=== PATIENT | female | born 1970 | race Caucasian/White ===

== ENCOUNTER 2023-02-25 08:05 | Outpatient (REF) | payer MEDICAID, SELFPAY ==
[2023-02-25 10:52] LABS: Basophils Percent Auto 0.5 % (0-2); Eosinophils Absolute Auto 0.1 X10*3/uL (0.0-0.4); Eosinophils Percent Auto 1.1 % (0-4); Hematocrit 39.8 % (37.0-47.0); Hemoglobin 12.8 g/dl (12.0-16.0); Imm Gran Abs Auto 0.01 X10*3/uL (0.00-0.03); Imm Gran Pct Auto 0.2 % (0.0-0.4); Lymphocytes Absolute Auto 3.4 X10*3/uL (1.2-4.9); Lymphocytes Percent Auto 61.1 % (20-40); MANUAL DIFF FLAG SCAN; Mean Corpuscular HGB Conc 32.2 g/dl (31.0-35.0); Mean Corpuscular Hemoglobin 27.6 pg (27.0-33.0); Mean Platelet Volume 10.5 fL (9.4-12.3); Monocytes Absolute Auto 0.4 X10*3/uL (0.1-1.2); Monocytes Percent Auto 7.3 % (2-11); Neutrophils Absolute Auto 1.7 x10*3/uL (2.0-8.3); Neutrophils Percent Auto 29.8 % (45-73); Platelet Count 390 X10*3/uL (160-400); Red Blood Count 4.63 X10*6/uL (4.20-5.50); Red Cell Distribution Width 13.1 % (11.0-16.0); SCAN SMEAR FLAG 1; White Blood Count 5.6 X10*3/uL (4.8-10.8)
[2023-02-25 11:13] LABS: SLIDE REVIEW VERIFIED
[2023-02-25 11:26] LABS: Alanine Aminotransferase 23 U/L (0-31); Albumin Level 4.5 g/dL (3.5-5.0); Alkaline Phosphatase 88 U/L (39-117); Anion Gap 12 (12-20); Bilirubin Total 0.4 mg/dL (0.0-1.0); Blood Urea Nitrogen 13 mg/dL (9-16); C Reactive Protein 0.32 mg/dL (< or = 0.50); Calcium 10.2 mg/dL (8.4-10.2); Carbon Dioxide 26 mmol/L (22-29); Chloride 107 mmol/L (96-108); Estimated Glomerular Filt Rate > 60; Glucose Random 98 mg/dL (60-115); Potassium 4.2 mmol/L (3.3-5.1); Sodium 141 mmol/L (135-145); Total Protein 8.7 g/dL (6.5-8.0)
[2023-02-25 11:33] LABS: Erythrocyte Sedimentation Rate 22 MM/HR (0-20)
[2023-02-25 11:36] LABS: HBsAGNum1 0.25 S/CO (0.00-0.99); Hepatitis A Antibody IgM 0.11 Index (0-0.79); Hepatitis B Core Antibody Nonreactive (Nonreactive); Hepatitis B Surface Antigen Negative (Negative); ~HepC Num1 0.17 S/CO (0.00-0.79); ~Hepatitis A Antibody IgM Nonreactive (Nonreactive); ~Hepatitis B Surface Antibody NONREACTIVE (Nonreactive); ~Hepatitis C Antibody Nonreactive (Nonreactive)
[2023-02-25 11:43] LABS: Aspartate Amino Transferase 31 U/L (5-31)
[2023-02-27 19:09] LABS: TS Negative Control Passed; TS Panel A 0; TS Panel B 0; TS Positive Control Passed; TSpotTB Negative (Negative)
== END 2023-02-25 08:06 | disposition home or self-care (01) ==
LOC: HO.XRAY 08:05
PROVIDERS: PCP Physician Assistant; Visit Provider Student in an Organized Health Care Education/Training Program
DX: Z11.7 Encounter for testing for latent tuberculosis infection (principal); Z11.59 Encounter for screening for other viral diseases; M45.8 Ankylosing spondylitis sacral and sacrococcygeal region; D72.820 Lymphocytosis (symptomatic); M45.9 Ankylosing spondylitis of unspecified sites in spine
CPT/HCPCS: 36415; 73110; 73130; 73610; 73630; 80053; 85025; 85652; 86140; 86481; 86704; 86706; 86709; 86803; 87340; 99202

== ENCOUNTER 2023-02-25 08:05 | Outpatient (AMB) | payer MEDICAID, SELFPAY ==
--- NOTE | 2023-02-25 08:46 | A.OFFVIS_ITS ---
Intake Vital Signs 02/25/23 08:50 Height 5 ft 8 in Weight 203 lb 14.841 oz BMI 31.0 BP 110/80 Blood Pressure Location Rt brachial Position Sitting Pulse 85 Pulse Source Pulse Oximeter Temp 97.9 F Temp Source Skin Pulse Oximetry (%) 98 Oxygen Delivery Method Room Air Intake Visit Reasons: Intake Note: New pt presents today for consult. Reports pain in multiple joints and back. Former patient of Dr. Munoz and Dr. Pardo. Currently on Humira. PCP has been filling script. 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 Per patient she was started on Humira back in 2017 and it was a miracle drug for her. Over the years its efficacy waned. Towards the end of 2021. Dr. Pardo ask patient to hold the Humira due to persistent neutropenia and lymphocytosis. She was evaluated by cloud consultant Dr. Rehman early in 2022 according to patient she had extensive evaluation and was told that can continue with biologic treatment. She states that when Humira was restarted this time it is as if she is not taking anything. She has persistent mid to low back pain. She has morning stiffness of her back lasting at least 30 minutes. Over the years she was taking Celebrex but it did cause plenty of GI problems. An EGD showed hiatal hernia and esophagitis with ulcers. Patient also has known history of scoliosis and degenerative disc disease of her L-spine. She had L- spine surgery in 2000. Has been following up regularly with Dr. Jj for years and received numerous steroid injections in her back including epidurals and SI joint injections. She states that she gets intermittent peripheral joint pains. She has been having left ankle pain recently. She denies any history suggestive of psoriasis. No history suggestive of uveitis. No history suggestive of inflammatory bowel disease. She mentions that her sister might have Crohn's or ulcerative colitis but she is not sure. She has not been in contact with her sister for more than 12 years. Previous history by Dr. Munoz? Follow-up HLA B27 positive ankylosing spondylitis, sacroiliitis on x-ray, inflammatory symptoms, response to NSAIDs Initially started Humira 08/2018.? Sobeida noticed marked improvements in her back symptoms at a.m. stiffness.?? She was able to walk up and down stairs.? Perform daily household duties, all without significant pain.? However Humira effectiveness weight somewhat.? Still vastly improved, but with some discomfort.? Has found Celebrex useful, but takes it sparingly due to significant reflux symptoms? She is taking narcotics for mechanical back symptoms sees Dr. Jj History of mild Raynaud's.? She has Alesia's thyroiditis. [facility] Medical History (Updated 02/25/23 @ 09:46 by Sara Lanza MD) Morphea Scoliosis deformity of spine Hypothyroidism Chronic low back pain Ankylosing spondylitis Raynaud's disease Surgical History (Updated 02/25/23 @ 09:41 by Sara Lanza MD) S/P ACL repair H/O basal cell carcinoma excision Family History Mother Mental disorder Father Parkinson disease Sister Thyroid malignant neoplasm Maternal Grandfather Myocardial infarction Maternal Grandmother Pancreatic tumor Diabetes Daughter Hypermobile joints Social History Household Members: Spouse Alcohol intake: current Alcohol intake frequency: holidays/special occasions only Patient Tobacco Use Status: Former Tobacco user Current occupational status: unemployed Female Reproductive History Menstrual Total pregnancies: 2 Ab induced: 1 Ab spontaneous: 1 Review of Systems Const Reports fatigue and Reports weakness Eyes Reports blurry vision ENT Reports dizziness and Reports dry mouth GI Reports heartburn and Reports vomiting Reports vaginal dryness Musc Reports back pain, Reports arthralgias and Reports stiffness Neuro Reports dizziness and Reports weakness Endo Reports fatigue Physical Exam Vital Signs: Last Vital Signs Temp 97.9 F 02/25/23 08:50 Pulse 85 02/25/23 08:50 BP 110/80 02/25/23 08:50 Pulse Ox 98 02/25/23 08:50 Oxygen Delivery Method Room Air 02/25/23 08:50 BMI result Body Mass Index 31.0 Const General: cooperative, healthy appearing and comfortable Nutritional Appearance: obese Orientation/consciousness: patient oriented x3 Limitations: no limitations HEENT Head: Yes normocephalic and Yes atraumatic Mouth: moist mucous membranes Resp Effort & Inspection: normal respiratory effort and able to speak in complete sentences Auscultation: clear to auscultation bilaterally Cardio Rate: regular rate Rhythm: regular rhythm GI Inspection: No distended Palpation (GI): Soft to palpation and nontender Skin General skin exam: no rashes or lesions noted Neuro General: patient oriented x3 Extrem Other: Limited neck rotation to the left Yecenia test 10-11 cm Significant scoliosis Hypermobile joints Bony prominence of left index DIP without tenderness No swollen joints on exam Negative straight leg raise test bilaterally Equivocal MATY test bilaterally Left ankle tenderness without swelling No nail pits Normal nailfold capillaroscopy Results Reviewed Results Reviewed: L-spine x-ray (not sure of the date) 1. Left convex spinal curvature with disc space narrowing from L3-4 through L5- S1 and osteophytic spurring most pronounced on the left at L4-5.? No definite change from 2017? 2. No acute bony abnormality 3. Sacroiliac joint space narrowing bilaterally with sclerotic change suggesting sacroiliitis L-spine MRI 2016 Impression: Bone and disc degenerative change but without prominent progression since prior examination of December 2014. There is some slightly progressive degenerative change across L4-5 on the left with equivocally slightly increased mass effect in the left L4 nerve root as it but no new focal disc abnormality or progressive central canal stenosis is appreciated. Acute and chronic degenerative changes present across the L4-5 and L5-S1 endplates X-ray pelvis 06/2022 Comparison 06/2018 Impression: Prominent but stable sclerosis along the SI joint its margins consistent with sacroiliitis. No gross erosions or ankylosis apparent on AP imaging Spine x-ray 06/2022 Comparison 04/2013 Impression: Progression of scoliotic curvatures. Particularly at the T11-L4 level since 2013 Assessment & Plan Assessment & Plan (1) Ankylosing spondylitis: Comment: HLA b27 + onset around 2016 sacroiliitis on X-ray Celebrex helpful but causes GI upset, esophagitis Humira 2018 initially helpful then has secondary non response Code(s): M45.9 - Ankylosing spondylitis of unspecified sites in spine Qualifiers: Ankylosing spondylitis location: sacrococcygeal region Qualified Code(s): M45.8 - Ankylosing spondylitis sacral and sacrococcygeal region Plan: This is a 52-year-old female with HLA B27 positive with sacroiliitis who presents as a new patient. 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 Upon evaluation patient is having secondary nonresponse to Humira. It is no longer helping her symptoms. Check labs today. Check x-rays of hands, feet, ankles. Will need to switch DMARDs. Discussed risks and benefits of Enbrel. Patient agreed to proceed. Will start prior authorization for Enbrel. Follow-up in 3 months (2) Lymphocytosis: Code(s): D72.820 - Lymphocytosis (symptomatic) Plan: Patient was found to have lymphocytosis and mild neutropenia on previous labs. Per patient she was evaluated by a cloud consultant Dr. Rehman and testing was done and was told that she can continue with biologics. Will request records from Dr. Rehman Plan I spent 65 minutes reviewing patient's chart, evaluating patient, ordering diagnostic workup, counseling patient and documenting in the chart Orders: Orders Complete Blood Count Auto Diff Today M45.9 - Ankylosing spondylitis of unspecified sites in spine Comprehensive Met. Panel Today M45.9 - Ankylosing spondylitis of unspecified sites in spine Erythrocyte Sedimentation Rate Today M45.9 - Ankylosing spondylitis of unspecified sites in spine T Spot TB Today Z11.7 - Encounter for testing for latent tuberculosis infection XR ankle LT min 3V Today M45.9 - Ankylosing spondylitis of unspecified sites in spine C Reactive Protein Today M45.9 - Ankylosing spondylitis of unspecified sites in spine Hepatitis A,B,C Profile Today Z11.59 - Encounter for screening for other viral diseases XR hand wrist LT Today M45.9 - Ankylosing spondylitis of unspecified sites in spine XR hand wrist RT Today M45.9 - Ankylosing spondylitis of unspecified sites in spine XR ankle RT min 3V Today M45.9 - Ankylosing spondylitis of unspecified sites in spine XR foot LT min 3V Today M45.9 - Ankylosing spondylitis of unspecified sites in spine XR foot RT min 3V Today M45.9 - Ankylosing spondylitis of unspecified sites in spine Coding Level of Care Code New Pt Level 5 (34157) Diagnoses Ankylosing spondylitis of sacrococcygeal region M45.8 Ankylosing spondylitis location: sacrococcygeal region Lymphocytosis D72.820
[2023-02-25 08:50] VITALS: BP 110/80; PULSE 85; TEMP 36.6; O2SAT 98; BMI 31.0
== END 2023-02-25 09:32 | disposition home or self-care (01) ==
PROVIDERS: PCP Physician Assistant; Visit Provider Student in an Organized Health Care Education/Training Program
DX: M45.8 Ankylosing spondylitis sacral and sacrococcygeal region (principal); D72.820 Lymphocytosis (symptomatic)
CPT/HCPCS: 99205

== ENCOUNTER 2023-05-28 08:07 | Outpatient (AMB) | payer OTHER, SELFPAY ==
--- NOTE | 2023-05-28 08:16 | MHC.OFFVIS ---
Intake Vital Signs 05/28/23 08:17 Height 5 ft 8 in Weight 203 lb 4.259 oz BMI 30.9 BP 106/60 Blood Pressure Location Rt brachial Position Sitting Pulse 75 Pulse Source Pulse Oximeter Temp 97.0 F Temp Source Skin Pulse Oximetry (%) 97 Oxygen Delivery Method Room Air Intake Visit Reasons: Intake Note: Patient last seen 02/15/23 presents today for follow up and test results. 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 She has been on Enbrel for approximately 3 months now, she states that she is about 50% improved improved back stiffness, bilateral hand pain and stiffness in the morning. She continues however to have pain in her lower back. She has been having lower back pain as well as tailbone pain. She was recently evaluated by her pain medicine physician and tailbone injection was suggested she states that she gets intermittent pain at the base of her thumbs. They do not hurt today Initial history: This is a 52-year-old female with HLA B27 positive ankylosing spondylitis who presents as a new patient. 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 Per patient she was started on Humira back in 2017 and it was a miracle drug for her. Over the years its efficacy waned. Towards the end of 2021. Dr. Pardo ask patient to hold the Humira due to persistent neutropenia and lymphocytosis. She was evaluated by lithographic plate maker apprentice Dr. Rehman early in 2022 according to patient she had extensive evaluation and was told that can continue with biologic treatment. She states that when Humira was restarted this time it is as if she is not taking anything. She has persistent mid to low back pain. She has morning stiffness of her back lasting at least 30 minutes. Over the years she was taking Celebrex but it did cause plenty of GI problems. An EGD showed hiatal hernia and esophagitis with ulcers. Patient also has known history of scoliosis and degenerative disc disease of her L-spine. She had L-spine surgery in 2000. Has been following up regularly with Dr. Jj for years and received numerous steroid injections in her back including epidurals and SI joint injections. She states that she gets intermittent peripheral joint pains. She has been having left ankle pain recently. She denies any history suggestive of psoriasis. No history suggestive of uveitis. No history suggestive of inflammatory bowel disease. She mentions that her sister might have Crohn's or ulcerative colitis but she is not sure. She has not been in contact with her sister for more than 12 years. Previous history by Dr. Munoz? Follow-up HLA B27 positive ankylosing spondylitis, sacroiliitis on x-ray, inflammatory symptoms, response to NSAIDs Initially started Humira 08/2018.? Sobeida noticed marked improvements in her back symptoms at a.m. stiffness.?? She was able to walk up and down stairs.? Perform daily household duties, all without significant pain.? However Humira effectiveness weight somewhat.? Still vastly improved, but with some discomfort.? Has found Celebrex useful, but takes it sparingly due to significant reflux symptoms? She is taking narcotics for mechanical back symptoms sees Dr. Jj History of mild Raynaud's.? She has Alesia's thyroiditis. [facility] Medical History Morphea Scoliosis deformity of spine Hypothyroidism Chronic low back pain Ankylosing spondylitis Raynaud's disease Surgical History S/P ACL repair H/O basal cell carcinoma excision Family History Mother Mental disorder Father Parkinson disease Sister Thyroid malignant neoplasm Maternal Grandfather Myocardial infarction Maternal Grandmother Pancreatic tumor Diabetes Daughter Hypermobile joints Social History Household Members: Spouse Alcohol intake: current Alcohol intake frequency: holidays/special occasions only Patient Tobacco Use Status: Former Tobacco user Current occupational status: unemployed [place] [facility] [place] pain, Reports arthralgias and Reports stiffness Physical Exam Vital Signs: Last Vital Signs Temp 97.0 F 05/28/23 08:17 Pulse 75 05/28/23 08:17 BP 106/60 05/28/23 08:17 Pulse Ox 97 05/28/23 08:17 Oxygen Delivery Method Room Air 05/28/23 08:17 BMI result Body Mass Index 30.9 Const General: cooperative, healthy appearing and comfortable Nutritional Appearance: obese Orientation/consciousness: patient oriented x3 Limitations: no limitations HEENT Head: Yes normocephalic and Yes atraumatic Mouth: moist mucous membranes Resp Effort & Inspection: normal respiratory effort and able to speak in complete sentences Auscultation: clear to auscultation bilaterally Cardio Rate: regular rate Rhythm: regular rhythm GI Inspection: No distended Palpation (GI): Soft to palpation and nontender Skin General skin exam: no rashes or lesions noted Neuro General: patient oriented x3 Extrem Other: Yecenia test 10-12 cm Significant scoliosis Hypermobile joints Bony prominence of left index DIP without tenderness No swollen joints on exam Negative straight leg raise test bilaterally Equivocal MATY test bilaterally Left ankle tenderness without swelling No nail pits Normal nailfold capillaroscopy Results Reviewed Results Reviewed: L-spine x-ray (not sure of the date) 1. Left convex spinal curvature with disc space narrowing from L3-4 through L5-S1 and osteophytic spurring most pronounced on the left at L4-5.? No definite change from 2017? 2. No acute bony abnormality 3. Sacroiliac joint space narrowing bilaterally with sclerotic change suggesting sacroiliitis L-spine MRI 2016 Impression: Bone and disc degenerative change but without prominent progression since prior examination of December 2014. There is some slightly progressive degenerative change across L4-5 on the left with equivocally slightly increased mass effect in the left L4 nerve root as it but no new focal disc abnormality or progressive central canal stenosis is appreciated. Acute and chronic degenerative changes present across the L4-5 and L5-S1 endplates X-ray pelvis 06/2022 Comparison 06/2018 Impression: Prominent but stable sclerosis along the SI joint its margins consistent with sacroiliitis. No gross erosions or ankylosis apparent on AP imaging Spine x-ray 06/2022 Comparison 04/2013 Impression: Progression of scoliotic curvatures. Particularly at the T11-L4 level since 2014 Assessment & Plan Assessment & Plan (1) Ankylosing spondylitis: Comment: HLA b27 + onset around 2016 sacroiliitis on X-ray Celebrex helpful but causes GI upset, esophagitis Humira 2018 initially helpful then has secondary non response Enbrel 03/2023 effective Code(s): M45.9 - Ankylosing spondylitis of unspecified sites in spine Qualifiers: Ankylosing spondylitis location: sacrococcygeal region Qualified Code(s): M45.8 - Ankylosing spondylitis sacral and sacrococcygeal region Plan: This is a 52-year-old female with HLA B27 positive with sacroiliitis who presents for follow-up. She has been on Enbrel consistently for approximately 3 months now with about 50% improvement in her overall pain. Of note patient has significant degenerative arthritis, as well as scoliosis, multiple pain generators. No objection to further intra-articular injections from Rheumatology standpoint Continue with Enbrel 50 mg weekly. 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 Patient fully aware. Advised patient to seek medical care [facility] if patient has an infection and advised patient to stop the medication until the infection is resolved. Plan I spent 25 minutes reviewing patient's chart, evaluating patient, ordering diagnostic workup, counseling patient and documenting in the chart Orders: Orders Comprehensive Met. Panel Today M45.9 - Ankylosing spondylitis of unspecified sites in spine C Reactive Protein Today M45.9 - Ankylosing spondylitis of unspecified sites in spine Complete Blood Count Auto Diff 3 Months M45.9 - Ankylosing spondylitis of unspecified sites in spine Comprehensive Met. Panel 3 Months M45.9 - Ankylosing spondylitis of unspecified sites in spine C Reactive Protein 3 Months M45.9 - Ankylosing spondylitis of unspecified sites in spine Complete Blood Count Auto Diff Today M45.9 - Ankylosing spondylitis of unspecified sites in spine Erythrocyte Sedimentation Rate Today M45.9 - Ankylosing spondylitis of unspecified sites in spine Erythrocyte Sedimentation Rate 3 Months M45.9 - Ankylosing spondylitis of unspecified sites in spine Medications: Refilled Enbrel SureClick (etanercept) 50 mg subcut QWEEK 4 mL 2RF NS Coding Level of Care Code Est Pt Level 4 (48688) Diagnoses Ankylosing spondylitis of sacrococcygeal region M45.8 Ankylosing spondylitis location: sacrococcygeal region High risk medication use Z79.899
[2023-05-28 08:17] VITALS: BP 106/60; PULSE 75; TEMP 36.1; O2SAT 97; BMI 30.9
== END 2023-05-28 08:58 | disposition home or self-care (01) ==
PROVIDERS: PCP Physician Assistant; Visit Provider Student in an Organized Health Care Education/Training Program
DX: M45.8 Ankylosing spondylitis sacral and sacrococcygeal region (principal); Z79.899 Other long term (current) drug therapy
CPT/HCPCS: 99214

== ENCOUNTER → 2023-05-28 08:07 | Outpatient (BNVA) | payer OTHER, SELFPAY | PROVIDERS: PCP Physician Assistant; Visit Provider Student in an Organized Health Care Education/Training Program | DX: M45.8 Ankylosing spondylitis sacral and sacrococcygeal region (principal); Z79.899 Other long term (current) drug therapy | CPT/HCPCS: 99212 ==

== ENCOUNTER 2023-09-02 08:01 | Outpatient (AMB) | payer OTHER, SELFPAY ==
[2023-09-02 08:11] VITALS: BP 118/62; PULSE 81; O2SAT 99; BMI 30.8
--- NOTE | 2023-09-02 08:11 | MHC.OFFVIS ---
Vital Signs 09/02/23 08:11 Height 5 ft 8 in Weight 202 lb 13.204 oz BMI 30.8 BP 118/62 Blood Pressure Location Rt brachial Position Sitting Pulse 81 Pulse Source Pulse Oximeter Pulse Oximetry (%) 99 Oxygen Delivery Method Room Air Intake Visit Reasons: /LM Intake Note: Pt seen today for follow up. Reports flare up- increased in pain, fatigue. [place] [facility] [place] Spinner Frame Required: No Accompanied by: Spouse Allergies erythromycin base Adverse Reaction (Unknown, Unverified 09/02/23 08:19) Unknown Gtjylbi-AXT-HjP Reductase Inhibitor Adverse Reaction (Unknown, Verified 09/02/23 08:19) Muscle Pain Medication List - Last Reconciled 09/02/23 by Sara Lanza MD Enbrel SureClick (etanercept) 50 mg subcut QWEEK NS levothyroxine 100 mcg PO DAILY metoprolol succinate ER 25 mg PO DAILY oxycodone 10 mg PO QID rosuvastatin mg PO DAILY HPI Comments Details: 52-year-old female with HLA B27 positive ankylosing spondylitis returns for follow-up. She remains on Enbrel 50 mg weekly. She feels that Enbrel is not working anymore. Not as effective. She has been having worsening joint pains in her hands, ankles, toes, fingers, back. She denies any recent illness. Initial history: This is a 52-year-old female with HLA B27 positive ankylosing spondylitis who presents as a new patient. 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 Per patient she was started on Humira back in 2017 and it was a miracle drug for her. Over the years its efficacy waned. Towards the end of 2021. Dr. Pardo ask patient to hold the Humira due to persistent neutropenia and lymphocytosis. She was evaluated by paper twister tender Dr. Rehman early in 2022 according to patient she had extensive evaluation and was told that can continue with biologic treatment. She states that when Humira was restarted this time it is as if she is not taking anything. She has persistent mid to low back pain. She has morning stiffness of her back lasting at least 30 minutes. Over the years she was taking Celebrex but it did cause plenty of GI problems. An EGD showed hiatal hernia and esophagitis with ulcers. Patient also has known history of scoliosis and degenerative disc disease of her L-spine. She had L-spine surgery in 2000. Has been following up regularly with Dr. Jj for years and received numerous steroid injections in her back including epidurals and SI joint injections. She states that she gets intermittent peripheral joint pains. She has been having left ankle pain recently. She denies any history suggestive of psoriasis. No history suggestive of uveitis. No history suggestive of inflammatory bowel disease. She mentions that her sister might have Crohn's or ulcerative colitis but she is not sure. She has not been in contact with her sister for more than 12 years. Previous history by Dr. Munoz? Follow-up HLA B27 positive ankylosing spondylitis, sacroiliitis on x-ray, inflammatory symptoms, response to NSAIDs Initially started Humira 08/2018.? Sobeida noticed marked improvements in her back symptoms at a.m. stiffness.?? She was able to walk up and down stairs.? Perform daily household duties, all without significant pain.? However Humira effectiveness weight somewhat.? Still vastly improved, but with some discomfort.? Has found Celebrex useful, but takes it sparingly due to significant reflux symptoms? She is taking narcotics for mechanical back symptoms sees Dr. Jj History of mild Raynaud's.? She has Alesia's thyroiditis. [facility] Medical History Morphea Scoliosis deformity of spine Hypothyroidism Chronic low back pain Ankylosing spondylitis Raynaud's disease Surgical History S/P ACL repair H/O basal cell carcinoma excision Family History Mother Mental disorder Father Parkinson disease Sister Thyroid malignant neoplasm Maternal Grandfather Myocardial infarction Maternal Grandmother Pancreatic tumor Diabetes Daughter Hypermobile joints Social History Household Members: Spouse Alcohol intake: current Alcohol intake frequency: holidays/special occasions only Patient Tobacco Use Status: Former Tobacco user Current occupational status: unemployed Female Reproductive History Menstrual Total pregnancies: 2 Ab induced: 1 Ab spontaneous: 1 Review of Systems Musc Reports back pain, Reports arthralgias, Reports joint swelling and Reports stiffness Physical Exam Vital Signs: Last Vital Signs Pulse 81 06/25/24 08:11 BP 118/62 09/02/23 08:11 Pulse Ox 99 09/02/23 08:11 Oxygen Delivery Method Room Air 09/02/23 08:11 BMI result Body Mass Index 30.8 Const General: cooperative, healthy appearing and comfortable Nutritional Appearance: obese Orientation/consciousness: patient oriented x3 Limitations: no limitations HEENT Head: Yes normocephalic and Yes atraumatic Mouth: moist mucous membranes Resp Effort & Inspection: normal respiratory effort and able to speak in complete sentences Auscultation: clear to auscultation bilaterally Cardio Rate: regular rate Rhythm: regular rhythm GI Inspection: No distended Palpation (GI): Soft to palpation and nontender Skin General skin exam: no rashes or lesions noted Neuro General: patient oriented x3 Extrem Other: Yecenia test 10-12 cm Significant scoliosis Hypermobile joints Bony prominence of left index DIP + tenderness Right 1st CMC joint tenderness Negative straight leg raise test bilaterally No nail pits Normal nailfold capillaroscopy Results Reviewed Results Reviewed: L-spine x-ray (not sure of the date) 1. Left convex spinal curvature with disc space narrowing from L3-4 through L5-S1 and osteophytic spurring most pronounced on the left at L4-5.? No definite change from 2017? 2. No acute bony abnormality 3. Sacroiliac joint space narrowing bilaterally with sclerotic change suggesting sacroiliitis L-spine MRI 2016 Impression: Bone and disc degenerative change but without prominent progression since prior examination of December 2014. There is some slightly progressive degenerative change across L4-5 on the left with equivocally slightly increased mass effect in the left L4 nerve root as it but no new focal disc abnormality or progressive central canal stenosis is appreciated. Acute and chronic degenerative changes present across the L4-5 and L5-S1 endplates X-ray pelvis 06/2022 Comparison 06/2018 Impression: Prominent but stable sclerosis along the SI joint its margins consistent with sacroiliitis. No gross erosions or ankylosis apparent on AP imaging Spine x-ray 06/2022 Comparison 04/2013 Impression: Progression of scoliotic curvatures. Particularly at the T11-L4 level since 2013 Assessment & Plan Assessment & Plan (1) Ankylosing spondylitis: Comment: HLA b27 + onset around 2016 sacroiliitis on X-ray Celebrex helpful but causes GI upset, esophagitis Humira 2018 initially helpful then has secondary non response Enbrel 03/2023 effective Code(s): M45.9 - Ankylosing spondylitis of unspecified sites in spine Category: Medical Qualifiers: Ankylosing spondylitis location: sacrococcygeal region Qualified Code(s): M45.8 - Ankylosing spondylitis sacral and sacrococcygeal region Plan: This is a 52-year-old female with HLA B27 positive with sacroiliitis who presents for follow-up. On Enbrel 50 mg weekly. Doing much worse overall. Multiple tender joints. Inflammatory markers elevated. Patient likely developed secondary nonresponse to Enbrel. Will need to change mechanism of action. Discussed risks and benefits of Rinvoq. Discussed black box warning with potential increased risk of malignancy, cardiovascular events, thromboembolic phenomenon, patient agreed to proceed. I provided patient with Rinvoq sample for 4 weeks. Advised patient to get the Shingrix vaccine 1st dose as soon as she can, then start Rinvoq, get the 2nd Shingrix vaccine dose afterwards. Advised patient to call the clinic in 3-4 weeks if she feels improvement and we will work on prior authorization for Rinvoq Labs before next visit in 2 months (2) High risk medication use: Code(s): Z79.899 - Other fci (current) drug therapy Category: Medical Plan: Side effects of Rinvoq discussed with patient including black box warning as mentioned above as well as increased risk of infections Plan I spent 25 minutes reviewing patient's chart, evaluating patient, ordering diagnostic workup, counseling patient and documenting in the chart Orders: Orders Complete Blood Count Auto Diff 2 Months M45.8 - Ankylosing spondylitis sacral and sacrococcygeal region, Z79.899 - Other termite renewal inspector (current) drug therapy C Reactive Protein 2 Months M45.8 - Ankylosing spondylitis sacral and sacrococcygeal region, Z79.899 - Other termite renewal inspector (current) drug therapy Erythrocyte Sedimentation Rate 2 Months M45.8 - Ankylosing spondylitis sacral and sacrococcygeal region, Z79.899 - Other termite renewal inspector (current) drug therapy Comprehensive Met. Panel 2 Months M45.8 - Ankylosing spondylitis sacral and sacrococcygeal region, Z79.899 - Other termite renewal inspector (current) drug therapy Medications: New upadacitinib ER (Rinvoq) lot # [id number] Exp date: 11/29/24 2 sample boxes 15 mg PO DAILY 28 tabs 0RF Discontinued Enbrel SureClick (etanercept) Discontinued Reason: Doctor's Order 50 mg subcut QWEEK 4 mL 2RF NS Coding Level of Care Code Est Pt Level 4 (90194) Diagnoses Ankylosing spondylitis of sacrococcygeal region M45.8 Ankylosing spondylitis location: sacrococcygeal region High risk medication use Z79.899
== END 2023-09-02 08:47 | disposition home or self-care (01) ==
PROVIDERS: PCP Physician Assistant; Visit Provider Student in an Organized Health Care Education/Training Program
DX: M45.8 Ankylosing spondylitis sacral and sacrococcygeal region (principal); Z79.899 Other long term (current) drug therapy
CPT/HCPCS: 99214

== ENCOUNTER → 2023-09-02 08:01 | Outpatient (BNVA) | payer OTHER, SELFPAY | PROVIDERS: PCP Physician Assistant; Visit Provider Student in an Organized Health Care Education/Training Program | DX: M45.8 Ankylosing spondylitis sacral and sacrococcygeal region (principal); Z79.899 Other long term (current) drug therapy | CPT/HCPCS: 99212 ==

== ENCOUNTER 2023-11-05 10:58 | Outpatient (AMB) | payer OTHER, SELFPAY ==
[2023-11-05 11:07] VITALS: BP 122/72; PULSE 71; O2SAT 99; BMI 30.8
--- NOTE | 2023-11-05 11:07 | A.OFFVIS_ITS ---
Vital Signs 11/05/23 11:07 Height 5 ft 8 in Weight 202 lb 6.15 oz BMI 30.8 BP 122/72 Blood Pressure Location Lt brachial Position Sitting Pulse 71 Pulse Source Pulse Oximeter Pulse Oximetry (%) 99 Oxygen Delivery Method Room Air Intake Visit Reasons: Intake Note: Patient presents today for follow up on and lab review. She was last seen on 09/02/2023. Accompanied by: Spouse Allergies erythromycin base Adverse Reaction (Unknown, Unverified 11/05/23 11:19) Unknown Jntkurx-MZA-EgH Reductase Inhibitor Adverse Reaction (Unknown, Verified 11/05/23 11:19) Muscle Pain Medication List - Last Reconciled 11/05/23 by Sara Lanza MD coenzyme Q10 60 mg PO DAILY [gREENS CAPULE PO] levothyroxine 100 mcg PO DAILY magnesium citrate 400 mg PO BID metoprolol succinate ER 25 mg PO DAILY multivitamin 1 tab PO DAILY oxycodone 10 mg PO QID potassium gluconate 600 mg PO DAILY rosuvastatin mg PO DAILY Taltz Syringe (ixekizumab) 80 mg subcut Q4W NS [tulsiholybasil PO] HPI Comments Details: 52-year-old female with HLA B27 positive ankylosing spondylitis returns for follow-up. She started Taltz 2 months ago. She states that she feels about the same. It did not help much. She continues to have significant pain and stiffness in her lower and mid back. Morning stiffness of her back lasts at least 1 hour, she also has pain at the base of her right thumb as well as pain in her left 2nd and 3rd DIPs. The pain in the hands is more functional, it comes on with activity. She stated that she has been more active at home as people moved in. She has been having significant fatigue. Denies any recent illnesses Initial history: This is a 52-year-old female with HLA B27 positive ankylosing spondylitis who presents as a new patient. 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 Per patient she was started on Humira back in 2017 and it was a miracle drug for her. Over the years its efficacy waned. Towards the end of 2021. Dr. Pardo ask patient to hold the Humira due to persistent neutropenia and lymphocytosis. She was evaluated by forest and conservation worker Dr. Rehman early in 2022 according to patient she had extensive evaluation and was told that can continue with biologic treatment. She states that when Humira was restarted this time it is as if she is not taking anything. She has persistent mid to low back pain. She has morning stiffness of her back lasting at least 30 minutes. Over the years she was taking Celebrex but it did cause plenty of GI problems. An EGD showed hiatal hernia and esophagitis with ulcers. Patient also has known history of scoliosis and degenerative disc disease of her L-spine. She had L- spine surgery in 2000. Has been following up regularly with Dr. Jj for years and received numerous steroid injections in her back including epidurals and SI joint injections. She states that she gets intermittent peripheral joint pains. She has been having left ankle pain recently. She denies any history suggestive of psoriasis. No history suggestive of uveitis. No history suggestive of inflammatory bowel disease. She mentions that her sister might have Crohn's or ulcerative colitis but she is not sure. She has not been in c ontact with her sister for more than 12 years. Previous history by Dr. Munoz? Follow-up HLA B27 positive ankylosing spondylitis, sacroiliitis on x-ray, inflammatory symptoms, response to NSAIDs Initially started Humira 08/2018.? Sobeida noticed marked improvements in her back symptoms at a.m. stiffness.?? She was able to walk up and down stairs.? Perform daily household duties, all without significant pain.? However Humira effectiveness weight somewhat.? Still vastly improved, but with some discomfort.? Has found Celebrex useful, but takes it sparingly due to significant reflux symptoms? She is taking narcotics for mechanical back symptoms sees Dr. Jj History of mild Raynaud's.? She has Alesia's thyroiditis. [facility] Medical History Morphea Scoliosis deformity of spine Hypothyroidism Chronic low back pain Ankylosing spondylitis Raynaud's disease Surgical History S/P ACL repair H/O basal cell carcinoma excision Family History Mother Mental disorder Father Parkinson disease Sister Thyroid malignant neoplasm Maternal Grandfather Myocardial infarction Maternal Grandmother Pancreatic tumor Diabetes Daughter Hypermobile joints Social History Household Members: Spouse Alcohol intake: current Alcohol intake frequency: holidays/special occasions only Patient Tobacco Use Status: Former Tobacco user Current occupational status: unemployed Female Reproductive History Menstrual Total pregnancies: 2 Ab induced: 1 Ab spontaneous: 1 Review of Systems Musc Reports back pain, Reports arthralgias, Reports joint swelling and Reports stiffness Physical Exam Vital Signs: Last Vital Signs Pulse 71 11/05/23 11:07 BP 122/72 11/05/23 11:07 Pulse Ox 99 11/05/23 11:07 Oxygen Delivery Method Room Air 11/05/23 11:07 BMI result Body Mass Index 30.8 Const General: cooperative, healthy appearing and comfortable Nutritional Appearance: obese Orientation/consciousness: patient oriented x3 Limitations: no limitations HEENT Head: Yes normocephalic and Yes atraumatic Mouth: moist mucous membranes Resp Effort & Inspection: normal respiratory effort and able to speak in complete sentences Auscultation: clear to auscultation bilaterally Cardio Rate: regular rate Rhythm: regular rhythm GI Inspection: No distended Palpation (GI): Soft to palpation and nontender Skin General skin exam: no rashes or lesions noted Neuro General: patient oriented x3 Extrem Other: Yecenia test 10-12 cm Significant scoliosis Hypermobile joints Bony prominence of left 2nd and 3rd DIP + tenderness Right 1st CMC joint tenderness Negative straight leg raise test bilaterally No nail pits Normal nailfold capillaroscopy Results Reviewed Results Reviewed: L-spine x-ray (not sure of the date) 1. Left convex spinal curvature with disc space narrowing from L3-4 through L5- S1 and osteophytic spurring most pronounced on the left at L4-5.? No definite change from 2017? 2. No acute bony abnormality 3. Sacroiliac joint space narrowing bilaterally with sclerotic change suggesting sacroiliitis L-spine MRI 2017 Impression: Bone and disc degenerative change but without prominent progression since prior examination of December 2014. There is some slightly progressive degenerative change across L4-5 on the left with equivocally slightly increased mass effect in the left L4 nerve root as it but no new focal disc abnormality or progressive central canal stenosis is appreciated. Acute and chronic degenerative changes present across the L4-5 and L5-S1 endplates X-ray pelvis 06/2022 Comparison 06/2018 Impression: Prominent but stable sclerosis along the SI joint its margins consistent with sacroiliitis. No gross erosions or ankylosis apparent on AP imaging Spine x-ray 06/2022 Comparison 04/2013 Impression: Progression of scoliotic curvatures. Particularly at the T11-L4 level since 2013 Assessment & Plan Assessment & Plan (1) Ankylosing spondylitis: Comment: HLA b27 + onset around 2016 sacroiliitis on X-ray Celebrex helpful but causes GI upset, esophagitis Humira 2017 initially helpful then has secondary non response Enbrel 03/2023 DC 08/2023 due to secondary nonresponse Taltz 08/2023 Code(s): M45.9 - Ankylosing spondylitis of unspecified sites in spine Category: Medical Qualifiers: Ankylosing spondylitis location: sacrococcygeal region Qualified Code(s): M45.8 - Ankylosing spondylitis sacral and sacrococcygeal region Plan: This is a 52-year-old female with HLA B27 positive ankylosing spondylitis with sacroiliitis who presents for follow-up. She started Taltz about 2 months ago. Has not felt any significant improvement. Might be a little too early to assess response to Taltz Start prednisone taper for relief Labs before next visit in 2 months (2) High risk medication use: Code(s): Z79.899 - Other snf (current) drug therapy Category: Medical (3) Osteoarthritis of hands, bilateral: Code(s): M19.041 - Primary osteoarthritis, right hand; M19.042 - Primary osteoarthritis, left hand Category: Medical Plan: The right 1st CMC joint can be injected in the future (4) Lumbar degenerative disc disease: Code(s): M51.36 - Other intervertebral disc degeneration, lumbar region Category: Medical Plan: Follow-up with customer resource specialist Plan I spent 25 minutes reviewing patient's chart, evaluating patient, ordering diagnostic workup, counseling patient and documenting in the chart Orders: Orders Complete Blood Count Auto Diff 2 Months M45.8 - Ankylosing spondylitis sacral and sacrococcygeal region Comprehensive Met. Panel 2 Months M45.8 - Ankylosing spondylitis sacral and sacrococcygeal region C Reactive Protein 2 Months M45.8 - Ankylosing spondylitis sacral and sacrococcygeal region Erythrocyte Sedimentation Rate 2 Months M45.8 - Ankylosing spondylitis sacral and sacrococcygeal region Medications: New prednisone Take 3 tabs daily for 5 days, 2 tabs daily for 5 days, 1 tab daily for 5 days then stop 30 tabs 0RF Coding Level of Care Code Est Pt Level 4 (30499) Diagnoses Ankylosing spondylitis of sacrococcygeal region M45.8 Ankylosing spondylitis location: sacrococcygeal region High risk medication use Z79.899 Osteoarthritis of hands, bilateral M19.041; M19.042 Lumbar degenerative disc disease M51.36
== END 2023-11-05 11:40 | disposition home or self-care (01) ==
PROVIDERS: PCP Physician Assistant; Visit Provider Student in an Organized Health Care Education/Training Program
DX: M45.8 Ankylosing spondylitis sacral and sacrococcygeal region (principal); Z79.899 Other long term (current) drug therapy; M19.041 Primary osteoarthritis, right hand; M19.042 Primary osteoarthritis, left hand; M51.36 Other intervertebral disc degeneration, lumbar region
CPT/HCPCS: 99214

== ENCOUNTER → 2023-11-05 10:58 | Outpatient (BNVA) | payer OTHER, SELFPAY | PROVIDERS: PCP Physician Assistant; Visit Provider Student in an Organized Health Care Education/Training Program | DX: M45.8 Ankylosing spondylitis sacral and sacrococcygeal region (principal); M19.041 Primary osteoarthritis, right hand; M19.042 Primary osteoarthritis, left hand; M51.36 Other intervertebral disc degeneration, lumbar region; Z79.899 Other long term (current) drug therapy | CPT/HCPCS: 99212 ==

== ENCOUNTER 2024-02-26 09:46 | Outpatient (AMB) | payer OTHER, SELFPAY ==
--- NOTE | 2024-02-26 09:57 | MHC.OFFVIS ---
Vital Signs 02/26/24 10:00 Height 5 ft 8 in Weight 211 lb 3.245 oz BMI 32.1 BP 120/80 Blood Pressure Location Rt brachial Position Sitting Pulse 78 Pulse Source Pulse Oximeter Pulse Oximetry (%) 98 Oxygen Delivery Method Room Air Intake Visit Reasons: Intake Note: Patient presents for . Allergies erythromycin base Adverse Reaction (Unknown, Verified 02/26/24 10:00) Unknown Tpmyadj-NEC-JvW Reductase Inhibitor Adverse Reaction (Unknown, Verified 02/26/24 10:00) Muscle Pain Medication List - Last Reconciled 02/26/24 by Sara Lanza MD coenzyme Q10 60 mg PO DAILY [gREENS CAPULE PO] levothyroxine 100 mcg PO DAILY magnesium citrate 400 mg PO BID metoprolol succinate ER 25 mg PO DAILY multivitamin 1 tab PO DAILY oxycodone 10 mg PO QID potassium gluconate 600 mg PO DAILY prednisone Take 1 tab daily for 2 weeks then 1/2 tablet daily for 2 weeks then stop rosuvastatin mg PO DAILY [tulsiholybasil PO] HPI Comments Details: 53-year-old female with HLA B27 positive ankylosing spondylitis returns for follow-up. Taltz was discontinued about 2 months ago. Was not effective. She has remained on prednisone 5 mg daily. She states that prednisone has been very beneficial for her. She has been less achy and stiff overall. No significant joint swelling. She was able to pick and shovel worker her daughter. Has had more energy. She has gained 9 lb since she started it. Initial history: This is a 52-year-old female with HLA B27 positive ankylosing spondylitis who presents as a new patient. 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 Per patient she was started on Humira back in 2017 and it was a miracle drug for her. Over the years its efficacy waned. Towards the end of 2021. Dr. Pardo ask patient to hold the Humira due to persistent neutropenia and lymphocytosis. She was evaluated by whitewater rafting guide Dr. Rehman early in 2022 according to patient she had extensive evaluation and was told that can continue with biologic treatment. She states that when Humira was restarted this time it is as if she is not taking anything. She has persistent mid to low back pain. She has morning stiffness of her back lasting at least 30 minutes. Over the years she was taking Celebrex but it did cause plenty of GI problems. An EGD showed hiatal hernia and esophagitis with ulcers. Patient also has known history of scoliosis and degenerative disc disease of her L-spine. She had L-spine surgery in 2000. Has been following up regularly with Dr. Jj for years and received numerous steroid injections in her back including epidurals and SI joint injections. She states that she gets intermittent peripheral joint pains. She has been having left ankle pain recently. She denies any history suggestive of psoriasis. No history suggestive of uveitis. No history suggestive of inflammatory bowel disease. She mentions that her sister might have Crohn's or ulcerative colitis but she is not sure. She has not been in contact with her sister for more than 12 years. Previous history by Dr. Munoz? Follow-up HLA B27 positive ankylosing spondylitis, sacroiliitis on x-ray, inflammatory symptoms, response to NSAIDs Initially started Humira 08/2018.? Sobeida noticed marked improvements in her back symptoms at a.m. stiffness.?? She was able to walk up and down stairs.? Perform daily household duties, all without significant pain.? However Humira effectiveness weight somewhat.? Still vastly improved, but with some discomfort.? Has found Celebrex useful, but takes it sparingly due to significant reflux symptoms? She is taking narcotics for mechanical back symptoms sees Dr. Jj History of mild Raynaud's.? She has Alesia's thyroiditis. [facility] Medical History Morphea Scoliosis deformity of spine Hypothyroidism Chronic low back pain Ankylosing spondylitis Raynaud's disease Surgical History S/P ACL repair H/O basal cell carcinoma excision Family History Mother Mental disorder Father Parkinson disease Sister Thyroid malignant neoplasm Maternal Grandfather Myocardial infarction Maternal Grandmother Pancreatic tumor Diabetes Daughter Hypermobile joints Social History Household Members: Spouse Alcohol intake: current Alcohol intake frequency: holidays/special occasions only Patient Tobacco Use Status: Former Tobacco user Current occupational status: unemployed Female Reproductive History Menstrual Total pregnancies: 2 Ab induced: 1 Ab spontaneous: 1 Review of Systems Musc Reports back pain, Reports arthralgias, Denies joint swelling and Reports stiffness Physical Exam Vital Signs: Last Vital Signs Pulse 78 02/26/24 10:00 BP 120/80 02/26/24 10:00 Pulse Ox 98 02/26/24 10:00 Oxygen Delivery Method Room Air 02/26/24 10:00 BMI result Body Mass Index 32.1 Const General: cooperative, healthy appearing and comfortable Nutritional Appearance: obese Orientation/consciousness: patient oriented x3 Limitations: no limitations HEENT Head: Yes normocephalic and Yes atraumatic Resp Effort & Inspection: normal respiratory effort and able to speak in complete sentences Auscultation: clear to auscultation bilaterally Cardio Rate: regular rate Rhythm: regular rhythm GI Inspection: No distended Palpation (GI): Soft to palpation and nontender Skin General skin exam: no rashes or lesions noted Neuro General: patient oriented x3 Extrem Other: Significant scoliosis Hypermobile joints Bony prominence of left 2nd and 3rd DIP , no tenderness today Right 1st CMC joint tenderness Negative straight leg raise test bilaterally Negative Fabere test bilaterally No nail pits Normal nailfold capillaroscopy Assessment & Plan Assessment & Plan (1) Ankylosing spondylitis: Comment: HLA b27 + onset around 2016 sacroiliitis on X-ray Celebrex helpful but causes GI upset, esophagitis Humira 2017 initially helpful then has secondary non response Enbrel 03/2023 DC 08/2023 due to secondary nonresponse Taltz 08/2023 DC 12/2023 ineffective Code(s): M45.9 - Ankylosing spondylitis of unspecified sites in spine Category: Medical Qualifiers: Ankylosing spondylitis location: sacrococcygeal region Qualified Code(s): M45.8 - Ankylosing spondylitis sacral and sacrococcygeal region Plan: This is a 53-year-old female with HLA B27 positive ankylosing spondylitis with sacroiliitis who presents for follow-up. Taltz was discontinued about 2 months ago. Was not effective. She remains on prednisone 10 mg a day. It has helped her overall arthritic pains but she has gained significant weight and gets stomach upset with higher doses. Discussed our options, FATUMA inhibitors may be relatively contraindicated due to her current thrombocytosis. We discussed TNF inhibitors. Humira were ? for a few years then she had secondary nonresponse, Enbrel work for a few months and patient had secondary nonresponse. Discussed risks and benefits of Simponi . Patient agreed to proceed. We discussed injection versus infusion. Patient does not have transportation available at all times. She would prefer the injection. 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 Patient fully aware. Advised patient to seek medical care DARREN if patient has an infection and advised patient to stop the medication until the infection is resolved. (3) Osteoarthritis of hands, bilateral: Code(s): M19.041 - Primary osteoarthritis, right hand; M19.042 - Primary osteoarthritis, left hand Category: Medical Qualifiers: Osteoarthritis type: primary Qualified Code(s): M19.041 - Primary osteoarthritis, right hand; M19.042 - Primary osteoarthritis, left hand Plan: The right 1st CMC joint can be injected in the future, not particularly symptomatic today (4) Lumbar degenerative disc disease: Code(s): M51.36 - Other intervertebral disc degeneration, lumbar region Category: Medical Qualifiers: Disc-related pain type: unspecified whether pain present Qualified Code(s): M51.369 - Other intervertebral disc degeneration, lumbar region without mention of lumbar back pain or lower extremity pain Plan: Follow-up with activities specialist (5) Thrombocytosis: Code(s): D75.839 - Thrombocytosis, unspecified Category: Medical Plan: Mild anemia with thrombocytosis that is climbing, with normal inflammatory markers for her age. Advised patient to discuss with her PCP, she likely needs some workup and/or hematology evaluation Plan I spent 25 minutes reviewing patient's chart, evaluating patient, ordering diagnostic workup, counseling patient and documenting in the chart Orders: Orders Ferritin 3 Months D50.9 - Iron deficiency anemia, unspecified IRON PROFILE 3 Months D50.9 - Iron deficiency anemia, unspecified Transferrin 3 Months D50.9 - Iron deficiency anemia, unspecified Medications: New prednisone Take 1 tab daily for 2 weeks then 1/2 tablet daily for 2 weeks then stop 23 tabs 0RF Discontinued Taltz Syringe (ixekizumab) Discontinued Reason: Doctor's Order 80 mg subcut Q4W 1 mL 3RF NS prednisone Discontinued Reason: Doctor's Order 5 mg PO DAILY 30 tabs 1RF Coding Level of Care Code Est Pt Level 4 (75075) Complex EM visit Add On G2211 Diagnoses Ankylosing spondylitis of sacrococcygeal region M45.8 Ankylosing spondylitis location: sacrococcygeal region High risk medication use Z79.899 Primary osteoarthritis of both hands M19.041; M19.042 Osteoarthritis type: primary Degeneration of intervertebral disc of lumbar region, unspecified whether pain present M51.369 Disc-related pain type: unspecified whether pain present Thrombocytosis D75.839
[2024-02-26 10:00] VITALS: BP 120/80; PULSE 78; O2SAT 98; BMI 32.1
== END 2024-02-26 10:34 | disposition home or self-care (01) ==
PROVIDERS: PCP Physician Assistant; Visit Provider Student in an Organized Health Care Education/Training Program
DX: M45.8 Ankylosing spondylitis sacral and sacrococcygeal region (principal); Z79.899 Other long term (current) drug therapy; M19.041 Primary osteoarthritis, right hand; M19.042 Primary osteoarthritis, left hand; M51.369 Other intervertebral disc degeneration, lumbar region without mention of lumbar back pain or lower extremity pain; D75.839 Thrombocytosis, unspecified
CPT/HCPCS: 99214; G2211

== ENCOUNTER → 2024-02-26 09:46 | Outpatient (BNVA) | payer OTHER, SELFPAY | PROVIDERS: PCP Physician Assistant; Visit Provider Student in an Organized Health Care Education/Training Program | DX: M45.8 Ankylosing spondylitis sacral and sacrococcygeal region (principal); M46.1 Sacroiliitis, not elsewhere classified; M19.041 Primary osteoarthritis, right hand; M19.042 Primary osteoarthritis, left hand; M51.369 Other intervertebral disc degeneration, lumbar region without mention of lumbar back pain or lower extremity pain; D75.839 Thrombocytosis, unspecified; Z79.52 Long term (current) use of systemic steroids | CPT/HCPCS: 99212 ==

== ENCOUNTER 2024-06-04 12:18 | Outpatient (AMB) | payer OTHER, SELFPAY ==
[2024-06-04 12:34] VITALS: BP 120/68; PULSE 82; O2SAT 97; BMI 31.7
--- NOTE | 2024-06-04 12:34 | A.OFFVIS_ITS ---
Vital Signs 06/04/24 12:34 Height 5 ft 8 in Weight 208 lb 5.389 oz BMI 31.7 BP 120/68 Blood Pressure Location Lt brachial Position Sitting Pulse 82 Pulse Source Pulse Oximeter Pulse Oximetry (%) 97 Oxygen Delivery Method Room Air Intake Visit Reasons: Intake Note: Patient presents today for follow up on and lab review. She was last seen in the office by Dr. Lnaza on 02/26/24. Allergies erythromycin base Adverse Reaction (Unknown, Verified 06/04/24 12:39) Unknown Medication List - Last Reconciled 06/04/24 by Kelsy Martínez MD coenzyme Q10 60 mg PO DAILY ferrous sulfate (Phuong-Time) 325 mg PO DAILY golimumab (Simponi) 50 mg (0.5 mL) subcut Q4W [gREENS CAPULE PO] hydrocodone-acetaminophen 5-325 mg tabs PO levothyroxine 100 mcg PO DAILY magnesium citrate 400 mg PO BID metoprolol succinate ER 25 mg PO DAILY multivitamin 1 tab PO DAILY potassium gluconate 600 mg PO DAILY rosuvastatin mg PO DAILY [tulsiholybasil PO] HPI Comments Details: Patient is a 53-year-old female with hypothyroidism, hyperlipidemia, hypertension, polyarticular osteoarthritis, scoliosis and ankylosing spondylitis here today for follow up Interval History: Patient last seen 02/26/[address] Lanza. At that time she was following up for her ankylosing spondylitis. She had self-discontinued her Taltz which was not effective and was only on prednisolone 5 mg at that visit. She still had activity and so Simponi was started Patient doing well on Simponi. But she still has a stiffness in her left hand (primary left-handed) and pain in her knees which she attributes to her osteoarthritis Rheumatologic History: HLA b27 + onset around 2016 sacroiliitis on X-ray Celebrex helpful but causes GI upset, esophagitis Humira 2017 initially helpful then has secondary non response Enbrel 03/2023 DC 08/2023 due to secondary nonresponse Taltz 08/2023 DC 12/2023 ineffective Current Rheumatology Medication(s): Simponi 50mg every 4 weeks PFSH Medical History Morphea Scoliosis deformity of spine Hypothyroidism Chronic low back pain Ankylosing spondylitis Raynaud's disease Surgical History S/P ACL repair H/O basal cell carcinoma excision Family History Mother Mental disorder Father Parkinson disease Sister Thyroid malignant neoplasm Maternal Grandfather Myocardial infarction Maternal Grandmother Pancreatic tumor Diabetes Daughter Hypermobile joints Social History Household Members: Spouse Alcohol intake: current Alcohol intake frequency: holidays/special occasions on ly Patient Tobacco Use Status: Former Tobacco user Current occupational status: unemployed Review of Systems Const Details: Review of Systems Constitutional: Denies fever, chills, weight loss ENT: Denies vision changes, eye pain or eye redness, dental caries, dry mouth GI: Denies nausea, vomiting, diarrhea, abdominal pain, change in BM Pulm: Denies SOB, JUNG, hemoptysis, wheezing Cards: Denies chest pain, palpitations Skin: Denies Raynaud's, rash, nail changes, photosensitivity, ROLL PICKER: Denies headaches, weakness, paresthesias, recurrent falls MSK: as per HPI All other systems reviewed and are unremarkable except noted above Physical Exam Vital Signs: Last Vital Signs Pulse 82 06/04/24 12:34 BP 120/68 06/04/24 12:34 Pulse Ox 97 06/04/24 12:34 Oxygen Delivery Method Room Air 06/04/24 12:34 BMI result Body Mass Index 31.7 Vital signs reviewed Physical Examination CONSTITUITIONAL Patient alert and cooperative. Well appearing and in no apparent painful distress HEENT Conjunctiva and sclera clear. ?Pupils equal round and reactive to light. ?No lymphadenopathy. ? CHEST/RESPIRATORY SYSTEM Normal respiratory effort and able to speak in complete sentences. ?Clear to auscultation bilaterally. ?No crackles, rales, rhonchi, wheezes heard. CARDIAC SYSTEM Regular rate and rhythm. ?S1 and S2 heard no murmurs. 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 No deformities noted. ?No synovitis noted to the MCPs, PIPs or DIPs. ?Prominent Heberden and Santosh's nodes bilaterally more so on the left than the right. Some mild tenderness to palpation of the nodes. Wrists: ?Full range of motion at the wrists without pain. ?No tenderness to palpation or synovitis noted to the wrists. Elbows: Full range of motion without pain. No tenderness, weakness, swelling, in creased warmth or erythema. Shoulders: Full range of motion without pain. No tenderness, weakness, swelling, increased warmth or erythema. Knees: ?Full range of motion. ?No tenderness, swelling, increased warmth or erythema.? Crepitations felt Ankles: Full range of motion. ?No tenderness, swelling, increased warmth or erythema.? Feet: ?Negative squeeze test. ?No tenderness to palpation or swelling of the MTPs. Tender points:?No tenderness to palpation of the bilateral trapezius, supraspinatus, greater trochanters, anterior costochondral junctions, bilateral gluteal areas, bilateral suboccipital muscle insertions SKIN Skin intact without rashes. Results Reviewed Results Reviewed: [facility] labs reviewed 05/17/2024 CRP 3.3 Creatinine 0.9 GFR >60 AST/ALT 34/38 ESR 9 HB 12.3 WBC 4.96 Platelets 447 Assessment & Plan Assessment & Plan (1) Ankylosing spondylitis: Comment: HLA b27 + onset around 2016 sacroiliitis on X-ray Celebrex helpful but causes GI upset, esophagitis Humira 2018 initially helpful then has secondary non response Enbrel 03/2023 DC 08/2023 due to secondary nonresponse Taltz 08/2023 DC 12/2023 ineffective Code(s): M45.9 - Ankylosing spondylitis of unspecified sites in spine Category: Medical Qualifiers: Ankylosing spondylitis location: sacrococcygeal region Qualified Code(s): M45.8 - Ankylosing spondylitis sacral and sacrococcygeal region Plan: #Ankylosing spondylitis Patient is a 53-year-old female with HLA B27 positive ankylosing spondylitis here today for follow up. Patient currently in remission on Simponi subcutaneous injections. She still has some prolonged morning stiffness in her peripheral joints which is difficult to differentiate between osteo versus her underlying inflammatory arthritis. We will continue the Simponi injections and can consider adding methotrexate at the next visit. Plan - Simponi 50mg every 4 weeks - RTC 3 months - Labs before visit: CBC, CMP, ESR, CRP, hepatitis panel, T spot (2) Osteoarthritis of hands, bilateral: Code(s): M19.041 - Primary osteoarthritis, right hand; M19.042 - Primary osteoarthritis, left hand Category: Medical Qualifiers: Osteoarthritis type: primary Qualified Code(s): M19.041 - Primary osteoarthritis, right hand; M19.042 - Primary osteoarthritis, left hand Plan: #Bilateral hand OA Patient with polyarticular osteoarthritis but in particular she has bilateral hand osteoarthritis with left hand worse than right hand because she has left handed. Status post injection to the left 3rd PIP and left 2nd DIP. Plan - s/p injection to left 3rd PIP and 2nd DIP - Consider recommending parrafin ax baths at next visit (3) High risk medication use: Code(s): Z79.899 - Other manager intermediate (current) drug therapy Category: Medical Plan: #Long-term Use of TNF Inhibitors: Hay Discussed with the patient the benefits and risks of TNF inhibitors for the management of the rheumatic condition Benefits include reduce pain, maintenance of remission and reduction of flares as well as ?progression of the disease Risks include injection sites/infusion reactions, serious infections (such as bacterial infections, opportunistic infections), malignancy, delaminating syndromes, autoimmune phenomena, CHF exacerbations, palmar plantar psoriasis and cytopenias Recommended rotating injection sites, and holding medication during and for up to 1 week after resolution of a febrile illness or open skin wound Plan I spent 32 minutes reviewing the record and labs, taking a history, examining the patient, discussing the treatment plan, ordering diagnostic work up and documenting in the medical record Orders: Orders Complete Blood Count Auto Diff 3 Months M45.8 - Ankylosing spondylitis sacral and sacrococcygeal region Comprehensive Met. Panel 3 Months M45.8 - Ankylosing spondylitis sacral and sacrococcygeal region C Reactive Protein 3 Months M45.8 - Ankylosing spondylitis sacral and sacrococcygeal region Erythrocyte Sedimentation Rate 3 Months M45.8 - Ankylosing spondylitis sacral and sacrococcygeal region Hepatitis A,B,C Profile 3 Months M45.8 - Ankylosing spondylitis sacral and sacrococcygeal region T Spot TB 3 Months M45.8 - Ankylosing spondylitis sacral and sacrococcygeal region Coding Level of Care Code Est Pt Level 4 (59131) Complex EM visit Add On G2211 Diagnoses Ankylosing spondylitis of sacrococcygeal region M45.8 Ankylosing spondylitis location: sacrococcygeal region Primary osteoarthritis of both hands M19.041; M19.042 Osteoarthritis type: primary High risk medication use Z79.899
== END 2024-06-04 13:28 | disposition home or self-care (01) ==
LOC: HO.RHE 12:19
PROVIDERS: PCP Physician Assistant; Visit Provider Student in an Organized Health Care Education/Training Program
DX: M45.8 Ankylosing spondylitis sacral and sacrococcygeal region (principal); M19.041 Primary osteoarthritis, right hand; M19.042 Primary osteoarthritis, left hand; Z79.899 Other long term (current) drug therapy
CPT/HCPCS: 20600; 99214

== ENCOUNTER → 2024-06-04 12:18 | Outpatient (BNVA) | payer OTHER, SELFPAY | PROVIDERS: PCP Physician Assistant; Visit Provider Student in an Organized Health Care Education/Training Program | DX: M45.8 Ankylosing spondylitis sacral and sacrococcygeal region (principal); M19.041 Primary osteoarthritis, right hand; M19.042 Primary osteoarthritis, left hand; Z79.899 Other long term (current) drug therapy | CPT/HCPCS: 20600; 99212; J3300 ==

== ENCOUNTER 2024-09-16 11:06 | Outpatient (AMB) | payer OTHER, SELFPAY ==
--- NOTE | 2024-09-16 11:31 | MHC.OFFVIS ---
Vital Signs 09/16/24 11:36 Height 5 ft 8 in Weight 206 lb 5.643 oz BMI 31.4 BP 112/80 Blood Pressure Location Lt brachial Position Sitting Pulse 88 Pulse Source Pulse Oximeter Pulse Oximetry (%) 98 Oxygen Delivery Method Room Air Intake Visit Reasons: Intake Note: Patient presents for follow up. Patient c/o of bone pain, LT shoulder and back pain. Allergies erythromycin base Adverse Reaction (Unknown, Verified 09/16/24 11:34) Unknown Medication List - Last Reconciled 09/16/24 by Kelsy Martínez MD coenzyme Q10 60 mg PO DAILY ferrous sulfate (Phuong-Time) 325 mg PO DAILY golimumab (Simponi) 50 mg (0.5 mL) subcut Q4W [gREENS CAPULE PO] hydrocodone-acetaminophen 5-325 mg tabs PO levothyroxine 100 mcg PO DAILY magnesium citrate 400 mg PO BID metoprolol succinate ER 25 mg PO DAILY multivitamin 1 tab PO DAILY potassium gluconate 600 mg PO DAILY rosuvastatin mg PO DAILY [tulsiholybasil PO] HPI Comments Details: Patient is a 53-year-old female with hypothyroidism, hyperlipidemia, hypertension, GERD with hiatal hernia, polyarticular osteoarthritis, scoliosis and ankylosing spondylitis here today for follow up Interval History: Patient last seen 06/04/24 - in remission on simponi - Received PIP injections x 2 Today - injections helped - experiencing more back pain - unable to take NSAIDs due hiatal hernia Rheumatologic History: HLA b27 + onset around 2016 sacroiliitis on X-ray Celebrex helpful but causes GI upset, esophagitis Humira 2017 initially helpful then has secondary non response Siomara 03/2023 DC 08/2023 due to secondary nonresponse Karthikeyan 08/2023 DC 12/2023 ineffective Current Rheumatology Medication(s): Simponi 50mg every 4 weeks [facility] Medical History Morphea Scoliosis deformity of spine Hypothyroidism Chronic low back pain Ankylosing spondylitis Raynaud's disease Surgical History S/P ACL repair H/O basal cell carcinoma excision Family History Mother Mental disorder Father Parkinson disease Sister Thyroid malignant neoplasm Maternal Grandfather Myocardial infarction Maternal Grandmother Pancreatic tumor Diabetes Daughter Hypermobile joints Social History Household Members: Spouse Alcohol intake: current Alcohol intake frequency: holidays/special occasions only Patient Tobacco Use Status: Former Tobacco user Current occupational status: unemployed Review of Systems Const Details: Review of Systems Constitutional: Denies fever, chills, weight loss ENT: Denies vision changes, eye pain or eye redness, dental caries, dry mouth GI: Denies nausea, vomiting, diarrhea, abdominal pain, change in BM Pulm: Denies SOB, JUNG, hemoptysis, wheezing Cards: Denies chest pain, palpitations Skin: Denies Raynaud's, rash, nail changes, photosensitivity, 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 Well appearing and in no apparent painful distress HEENT Conjunctiva and sclera clear. ?Pupils equal round and reactive to light. ?No lymphadenopathy. ? CHEST/RESPIRATORY SYSTEM Normal respiratory effort and able to speak in complete sentences. ?Clear to auscultation bilaterally. ?No crackles, rales, rhonchi, wheezes heard. CARDIAC SYSTEM Regular rate and rhythm. ?S1 and S2 heard no murmurs. 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 No deformities noted. ?No synovitis noted to the MCPs, PIPs or DIPs. ?Prominent Heberden and Santosh's nodes bilaterally more so on the left than the right. Wrists: ?Full range of motion at the wrists without pain. ?No tenderness to palpation or synovitis noted to the wrists. Elbows: Full range of motion without pain. No tenderness, weakness, swelling, increased warmth or erythema. Shoulders: Full range of motion without pain. No tenderness, weakness, swelling, increased warmth or erythema. Knees: ?Full range of motion. ?No tenderness, swelling, increased warmth or erythema.? Crepitations felt Ankles: Full range of motion. ?No tenderness, swelling, increased warmth or erythema.? Feet: ?Negative squeeze test. ?No tenderness to palpation or swelling of the MTPs. Tender points:?No tenderness to palpation of the bilateral trapezius, supraspinatus, greater trochanters, anterior costochondral junctions, bilateral gluteal areas, bilateral suboccipital muscle insertions Spine: Scoliosis SKIN Skin intact without rashes. Office Meds ketorolac 30 mg/mL (1 mL) injection solution Performing Provider: Kelsy Martínez MD Performing Location: [facility] [place] Rheumatology Administered by: Kelsy Martínez MD on 09/16/24 18:09 Dose Route Admin Location Dispensed Lot Number Expiration Date [facility] Pinking Machine [employer] 30 mg IM 1 mL [id number] 05/08/25 96452-032-54 [employer] Total Dispensed Waste 1 mL 0 % Results Reviewed Results Reviewed: [facility] [place] 05/2024 [facility] [place] 09/2024 WBC 4.96 5.77 Hb 12.3 10.7 Plt 447 484 BUN Cr 0.9 eGFR >60 ESR 9 25 H CRP 3.3 2.0 [facility] labs reviewed 05/17/2024 CRP 3.3 Creatinine 0.9 GFR >60 AST/ALT 34/38 ESR 9 HB 12.3 WBC 4.96 Platelets 447 Assessment & Plan Assessment & Plan (1) Ankylosing spondylitis: Comment: HLA b27 + onset around 2016 sacroiliitis on X-ray Celebrex helpful but causes GI upset, esophagitis Humira 2017 initially helpful then has secondary non response Enbrel 03/2023 DC 08/2023 due to secondary nonresponse Taltz 08/2023 DC 12/2023 ineffective Simponi Code(s): M45.9 - Ankylosing spondylitis of unspecified sites in spine Category: Medical Qualifiers: Ankylosing spondylitis location: sacrococcygeal region Qualified Code(s): M45.8 - Ankylosing spondylitis sacral and sacrococcygeal region Plan: #Ankylosing spondylitis Patient is a 53-year-old female with HLA B27 positive ankylosing spondylitis here today for follow up. Patient looked visibly uncomfortable and in pain. This with the elevated inflammatory markers lets me believe that the Simponi is no longer effective. Discussed switching to Remicade and patient is amenable. She wants to get the infusion close to her home. She will look into infusion at a center close to her house Plan - Stop simponi - Start Remicade - IM ketorolac 30mg today - RTC 4 months - Labs before visit: CBC, CMP, ESR, CRP, Hepatitis panel and T spot (2) Osteoarthritis of hands, bilateral: Code(s): M19.041 - Primary osteoarthritis, right hand; M19.042 - Primary osteoarthritis, left hand Category: Medical Qualifiers: Osteoarthritis type: primary Qualified Code(s): M19.041 - Primary osteoarthritis, right hand; M19.042 - Primary osteoarthritis, left hand Plan: #Bilateral hand OA Patient with polyarticular osteoarthritis but in particular she has bilateral hand osteoarthritis with left hand worse than right hand because she has left handed. Status post injection to the left 3rd PIP and left 2nd DIP. 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 Category: Medical Plan: #Long-term Use of TNF Inhibitors: Remicade Discussed with the patient the benefits and risks of TNF inhibitors for the management of the rheumatic condition Benefits include reduce pain, maintenance of remission and reduction of flares as well as ?progression of the disease Risks include injection sites/infusion reactions, serious infections (such as bacterial infections, opportunistic infections), malignancy, delaminating syndromes, autoimmune phenomena, CHF exacerbations, palmar plantar psoriasis and cytopenias Recommended rotating injection sites, and holding medication during and for up to 1 week after resolution of a febrile illness or open skin wound Plan I spent 32 minutes reviewing the record and labs, taking a history, examining the patient, discussing the treatment plan, ordering diagnostic work up and documenting in the medical record Orders: Orders AMB Ketorolac Injection Today M45.8 - Ankylosing spondylitis sacral and sacrococcygeal region Coding Level of Care Code Est Pt Level 4 (00865) Complex EM visit Add On G2211 Diagnoses Ankylosing spondylitis of sacrococcygeal region M45.8 Ankylosing spondylitis location: sacrococcygeal region Primary osteoarthritis of both hands M19.041; M19.042 Osteoarthritis type: primary High risk medication use Z79.899
[2024-09-16 11:36] VITALS: BP 112/80; PULSE 88; O2SAT 98; BMI 31.4
--- OUTSIDE RECORDS SUMMARY | 2024-09-16 11:51 | XMS_ITS | Data Portability ---
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 An independent historian was used to obtain history N. My care of this patient involved: Moderate assessment of problems. Moderate review of data. Low complexity of risk from disease or treatments. Below is my assessment and plan for this patient s care today. Not available 09/19/2023 06:11:09 04/06/2024 04/06/2024 The care for this patient today involved the following: I have reviewed, collected, and updated relevant history and performed a physical exam. An independent historian was used to obtain history N. My assessment of Social Determinants of health: not at risk. At risk due to: food, health insurance, housing, transportation, safety, health literacy. My care of this patient involved: Moderate assessment of problems. Low review of data. Moderate complexity of risk from disease or treatments. Below is my assessment and plan for this patient s care today. [email or web address] Not available 04/06/2024 09:45:17 Plan of Treatment Reminders Order Date Submit Date Provider Last Modified By Organization Details Last Modified Time Details Appointments Follo w , 2024 10:00A M Aaron Lancaster PA-C Not available Not available Not available Mammo gram, Deanna mcdonnell 2024 09:00A M [facility] Mammography Not available Not available Not available LAB Follo w-Up 2025 07:45A M [facility] Lab Not available Not available Not available James ess Visit 30 2025 08:30A M Chrissie Veras, RPA-C Not available Not available Not available Lab lipid panel , serum 2024 025 [facility], [address] [place] [address], [id number], 05/28/2024 14:14:08 TSH, serum or plasm a 2024 025 [facility], [address] [place] [address], [id number], 05/26/2024 16:25:43 fecal occul t blood , immun oassa y, stool 2023 024 [facility], [address] [place] [address], [id number], 03/17/2024 14:41:40 drug scree n, urine - Date and Time of Last Dose: hydro codon e 03/01 9am 2023 024 [facility], [address] [place] [address], [id number], 03/02/2024 10:20:12 TSH, serum or plasm a 2023 024 [facility], [address] [place] [address], [id number], 06/02/2023 12:21:45 Referral physi lani winslow refer ral - Bilat eral knee pain for many years , getti ng worse S/p ACL recon struc tion of right knee in 1992. 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 Was told by past ortho pedis t that her arthr itis was signi fican t Cant take NSAID S due to esoph agiti s and gastr itis Predn isone for helpe d her knee pain 2024 025 fernando Milton MD, [address] [facility], [place], [address], 05/26/2024 15:16:[address] refer ral - throm bocyt osis and micro cytic anemi a in the setti ng of treat ment for ankyl osing spond yliti s; neutr openi a has resol nazanin but lymph ocyto sis is persi sting and PLT trend ing up 2023 024 nschlosser Rafael Rehman MD, [address] [facility], [place], [address], 04/27/2024 15:55:[address] refer ral - grade III pelvi c organ prola pse - cervi x at intro itus, +cyst ocele and + recto mohini [address], [address], [place], [address], 06/10/2023 11:24:57 Procedures None recor ded. Surgeries None recor ded. Imaging MAMMO , scree kecia, tomos ynthe sis, bilat eral - 2nd Look Consu lt/Di ag Mammo /US Breas t/Suleiman ded Asp/B reast Bx/Cl ip Place ment, as clini mary ellen indic ated. 2024 025 [facility] (Imaging), [address], [place], [address], 08/30/2024 14:03:30 XR, knee, weigh tbear ing 2024 025 [facility] (Imaging), [address] [place], [address], 05/26/2024 11:06:12 MAMMO , scree kecia, tomos ynthe sis, bilat eral - 2nd Look Consu lt/Di ag Mammo /US Breas t/Suleiman ded Asp/B reast Bx/Cl ip Place ment, as clini mary ellen indic ated. 2023 024 [facility] (Imaging), [address], [place], [address], 09/19/2023 10:27:15 US, head + neck, soft tissu e - left subma ndibu lar swell ing x years ; fluct uates in size; check for saliv gerhard gland stone vs lymph node 2023 024 [facility] (Imaging), [address] [place], [address], 11/11/2023 13:25:48 MAMMO , scree kecia, tomos ynthe sis, bilat eral - 2nd Look Consu lt/Di ag Mammo /US Breas t/Suleiman ded Asp/B reast Bx/Cl ip Place ment, as clini mary ellen indic ated. 2023 024 [facility] (Imaging), [address], [place], [address], 11/15/2023 10:21:16 Medication Orders hydro codon e 5 mg-ac etami nophe n 325 mg table t 2023 024 [id number], [address], [place], [address], 03/01/2024 11:11:20 Patient TargetsNo targets recorded. Patient Instructions Encounter Date Encounter Id Patient Instructions Last Modified By Organization Details Last Modified Time 03/26/2023 [id number] well visit, wome n 50 to 65: care instructions Not available 03/26/2023 13:56:31 09/19/2023 [id number] salivary gland stone: care instructions Not available 09/19/2023 09:57:23 Reason for Referral Ceo And Founder Referral for Pr olapse of female genital organs grade III pelvic organ prolapse - cervix at introitus, +cystocele and + rectocele grade III pelvic organ prolapse - cervix at introitus, +cystocele and + rectocele Referring Physician: Chrissie Veras [facility], Encounter Date: 03/26/2023 thrombocytosis and microcyti c anemia in the setting of treatment for ankylosing spondylitis; neutropenia has resolved but lymphocytosis is persisting and PLT trending up Referring Physician: Chrissie Veras [facility], Encounter Date: 03/01/2024 Physical Therapist Referral for Pain of bilateral knee joints Bilateral knee pain for many years, getting worseS/p ACL reconstruction of right knee in 1992.Was told by past orthopedist that her arthritis was significantCant take NSAIDS due to esophagitis and gastritisPrednisone for helped her knee pain Referring Physician: Chrissie Veras [facility], Encounter Date: 05/26/2024 Bilateral knee pain for many years, getting worseS/p ACL reconstruction of right knee in 1992.Was told by past orthopedist that her arthritis was significantCant take NSAIDS due to esophagitis and gastritisPrednisone for helped her knee pain Referring Physician: Chrissie Veras [facility], Encounter Date: 05/26/2024 Results Created Date Observation Date Name Description Value Unit Range Abnormal Flag Note LastModifiedBy Organization Detail LastModifiedTime 05/28/19 24 05/28/2023 CBC WBC 7.00 K/ L 3.98-1 0.04 Not Available [address], [address], 05/28/2023 15:21:40 05/28/19 24 05/28/2023 CBC RBC 4.53 M/ L 3.93-5 .22 Not Available [address], [address], 05/28/2023 15:21:40 05/28/19 24 05/28/2023 CBC HGB 12.1 g/dL 11.2-1 5.7 Not Available [address], [address], 05/28/2023 15:21:40 05/28/19 24 05/28/2023 CBC HCT 38.9 % 34.1-4 4.9 Not Available [address], [address], 05/28/2023 15:21:40 05/28/19 24 05/28/2023 CBC MCV 85.9 fL 79.4-9 4.8 Not Available [address], [address], 05/28/2023 15:21:40 05/28/19 24 05/28/2023 CBC MCH 26.7 pg 25.6-3 2.2 Not Available [address], [address], 05/28/2023 15:21:40 05/28/19 24 05/28/2023 CBC MCHC 31.1 g/dL 32.2-3 5.5 low Not Available [address], [address], 05/28/2023 15:21:40 05/28/19 24 05/28/2023 CBC plt 398 K/ L 182-36 9 high Not Available [address], [address], 05/28/2023 15:21:40 05/28/19 24 05/28/2023 CBC MPV 11.2 fL 9.4-12 .3 Not Available [address], [address], 05/28/2023 15:21:40 05/28/19 24 05/28/2023 CBC neut% 29.1 % 34.0-7 1.1 low Not Available [address], [address], 05/28/2023 15:21:40 05/28/19 24 05/28/2023 CBC neut# 2.03 1.56-6 .13 Not Available [address], [address], 05/28/2023 15:21:40 05/28/19 24 05/28/2023 CBC lymph % 63.4 % 19.3-5 1.7 high Not Available [address], [address], 05/28/2023 15:21:40 05/28/19 24 05/28/2023 CBC lymph # 4.44 K/ L 1.18-3 .74 high Not Available [address], [address], 05/28/2023 15:21:40 05/28/19 24 05/28/2023 CBC mono% 6.1 % 4.7-12 .5 Not Available [address], [address], 05/28/2023 15:21:40 05/28/19 24 05/28/2023 CBC mono# 0.43 0.24-0 .56 Not Available [address], [address], 05/28/2023 15:21:40 05/28/19 24 05/28/2023 CBC eo% 0.7 % 0.7-5. 8 Not Available [address], [address], 05/28/2023 15:21:40 05/28/19 24 05/28/2023 CBC eo# 0.05 0.04-0 .36 Not Available [address], [address], 05/28/2023 15:21:40 05/28/19 24 05/28/2023 CBC baso% 0.6 % 0.1-1. 2 Not Available [address], [address], 05/28/2023 15:21:40 05/28/19 24 05/28/2023 CBC baso# 0.04 0.00-0 .08 Not Available [address], [address], 05/28/2023 15:21:40 05/28/19 24 05/28/2023 CBC RDW-CV 13.9 % 11.7-1 4.4 Not Available [address], [address], 05/28/2023 15:21:40 05/28/19 24 05/28/2023 CBC Ig% 0.100 % 0.000- 1.500 Ig % >0.5 Indic ates possi ble Left Shift Not Available [address], [address], 05/28/2023 15:21:40 05/28/19 24 05/28/2023 CBC Ig# 0.010 0.000- 0.093 Not Available [address], [address], 05/28/2023 15:21:40 05/28/19 24 05/28/2023 CBC NRBC% 0.0 % 0.0-0. 2 Not Available [address], [address], 05/28/2023 15:21:40 05/28/19 24 05/28/2023 CBC NRBC# 0.000 0.000- 0.012 Not Available [address], [address], 05/28/2023 15:21:40 05/28/19 24 05/28/2023 ESR sed rate 16.0 0.0-15 .0 high Not Available [address], [address], 05/28/2023 16:51:17 05/28/19 24 05/29/2023 COMP. METAB OLIC PANEL glucose 86 mg/dL 70-100 Not Available [address], [address], 05/29/2023 15:18:25 05/28/19 24 05/29/2023 COMP. METAB OLIC PANEL BUN 14 mg/dL 7-18 Not Available [address], [address], 05/29/2023 15:18:25 05/28/19 24 05/29/2023 COMP. METAB OLIC PANEL creatinine 0.8 mg/dL 0.8-1. 3 Not Available [address], [address], 05/29/2023 15:18:25 05/28/19 24 05/29/2023 COMP. METAB OLIC PANEL B/C 17.5 ratio Not Available [address], [address], 05/29/2023 15:18:25 05/28/19 24 05/29/2023 COMP. METAB OLIC PANEL GFR >=60ML /MIN mL/mi n normal >=60m L/min - Michelle l or midly reduc ed <60mL /min- Decre ased kidne y funct ion <15mL /min - Kidne y failu re [facility] calcu lates estim ated Glome rular Filtr ation Rate (eGFR ) using the Chron ic Kidne y Disea se Epide miolo gy Colla borat ion (CKD- EPI) Equat ion (Chaparrita r et. al 2020) as recom shawna d by the Natio nal Kidne y Found ation . eGFR is based on age, serum creat inine , and sex. CKD-E PI does not calcu late eGFR by race, does not apply to child ying (age <18 years ), and shoul d not be used in pregn wilian. Not Available [address], [address], 05/29/2023 15:18:25 05/28/19 24 05/29/2023 COMP. METAB OLIC PANEL sodium 141 mmol/ L 136-14 5 Not Available [address], [address], 05/29/2023 15:18:25 05/28/19 24 05/29/2023 COMP. METAB OLIC PANEL potassium 4.4 mmol/ L 3.5-5. 1 Not Available [address], [address], 05/29/2023 15:18:25 05/28/19 24 05/29/2023 COMP. METAB OLIC PANEL chloride 102 mmol/ L 96-107 Not Available [address], [address], 05/29/2023 15:18:25 05/28/19 24 05/29/2023 COMP. METAB OLIC PANEL anion gap 13.5 5.0-15 .0 Not Available [address], [address], 05/29/2023 15:18:25 05/28/19 24 05/29/2023 COMP. METAB OLIC PANEL CO2 26 mmol/ L 21-32 Not Available [address], [address], 05/29/2023 15:18:25 05/28/19 24 05/29/2023 COMP. METAB OLIC PANEL calcium 10.0 mg/dL 8.5-10 .3 Not Available [address], [address], 05/29/2023 15:18:25 05/28/19 24 05/29/2023 COMP. METAB OLIC PANEL total protein 8.6 g/dL 6.4-8. 2 high Not Available [address], [address], 05/29/2023 15:18:25 05/28/19 24 05/29/2023 COMP. METAB OLIC PANEL albumin 4.4 g/dL 3.4-5. 0 Not Available [address], [address], 05/29/2023 15:18:25 05/28/19 24 05/29/2023 COMP. METAB OLIC PANEL globulin 4.2 g/dL Not Available [address], [address], 05/29/2023 15:18:25 05/28/19 24 05/29/2023 COMP. METAB OLIC PANEL A/G 1.0 ratio 0.8-2. 0 Not Available [address], [address], 05/29/2023 15:18:25 05/28/19 24 05/29/2023 COMP. METAB OLIC PANEL total bilirubin 0.30 mg/dL 0.00-1 .00 Not Available [address], [address], 05/29/2023 15:18:25 05/28/19 24 05/29/2023 COMP. METAB OLIC PANEL AST 28 U/L 0-37 Not Available [address], [address], 05/29/2023 15:18:25 05/28/19 24 05/29/2023 COMP. METAB OLIC PANEL ALT 34 U/L 6-63 Not Available [address], [address], 05/29/2023 15:18:25 05/28/19 24 05/29/2023 COMP. METAB OLIC PANEL alk. phos. 101 U/L 50-136 Not Available [address], [address], 05/29/2023 15:18:25 05/28/19 24 05/29/2023 C-CLOTILDE CTIVE PROTE IN (RCRP ) C-reactive protein (rcrp) 3.1 mg/dL 0.5-9. 0 Not Available [address], [address], 05/29/2023 15:18:26 05/28/19 24 06/02/2023 TSH TSH 1.64 uIU/m L 0.50-6 .00 The Ameri can Col[employer] ge of Endoc rinol ogy and Ameri can Thyro id Assoc iatio n recom mend goal TSH value s betwe en 0.4-4 .0 mIU/m L. Not Available [address], [address], 06/02/2023 12:21:45 08/26/19 24 08/26/2023 CBC WBC 6.46 K/ L 3.98-1 0.04 Not Available [address], [address], 08/26/2023 10:28:43 08/26/19 24 08/26/2023 CBC RBC 4.39 M/ L 3.93-5 .22 Not Available [address], [address], 08/26/2023 10:28:43 08/26/19 24 08/26/2023 CBC HGB 11.1 g/dL 11.2-1 5.7 low Not Available [address], [address], 08/26/2023 10:28:43 08/26/19 24 08/26/2023 CBC HCT 35.7 % 34.1-4 4.9 Not Available [address], [address], 08/26/2023 10:28:43 08/26/19 24 08/26/2023 CBC MCV 81.3 fL 79.4-9 4.8 Not Available [address], [address], 08/26/2023 10:28:43 08/26/19 24 08/26/2023 CBC MCH 25.3 pg 25.6-3 2.2 low Not Available [address], [address], 08/26/2023 10:28:43 08/26/19 24 08/26/2023 CBC MCHC 31.1 g/dL 32.2-3 5.5 low Not Available [address], [address], 08/26/2023 10:28:43 08/26/19 24 08/26/2023 CBC plt 464 K/ L 182-36 9 high Not Available [address], [address], 08/26/2023 10:28:43 08/26/19 24 08/26/2023 CBC MPV 10.0 fL 9.4-12 .3 Not Available [address], [address], 08/26/2023 10:28:43 08/26/19 24 08/26/2023 CBC neut% 32.0 % 34.0-7 1.1 low Not Available [address], [address], 08/26/2023 10:28:43 08/26/19 24 08/26/2023 CBC neut# 2.07 1.56-6 .13 Not Available [address], [address], 08/26/2023 10:28:43 08/26/19 24 08/26/2023 CBC lymph % 58.4 % 19.3-5 1.7 high Not Available [address], [address], 08/26/2023 10:28:43 08/26/19 24 08/26/2023 CBC lymph # 3.77 K/ L 1.18-3 .74 high Not Available [address], [address], 08/26/2023 10:28:43 08/26/19 24 08/26/2023 CBC mono% 6.5 % 4.7-12 .5 Not Available [address], [address], 08/26/2023 10:28:43 08/26/19 24 08/26/2023 CBC mono# 0.42 0.24-0 .56 Not Available [address], [address], 08/26/2023 10:28:43 08/26/19 24 08/26/2023 CBC eo% 2.0 % 0.7-5. 8 Not Available [address], [address], 08/26/2023 10:28:43 08/26/19 24 08/26/2023 CBC eo# 0.13 0.04-0 .36 Not Available [address], [address], 08/26/2023 10:28:43 08/26/19 24 08/26/2023 CBC baso% 0.9 % 0.1-1. 2 Not Available [address], [address], 08/26/2023 10:28:43 08/26/19 24 08/26/2023 CBC baso# 0.06 0.00-0 .08 Not Available [address], [address], 08/26/2023 10:28:43 08/26/19 24 08/26/2023 CBC RDW-CV 14.6 % 11.7-1 4.4 high Not Available [address], [address], 08/26/2023 10:28:43 08/26/19 24 08/26/2023 CBC Ig% 0.200 % 0.000- 1.500 Ig % >0.5 Indic ates possi ble Left Shift Not Available [address], [address], 08/26/2023 10:28:43 08/26/19 24 08/26/2023 CBC Ig# 0.010 0.000- 0.093 Not Available [address], [address], 08/26/2023 10:28:43 08/26/19 24 08/26/2023 CBC NRBC% 0.0 % 0.0-0. 2 Not Available [address], [address], 08/26/2023 10:28:43 08/26/19 24 08/26/2023 CBC NRBC# 0.000 0.000- 0.012 Not Available [address], [address], 08/26/2023 10:28:43 08/26/19 24 08/26/2023 COMP. METAB OLIC PANEL glucose 104 mg/dL 70-100 high Not Available [address], [address], 08/26/2023 13:57:27 08/26/19 24 08/26/2023 COMP. METAB OLIC PANEL BUN 12 mg/dL 7-18 Not Available [address], [address], 08/26/2023 13:57:27 08/26/19 24 08/26/2023 COMP. METAB OLIC PANEL creatinine 0.9 mg/dL 0.8-1. 3 Not Available [address], [address], 08/26/2023 13:57:27 08/26/19 24 08/26/2023 COMP. METAB OLIC PANEL B/C 13.3 ratio Not Available [address], [address], 08/26/2023 13:57:27 08/26/19 24 08/26/2023 COMP. METAB OLIC PANEL GFR >=60ML /MIN mL/mi n normal >=60m L/min - Michelle l or midly reduc ed <60mL /min- Decre ased kidne y funct ion <15mL /min - Kidne y failu re [facility] calcu lates estim ated Glome rular Filtr ation Rate (eGFR ) using the Chron ic Kidne y Disea se Epide miolo gy Colla borat ion (CKD- EPI) Equat ion (Nadjae r et. al 2020) as recom shawna d by the Natio nal Kidne y Found ation . eGFR is based on age, serum creat inine , and sex. CKD-E PI does not calcu late eGFR by race, does not apply to child ying (age <18 years ), and shoul d not be used in pregn wilian. Not Available [address], [address], 08/26/2023 13:57:27 08/26/19 24 08/26/2023 COMP. METAB OLIC PANEL sodium 141 mmol/ L 136-14 5 Not Available [address], [address], 08/26/2023 13:57:27 08/26/19 24 08/26/2023 COMP. METAB OLIC PANEL potassium 4.3 mmol/ L 3.5-5. 1 Not Available [address], [address], 08/26/2023 13:57:27 08/26/19 24 08/26/2023 COMP. METAB OLIC PANEL chloride 104 mmol/ L 96-107 Not Available [address], [address], 08/26/2023 13:57:27 08/26/19 24 08/26/2023 COMP. METAB OLIC PANEL anion gap 10.8 5.0-15 .0 Not Available [address], [address], 08/26/2023 13:57:27 08/26/19 24 08/26/2023 COMP. METAB OLIC PANEL CO2 26 mmol/ L 21-32 Not Available [address], [address], 08/26/2023 13:57:27 08/26/19 24 08/26/2023 COMP. METAB OLIC PANEL calcium 9.3 mg/dL 8.5-10 .3 Not Available [address], [address], 08/26/2023 13:57:27 08/26/19 24 08/26/2023 COMP. METAB OLIC PANEL total protein 7.9 g/dL 6.4-8. 2 Not Available [address], [address], 08/26/2023 13:57:27 08/26/19 24 08/26/2023 COMP. METAB OLIC PANEL albumin 3.7 g/dL 3.4-5. 0 Not Available [address], [address], 08/26/2023 13:57:27 08/26/19 24 08/26/2023 COMP. METAB OLIC PANEL globulin 4.2 g/dL Not Available [address], [address], 08/26/2023 13:57:27 08/26/19 24 08/26/2023 COMP. METAB OLIC PANEL A/G 0.9 ratio 0.8-2. 0 Not Available [address], [address], 08/26/2023 13:57:27 08/26/19 24 08/26/2023 COMP. METAB OLIC PANEL total bilirubin 0.30 mg/dL 0.00-1 .00 Not Available [address], [address], 08/26/2023 13:57:27 08/26/19 24 08/26/2023 COMP. METAB OLIC PANEL AST 23 U/L 0-37 Not Available [address], [address], 08/26/2023 13:57:27 08/26/19 24 08/26/2023 COMP. METAB OLIC PANEL ALT 31 U/L 6-63 Not Available [address], [address], 08/26/2023 13:57:27 08/26/19 24 08/26/2023 COMP. METAB OLIC PANEL alk. phos. 108 U/L 50-136 Not Available [address], [address], 08/26/2023 13:57:27 08/26/19 24 08/26/2023 C-CLOTILDE CTIVE PROTE IN (RCRP ) C-reactive protein (rcrp) 5.8 mg/dL 0.5-9. 0 Not Available [address], [address], 08/26/2023 13:57:28 08/26/19 24 08/26/2023 ESR sed rate 31.0 0.0-15 .0 high Not Available [address], [address], 08/26/2023 14:59:17 10/27/19 24 10/27/2023 CBC WBC 5.91 K/ L 3.98-1 0.04 Not Available [address], [address], 10/27/2023 12:12:00 10/27/19 24 10/27/2023 CBC RBC 4.67 M/ L 3.93-5 .22 Not Available [address], [address], 10/27/2023 12:12:00 10/27/19 24 10/27/2023 CBC HGB 11.2 g/dL 11.2-1 5.7 Not Available [address], [address], 10/27/2023 12:12:00 10/27/19 24 10/27/2023 CBC HCT 37.9 % 34.1-4 4.9 Not Available [address], [address], 10/27/2023 12:12:00 10/27/19 24 10/27/2023 CBC MCV 81.2 fL 79.4-9 4.8 Not Available [address], [address], 10/27/2023 12:12:00 10/27/19 24 10/27/2023 CBC MCH 24.0 pg 25.6-3 2.2 low Not Available [address], [address], 10/27/2023 12:12:00 10/27/19 24 10/27/2023 CBC MCHC 29.6 g/dL 32.2-3 5.5 low Not Available [address], [address], 10/27/2023 12:12:00 10/27/19 24 10/27/2023 CBC plt 371 K/ L 182-36 9 high Not Available [address], [address], 10/27/2023 12:12:00 10/27/19 24 10/27/2023 CBC MPV 11.4 fL 9.4-12 .3 Not Available [address], [address], 10/27/2023 12:12:00 10/27/19 24 10/27/2023 CBC neut% 36.4 % 34.0-7 1.1 Not Available [address], [address], 10/27/2023 12:12:00 10/27/19 24 10/27/2023 CBC neut# 2.15 1.56-6 .13 Not Available [address], [address], 10/27/2023 12:12:00 10/27/19 24 10/27/2023 CBC lymph % 55.0 % 19.3-5 1.7 high Not Available [address], [address], 10/27/2023 12:12:00 10/27/19 24 10/27/2023 CBC lymph # 3.25 K/ L 1.18-3 .74 Not Available [address], [address], 10/27/2023 12:12:00 10/27/19 24 10/27/2023 CBC mono% 6.6 % 4.7-12 .5 Not Available [address], [address], 10/27/2023 12:12:00 10/27/19 24 10/27/2023 CBC mono# 0.39 0.24-0 .56 Not Available [address], [address], 10/27/2023 12:12:00 10/27/19 24 10/27/2023 CBC eo% 1.0 % 0.7-5. 8 Not Available [address], [address], 10/27/2023 12:12:00 10/27/19 24 10/27/2023 CBC eo# 0.06 0.04-0 .36 Not Available [address], [address], 10/27/2023 12:12:00 10/27/19 24 10/27/2023 CBC baso% 0.8 % 0.1-1. 2 Not Available [address], [address], 10/27/2023 12:12:00 10/27/19 24 10/27/2023 CBC baso# 0.05 0.00-0 .08 Not Available [address], [address], 10/27/2023 12:12:00 10/27/19 24 10/27/2023 CBC RDW-CV 14.8 % 11.7-1 4.4 high Not Available [address], [address], 10/27/2023 12:12:00 10/27/19 24 10/27/2023 CBC Ig% 0.200 % 0.000- 1.500 Ig % >0.5 Indic ates possi ble Left Shift Not Available [address], [address], 10/27/2023 12:12:00 10/27/19 24 10/27/2023 CBC Ig# 0.010 0.000- 0.093 Not Available [address], [address], 10/27/2023 12:12:00 10/27/19 24 10/27/2023 CBC NRBC% 0.0 % 0.0-0. 2 Not Available [address], [address], 10/27/2023 12:12:00 10/27/19 24 10/27/2023 CBC NRBC# 0.000 0.000- 0.012 Not Available [address], [address], 10/27/2023 12:12:00 10/27/19 24 10/27/2023 COMP. METAB OLIC PANEL glucose 85 mg/dL 70-100 Not Available [address], [address], 10/27/2023 13:56:50 10/27/19 24 10/27/2023 COMP. METAB OLIC PANEL BUN 12 mg/dL 7-18 Not Available [address], [address], 10/27/2023 13:56:50 10/27/19 24 10/27/2023 COMP. METAB OLIC PANEL creatinine 0.8 mg/dL 0.8-1. 3 Not Available [address], [address], 10/27/2023 13:56:50 10/27/19 24 10/27/2023 COMP. METAB OLIC PANEL B/C 15.0 ratio Not Available [address], [address], 10/27/2023 13:56:50 10/27/19 24 10/27/2023 COMP. METAB OLIC PANEL GFR >=60ML /MIN mL/mi n normal >=60m L/min - Michelle l or midly reduc ed <60mL /min- Decre ased kidne y funct ion <15mL /min - Kidne y failu re [facility] calcu lates estim ated Glome rular Filtr ation Rate (eGFR ) using the Chron ic Kidne y Disea se Epide miolo gy Colla borat ion (CKD- EPI) Equat ion (Chaparrita fu et. al 2020) as recom shawna d by the Natio nal Kidne y Found ation . eGFR is based on age, serum creat inine , and sex. CKD-E PI does not calcu late eGFR by race, does not apply to child ying (age <18 years ), and shoul d not be used in pregn wilian. Not Available [address], [address], 10/27/2023 13:56:50 10/27/19 24 10/27/2023 COMP. METAB OLIC PANEL sodium 139 mmol/ L 136-14 5 Not Available [address], [address], 10/27/2023 13:56:50 10/27/19 24 10/27/2023 COMP. METAB OLIC PANEL potassium 5.0 mmol/ L 3.5-5. 1 Not Available [address], [address], 10/27/2023 13:56:50 10/27/19 24 10/27/2023 COMP. METAB OLIC PANEL chloride 103 mmol/ L 96-107 Not Available [address], [address], 10/27/2023 13:56:50 10/27/19 24 10/27/2023 COMP. METAB OLIC PANEL anion gap 11.8 5.0-15 .0 Not Available [address], [address], 10/27/2023 13:56:50 10/27/19 24 10/27/2023 COMP. METAB OLIC PANEL CO2 24 mmol/ L 21-32 Not Available [address], [address], 10/27/2023 13:56:50 10/27/19 24 10/27/2023 COMP. METAB OLIC PANEL calcium 9.4 mg/dL 8.5-10 .3 Not Available [address], [address], 10/27/2023 13:56:50 10/27/19 24 10/27/2023 COMP. METAB OLIC PANEL total protein 8.6 g/dL 6.4-8. 2 high Not Available [address], [address], 10/27/2023 13:56:50 10/27/19 24 10/27/2023 COMP. METAB OLIC PANEL albumin 3.9 g/dL 3.4-5. 0 Not Available [address], [address], 10/27/2023 13:56:50 10/27/19 24 10/27/2023 COMP. METAB OLIC PANEL globulin 4.7 g/dL Not Available [address], [address], 10/27/2023 13:56:50 10/27/19 24 10/27/2023 COMP. METAB OLIC PANEL A/G 0.8 ratio 0.8-2. 0 Not Available [address], [address], 10/27/2023 13:56:50 10/27/19 24 10/27/2023 COMP. METAB OLIC PANEL total bilirubin 0.30 mg/dL 0.00-1 .00 Not Available [address], [address], 10/27/2023 13:56:50 10/27/19 24 10/27/2023 COMP. METAB OLIC PANEL AST 30 U/L 0-37 Not Available [address], [address], 10/27/2023 13:56:50 10/27/19 24 10/27/2023 COMP. METAB OLIC PANEL ALT 27 U/L 6-63 Not Available [address], [address], 10/27/2023 13:56:50 10/27/19 24 10/27/2023 COMP. METAB OLIC PANEL alk. phos. 119 U/L 50-136 Not Available [address], [address], 10/27/2023 13:56:50 10/27/19 24 10/27/2023 C-CLOTILDE CTIVE PROTE IN (RCRP ) C-reactive protein (rcrp) 5.0 mg/dL 0.5-9. 0 Not Available [address], [address], 10/27/2023 13:56:51 10/27/19 24 10/27/2023 LIPID PANEL cholesterol 257 mg/dL <200 mg/dl Marie able 200-2 39 mg/dl Borde rline High >240 mg/dl High Not Available [address], [address], 10/27/2023 13:56:53 10/27/19 24 10/27/2023 LIPID PANEL triglyceride s 198 mg/dL <150 mg/dL Michelle l 150-1 99 mg/dL Borde rline High 200-4 99 mg/dL High >500 mg/dL Very High Not Available [address], [address], 10/27/2023 13:56:53 10/27/19 24 10/27/2023 LIPID PANEL direct HDL 57 mg/dL <40 mg/dl - Major Risk for CHD >60 mg/dl - Negat james Risk for CHD Not Available [address], [address], 10/27/2023 13:56:53 10/27/19 24 10/27/2023 DIREC T LDL direct LDL 144 mg/dL RISK CATEG ORY LDL GOAL _ CHD or CHD Risk Equiv alent s <100 mg/dl (10-y ear risk >20%) 2+ Risk Facto rs <130 mg/dl (10-y ear risk <= 20%) 0-1 Risk Facto r <160 mg/dl [facility] all peopl e with 0-1 risk facto r have a 10 year risk <10%, thus 10 year risk asses ment in peopl e with 0-1 risk facto r is not devendra cano. Not Available [address], [address], 10/27/2023 13:56:54 10/27/19 24 10/27/2023 ESR sed rate 27.0 0.0-15 .0 high Not Available [address], [address], 10/27/2023 15:00:12 02/20/20 24 02/20/2024 CBC WBC 9.83 K/ L 3.98-1 0.04 Not Available [address], [address], 02/20/2024 18:04:30 02/20/20 24 02/20/2024 CBC RBC 4.35 M/ L 3.93-5 .22 Not Available [address], [address], 02/20/2024 18:04:30 02/20/20 24 02/20/2024 CBC HGB 10.3 g/dL 11.2-1 5.7 low Not Available [address], [address], 02/20/2024 18:04:30 02/20/20 24 02/20/2024 CBC HCT 35.0 % 34.1-4 4.9 Not Available [address], [address], 02/20/2024 18:04:30 02/20/20 24 02/20/2024 CBC MCV 80.5 fL 79.4-9 4.8 Not Available [address], [address], 02/20/2024 18:04:30 02/20/20 24 02/20/2024 CBC MCH 23.7 pg 25.6-3 2.2 low Not Available [address], [address], 02/20/2024 18:04:30 02/20/20 24 02/20/2024 CBC MCHC 29.4 g/dL 32.2-3 5.5 low Not Available [address], [address], 02/20/2024 18:04:30 02/20/20 24 02/20/2024 CBC plt 534 K/ L 182-36 9 high Not Available [address], [address], 02/20/2024 18:04:30 02/20/20 24 02/20/2024 CBC MPV 9.9 fL 9.4-12 .3 Not Available [address], [address], 02/20/2024 18:04:30 02/20/20 24 02/20/2024 CBC neut% 50.0 % 34.0-7 1.1 Not Available [address], [address], 02/20/2024 18:04:30 02/20/20 24 02/20/2024 CBC neut# 4.91 1.56-6 .13 Not Available [address], [address], 02/20/2024 18:04:30 02/20/20 24 02/20/2024 CBC lymph % 42.4 % 19.3-5 1.7 Not Available [address], [address], 02/20/2024 18:04:30 02/20/20 24 02/20/2024 CBC lymph # 4.17 K/ L 1.18-3 .74 high Not Available [address], [address], 02/20/2024 18:04:30 02/20/20 24 02/20/2024 CBC mono% 6.0 % 4.7-12 .5 Not Available [address], [address], 02/20/2024 18:04:30 02/20/20 24 02/20/2024 CBC mono# 0.59 0.24-0 .56 high Not Available [address], [address], 02/20/2024 18:04:30 02/20/20 24 02/20/2024 CBC eo% 0.8 % 0.7-5. 8 Not Available [address], [address], 02/20/2024 18:04:30 02/20/20 24 02/20/2024 CBC eo# 0.08 0.04-0 .36 Not Available [address], [address], 02/20/2024 18:04:30 02/20/20 24 02/20/2024 CBC baso% 0.5 % 0.1-1. 2 Not Available [address], [address], 02/20/2024 18:04:30 02/20/20 24 02/20/2024 CBC baso# 0.05 0.00-0 .08 Not Available [address], [address], 02/20/2024 18:04:30 02/20/20 24 02/20/2024 CBC RDW-CV 16.2 % 11.7-1 4.4 high Not Available [address], [address], 02/20/2024 18:04:30 02/20/20 24 02/20/2024 CBC Ig% 0.300 % 0.000- 1.500 Ig % >0.5 Indic ates possi ble Left Shift Not Available [address], [address], 02/20/2024 18:04:30 02/20/20 24 02/20/2024 CBC Ig# 0.030 0.000- 0.093 Not Available [address], [address], 02/20/2024 18:04:30 02/20/20 24 02/20/2024 CBC NRBC% 0.0 % 0.0-0. 2 Not Available [address], [address], 02/20/2024 18:04:30 02/20/20 24 02/20/2024 CBC NRBC# 0.000 0.000- 0.012 Not Available [address] [place], [address], 02/20/2024 18:04:30 02/20/20 24 02/23/2024 COMP. METAB OLIC PANEL glucose 74 mg/dL 70-100 Not Available [address], [address], 02/23/2024 15:53:05 02/20/20 24 02/23/2024 COMP. METAB OLIC PANEL BUN 14 mg/dL 7-18 Not Available [address], [address], 02/23/2024 15:53:05 02/20/20 24 02/23/2024 COMP. METAB OLIC PANEL creatinine 0.8 mg/dL 0.8-1. 3 Not Available [address], [address], 02/23/2024 15:53:05 02/20/20 24 02/23/2024 COMP. METAB OLIC PANEL B/C 17.5 ratio Not Available [address], [address], 02/23/2024 15:53:05 02/20/20 24 02/23/2024 COMP. METAB OLIC PANEL GFR >=60ML /MIN mL/mi n normal >=60m L/min - Michelle l or midly reduc ed <60mL /min- Decre ased kidne y funct ion <15mL /min - Kidne y failu re [facility] calcu lates estim ated Glome rular Filtr ation Rate (eGFR ) using the Chron ic Kidne y Disea se Epide miolo gy Colla borat ion (CKD- EPI) Equat ion (Chaparrita r et. al 2020) as recom shanwa d by the Natio nal Kidne y Found ation . eGFR is based on age, serum creat inine , and sex. CKD-E PI does not calcu late eGFR by race, does not apply to child ying (age <18 years ), and shoul d not be used in pregn wilian. Not Available [address], [address], 02/23/2024 15:53:05 02/20/20 24 02/23/2024 COMP. METAB OLIC PANEL sodium 139 mmol/ L 136-14 5 Not Available [address], [address], 02/23/2024 15:53:05 02/20/20 24 02/23/2024 COMP. METAB OLIC PANEL potassium 4.1 mmol/ L 3.5-5. 1 Not Available [address], [address], 02/23/2024 15:53:05 02/20/20 24 02/23/2024 COMP. METAB OLIC PANEL chloride 102 mmol/ L 96-107 Not Available [address], [address], 02/23/2024 15:53:05 02/20/20 24 02/23/2024 COMP. METAB OLIC PANEL anion gap 8.6 5.0-15 .0 Not Available [address], [address], 02/23/2024 15:53:05 02/20/20 24 02/23/2024 COMP. METAB OLIC PANEL CO2 28 mmol/ L 21-32 Not Available [address], [address], 02/23/2024 15:53:05 02/20/20 24 02/23/2024 COMP. METAB OLIC PANEL calcium 9.2 mg/dL 8.5-10 .3 Not Available [address], [address], 02/23/2024 15:53:05 02/20/20 24 02/23/2024 COMP. METAB OLIC PANEL total protein 7.8 g/dL 6.4-8. 2 Not Available [address], [address], 02/23/2024 15:53:05 02/20/20 24 02/23/2024 COMP. METAB OLIC PANEL albumin 3.9 g/dL 3.4-5. 0 Not Available [address], [address], 02/23/2024 15:53:05 02/20/20 24 02/23/2024 COMP. METAB OLIC PANEL globulin 3.9 g/dL Not Available [address], [address], 02/23/2024 15:53:05 02/20/20 24 02/23/2024 COMP. METAB OLIC PANEL A/G 1.0 ratio 0.8-2. 0 Not Available [address], [address], 02/23/2024 15:53:05 02/20/20 24 02/23/2024 COMP. METAB OLIC PANEL total bilirubin 0.20 mg/dL 0.00-1 .00 Not Available [address], [address], 02/23/2024 15:53:05 02/20/20 24 02/23/2024 COMP. METAB OLIC PANEL AST 20 U/L 0-37 Not Available [address], [address], 02/23/2024 15:53:05 02/20/20 24 02/23/2024 COMP. METAB OLIC PANEL ALT 29 U/L 6-63 Not Available [address], [address], 02/23/2024 15:53:05 02/20/20 24 02/23/2024 COMP. METAB OLIC PANEL alk. phos. 92 U/L 50-136 Not Available [address], [address], 02/23/2024 15:53:05 02/25/20 24 02/25/2024 CBC WBC 10.81 K/ L 3.98-1 0.04 high Not Available [address], [address], 02/25/2024 11:01:20 02/25/20 24 02/25/2024 CBC RBC 4.34 M/ L 3.93-5 .22 Not Available [address], [address], 02/25/2024 11:01:20 02/25/20 24 02/25/2024 CBC HGB 10.2 g/dL 11.2-1 5.7 low Not Available [address], [address], 02/25/2024 11:01:20 02/25/20 24 02/25/2024 CBC HCT 34.2 % 34.1-4 4.9 Not Available [address], [address], 02/25/2024 11:01:20 02/25/20 24 02/25/2024 CBC MCV 78.8 fL 79.4-9 4.8 low Not Available [address], [address], 02/25/2024 11:01:20 02/25/20 24 02/25/2024 CBC MCH 23.5 pg 25.6-3 2.2 low Not Available [address], [address], 02/25/2024 11:01:20 02/25/20 24 02/25/2024 CBC MCHC 29.8 g/dL 32.2-3 5.5 low Not Available [address], [address], 02/25/2024 11:01:20 02/25/20 24 02/25/2024 CBC plt 592 K/ L 182-36 9 high Not Available [address], [address], 02/25/2024 11:01:20 02/25/20 24 02/25/2024 CBC MPV 10.0 fL 9.4-12 .3 Not Available [address], [address], 02/25/2024 11:01:20 02/25/20 24 02/25/2024 CBC neut% 42.5 % 34.0-7 1.1 Not Available [address], [address], 02/25/2024 11:01:20 02/25/20 24 02/25/2024 CBC neut# 4.60 1.56-6 .13 Not Available [address], [address], 02/25/2024 11:01:20 02/25/20 24 02/25/2024 CBC lymph % 49.2 % 19.3-5 1.7 Not Available [address], [address], 02/25/2024 11:01:20 02/25/20 24 02/25/2024 CBC lymph # 5.32 K/ L 1.18-3 .74 high SREV= Slide revie wed by bk garner. Not Available [address], [address], 02/25/2024 11:01:20 02/25/20 24 02/25/2024 CBC mono% 6.6 % 4.7-12 .5 Not Available [address], [address], 02/25/2024 11:01:20 02/25/20 24 02/25/2024 CBC mono# 0.71 0.24-0 .56 high Not Available [address], [address], 02/25/2024 11:01:20 02/25/20 24 02/25/2024 CBC eo% 0.8 % 0.7-5. 8 Not Available [address], [address], 02/25/2024 11:01:20 02/25/20 24 02/25/2024 CBC eo# 0.09 0.04-0 .36 Not Available [address], [address], 02/25/2024 11:01:20 02/25/20 24 02/25/2024 CBC baso% 0.6 % 0.1-1. 2 Not Available [address], [address], 02/25/2024 11:01:20 02/25/20 24 02/25/2024 CBC baso# 0.06 0.00-0 .08 Not Available [address], [address], 02/25/2024 11:01:20 02/25/20 24 02/25/2024 CBC RDW-CV 16.2 % 11.7-1 4.4 high Not Available [address], [address], 02/25/2024 11:01:20 02/25/20 24 02/25/2024 CBC Ig% 0.300 % 0.000- 1.500 Ig % >0.5 Indic ates possi ble Left Shift Not Available [address], [address], 02/25/2024 11:01:20 02/25/20 24 02/25/2024 CBC Ig# 0.030 0.000- 0.093 Not Available [address], [address], 02/25/2024 11:01:20 02/25/20 24 02/25/2024 CBC NRBC% 0.0 % 0.0-0. 2 Not Available [address], [address], 02/25/2024 11:01:20 02/25/20 24 02/25/2024 CBC NRBC# 0.000 0.000- 0.012 Not Available [address], [address], 02/25/2024 11:01:20 02/25/20 24 02/25/2024 ESR sed rate 24.0 0.0-15 .0 high Not Available [address], [address], 02/25/2024 11:29:36 02/25/20 24 02/25/2024 COMP. METAB OLIC PANEL glucose 90 mg/dL 70-100 Not Available [address], [address], 02/25/2024 14:11:36 02/25/20 24 02/25/2024 COMP. METAB OLIC PANEL BUN 13 mg/dL 7-18 Not Available [address], [address], 02/25/2024 14:11:36 02/25/20 24 02/25/2024 COMP. METAB OLIC PANEL creatinine 0.9 mg/dL 0.8-1. 3 Not Available [address], [address], 02/25/2024 14:11:36 02/25/20 24 02/25/2024 COMP. METAB OLIC PANEL B/C 14.4 ratio Not Available [address], [address], 02/25/2024 14:11:36 02/25/20 24 02/25/2024 COMP. METAB OLIC PANEL GFR >=60ML /MIN mL/mi n normal >=60m L/min - Michelle l or midly reduc ed <60mL /min- Decre ased kidne y funct ion <15mL /min - Kidne y failu re [facility] calcu lates estim ated Glome rular Filtr ation Rate (eGFR ) using the Chron ic Kidne y Disea se Epide miolo gy Colla borat ion (CKD- EPI) Equat ion (Chaparrita r et. al 2020) as recom shawna d by the Ray odom . eGFR is based on age, serum creat inine , and sex. CKD-E PI does not calcu late eGFR by race, does not apply to child ying (age <18 years ), and shoul d not be used in pregn wilian. Not Available [address], [address], 02/25/2024 14:11:36 02/25/20 24 02/25/2024 COMP. METAB OLIC PANEL sodium 140 mmol/ L 136-14 5 Not Available [address], [address], 02/25/2024 14:11:36 02/25/20 24 02/25/2024 COMP. METAB OLIC PANEL potassium 4.5 mmol/ L 3.5-5. 1 Not Available [address], [address], 02/25/2024 14:11:36 02/25/20 24 02/25/2024 COMP. METAB OLIC PANEL chloride 103 mmol/ L 96-107 Not Available [address], [address], 02/25/2024 14:11:36 02/25/20 24 02/25/2024 COMP. METAB OLIC PANEL anion gap 9.6 5.0-15 .0 Not Available [address], [address], 02/25/2024 14:11:36 02/25/20 24 02/25/2024 COMP. METAB OLIC PANEL CO2 27 mmol/ L 21-32 Not Available [address], [address], 02/25/2024 14:11:36 02/25/20 24 02/25/2024 COMP. METAB OLIC PANEL calcium 9.5 mg/dL 8.5-10 .3 Not Available [address], [address], 02/25/2024 14:11:36 02/25/20 24 02/25/2024 COMP. METAB OLIC PANEL total protein 7.7 g/dL 6.4-8. 2 Not Available [address], [address], 02/25/2024 14:11:36 02/25/20 24 02/25/2024 COMP. METAB OLIC PANEL albumin 3.6 g/dL 3.4-5. 0 Not Available [address], [address], 02/25/2024 14:11:36 02/25/20 24 02/25/2024 COMP. METAB OLIC PANEL globulin 4.1 g/dL Not Available [address], [address], 02/25/2024 14:11:36 02/25/20 24 02/25/2024 COMP. METAB OLIC PANEL A/G 0.9 ratio 0.8-2. 0 Not Available [address], [address], 02/25/2024 14:11:36 02/25/20 24 02/25/2024 COMP. METAB OLIC PANEL total bilirubin 0.40 mg/dL 0.00-1 .00 Not Available [address], [address], 02/25/2024 14:11:36 02/25/20 24 02/25/2024 COMP. METAB OLIC PANEL AST 23 U/L 0-37 Not Available [address], [address], 02/25/2024 14:11:36 02/25/20 24 02/25/2024 COMP. METAB OLIC PANEL ALT 31 U/L 6-63 Not Available [address], [address], 02/25/2024 14:11:36 02/25/20 24 02/25/2024 COMP. METAB OLIC PANEL alk. phos. 95 U/L 50-136 Not Available [address], [address], 02/25/2024 14:11:36 02/25/20 24 02/25/2024 C-CLOTILDE CTIVE PROTE IN (RCRP ) C-reactive protein (rcrp) 5.7 mg/dL 0.5-9. 0 Not Available [address], [address], 02/25/2024 14:11:37 03/01/20 24 03/02/2024 DRUG SCREE N-8, URINE , WITH CONFI RMATI ON GC/MS amphetamine NEG. negati ve Not Available [address], [address], 03/02/2024 10:20:11 03/01/20 24 03/02/2024 DRUG SCREE N-8, URINE , WITH CONFI RMATI ON GC/MS barbiturates NEG. negati ve Not Available [address], [address], 03/02/2024 10:20:11 03/01/20 24 03/02/2024 DRUG SCREE N-8, URINE , WITH CONFI RMATI ON GC/MS benzodiazepi ne NEG. negati ve Not Available [address], [address], 03/02/2024 10:20:11 03/01/20 24 03/02/2024 DRUG SCREE N-8, URINE , WITH CONFI RMATI ON GC/MS cocaine NEG. negati ve Not Available [address], [address], 03/02/2024 10:20:11 03/01/20 24 03/02/2024 DRUG SCREE N-8, URINE , WITH CONFI RMATI ON GC/MS opiates POS. negati ve GCMS= Sampl e sent to [facility] for confi rmati on by GC/MS . Not Available [address], [address], 03/02/2024 10:20:11 03/01/20 24 03/02/2024 DRUG SCREE N-8, URINE , WITH CONFI RMATI ON GC/MS methadone NEG. negati ve Not Available [address], [address], 03/02/2024 10:20:11 03/01/20 24 03/02/2024 DRUG SCREE N-8, URINE , WITH CONFI RMATI ON GC/MS fentanyl NEG. negati ve Syva EMIT II Limit s of Detec tion (cutt -off value s) Darby Expan d: Amphe tamin es: 1000 ng/ml Opiat es: 300 ng/ml Mandy tuate s: 200 ng/ml Oxyco done 100 ng/ml Benzo diaze pines : 200 ng/ml Metha done 300 ng/ml Cocai ne: 300 ng/ml Fenta nyl 1 ng/ml Not Available [address], [address], 03/02/2024 10:20:11 03/01/20 24 03/02/2024 DRUG SCREE N-8, URINE , WITH CONFI RMATI ON GC/MS oxycodone NEG. negati ve Not Available [address], [address], 03/02/2024 10:20:11 03/01/20 24 03/04/2024 DRUG TOX MONIT ORING OPIAT ES EXPAN DED QN, U codeine NEGATI VE NG/mL <50 See Note 1 Not Available [facility] [address] [place] [address], [address], 03/04/2024 10:18:06 03/01/20 24 03/04/2024 DRUG TOX MONIT ORING OPIAT ES EXPAN DED QN, U hydrocodone 1109 NG/mL <50 high See Note 1 Not Available [facility] [place] [facility] [address], [place], [address], 03/04/2024 10:18:06 03/01/20 24 03/04/2024 DRUG TOX MONIT ORING OPIAT ES EXPAN DED QN, U hydromorphon e 667 NG/mL <50 high See Note 1 Not Available [facility] [place] [facility] [address], [place], [address], 03/04/2024 10:18:06 03/01/20 24 03/04/2024 DRUG TOX MONIT ORING OPIAT ES EXPAN DED QN, U morphine NEGATI VE NG/mL <50 See Note 1 Not Available [facility] [place] [facility] [address], [place], [address], 03/04/2024 10:18:06 03/01/20 24 03/04/2024 DRUG TOX MONIT ORING OPIAT ES EXPAN DED QN, U norhydrocodo ne 779 NG/mL <50 high See Note 1 Not Available [facility] [place] [facility] [address], [place], [address], 03/04/2024 10:18:06 03/01/20 24 03/04/2024 DRUG TOX MONIT ORING OPIAT ES EXPAN DED QN, U noroxycodone NEGATI VE NG/mL <50 See Note 1 Not Available [facility] [place] [facility] [address], [place], [address], 03/04/2024 10:18:06 03/01/20 24 03/04/2024 DRUG TOX MONIT ORING OPIAT ES EXPAN DED QN, U oxycodone NEGATI VE NG/mL <50 See Note 1 Not Available [facility] [place] [facility] [address], [place], [address], 03/04/2024 10:18:06 03/01/20 24 03/04/2024 DRUG TOX MONIT ORING OPIAT ES EXPAN DED QN, U oxymorphone NEGATI VE NG/mL <50 See Note 1 Not Available [facility] [address], [place], [address], 03/04/2024 10:18:06 03/01/20 24 03/04/2024 DRUG TOX MONIT ORING OPIAT ES EXPAN DED QN, U Unknown Analyte See Note 2 Note 1 This test was devel oped and its vilma tical perfo rmanc e nae cteri stics have been deter mined by [facility]. It has not been clear ed or appro nazanin by the FDA. This assay has been valid ated pursu ant to the CLIA regul ation s and is used for clini lani purpo ses. Note 2 This drug testi ng is for medic al treat ment only. Vilma sis was perfo rmed as non-f orens ic testi ng and these resul ts shoul d be used only by healt hcare provi ders to rende r diagn osis or treat ment, or to monit or progr ess of medic al condi tions . For kearaluca kaiser with inter preti ng these drug resul ts, pleas e conta ct a [facility] Toxic ology Speci alist : [phone] X TOX ( [phone] ), M-F, 8am-6 pm EST. Not Available [facility] [address], [place], [address], 03/04/2024 10:18:06 03/16/19 25 03/16/2024 CBC WBC 6.75 K/ L 3.98-1 0.04 Not Available [address], [address], 03/16/2024 15:48:35 03/16/19 25 03/16/2024 CBC RBC 4.50 M/ L 3.93-5 .22 Not Available [address], [address], 03/16/2024 15:48:35 03/16/19 25 03/16/2024 CBC HGB 10.5 g/dL 11.2-1 5.7 low Not Available [address], [address], 03/16/2024 15:48:35 03/16/19 25 03/16/2024 CBC HCT 35.5 % 34.1-4 4.9 Not Available [address], [address], 03/16/2024 15:48:35 03/16/19 25 03/16/2024 CBC MCV 78.9 fL 79.4-9 4.8 low Not Available [address], [address], 03/16/2024 15:48:35 03/16/19 25 03/16/2024 CBC MCH 23.3 pg 25.6-3 2.2 low Not Available [address], [address], 03/16/2024 15:48:35 03/16/19 25 03/16/2024 CBC MCHC 29.6 g/dL 32.2-3 5.5 low Not Available [address], [address], 03/16/2024 15:48:35 03/16/19 25 03/16/2024 CBC plt 558 K/ L 182-36 9 high Not Available [address], [address]605, 03/16/2024 15:48:35 03/16/19 25 03/16/2024 CBC MPV 10.9 fL 9.4-12 .3 Not Available [address], [address], 03/16/2024 15:48:35 03/16/19 03/16/2024 CBC neut% 43.2 % 34.0-7 1.1 Not Available [address], [address], 03/16/2024 15:48:35 03/16/1903/16/2024 CBC neut# 2.91 1.56-6 .13 Not Available [address], [address], 03/16/2024 15:48:35 03/16/1903/16/2024 CBC lymph % 47.1 % 19.3-5 1.7 Not Available [address], [address], 03/16/2024 15:48:35 03/16/1903/16/2024 CBC lymph # 3.18 K/ L 1.18-3 .74 Not Available [address], [address], 03/16/2024 15:48:35 03/16/1903/16/2024 CBC mono% 8.0 % 4.7-12 .5 Not Available [address], [address], 03/16/2024 15:48:35 03/16/1903/16/2024 CBC mono# 0.54 0.24-0 .56 Not Available [address], [address], 03/16/2024 15:48:35 03/16/1903/16/2024 CBC eo% 0.9 % 0.7-5. 8 Not Available [address], [address], 03/16/2024 15:48:35 03/16/1903/16/2024 CBC eo# 0.06 0.04-0 .36 Not Available [address], [address], 03/16/2024 15:48:35 03/16/19 25 03/16/2024 CBC baso% 0.7 % 0.1-1. 2 Not Available [address], [address], 03/16/2024 15:48:35 03/16/19 25 03/16/2024 CBC baso# 0.05 0.00-0 .08 Not Available [address], [address], 03/16/2024 15:48:35 03/16/19 25 03/16/2024 CBC RDW-CV 15.5 % 11.7-1 4.4 high Not Available [address], [address], 03/16/2024 15:48:35 03/16/19 25 03/16/2024 CBC Ig% 0.100 % 0.000- 1.500 Ig % >0.5 Indic ates possi ble Left Shift Not Available [address], [address], 03/16/2024 15:48:35 03/16/19 25 03/16/2024 CBC Ig# 0.010 0.000- 0.093 Not Available [address], [address], 03/16/2024 15:48:35 03/16/1903/16/2024 CBC NRBC% 0.0 % 0.0-0. 2 Not Available [address], [address], 03/16/2024 15:48:35 03/16/19 25 03/16/2024 CBC NRBC# 0.000 0.000- 0.012 Not Available [address], [address], 03/16/2024 15:48:35 03/16/19 25 03/16/2024 IRON PANEL iron 28 ug/dL 35-150 low Not Available [address], [address], 03/16/2024 16:03:15 03/16/19 25 03/16/2024 IRON PANEL T.I.B.C. 398 ug/dL 250-45 0 Not Available [address], [address], 03/16/2024 16:03:15 03/16/19 25 03/16/2024 IRON PANEL % saturation 7.0 % Not Available [address], [address], 03/16/2024 16:03:15 03/16/19 25 03/17/2024 JENNIFER TIN ferritin 3 NG/mL 15-200 low Not Available [address], [address], 03/17/2024 11:07:15 03/16/19 25 03/17/2024 IMMUN OCHEM ICAL FECAL OCCUL T BLOOD ifobt NEGATI VE negati ve Not Available [address], [address], 03/17/2024 14:41:40 05/15/19 25 05/14/2024 CBC WBC 4.96 K/ L 3.98-1 0.04 Not Available [address], [address], 05/14/2024 11:09:40 05/15/19 25 05/14/2024 CBC RBC 4.62 M/ L 3.93-5 .22 Not Available [address], [address], 05/14/2024 11:09:40 05/15/19 25 05/14/2024 CBC HGB 12.3 g/dL 11.2-1 5.7 Not Available [address], [address], 05/14/2024 11:09:40 05/15/19 25 05/14/2024 CBC HCT 39.0 % 34.1-4 4.9 Not Available [address], [address], 05/14/2024 11:09:40 05/15/19 25 05/14/2024 CBC MCV 84.4 fL 79.4-9 4.8 Not Available [address], [address], 05/14/2024 11:09:40 05/15/19 25 05/14/2024 CBC MCH 26.6 pg 25.6-3 2.2 Not Available [address], [address], 05/14/2024 11:09:40 05/15/19 25 05/14/2024 CBC MCHC 31.5 g/dL 32.2-3 5.5 low Not Available [address], [address], 05/14/2024 11:09:40 05/15/19 25 05/14/2024 CBC plt 447 K/ L 182-36 9 high Not Available [address], [address], 05/14/2024 11:09:40 05/15/19 25 05/14/2024 CBC MPV 10.6 fL 9.4-12 .3 Not Available [address], [address], 05/14/2024 11:09:40 05/15/19 25 05/14/2024 CBC neut% 25.8 % 34.0-7 1.1 low SREV= [facility]ide [facility]. Not Available [address], [address], 05/14/2024 11:09:40 05/15/19 25 05/14/2024 CBC neut# 1.28 1.56-6 .13 low Not Available [address], [address], 05/14/2024 11:09:40 05/15/19 25 05/14/2024 CBC lymph % 63.7 % 19.3-5 1.7 high Not Available [address], [address], 05/14/2024 11:09:40 05/15/19 25 05/14/2024 CBC lymph # 3.16 K/ L 1.18-3 .74 Not Available [address], [address], 05/14/2024 11:09:40 05/15/19 25 05/14/2024 CBC mono% 8.3 % 4.7-12 .5 Not Available [address], [address], 05/14/2024 11:09:40 05/15/19 25 05/14/2024 CBC mono# 0.41 0.24-0 .56 Not Available [address], [address], 05/14/2024 11:09:40 05/15/19 25 05/14/2024 CBC eo% 1.4 % 0.7-5. 8 Not Available [address], [address], 05/14/2024 11:09:40 05/15/19 25 05/14/2024 CBC eo# 0.07 0.04-0 .36 Not Available [address], [address], 05/14/2024 11:09:40 05/15/19 25 05/14/2024 CBC baso% 0.8 % 0.1-1. 2 Not Available [address], [address], 05/14/2024 11:09:40 05/15/19 25 05/14/2024 CBC baso# 0.04 0.00-0 .08 Not Available [address], [address], 05/14/2024 11:09:40 05/15/19 25 05/14/2024 CBC RDW-CV 17.2 % 11.7-1 4.4 high Not Available [address], [address], 05/14/2024 11:09:40 05/15/19 25 05/14/2024 CBC Ig% 0.000 % 0.000- 1.500 Ig % >0.5 Indic ates possi ble Left Shift Not Available [address], [address], 05/14/2024 11:09:40 05/15/19 25 05/14/2024 CBC Ig# 0.000 0.000- 0.093 Not Available [address], [address], 05/14/2024 11:09:40 05/15/19 25 05/14/2024 CBC NRBC% 0.0 % 0.0-0. 2 Not Available [address], [address], 05/14/2024 11:09:40 05/15/19 25 05/14/2024 CBC NRBC# 0.000 0.000- 0.012 Not Available [address], [address], 05/14/2024 11:09:40 05/15/1905/14/2024 JENNIFER TIN ferritin 16 NG/mL 15-200 Not Available [address], [address], 05/14/2024 14:05:35 05/15/19 25 05/14/2024 IRON PANEL iron 46 ug/dL 35-150 Not Available [address], [address], 05/14/2024 14:51:41 05/15/19 25 05/14/2024 IRON PANEL T.I.B.C. 323 ug/dL 250-45 0 Not Available [address], [address], 05/14/2024 14:51:41 05/15/19 25 05/14/2024 IRON PANEL % saturation 14.2 % Not Available [address], [address], 05/14/2024 14:51:41 05/15/19 25 05/14/2024 ESR sed rate 9.0 0.0-15 .0 Not Available [address], [address], 05/14/2024 16:36:12 05/15/19 25 05/15/2024 TRANS JENNIFER N transferrin 280 mg/dL 188-34 1 normal Not Available [employer] [facility] [address], [address], 05/15/2024 21:27:35 05/15/19 25 05/17/2024 COMP. METAB OLIC PANEL glucose 98 mg/dL 70-100 Not Available [address], [address], 05/17/2024 12:16:42 05/15/19 25 05/17/2024 COMP. METAB OLIC PANEL BUN 12 mg/dL 7-18 Not Available [address], [address], 05/17/2024 12:16:42 05/15/19 25 05/17/2024 COMP. METAB OLIC PANEL creatinine 0.9 mg/dL 0.8-1. 3 Not Available [address], [address], 05/17/2024 12:16:42 05/15/19 25 05/17/2024 COMP. METAB OLIC PANEL B/C 13.3 ratio Not Available [address], [address], 05/17/2024 12:16:42 05/15/19 25 05/17/2024 COMP. METAB OLIC PANEL GFR >=60ML /MIN mL/mi n normal >=60m L/min - Michelle l or midly reduc ed <60mL /min- Decre ased kidne y funct ion <15mL /min - Kidne y failu re [facility] calcu lates estim ated Glome rular Filtr ation Rate (eGFR ) using the Chron ic Kidne y Disea se Epide miolo gy Colla borat ion (CKD- EPI) Equat ion (Inke r et. al 2020) as recom shawna d by the Natio nal Kidne y Found ation . eGFR is based on age, serum creat inine , and sex. CKD-E PI does not calcu late eGFR by race, does not apply to child ying (age <18 years ), and shoul d not be used in pregn wilian. Not Available [address], [address], 05/17/2024 12:16:42 05/15/19 25 05/17/2024 COMP. METAB OLIC PANEL sodium 138 mmol/ L 136-14 5 Not Available [address], [address], 05/17/2024 12:16:42 05/15/19 25 05/17/2024 COMP. METAB OLIC PANEL potassium 4.3 mmol/ L 3.5-5. 1 Not Available [address], [address], 05/17/2024 12:16:42 05/15/19 25 05/17/2024 COMP. METAB OLIC PANEL chloride 101 mmol/ L 96-107 Not Available [address], [address], 05/17/2024 12:16:42 05/15/19 25 05/17/2024 COMP. METAB OLIC PANEL anion gap 11.7 5.0-15 .0 Not Available [address], [address], 05/17/2024 12:16:42 05/15/19 25 05/17/2024 COMP. METAB OLIC PANEL CO2 25 mmol/ L 21-32 Not Available [address], [address], 05/17/2024 12:16:42 05/15/19 25 05/17/2024 COMP. METAB OLIC PANEL calcium 9.6 mg/dL 8.5-10 .3 Not Available [address], [address], 05/17/2024 12:16:42 05/15/19 25 05/17/2024 COMP. METAB OLIC PANEL total protein 7.7 g/dL 6.4-8. 2 Not Available [address], [address], 05/17/2024 12:16:42 05/15/19 25 05/17/2024 COMP. METAB OLIC PANEL albumin 4.0 g/dL 3.4-5. 0 Not Available [address], [address], 05/17/2024 12:16:42 05/15/19 25 05/17/2024 COMP. METAB OLIC PANEL globulin 3.7 g/dL Not Available [address], [address], 05/17/2024 12:16:42 05/15/19 25 05/17/2024 COMP. METAB OLIC PANEL A/G 1.1 ratio 0.8-2. 0 Not Available [address], [address], 05/17/2024 12:16:42 05/15/19 25 05/17/2024 COMP. METAB OLIC PANEL total bilirubin 0.30 mg/dL 0.00-1 .00 Not Available [address], [address], 05/17/2024 12:16:42 05/15/19 25 05/17/2024 COMP. METAB OLIC PANEL AST 34 U/L 0-37 Not Available [address], [address], 05/17/2024 12:16:42 05/15/19 25 05/17/2024 COMP. METAB OLIC PANEL ALT 38 U/L 6-63 Not Available [address], [address], 05/17/2024 12:16:42 05/15/19 25 05/17/2024 COMP. METAB OLIC PANEL alk. phos. 88 U/L 50-136 Not Available [address], [address], 05/17/2024 12:16:42 05/15/19 25 05/17/2024 C-CLOTILDE CTIVE PROTE IN (RCRP ) C-reactive protein (rcrp) 3.3 mg/dL 0.5-9. 0 Not Available [address], [address], 05/17/2024 12:16:43 05/27/1905/26/2024 TSH TSH 0.97 uIU/m L 0.50-6 .00 The Ameri can Colle ge of Endoc rinol ogy and Ameri can Thyro id Assoc iatio n recom mend goal TSH value s betwe en 0.4-4 .0 mIU/m L. Not Available [address], [address], 05/26/2024 16:25:43 05/27/19 25 05/28/2024 LIPID PANEL cholesterol 293 mg/dL <200 mg/dl Marie able 200-2 39 mg/dl Borde rline High >240 mg/dl High Not Available [address], [address], 05/28/2024 14:14:08 05/27/19 25 05/28/2024 LIPID PANEL triglyceride s 226 mg/dL <150 mg/dL Michelle l 150-1 99 mg/dL Borde rline High 200-4 99 mg/dL High >500 mg/dL Very High Not Available [address], [address], 05/28/2024 14:14:08 05/27/19 25 05/28/2024 LIPID PANEL direct HDL 60 mg/dL <40 mg/dl - Major Risk for CHD >60 mg/dl - Negat james Risk for CHD Not Available [address], [address], 05/28/2024 14:14:08 05/27/1905/28/2024 DIREC T LDL direct LDL 187 mg/dL RISK CATEG ORY LDL GOAL _ CHD or CHD Risk Equiv alent s <100 mg/dl (10-y ear risk >20%) 2+ Risk Facto rs <130 mg/dl (10-y ear risk <= 20%) 0-1 Risk Facto r <160 [facility] with 0-1 risk facto r have a 10 year risk <10%, thus 10 year risk asses ment in peopl e with 0-1 risk facto r is not neces rachael. Not Available [address], [address], 05/28/2024 14:14:09 09/10/1909/09/2024 CBC WBC 5.77 K/ L 3.98-1 0.04 Not Available [address], [address], 09/09/2024 15:30:19 09/10/19 25 09/09/2024 CBC RBC 4.07 M/ L 3.93-5 .22 Not Available [address], [address], 09/09/2024 15:30:19 09/10/19 25 09/09/2024 CBC HGB 10.7 g/dL 11.2-1 5.7 low Not Available [address], [address], 09/09/2024 15:30:19 09/10/19 25 09/09/2024 CBC HCT 35.2 % 34.1-4 4.9 Not Available [address], [address], 09/09/2024 15:30:19 09/10/1909/09/2024 CBC MCV 86.5 fL 79.4-9 4.8 Not Available [address], [address], 09/09/2024 15:30:19 09/10/1909/09/2024 CBC MCH 26.3 pg 25.6-3 2.2 Not Available [address], [address], 09/09/2024 15:30:19 09/10/19 25 09/09/2024 CBC MCHC 30.4 g/dL 32.2-3 5.5 low Not Available [address], [address], 09/09/2024 15:30:19 09/10/1909/09/2024 CBC plt 484 K/ L 182-36 9 high Not Available [address], [address], 09/09/2024 15:30:19 09/10/19 25 09/09/2024 CBC MPV 10.8 fL 9.4-12 .3 Not Available [address], [address], 09/09/2024 15:30:19 09/10/19 25 09/09/2024 CBC neut% 38.5 % 34.0-7 1.1 Not Available [address], [address], 09/09/2024 15:30:19 09/10/19 25 09/09/2024 CBC neut# 2.22 1.56-6 .13 Not Available [address], [address], 09/09/2024 15:30:19 09/10/19 25 09/09/2024 CBC lymph % 53.0 % 19.3-5 1.7 high Not Available [address], [address], 09/09/2024 15:30:19 09/10/1909/09/2024 CBC lymph # 3.06 K/ L 1.18-3 .74 Not Available [address], [address], 09/09/2024 15:30:19 09/10/1909/09/2024 CBC mono% 6.6 % 4.7-12 .5 Not Available [address], [address], 09/09/2024 15:30:19 09/10/1909/09/2024 CBC mono# 0.38 0.24-0 .56 Not Available [address], [address], 09/09/2024 15:30:19 09/10/1909/09/2024 CBC eo% 1.0 % 0.7-5. 8 Not Available [address], [address], 09/09/2024 15:30:19 09/10/1909/09/2024 CBC eo# 0.06 0.04-0 .36 Not Available [address], [address], 09/09/2024 15:30:19 09/10/19 25 09/09/2024 CBC baso% 0.7 % 0.1-1. 2 Not Available [address], [address], 09/09/2024 15:30:19 09/10/1909/09/2024 CBC baso# 0.04 0.00-0 .08 Not Available [address], [address], 09/09/2024 15:30:19 09/10/1909/09/2024 CBC RDW-CV 13.9 % 11.7-1 4.4 Not Available [address], [address], 09/09/2024 15:30:19 09/10/1909/09/2024 CBC Ig% 0.200 % 0.000- 1.500 Ig % >0.5 Indic ates possi ble Left Shift Not Available [address], [address], 09/09/2024 15:30:19 09/10/1909/09/2024 CBC Ig# 0.010 0.000- 0.093 Not Available [address], [address], 09/09/2024 15:30:19 09/10/1909/09/2024 CBC NRBC% 0.0 % 0.0-0. 2 Not Available [address], [address], 09/09/2024 15:30:19 09/10/1909/09/2024 CBC NRBC# 0.000 0.000- 0.012 Not Available [address], [address], 09/09/2024 15:30:19 09/10/1909/09/2024 ESR sed rate 25.0 0.0-15 .0 high Not Available [address], [address], 09/09/2024 16:33:24 09/10/19 25 09/13/2024 COMP. METAB OLIC PANEL glucose 90 mg/dL 70-100 Not Available [address], [address], 09/13/2024 16:35:25 09/10/19 25 09/13/2024 COMP. METAB OLIC PANEL BUN 14 mg/dL 7-18 Not Available [address], [address], 09/13/2024 16:35:25 09/10/19 25 09/13/2024 COMP. METAB OLIC PANEL creatinine 0.8 mg/dL 0.8-1. 3 Not Available [address], [address], 09/13/2024 16:35:25 09/10/19 25 09/13/2024 COMP. METAB OLIC PANEL B/C 17.5 ratio Not Available [address], [address], 09/13/2024 16:35:25 09/10/19 25 09/13/2024 COMP. METAB OLIC PANEL GFR >=60ML /MIN mL/mi n normal >=60m L/min - Michelle l or midly reduc ed <60mL /min- Decre ased kidne y funct ion <15mL /min - Kidne y failu re [facility] calcu lates estim ated Glome rular Filtr ation Rate (eGFR ) using the Chron ic Kidne y Disea se Epide miolo gy Colla borat ion (CKD- EPI) Equat ion (Nadjae r et. al 2020) as recom shawna d by the Natio nal Kidne y Found ation . eGFR is based on age, serum creat inine , and sex. CKD-E PI does not calcu late eGFR by race, does not apply to child ying (age <18 years ), and shoul d not be used in pregn wilian. Not Available [address], [address], 09/13/2024 16:35:25 09/10/19 25 09/13/2024 COMP. METAB OLIC PANEL sodium 141 mmol/ L 136-14 5 Not Available [address], [address], 09/13/2024 16:35:25 09/10/19 25 09/13/2024 COMP. METAB OLIC PANEL potassium 4.7 mmol/ L 3.5-5. 1 Not Available [address], [address], 09/13/2024 16:35:25 09/10/19 25 09/13/2024 COMP. METAB OLIC PANEL chloride 102 mmol/ L 96-107 Not Available [address], [address], 09/13/2024 16:35:25 09/10/19 25 09/13/2024 COMP. METAB OLIC PANEL anion gap 13.4 5.0-15 .0 Not Available [address], [address], 09/13/2024 16:35:25 09/10/19 25 09/13/2024 COMP. METAB OLIC PANEL CO2 26 mmol/ L 21-32 Not Available [address], [address], 09/13/2024 16:35:25 09/10/19 25 09/13/2024 COMP. METAB OLIC PANEL calcium 9.5 mg/dL 8.5-10 .3 Not Available [address], [address], 09/13/2024 16:35:25 09/10/19 25 09/13/2024 COMP. METAB OLIC PANEL total protein 7.9 g/dL 6.4-8. 2 Not Available [address], [address], 09/13/2024 16:35:25 09/10/19 25 09/13/2024 COMP. METAB OLIC PANEL albumin 4.4 g/dL 3.4-5. 0 Not Available [address], [address], 09/13/2024 16:35:25 09/10/19 25 09/13/2024 COMP. METAB OLIC PANEL globulin 3.5 g/dL Not Available [address], [address], 09/13/2024 16:35:25 09/10/19 25 09/13/2024 COMP. METAB OLIC PANEL A/G 1.3 ratio 0.8-2. 0 Not Available [address], [address], 09/13/2024 16:35:25 09/10/19 25 09/13/2024 COMP. METAB OLIC PANEL total bilirubin 0.50 mg/dL 0.00-1 .00 Not Available [address], [address], 09/13/2024 16:35:25 09/10/19 25 09/13/2024 COMP. METAB OLIC PANEL AST 22 U/L 0-37 Not Available [address], [address], 09/13/2024 16:35:25 09/10/19 25 09/13/2024 COMP. METAB OLIC PANEL ALT 25 U/L 6-63 Not Available [address], [address], 09/13/2024 16:35:25 09/10/19 25 09/13/2024 COMP. METAB OLIC PANEL alk. phos. 99 U/L 50-136 Not Available [address], [address], 09/13/2024 16:35:25 09/10/19 25 09/13/2024 C-CLOTILDE CTIVE PROTE IN (RCRP ) C-reactive protein (rcrp) 2.0 mg/L 0.5-9. 0 Not Available [address] [place], [address], 09/13/2024 16:37:50 09/10/1909/14/2024 HEPAT ITIS PANEL , GENER AL hepatitis A Ab, total NON-RE ACTIVE non-re active normal For addit ional infor scott henry refer to http: //[facility] [employer].c om/fa q/FAQ 202 (This link is being provi ded for infor matio nal/ educa adarsh l purpo ses only. ) Not Available [facility] [address], [address], 09/14/2024 04:43:40 09/10/1909/14/2024 HEPAT ITIS PANEL , GENER AL hepatitis B surface antibody ql NON-RE ACTIVE non-re active normal Not Available [facility] [address], [address], 09/14/2024 04:43:40 09/10/19 25 09/14/2024 HEPAT ITIS PANEL , GENER AL hepatitis B surface antigen NON-RE ACTIVE non-re active normal For addit ional scott longoria refer to http: //[facility] [employer].c om/fa q/FAQ 202 (This link is being provi ded for infor matio nal/ educa adarsh l purpo ses only. ) Not Available [facility] [address], [address], 09/14/2024 04:43:40 09/10/1909/14/2024 HEPAT ITIS PANEL , GENER AL hepatitis B core Ab total NON-RE ACTIVE non-re active normal For addit ional infor scott henry refer to http: //[facility] [employer].c om/fa q/FAQ 202 (This link is being provi ded for infor matio nal/ educa adarsh l purpo ses only. ) Not Available [facility] [address], [place], [address], 09/14/2024 04:43:40 09/10/19 25 09/14/2024 HEPAT ITIS PANEL , GENER AL hepatitis C antibody NON-RE ACTIVE non-re active normal HCV antib kike was non-r eacti ve. There is no labor atory evide nce of HCV infec tion. In most cases , no furth er actio n is requi red. Howev er, if recen t HCV expos ure is suspe cted, a test for HCV RNA (test code 85016 ) is sugcale sted. For addit ional infor jennifer chavez e refer to http: //[facility] [employer] gn[employer].c om/fa q/FAQ 22v1 (This link is being provi ded for infor matio nal/ educa adarsh l purpo ses only. ) Not Available [facility] [address], [place], [address], 09/14/2024 04:43:40 09/10/1909/14/2024 QUANT IFERO N(R)- TB GOLD PLUS, 1 TUBE quantiferon( R)-TB gold plus, 1 tube NEGATI VE negati ve normal Negat james test resul t. M. tuber culos is compl ex infec tion unlik nerissa. Not Available [facility] [address], [place], [address], 09/14/2024 04:43:41 09/10/19 25 09/14/2024 QUANT IFERO N(R)- TB GOLD PLUS, 1 TUBE nil 0.01 IU/mL normal Not Available [facility] [address], [place], [address], 09/14/2024 04:43:41 09/10/19 25 09/14/2024 QUANT IFERO N(R)- TB GOLD PLUS, 1 TUBE mitogen-nil 9.87 IU/mL normal Not Available [facility] [address], [address], 09/14/2024 04:43:41 09/10/19 25 09/14/2024 QUANT IFERO N(R)- TB GOLD PLUS, 1 TUBE TB1-nil 0.00 IU/mL normal Not Available [facility] [address], [place], [address], 09/14/2024 04:43:41 09/10/1909/14/2024 QUANT IFERO N(R)- TB GOLD PLUS, 1 TUBE TB2-nil 0.00 IU/mL normal The Nil tube value refle cts the backg round inter feron gamma immun e respo [facility]se [facility] e. This value has been subtr acted from the [facility] nt's displ ayed TB and Mitog en resul ts. Lower than expec stepan resul ts with the Mitog en tube preve nt false -nega tive Quant ifero n readi ngs by detec ting a patie nt with a poten tial immun e suppr essiv e condi tion and/o r subop timal pre-a nalyt ical speci men handl ing. The TB1 Antig en tube is coate d with the M. tuber culos is-sp ecifi c antig ens desig raghav to elici t respo nses from TB antig en prime d CD4+ helpe r T-lym phocy servando. The TB2 Antig en tube is coate d with the M. tuber culos is-sp ecifi c antig ens desig raghav to elici t respo nses from TB antig en prime d CD4+ helpe r and CD8+ cytot oxic T-lym phocy servando. For addit ional infor scott henry e refer to https ://ed bryanna on.qu shukri [employer]. com/f aq/FA Q204 (This link is being provi ded for infor jennifer bhatti/ tara tineoo ses only. ) Not Available [facility] [address] [place] [address] B, [place], [address], 09/14/2024 04:43:41 03/12/19 24 02/25/2023 XR, wrist + hand No observ ation record ed. [address], [address], 03/26/2023 13:43:41 03/12/19 24 02/25/2023 XR, wrist + hand No observ ation record ed. [address], [address], 03/26/2023 13:43:39 03/12/19 24 02/25/2023 XR, ankle No observ ation record ed. [address], [address], 03/26/2023 13:43:35 03/12/19 24 02/25/2023 XR, foot No observ ation record ed. [address], [address], 03/26/2023 13:43:36 03/12/19 24 02/25/2023 XR, foot No observ ation record ed. [address], [address], 03/26/2023 13:43:33 03/12/19 24 02/25/2023 XR, ankle No observ ation record ed. [address], [address], 03/13/2023 06:33:46 11/15/19 24 11/14/2023 MAMMO , scree kecia, tomos ynthe sis, bilat eral MAMMO, SCREEN , LUIS ARMANDO, BILAT: 11/14/19 24. BI-RAD S: 1 CLINIC AL: 52-yea r old Female for Bilate ral Screen ing Mammog rissa. Tyrer- Cuzick lifeti me risk of 20.3%. No person al or first- degree family histor y of breast cancer . Emily gardiner report ed family histor y of breast cancer : matern al grandm other. The patien t had a prior right breast biopsy . Last clinic al breast exam date is unknow n. PRIOR EXAMS: Multip le prior studie s back throug h 2019. MAMMOG PING TECHNI QUE: 3D mammog ping (tomos ynthes is) and 2D mammog ping (C-vie w) images are genera stepan. Images review ed with a CAD system . DENSIT Y C. The breast s are hetero geneou sly dense, which may obscur e small masses . MAMMOG PING FINDIN GS Bilate ral: No suspic ious mass, asymme try, microc alcifi cation , or other abnorm ality seen. CONCLU SIONNo eviden ce of malign wilian. RECOMM ENDATI ONS Bilate ralAcc ording to the Tyrer- Cuzick Risk Assess ment Model, based on the inform ation provid ed your patien t has a greate r than 20% lifeti me risk for develo ping breast cancer . Consid er supple mental screen ing with breast MRI and partic ipatio n in a high risk screen ing progra m.Larry al screen ing mammog ping. ADMINI STRATI VE: A lay summar y was mailed to your patien t indica calving the result s and recomm endati ons for follow -up. OVERAL L ASSESS MENT CATEGO RY BI-RAD S-1: Negati ve. The [employer] an [employer] e [employer] Radiol ogy recomm ends annual screen ing mammog ping beginn ing at age 40 for women with averag e risk of breast cancer . ELECTR ONICAL LY SIGNED : Yazmin Eddy ms, M.D. on 2023 at 10:20: 57 AM Estrellita long Physic sergio: Yazmin Eddy ms [facility] (Imaging) [address], [place], [address], 11/16/2023 11:51:00 05/27/19 25 05/26/2024 XR, knee, weigh tbear ing CLINIC AL HISTOR Y: Pain under patell ae. No trauma . TECHNI QUE: Bilate ral knee x-ray. 4 views, 4 images . FINDIN GS: The bones appear unrema rkable . Right knee: Postsu rgical change s within the right knee, compat ible with prior ACL repair . No acute or healin g fractu re seen. No right knee disloc ation. No patell ar disloc ation. Subjec tively mild osteoa rthrit ic change s within the latera l compar tment. Subjec tively modera te osteoa rthrit ic change s within the patell ofemor al compar tment. Left knee: No acute or healin g fractu re seen. No knee disloc ation. No patell ar disloc ation. Subjec tively mild osteoa rthrit ic change s within the patell ofemor al compar tment. Subjec tively mild osteoa rthrit ic change s within the latera l compar tment. IMPRES MASON: Some degene rative change s within both knees includ ing the patell ofemor al compar tments . No acute bony abnorm ality seen. Estrellita long Physic sergio: Thiago Platt [facility] (Imaging) [address] [place] [address] , [place], [address], 05/26/2024 16:32:02 Result Notes Documentation Provider Name and Address Organization Details Recorded Time Mammo, Screening, Tomosynthesis, Bilateral : MAMMO, SCREEN, LUIS ARMANDO, BILAT: 11/14/2023. BI-RADS: 1 CLINICAL: 52-year old Female for Bilateral Screening Mammogram. Tyrer-Cuzick lifetime risk of 20.3%. No personal or first-degree family history of breast cancer. Current reported family history of breast cancer: maternal grandmother. The patient had a prior right breast biopsy. Last clinical breast exam date is unknown. PRIOR EXAMS: Multiple prior studies back through 2019. MAMMOGRAPHY TECHNIQUE: 3D mammography (tomosynthesis) and 2D mammography (C-view) images are generated. Images reviewed with a CAD system. DENSITY C. The breasts are heterogeneously dense, which may obscure small masses. MAMMOGRAPHY FINDINGS Bilateral: No suspicious mass, asymmetry, microcalcification, or other abnormality seen. CONCLUSIONNo evidence of malignancy. RECOMMENDATIONS BilateralAccording to the Tyrer-Cuzick Risk Assessment Model, based on the information provided your patient has a greater than 20% lifetime risk for developing breast cancer. Consider supplemental screening with breast MRI and participation in a high risk screening program.Annual screening mammography. ADMINISTRATIVE: A lay summary was mailed to your patient indicating the results and recommendations for follow-up. OVERALL ASSESSMENT CATEGORY BI-RADS-1: Negative. The [employer] recommends annual screening mammography beginning at age 40 for women with average risk of breast cancer. ELECTRONICALLY SIGNED: Seymour [place] M.D. on 11/15/2023 at 10:20:57 AM Reading Physician: NISSA Frankel [address] [place] [address], [phone], [facility] 11/16/2023 04:33:55 Xr, Knee, Weightbearing : CLINICAL HISTORY: Pain under patellae. No trauma. TECHNIQUE: Bilateral knee x-ray. 4 views, 4 images. FINDINGS: The bones appear unremarkable. Right knee: Postsurgical changes within the right knee, compatible with prior ACL repair. No acute or healing fracture seen. No right knee dislocation. No patellar dislocation. Subjectively mild osteoarthritic changes within the lateral compartment. Subjectively moderate osteoarthritic changes within the patellofemoral compartment. Left knee: No acute or healing fracture seen. No knee dislocation. No patellar dislocation. Subjectively mild osteoarthritic changes within the patellofemoral compartment. Subjectively mild osteoarthritic changes within the lateral compartment. IMPRESSION: Some degenerative changes within both knees including the patellofemoral compartments. No acute bony abnormality seen. Reading Physician: NISSA Gallegos [address] [place] [address], [phone], [facility] 05/26/2024 15:46:32 Problems Name Problem SNOMED Code Status Onset Date Resolution Date Notes Provider Name and Address Organization Details Recorded Time Hyperlip idemia 49064960 Completed 12/22/2014 NISSA Benito [address] [place], [place] [address], [phone], [facility] 4 07:57:04 Hypothyr oidism 01635826 Active Chrissie NISSA Veras [address] [place] [address] Lakeisha Will [place], [phone], [facility] 2 05:33:50 Non-toxi c multinod ular goiter 76405310 Active Chrissie NISSA Veras [address] [place], [place] [address], [phone], [facility] 2 05:33:50 Chronic back pain [id number] Completed 201601/27/201708/2016 MRI of lumbar spine showed scoliosi s and DDD; followed by orthoped ist Dr. Payam Jj Removal Reason: duplicat e NISSA Benito [address] [place], [place] [address], [phone], [facility] 7 07:00:27 Chronic low back pain [id number] Active 08/2016 MRI of lumbar spine showed scoliosi s and DDD; followed by orthoped ist Dr. Payam Jj who prescrib ed Percocet . Chrissie NISSA Veras [address] [place], [place] [address], [phone], [facility] 2 05:33:50 Hyperlip idemia 62210291 Completed 201603/01/202402/2019 LDL 245, HDL 57, Chol 352, ASCVD risk 1.7%, but since LDL >190, advised to start statin; statin declined 03/2020 - will recheck lipids 06/2020 after lifestyl e changes. . 02/2018 LDL 158, HDL 51, Chol 255, improved from 03/2017 LDL 182, HDL 53, Chol 267. Removal Reason: mixed Chrissie NISSA Veras [address] [place] [address] [place], [address], [facility] 4 07:57:03 History of supraven tricular tachycar lionel [id number] 292525 Active 2016 s/p ablation in [place] circa 2009. She saw cardiolo gist Dr. Germán Wing in 06/2018 for a consulta tion. 08/2018 ECHO was normal. 3 telemedi cine cardiolo gy consult for history of SVT and palpitat ions. Stress from her mother-i n-law dying. Rx 120 mg verapami l for palpitat ions and follow in in a few weeks NISSA Benito [address] [place] [address] [place], [address], [facility] 3 17:58:02 Basal cell carcinom a of skin 577160301 Active 2016 per 07/2017 biopsies of face and 01/30/20 biopsy of lesion on abdomen; was followed by [facility]; switched to [facility] 10/2018. NISSA Benito [address] [place] [address] [place], [address], [facility] 2 05:33:50 Obesity 942587314 Active 2017 NISSA Benito [address] [place], [place] [address], [address], [facility] 2 05:33:50 Ankylosi ng spondyli tis 2552522 Active 201802/26/[address] Skinner for ankylosi ng spondyli tis: Talz was stopped 2 months ago since it was not effectiv e. She remains on 10 mg predniso ne/day. Predniso ne is helpful for pain but causing weight gain and stomach upset. Will try switchin g to Simponi injectio ns. Reduce predniso ne to 2.5 mg/day x 2 weeks, then 1.25 mg/day x 2 weeks then stop. Anemia with thromboc ytosis is increasi ng - will need evaluati on and hematolo gy consult again. NISSA Benito [address] [place] [address] [place], [address], [facility] 4 13:02:12 Scronaldo s deformit y of spine 617434865 Active [address] Payam Jj 3 thoracic scronaldo s xray ordered by Dr. Jj: scoliosi s has progress ed since 2013 - per 14 degree angle in 2013 and now 16 degree angle in 2022 [place], [address], [facility] 3 11:11:17 Raynaud' s disease 986177050 Active 2018 [place], [address], [facility] 2 05:33:50 Persiste nt lymphocy tosis 63297329 Active 2021 Per 02/21/20 22 note from rheumato logist Dr. 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 Lymphocy tosis since 2018 Neutrope lance since 2014. She had a hematolo gy consult with Dr. Rehman on 08/13/2022 and per that consult: I feel that as long as her neutroph il count is above 1K with no issues regardin g infectio ns, then she can continue with it (Humira) [place], [address], [facility] 3 06:05:02 Basal cell carcinom a of nose 060295643 Active 2022 mid nose: MOHS recommen ded. - Basal cell carcinom a, nodular type. Advised to check with insuranc e. - The tumor extends to the base of the submitte d tissue[place], [address], [facility] 4 14:02:06 Prolapse of female genital organs 65307314 Active 2023 [place], [address], [facility] 4 14:02:02 Mixed hyperlip idemia 995300705 Active 2023 [place], [address], [facility] 4 07:56:51 Iron deficien cy anemia 06115430 Active 202403/16/2024 CBC showing microcyt ic anemia and iron 28; history of menorrha marlena in 2019 but not recently . Denies black stool or blood with BM's Has been on predniso ne for arthriti s. 1 EGD and colonosc opy by Dr. Palencia: colonosc opy was normal, 10-year repeat advised. EGD showed esophagi tis and hiatal hernia and erosions in stomach; negative for H. pylori. Advised to start iron suppleme nt and referred to [facility] again for consider aiton of EGD. 5 GI consult for iron deficien cy anemia. Last EGD/colo noscopy [address] Palencia: EGD: grade A esophagi tis and erosions in stomach and esophage al hiatal hernia; colonoco py - normal colon, repeat 10 years. Plan for repeat EGD and colonosc opy; consider capsule endoscop y if normal. Advised to take omeprazo le daily. 5 EGD-colo noscopy by Dr. Souza for iron def anemia: EGD showed ulcer of stomach, esophagi tis. Colonosc opy showed mild divertic ulosis and signs of ischemic colitis; biopsies taken. Repeat EGD in 3 months advised. Increase omeprazo le to 20 mg bid Chrissie Veras, RPA-C [address] [place] [address], [place], [address], [facility] 5 05:35:24 Gastriti s 3253860 Active 2024 Esophagi tis, gastriti s per 5 EGD-colo noscopy by Dr. Souza for iron def anemia: EGD showed ulcer of stomach, esophagi tis. Colonosc opy showed mild divertic ulosis and signs of ischemic colitis; biopsies taken. Repeat EGD in 3 months advised. Increase omeprazo le to 20 mg bid. [address] Souza: esophagu s appeared normal but dilation done due to dysphagi a, biopsy taken; non-blee ding ulcer of stomach; medium paraesop hageal hernia with erosions of the hiatal hernia c/w Robb lesions. Advised to stop NSAIDS NISSA Benito [address] [place] [address] [place], [address], [facility] 5 05:53:30 Problem Notes None recorded. Procedures Surgical History Date Name Laterality Status Provider Name and Address Organization Details Recorded Time 5 Colonoscopy completed NISSA Benito [facility] [place], [address], [facility] 05/25/2024 03:21:12 5 Actinic Keratosis completed Aaron Lancaster PA-C [address] [place] [address], [address], [facility] 04/06/2024 09:44:32 5 Skin Tag Removal (up to 15) completed Aaron Lancaster PA-C [address] [place] [address], [address], [facility] 04/06/2024 09:45:00 3 Shave Biopsy AG completed Aaron Lancaster PA-C [address] [place] [address], [phone], [facility] 08/13/2022 13:54:45 1 Colonoscopy completed NISSA Benito [address] [place] [address], [address], [facility] 03/07/2021 13:09:08 0 prevention-card iovascular risk reduction counseling completed NISSA Benito [address] [place] [address], [address], [facility] 03/06/2020 12:21:42 0 prevention-larry al alcohol misuse screening completed NISSA Benito [address] [place] [address], [phone], [facility] 03/06/2020 12:21:42 8 excision of basal cell carcinoma completed Dona Pond LPN [facility] 05/18/2018 08:54:12 7 Shave Biopsy completed NISSA Benito [address] [place] [address], [address], [facility] 01/29/2017 10:16:21 0 Other (specify) completed Rojelio Montana MD [address] [place] [address], [address], [facility] 07/15/2013 11:23:16 6 Other (specify) completed Rojelio Montana MD [address] [place] [address], [phone], [facility] 07/15/2013 11:23:16 1 Other (specify) completed Rojelio Montana MD [address] [place] [address], [phone], [facility] 07/15/2013 11:23:16 0 Other (specify) completed Dona Pond LPN [facility] 05/18/2018 08:52:59 3 Other (specify) completed Rojelio Montana MD [address] [place] [address], [address], [facility] 07/15/2013 11:23:16 Imaging Results None recorded. Procedure Notes None recorded. Medical Equipment None Reported. Allergies Allergen ID Allergen Name Allergen Category Reaction Reaction Severity Criticality Documentation Date Start Date Code Code System Note Provider Name and Address Organization Details Recorded Time 507681 erythromy titus medicatio n Not available Not available Not available 05/14/2013 4053 RxNorm Sheila Kendrick MA [facility] 4 09:31:52 127528 Product containin g 3-hydroxy -3-methyl glutaryl- coenzyme A reductase inhibitor (product) medicatio n myalgias (muscle pain) Not available Not available 05/14/2013 78660 009 SNOMED fluva stati n/les [facility] 3 13:36:42 648780 topiramat e medicatio n Not available Not available Not available 03/06/2020 20640 RxNorm [facility] 2 13:40:21 Medications Name Sig Start Date Stop Date Status Note LastModified by Organization Details LastModified Time verapamil ER (SR) 120 mg tablet,ex tended release Take 1 tablet every day by oral route. 03/26 completed 3 telemedi cine cardiolo gy consult for history of SVT and palpitat ions. Stress from her mother-i n-law dying. Rx 120 mg verapami l for palpitat ions and follow in in a few weeks Not Available Not Available Not Available celecoxib 200 mg capsule TAKE 1 CAPSULE BY MOUTH EVERY DAY 08/21 completed Not Available Not Available Not Available amoxicill in 500 mg capsule TAKE 2 CAPSULE( S) EVERY 8 HOURS BY ORAL ROUTE FOR 7 DAYS. 01/27 completed Not Available Not Available Not Available medroxypr ogesteron e 10 mg tablet 11/25 completed PRN Not Available Not Available Not Available prednison e 10 mg tablet TAKE 3 TABS DAILY FOR 5 DAYS, 2 TABS DAILY FOR 5 DAYS, 1 TAB DAILY FOR 5 DAYS THEN STOP 03/01 completed Not Available Not Available Not Available doxycycli ne hyclate 100 mg capsule TAKE 2 CAPSULES AT ONCE FOR LYME DISEASE PREVENTI ON 08/17 completed Not Available Not Available Not Available hydrocodo ne 5 mg-acetam inophen 325 mg tablet TAKE 2 TABLETS BY MOUTH 4 (FOUR) TIMES A DAY FOR 28 DAYS. PARTIAL FILL OK active 224 tabs (28 day Rx) presribe d by Dr. Jj 05/15/2024 and filled 5 Not Available Not Available Not Available fluoroura cil 5 % topical cream PRN skin CA 03/07 completed Not Available Not Available Not Available prednison e 5 mg tablet TAKE 1 TABLET BY MOUTH EVERY DAY 03/01 completed Not Available Not Available Not Available sulfameth oxazole 800 mg-trimet hoprim 160 mg tablet 05/18 completed Not Available Not Available Not Available hydrocodo ne 10 mg-acetam inophen 325 mg tablet TAKE 1 TABLET BY MOUTH EVERY 6 HOURS NEEDED NEEDED FOR PAIN 03/01 completed Not Available Not Available Not Available omeprazol e 40 mg capsule,d elayed release Take 1 capsule every day by oral route. 03/071 completed Not Available Not Available Not Available verapamil 120 mg tablet TAKE 1 TABLET BY MOUTH EVERY DAY FOR 30 DAYS 03/26 completed Not Available Not Available Not Available levothyro xine 100 mcg tablet TAKE 1 TABLET BY MOUTH EVERY DAY active Not Available Not Available No t Available baclofen 10 mg tablet TAKE 1 TABLET BY MOUTH TWICE A DAY PRN 03/20 completed Not Available Not Available Not Available Nortrel 0.5/35 (28) 0.5 mg-35 mcg tablet 11/25 completed Pt not taking/f or bleeding resolved Not Available Not Available Not Available hydrocodo ne 7.5 mg-acetam inophen 325 mg tablet TAKE 1 TABLET BY MOUTH EVERY 6 HOURS NEEDED 05/30 completed Not Available Not Available Not Available prednison e 2.5 mg tablet TAKE 4 TABS DAILY FOR 2 WEEKS THEN REMAIN ON 3 TABS DAILY 05/26 completed Weaning off - down to 2.5mg QD Not Available Not Available Not Available levothyro xine 125 mcg tablet TAKE 1 TABLET BY MOUTH EVERY DAY 02/24 completed overtrea stepan with 125 mcg daily Not Available Not Available Not Available omeprazol e 20 mg capsule,d elayed release TAKE 1 CAPSULE BY MOUTH EVERY DAY active PRN Not Available Not Available No t Available metoprolo l succinate ER 25 mg tablet,ex tended release 24 hr TAKE 1 TABLET BY MOUTH EVERY DAY 2024 active Not Available Not Available Not Avai lable celecoxib 100 mg capsule TAKE 1 CAPSULE BY MOUTH ONCE DAILY WITH A MEAL NEEDED FOR BACK PAIN 03/01 completed Not taking? Not Available Not Available Not Available levothyro xine 112 mcg tablet TAKE 1 TABLET EVERY DAY AND TAKE 1/2 TABLET EXTRA WEEKLY 04/27 completed Not Available Not Available Not Available oxycodone 5 mg tablet TAKE 2 TABLETS (10 MG TOTAL) BY MOUTH EVERY 6 (SIX) HOURS NEEDED. PARTIAL FILL OK 03/01 completed Not taking? Not Available Not Available Not Available Humira 40 mg/0.8 mL subcutane ous syringe kit 03/07 completed Every 2 weeks Not Available Not Available Not Available rosuvasta tin 5 mg tablet TAKE 1 TAB BY MOUTH 3 DAYS PER WEEK 2024 active Not Available Not Available Not Avai lable topiramat e 50 mg tablet TAKE 1 TABLET BY MOUTH TWICE A DAY 03/06 completed took for nerve pain for back but states side effects worse than benefit & Humira is helpful Not Available Not Available Not Available ferrous sulfate active Taking alternat ing doses of 18 mg and 27 mg; taking 1 tab daily Not Available Not Available Not Available Enbrel SureClick 50 mg/mL (1 mL) subcutane ous pen injector 50 mg weekly 09/01 completed disconti nued by Dr. Lanza - ineffect james Not Available Not Available Not Available Simponi 50 mg/0.5 mL subcutane ous syringe active Presribe d by Dr. Sara Lanza Not Available Not Available Not Available GaviLyte- G 236 gram-22.7 4 gram-6.74 gram-5.86 gram oral solution 05/26 completed Not Available Not Available Not Available Vicodin 5 mg-300 mg tablet Take 1 tablet 3 times a day by oral route. active Not Available Not Available No t Available Taltz Syringe 80 mg/mL subcutane ous 02/25 completed Not Available Not Available Not Available Taltz Autoinjec tor 80 mg/mL subcutane ous 02/25 completed Not Available Not Available Not Available Taltz Autoinjec tor 02/25 completed 09/08/2023 note regardin g patient CVD concerns regardin g starting Rinvoq; declines to take. Dr. Lanza will prescrib e Taltz to replace. Not Available Not Available Not Available Humira(CF ) 40 mg/0.4 mL subcutane ous syringe kit INJECT 1 SYRINGE UNDER THE SKIN EVERY 14 DAYS. 03/26 completed Not Available Not Available Not Available Humira(CF ) Pen 40 mg/0.4 mL subcutane ous kit 03/07 completed Not Available Not Available Not Available Rinvoq 15 mg tablet,ex tended release Take 1 tablet every day by oral route. 09/08 completed replacem ent for Enbrel. prescrib ed by Dr. Lanza;p atient declined ; concerne d about CVD risk; replaced with Taltz Not Available Not Available Not Available Vitals Date Recorded Body height Body mass index (BMI) Body weight Heart rate Oxygen saturation Oxygen saturation in Arterial blood by Pulse oximetry Systolic And Diastolic Provider Name and Address Organization Details Last Updated DateTime 4 173.99 cm 30.6 kg/m2 49757.8 4 g 80 /min 98 % 98 % 102/86 mm[Hg] Shabana Esquivel [facility] 4 13:32:03 Date Recorded Body height Body mass index (BMI) Body weight Oxygen saturation Oxygen saturation in Arterial blood by Pulse oximetry Heart rate Systolic And Diastolic Provider Name and Address Organization Details Last Updated DateTime 5 173.99 cm 31.8 kg/m2 81195.5 8 g 98 % 98 % 64 /min 123/84 mm[Hg] Neha Lencho marshall, [facility] 5 08:59:50 Date Recorded Body height Body mass index (BMI) Body weight Heart rate Oxygen saturation Oxygen saturation in Arterial blood by Pulse oximetry Systolic And Diastolic Provider Name and Address Organization Details Last Updated DateTime 5 173.99 cm 31.2 kg/m2 17479.9 1 g 80 /min 99 % 99 % 114/72 mm[Hg] Shabana Esquivel [facility] 5 09:37:02 Date Recorded Body temperature Provider Name a nd Address Organization Details Last Updated DateTime 09/19/2023 98.3 [degF] NISSA Benito [address] [place] [address], [phone] 09/19/2023 09:45:20 Date Recorded Body height Body mass index (BMI) Body weight Heart rate Oxygen saturation Oxygen saturation in Arterial blood by Pulse oximetry Systolic And Diastolic Provider Name and Address Organization Details Last Updated DateTime 4 173.99 cm 30.6 kg/m2 41530.6 4 g 79 /min 98 % 98 % 106/68 mm[Hg] Lucero Mauricio LPN [facility] 4 09:37:15 Date Recorded Heart rate Provider Name an d Address Organization Details Last Updated DateTime 03/01/2024 88 /min NISSA Benito [address] [place] [address], [phone] 03/01/2024 11:13:48 Date Recorded Body height Body mass index (BMI) Body weight Heart rate Oxygen saturation Oxygen saturation in Arterial blood by Pulse oximetry Systolic And Diastolic Provider Name and Address Organization Details Last Updated DateTime 4 173.99 cm 31.5 kg/m2 93953.2 g 112 /min 97 % 97 % 122/70 mm[Hg] Shabana Esquivel CMA [facility] 4 10:46:52 Social History Question Answer Notes LastModified by Organizat ion Details LastModified Time Tobacco Smoking Status Former Smoker Quit 2006 [facility] 05/26/2024 09:34:53 Do You Wear A Helmet When Biking? Yes Information not available 03/04/2019 What Is Your Level Of Caffeine Consumption? Moderate Caffeine Water Information not available 05/26/2024 What Type Of Diet Are You Following? REGULAR Organic Information not available 01/27/2017 Which Illicit Or Recreational Drugs Have You Used? None [email or web address] Information not available 07/15/2013 Education 12 Information no t available 01/27/2017 Have There Been Any Changes To Your Family Or Social Situation? No Information not available 03/07/2021 When Did You Quit Smoking? 6-10yearssi ncelastciga rette [email or web address] Information not available 03/23/2015 How Many Days In The Past Year Have You Had A Heavy Drinking Consumption (4+ Female, 5+ Male)? 0 Information not available 10/02/2017 Are There Any Guns Present In Your Home? No Information not available 01/27/2017 Do You Use Insect Repellent Routinely? No Information not available 03/07/2021 Live Alone Or With Others? With Others Information not available 05/14/2013 Patient Has Health Care Proxy Signed And In Chart Yes Jenna Emma [email or web address] Information not available 03/04/2019 Marital Status Mary [email or web address] Informati on not available 05/14/2013 Mosquito Repellent Used Routinely Yes Information not available 01/27/2017 What Was The Date Of Your Most Recent Tobacco Screening? 04/06/2024 [email or web address] Information not available 04/06/2024 How Many Children Do You Have? 1 Born 1998 Daughter Valerie Burnett) Information not available 05/26/2024 What Is Your Relationship Status? Jenna Information not available 05/26/2024 Do You Use Your Seat Belt Or Car Seat Routinely? Yes Information not available 03/07/2021 Seat Belts Used Routinely Yes Information not available 01/27/2017 Are You Sexually Active? Yes Information not available 03/07/2021 Smoke Alarm In Home Yes Information not available 01/27/2017 Do You Have Smoke And Carbon Monoxide Detectors In Your Home? Yes Information not available 03/07/2021 At What Age Did You Start Smoking Tobacco? 15 Information not available 05/26/2024 Are You Passively Exposed To Smoke? No Information not available 03/07/2021 How Much Tobacco Do You Smoke? No Information not available 03/04/2019 General Stress Level Low Information not available 01/27/2017 Do You Use Sunscreen Routinely? Yes Information not available 01/27/2017 Sex: Female Functional Status Question Answer Note LastModified by Organizat ion Details LastModified Time Do you use any illicit or recreational drugs? No Information not available 03/07/2021 Do you or have you ever used any other forms of tobacco or nicotine? No Information not available 03/26/2023 What is your level of alcohol consumption? Occasional 1 per year Information not available 05/18/2018 Do you or have you ever used smokeless tobacco? Never used smokeless tobacco Information not available 03/04/2019 Are you currently employed? No Information not available 03/07/2021 What is your occupation? unemployed Information not available 03/06/2020 Do you or have you ever used e-cigarettes or vape? Never used electronic cigarettes Information not available 03/04/2019 What is your exercise level? None Information not available 01/27/2017 Mental Status None recorded. Family History Relationship Description Onset Age of this Age Resolved Age Notes LastModified by Organization Details LastModified Time Mother Mental disorder hyster ectomy age 21-end ometri osis or Crohns Not available 06/21/2014 10:51:46 Father Parkinson's disease dyspho lance - [email or web address] Not available 03/20/2022 15:37:17 Sister Malignant tumor of thyroid gland Not available 03/10 15:37:17 Maternal Grandfather Myocardial infarction age 65 of [place]; had CABG Not available 03/04/2019 06:17:15 Maternal Grandmother Malignant tumor of pancreas age 84 [email or web address] Not available 03/20/2022 15:37:17 Maternal Grandmother Diabetes mellitus Not available 2018 06:17:54 Notes:sister -thyroid cancer , Crohns or UC; lipids - MGF -d 65 [place], CABG x5,x4; MGM d 84 - pancreatic cancer, DM Medical History Condition Response CARDIOVASCULAR Y CANCER Y Osteoarthritis Constipation Y Hypothyroid Y Hyperlipidemia Chronic Back Pain Y Gynecological History Statement/Question Response Date of LMP 01/20/2017 Frequency of Cycle (Q days) 25 Menses Monthly Y History of Abnormal Pap N Current Control Method None Definite Obstetrics History GPAL:G 0 P 0 0 0 0 Immunizations Vaccine Type Date Status Note Provider Nam e and Address Organization Details Recorded Time Tdap 7 completed Not Available [facility] 03/27/2019 02:22:07 Pneumococcal conjugate PCV 13 1 completed Shabana Esquivel CMA null, [facility] 03/07/2021 14:42:36 COVID-19, mRNA, LNP-S, PF, 30 mcg/0.3 mL dose 1 completed Shabana Esquivel SPRIGGER null, [facility] 08/14/2020 10:46:16 COVID-19, mRNA, LNP-S, PF, 30 mcg/0.3 mL dose 1 completed Shabana Esquivel CMA null, [facility] 08/14/2020 10:46:31 COVID-19, mRNA, LNP-S, PF, 30 mcg/0.3 mL dose 1 completed Lucero Mauricio LPN [facility] 04/11/2021 10:23:46 Past Encounters Encounter ID Performer Location Encounter Start Date Encounter Closed Date Diagnosis/Indication Diagnosis SNOMED-CT Code Diagnosis ICD10 Code Diagnosis Note [id number] FLORINDA Kumar, [facility], [address] [place] [address] 05/14/2013 08:56:51 05/14/2013 10:15:05 Hypothyroidism 49115756 Hyperlipidemia 58138502 Chronic back pain 627229587 cont physiatry followup Constipation 62679766 fi clark , fluids, stool softeners reviewed Knee pain 01386314 Ortho eval [id number] Rojelio Montana MD [facility] [address] [address] 07/15/2013 10:18:56 07/15/2013 11:34:41 Hypothyroidism 70198323 levothyrox ine 112mcg daily Hyperlipidemia 62279324 -consider crestor in future at low dose, coq10 Non-toxic multinodular goiter 03198854 [id number] FLORINDA Kumar, [facility], [address] [place] [address] 02/02/2014 11:18:47 02/02/2014 11:52:37 Hypothyroidism 71480348 Injury of shoulder region 285647122 [id number] FLORINDA Kumar, [facility], [address] [place] [address] 06/21/2014 10:10:56 06/21/2014 11:26:00 Adult health examination 584509122 see Risk Assessment and Lifestyle Change Counseling section above Counseling 085959067 Screening for malignant neoplasm of cervix 111579520 Hypothyroidism 86739796 take 1/2 pill additional one day/wk - recheck TSH 2mos Pain of mu ltiple joints 00030547 rheumatolo gy consult to r/o CTD [id number] MD LISA Vega, [facility], [address] [place] [address] 10/08/2014 10:20:47 10/08/2014 11:03:08 Allergic reaction 398997535 reassured; benadryl 50 mg every 6 hours as needed; hot soaks every 2 hours or so. [id number] FLORINDA Kumar, [facility], [address] [place] [address] 12/22/2014 09:50:37 12/22/2014 11:20:13 Hypothyroidism 71627351 E03.9 1) TSH to be drawn today. Will adjust Levothyrox ine dose if indicated. Pain of mu ltiple joints 38995067 M25.50 Gastroesop hageal reflux disease 785384617 K21.9 change to omeprazole , GERD precaution s reviewed Backache 838780674 M54.9 continue f/u with Physiatry [id number] Maylin Isaac NP , [facility], [address] [place] [address] 03/23/2015 11:32:06 03/23/2015 12:24:09 Hypothyroidism 33385294 E03.9 Myalgia/my ositis - multiple 637593628 M79.1 [id number] Anna Lerma D.O. , [facility], [address] [place] [address] 11/25/2015 11:13:21 11/28/2015 10:15:15 Injury of knee [id number] S89.90XA Bilateral wtih R> Lsuspect prepatell bursitisad vised ice, rest Injury of wrist [id number] 3 S69.80XA bilateral- no focal tenderness suspect sprainadvi sed ice, does not tolerate NSAIDs welldiscus sed XRAY which i dont think is necessary- pt will give it more time Chronic low back pain 27 [address]568572 [address]54[address] Phillips see next week for scheduled injection. [id number] Win Coe MD , [facility], [address] [place] [address] 03/04/2016 11:04:09 03/04/2016 12:01:05 Acute upper respiratory infection 51698633 J06.9 Acute sinusitis 98522600 J01.90 [id number] Marilyn Ceron MD , [facility], OFF[address] [facility] [place] [address] 01/27/2017 08:20:58 01/27/2017 09:25:15 Adult health examination 312163447 Z00.00 see Risk Assessment and Lifestyle Change Counseling section above Counseling [id number] Z71 .9 Active or passive immunization 617634248 Z23 received TDap today Hypothyroidism 96346687 E03.9 A: fatigue; 07/2016 TSH 4.63. P: Will increase levothyrox ine dose from 112 to 125 mcg levothyrox ine given 07/2016 TSH 4.63, suggesting mild undertreat ment of hypothyroi dism Recheck TSH in 6 weeks Hyperlipidemia 53488737 E78.5 per 07/2016: LDL 166, HDL 47, Chol 251 We discussed healthy diet, regular exercise. Will also increase levothyrox ine dose from 112 to 125 mcg levothyrox ine given 07/2016 TSH 4.63, suggesting mild undertreat ment of hypothyroi dism to see if this will improve lipid profile as well. P: checke lipids prior to 01/2018 wellness visit Chronic low back pain 27 6838250 M54.5 Chronic lower back pain; followed by ear specialist Dr. Payam Jj; 08/2016 MRI of lumbar spine showed scoliosis and DDD. MassPAT checked. No red flags. She filled a 28 day script of 10-325 hydrocodon e-acetamin ophen prescribed by Dr. Payam Jj. History of supraventricular tachycardia [id number] 6963162 Z86.79 A: takes toprol xl 25 mg as needed when she feels palpitatio ns for history of SVT P: refill provided Screening mammography 24 016275 Z12.31 A: history of benign cysts P: mammo ordered today Neoplasm o f uncertain behavior of skin 55379820 D48.5 A: 5mm long x 4 mm wide brown-odonnell oval papule on left lower abdomen, in waistline; likely benign, but in a location such that it is constantly irritated P: return for excisional biopsy [id number] Marilyn Ceron MD FP, [facility], [address] [place] [address] 01/29/2017 09:44:06 01/29/2017 11:03:52 Neoplasm of uncertain behavior of skin 71663915 D48.5 A: 1cm long x 4 mm wide brown-odonnell oval papule on left lower abdomen, in waistline; likely benign, but in a location such that it is constantly irritated P: excisional biopsy done today; will contact patient with biopsy results [id number] Marilyn Ceron MD FP, [facility], OFFICE [address] [facility] [place] [address] 10/02/2017 09:51:16 10/02/2017 10:37:40 Basal cell carcinoma of skin 216525829 C44.91 46 year old female patient presents to discuss a referral to a new dermatolog ist to treat her recent diagnosis of basal cell carcinoma. She had a biopsy of a lesion on her abdomen by this provider in 01/2017; the lesion was basal cell carcinoma, so she was referred to [facility] for definitive treatment. She last saw [facility] on 07/31/2017 for a follow up and full body skin check. At that visit, patient underwent shave biopsies of lesions on her nose, left nasolabial triangle and right upper forearm. Per patient the left nasolabial fold biopsy was invasive BCC and her dermatolog ist advised that she needed Mohs surgery for BCC of left nasolabial triangle region. Also, a 3 mm diameter granulomat ous papule on left buccal cheek was identified ; she was advised to follow up with [facility] for evaluation of that lesion. Her insurance covers dermatolog ist who do Mohs surgery in [place], but patient is unable to travel that far due to chronic lower back pain. She will see her ear specialist DR. Jj for a letter stating why she can't travel so far. P: patient will identify a local dermatolog ist who does Mohs surgery and who her insurance will approve, then she will contact me with the informatio n so that I can submit the referral Counseling [id number] Z71 .9 follow up 02/2018 for wellness visit + pap [id number] MD LISA Luther, [facility], OFFICE [address] [facility] [place] [address] 02/27/2018 08:55:09 02/27/2018 10:16:26 Adult health examination 070717422 Z00.00 see Risk Assessment and Lifestyle Change Counseling section above Counseling 074642422 Z71 .9 follow up 02/2018 for wellness visit + pap Depression screening 171 277774 Z13.89 depression screening tool administer ed, entered into emr, scored and discussed, time greater than 7.5 minutes Screening for malignant neoplasm of cervix 379199207 Z12.4 A: LMP 02/14/2018; Pap done today Basal cell carcinoma of skin 573616024 C44.91 Followed by [facility] History of supraventricular tachycardia [id number] 9172307 Z86.79 A: was taking toprol xl 25 mg as needed when she feels palpitatio ns for history of SVT, but lately taking more frequently , almost daily due to palpitatio ns; No syncope or chest pain. Pulse 100 and regular today; had steroid injections yesterday Would like to see a cardiologi st s/p cardiac ablation in 2009 P: refill provided; referral to cardiology Chronic low back pain 27 0836067 M54.5 Chronic lower back pain; followed by ear specialist Dr. Payam Jj; 08/2016 MRI of lumbar spine showed scoliosis and DDD. Hypothyroidism 84580627 E03.9 A: well controlled on 125 mcg levothyrox ine daily per 03/2017 TSH of 2.82. States gaining weight without change to diet; not exercising due to back pain. P: recheck TSH Hyperlipidemia 90998596 E78.5 A: 03/2017 LDL 182, HDL 53, Chol 267; 10-year stroke risk 1.3%, so not in statin benefit group; cholestero l worse since 07/2016 P: We discussed healthy diet, regular exercise. Repeat lipids soon. Fatigue 98160297 R53.83 non specific fatigue the past few months No black stool or blood with BM's P: check TSH to ensure hypothyroi dism controlled ; check CBC Pain of mu ltiple joints 53830420 M25.50 A: multiple joint pain getting worse the past year. P: referral to Dr. Burton Obesity 836083262 E66.9 not exercising due to back pain referred to prescribe the Y to help with pool exercise [id number] Payam Burton MD Rheumatol ogy, [facility] [address] [facility] [place] [address] 05/18/2018 08:29:25 05/18/2018 09:31:13 Pain of multiple joints 27456730 M25.50 Small joint arthralgia hands, but no visible signs inflammato ry arthritis. Multiple other joint pains.Knwn hypermobil ity syndrome. This could certainly be contributi ng to multiple joint pains.tl Trying Celebrex with concurrent prilosec. Discussed GI and CV issues.Onl y continue if clearly helpful. Chronic back pain 916096 002 M54.9 Chronic back pain with known scoliosis and DDD. Generalize d hypermobil ity no doubt contribute d to this.I do wonder about a component of spondyliti s. There is FHx of Crohn's. She describes years of nocturnal back sxs with AM stiffness. There probably is some component of NSAID response. Will check HLA B27. Anti-nucle ar factor detected 745892920 R76.8 Long hx of JESSICA.Has Raynaud's and has other autoimmune conditions (Alesia 's, vitiligo, morphea) JESSICA Uncertain significan ce, but with Raynaud's and (mild) dysphagia and hair loss R forearm, want to r/o scleroderm a. Check lupus related labs. With small joint pain and stiffness, could consider a 6 week trial on Plaquenil in future. Intermitte nt dysphagia 44037158 R13.19 Mild solid and pill dysphagia. Has noted this past year or two. Not progressiv e.Could be tied into +JESSICA etc.Would need further investigat ion if progressiv e. Gastritis 6235378 K29.70 Hypothyroidism 42540507 E03.9 On replacemen t. Starting Prilosec as noted above. . If she ends up continuing on Prilosec, will need TFT's rechecked as there might be some effect on homone absorption . [id number] Payam Burton MD Rheumatol [facility], [facility] [address] [facility] [place] [address] 07/31/2018 08:16:39 07/31/2018 08:58:12 Ankylosing spondylitis 6569911 M45.9 I feel that she definitely meets criteria for ankylosing spondyliti s: There is grade 2 sacroiliit is. She is HLA B27 +, and she definitely has inflammato ry features to her back pain. I respectful ly disagree with Dr Jj regarding the x ray findings. In my experience , erosions and ankylosis tend to be late features of , especially in females. Early on, sclerosis may be the only finding. Furthermor e, I don't see and spurring at the SI as might be seen with DJD. She is unable to take adequate doses of NSAID (GI). Given current sxs and disability , I feel she is appropriat e for trial on Biologic.D iscussed that if no substantia l improvemen t after 3 mo, we will need to re-examine the daignosis. Also stressed that with scoliosis, hypermobil ity, she no doubt has some mechanical aspects to her back and other sxs. Discussed options. Appropriat e for initiation of biologic. Discussed Humira. Specifical ly discussed risks of infection, potentiall y serious, low but definite risk of lymphoma, neurologic al disease. Need to check for TB.Start Humira after prior authorizat ion. Needs to return for instructio n in injection. [id number] Payam Burton MD Rheumatol [place], [address] [place] [address] 08/20/2018 13:22:04 08/20/2018 14:48:06 Ankylosing spondylitis 6687212 M45.9 I feel that she definitely meets criteria for ankylosing spondyliti s: There is grade 2 sacroiliit is. She is HLA B27 +, and she definitely has inflammato ry features to her back pain. I respectful ly disagree with Dr Jj regarding the x ray findings. In my experience , erosions and ankylosis tend to be late features of , especially in females. Early on, sclerosis may be the only finding. Furthermor e, I don't see and spurring at the SI as might be seen with DJD. She is unable to take adequate doses of NSAID (GI). Given current sxs and disability , I feel she is appropriat e for trial on Biologic.D iscussed that if no substantia l improvemen t after 3 mo, we will need to re-examine the daignosis. Also stressed that with scoliosis, hypermobil ity, she no doubt has some mechanical aspects to her back and other sxs. Discussed options. Appropriat e for initiation of biologic. Discussed Humira. Specifical ly discussed risks of infection, potentiall y serious, low but definite risk of lymphoma, neurologic al disease. Need to check for TB.Start Humira today. Nursing supervised first injection. [id number] Payam Burton MD Rheumatol [place], [address] [place], [place] [address] 10/05/2018 09:55:10 10/05/2018 10:28:46 Ankylosing spondylitis 4462868 M45.9 I feel that she definitely meets criteria for ankylosing spondyliti s: There is grade 2 sacroiliit is. She is HLA B27 +, and she definitely has inflammato ry features to her back pain. She is unable to take adequate doses of NSAID (GI). Started on Humira 08/20/18. Excellent response. Much less pain and stiffness. She is more mobile, more functional . Continue Humira every 2 weeks. Update labs in 3-4 mo. Rv 4-6 mo or sooner if needed. Hypermobil ity syndrome 73746836 M35.7 Quite hypermobil e.(I saw her daughter Sobeida recently in consultati on. I felt daughter probably had ED-hypermo bility type. I was a little concerned about possible Marfan's) Scoliosis deformity of spine 096193386 M41.9 Scoliosis with assosiated degenerati ve arthritis. Followed by Dr Jj.Sti ll getting narcotic medication . [id number] Marilyn Ceron MD , [facility], OFFICE [address] [facility] [place] [address] 10/14/2018 11:17:42 10/14/2018 11:46:50 Keratosis pilaris 7515005 L85.8 P: 47 year old female patient presents for evaluation of a rash. She started Humira injections in 08/2018 for treatment of ankylosing spondyliti s She saw [facility] in 2018 for BCC of her nose; had Mohs surgery. She wants to see a new dermatolog ist due to location and difficulty getting timely appointmen t. Fine bumps started on her left forearm about 8 weeks ago; then noticed similar cluster of bumps on her right buttock and more recently on her back and between her breasts. Rash is not itchy or painful. ddx: keratosis pilaris vs other. P: she will try a trial of panoxyl to the lesions; she will call her insurance and find out what local dermatolog ist takes her insurance, then let me know and I will submit referral. Also discussed: Emollients and topical keratolyti cs are the first-line therapy for KP. Preparatio ns containing lactic acid, salicylic acid, or topical urea are helpful in softening and flattening the keratotic papules, but do not reduce or relieve the associated erythema [28]. In a series of 30 patients with widespread KP, a preparatio n of salicylic acid 2% in topical urea cream 20% applied to the involved skin for several weeks was effective in improving the skin texture and appearance [id number] Marilyn Ceron MD , [facility], OFFICE [address] [facility] [place] [address] 03/04/2019 09:46:20 03/04/2019 11:42:46 Adult health examination 211586347 Z00.00 see Risk Assessment and Lifestyle Change Counseling section above Counseling 711326081 Z71 .9 Colonoscop y: due for colon cancer screening. Mammo: 02/2018 mammogram was normal. Due for repeat mammo by 02/2020. Pap: 02/2018 pap was normal; due for repeat pap by 02/2021. 1) Monthly self breast exam 2) 30 minutes of aerobic exercise daily. 3) Mediterran maurisio diet 4) If you drink alcohol, limit to no more than 1 alcoholic drink daily. 5) 2000 units Vitamin D3 daily; 1200 mg calcium daily via foods rather than calcium supplement . Depression screening 171 478643 Z13.89 depression screening tool administer ed, entered into emr, scored and discussed, time greater than 7.5 minutes Ankylosing spondylitis 5538434 M45.9 A: Followed by Dr. Burton who prescribes Humira Basal cell carcinoma of skin 560980446 C44.91 Was Followed by [facility]; in 10/2018, switched to [facility]. Saw derm in 2018. P: continue to follow with [facility] Chronic low back pain 27 8172596 M54.5 Chronic lower back pain; followed by ear specialist Dr. Payam Jj; 08/2016 MRI of lumbar spine showed scoliosis and DDD. She is planning on starting exercising since her back pain is much less since starting Humira. P: encouraged healthy diet and exercise for weight loss; continue to follow with Dr. Jj for pain management Hypothyroidism 00791078 E03.9 A: well controlled on 125 mcg levothyrox ine daily per 02/2018 TSH of 2.75 P: Due for recheck of TSH Obesity 647014421 E66.9 A: not exercising due to back pain P: Has been referred to prescribe the Y to help with pool exercise. Check fasting glucose or HgbA1c to screen for diabetes. She plans on starting to exercise more now that her pain is less since starting Humira. History of supraventricular tachycardia 1250068130 1041509 Z86.79 A: s/p ablation in [place] circa 2009. She saw cardiologi st Dr. Germán Wing in 06/2018 for a consultati on. 08/2018 ECHO was normal. Taking 25 mg metoprolol . P: She will her cardiologi st in 10/2019. Screening for malignant neoplasm of colon 109411693 Z12.11 Colonoscop y: due for colon cancer screening. Willing to do colonoscop y. Referral for a DIRECT booked colonoscop y. This patient is a healthy ASA Class 1 or 2 patient (only mild systemic disease), or a STABLE, well controlled insulin dependent diabetic. They do not have serious cardiac disease ie NM/angiopl asty within 1 year, symptomati c CHF; renal failure with CKD 4 or 5; take Coumadin, Plavix, Aggrenox, etc. Hyperlipidemia 36113379 E78.5 A: Per 02/2018 LDL 158, HDL 51, Chol 255, improved from 03/2017 LDL 182, HDL 53, Chol 267. P: We discussed healthy diet, regular exercise. Repeat lipids soon. Active or passive immunization 501005583 Z23 declines flu vaccine.Sh chantel is on Humira, which would decrease the effectiven ess of flu vaccince Screening mammography 24 551320 Z12.31 Mammo: 02/2018 mammogram was normal. Due for repeat mammo by 02/2020. She elects for annual mammo P: mammo ordered today Uterine prolapse 0514225 5 N81.4 A: concerned about uterine prolapse worsening - sensed fullness in vagina - has seen a [employer] W[facility]ER in [place] for uterine prolapse P: referral to [facility] [id number] Payam Burton MD Rheumatol [place], [facility] [address] [facility] [place] [address] 03/11/2019 10:24:45 03/11/2019 12:50:27 Ankylosing spondylitis 2411906 M45.9 ankylosing spondyliti s: There is grade 2 sacroiliit is. She is HLA B27 +, and she definitely has inflammato ry features to her back pain. She is unable to take adequate doses of NSAID (GI). Started on Humira 08/20/18. Excellent response. Much less pain and stiffness. She is more mobile, more functional .States efficacy of Humira begins to wane at about 10 days. Continue Humira every 2 weeks. Reviewed recent labs: all OK.Rv 6 mo or sooner if needed. Chronic back pain 715527 002 M54.9 Chronic back pain with known scoliosis and DDD. Generalize d hypermobil ity no doubt contribute d to this.Follo wed by Dr Jj. Discussed that with improvemen t in sxs it would be prudent to reduce dose of narcotic. She should discuss with Dr Jj. [id number] Payam Burton MD Rheumatol [facility], [address] [place] [address] 08/26/2019 10:17:27 08/26/2019 13:39:03 Ankylosing spondylitis 7829308 M45.9 ankylosing spondyliti s: There is grade 2 sacroiliit is. She is HLA B27 +, and she definitely has inflammato ry features to her back pain. Started on Humira 08/20/18. Excellent initial response. Much less pain and stiffness. She was more mobile, more functional . but effectiven ess Humira wanes over past 6 mo.Started Celebrex 200/d past 2 mo and is doing almost as well as when she first started Humira. Plan:Stop Humira.Con tinue Celebrex 200/d.If significan t flare off Humira, next step would be change to Cimzia or perhaps Enbrel. Re check labs on Celebrex.R V 3 mo. Chronic back pain 742623 002 M54.9 Chronic back pain with known scoliosis and DDD. Generalize d hypermobil ity no doubt contribute d to this.Follo wed by Dr Jj.Sti ll on 3-4/d hydrocodon e 10. Discussed that with improvemen t in sxs it would be prudent to reduce dose of narcotic. She should discuss with Dr Jj. [id number] Payam Burton MD Rheumat[facility], [address] [place] [address] 11/26/2019 09:04:47 11/29/2019 07:18:43 Ankylosing spondylitis 7509557 M45.9 ankylosing spondyliti s: There is grade 2 sacroiliit is. She is HLA B27 +, and she definitely has inflammato ry features to her back pain. Started on Humira 08/20/18. Excellent initial response. Much less pain and stiffness. She was more mobile, more functional . but effectiven ess Humira waned over several mo.Started Celebrex 200/d past 3 mo and is doing almost as well as when she first started Humira. Plan: Continue Humira, continue celebrex Re check labs on Celebrex.R V 3 mo. Microcytosis 672939399 R 71.8 New microcytos is noted last time.Had been having menorrhagi a.Took only occasional iron (constipat ion)update labs [id number] Marilyn Ceron MD , [facility], OFFICE [address] [facility] [place] [address] 03/06/2020 13:19:20 03/06/2020 14:59:37 Adult health examination 686881788 Z00.00 see Risk Assessment and Lifestyle Change Counseling section above Counseling 829436362 Z71 .9 including cardiovasc ular risk reduction counseling 1) Monthly self breast exam 2) 30 minutes of aerobic exercise daily. 3) Mediterran maurisio diet 4) If you drink alcohol, limit to no more than 1 alcoholic drink daily; less is healthier 5) 2000 units Vitamin D3 daily; 1200 mg calcium daily via foods rather than calcium supplement . 6) Schedule mammogram and colonoscop y 7) Get flu vaccine and COVID vaccine Depression screening 171 966029 Z13.89 depression screening tool administer ed, entered into emr, scored and discussed, time greater than 7.5 minutes Mood is ok Screening for alcohol abuse 251000272 Z13.39 1-2 drinks per year Ankylosing spondylitis 7234047 M45.9 A: Followed by Dr. Burton who prescribes Humira and celebrex Anklyosing spondyliti s contributi ng to chronic lower back pain but pain is less with Humira. Also followed by ear specialist Dr. Payam Jj; 08/2016 MRI of lumbar spine showed scoliosis and DDD. She is planning on starting exercising since her back pain is much less since starting Humira. P: encouraged healthy diet and exercise for weight loss; continue to follow with Dr. Jj for pain management Get flu vaccine and COVID vaccine when available. Basal cell carcinoma of skin 897679466 C44.91 A: Was Followed by [facility]; in 10/2018, switched to [facility]. Saw Dermatolog y in 12/2018. P: continue to follow with [facility]olog y once a year. Sunscreen. Chronic low back pain 27 8123927 M54.5 see above under ankylosing spondyliti s History of supraventricular tachycardia [id number] 4835006 Z86.79 A: s/p ablation in [place] circa 2009. She saw cardiologi st Dr. Germán Wing in 06/2018 for a consultati on. 08/2018 ECHO was normal. Taking 25 mg metoprolol . Rare palpitatio ns No dizziness. P: Continue metoprolol and annual cardiology follow up. Hyperlipidemia 42534625 E78.5 A: Per 02/2018 LDL 158, HDL 51, Chol 255, improved from 03/2017 LDL 182, HDL 53, Chol 267. P: We discussed healthy diet, regular exercise. Repeat lipids soon. Hypothyroidism 13123100 E03.9 A: well controlled on 125 mcg levothyrox ine daily per 02/2018 TSH of 2.75 and 02/2019 TSH of 2.19. P: Due for recheck of TSH. Schedule spring 2020 when COVID less. Screening mammography 24 751970 Z12.31 A: Mammo: 02/2018 mammogram was normal. 03/2019 mammogram showed left breast area of distortion , right breast normal; left breast diagnostic mammo 09/2019 was normal. No symptoms but wants annual mammo P: Plan for repeat mammogram Spring 2020. Screening for malignant neoplasm of colon 584101688 Z12.11 A: Overdue for colon cancer screening. She was referred to [facility] in 02/2019 for colon cancer screening. 12/2019 iron and ferritin levels low P: She will call [facility] to reschedule colonoscop y. In the meatime, will do IFOB stool cards Abnormal u terine bleeding [id number] 9100 N93.9 A: She saw [facility] in Spring 2020 for abnormal vaginal bleeding. She was prescribed OCP briefly in Spring 2020 by [facility] but she never took it. A uterine biopsy was done Spring 2019 and was negative for abnormal cells per patient. Heavy menses stopped 07/2019. She had vaginal spotting 01/2020. P: She will let me know if abnormal menses occur again. Discussed that menopause = no menses for 1 year; if vaginal bleeding occurs after thatn then need to be seen. Iron defic iency anemia 18074142 D50.9 A: Iron deficiency anemia per 12/2019. Not taking a multivitam in with iron. No black stool or blood with bowel movements. Does not feel tired or short of breath. P: Recheck iron, ferritin. do IFOB stool cards. call [facility] for consult prior to colonscopy Presbyopia 48845840 H52. 4 A: wears glasses for near/far vision. Some light sensitivit y lately. P: Discussed elenai ng with a new ophthalmol ogist. Gave numbers to call since [facility] has no eye d [id number] Payam Burton MD Rheumatol [place], [address] [place] [address] 04/25/2020 09:06:19 04/26/2020 18:48:27 Ankylosing spondylitis 5879131 M45.9 ankylosing spondyliti s: There is grade 2 sacroiliit is. She is HLA B27 +, and she definitely has inflammato ry features to her back pain. Started on Humira 08/20/18. Excellent initial response. Much less pain and stiffness. She was more mobile, more functional . but effectiven ess Humira waned somewhat over past year. 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 Celebrex helps, but definitely stirs up reflux sxs. Discussed that after she gets Covid vaccine, should look into getting Shingrix and pneumococc al vaccinatio ns. Plan: Continue Humira, Only take Celebrex when absolutely needed. Return 6 mo (Dr Pardo). Gastroesop hageal reflux disease [id number] K21.9 She describes rather prominent reflux sxs. Improved with prilosec and also sleeping upright. Discussed risks of Celebrex. Limit dosing. I advised increasing dose of omeprazole to 40/d, and strongly urged that she discuss this at upcoming GI appointmen t. [id number] Braden Pardo MD Rheumatol [place], [address] [place] [address] 09/13/2020 07:50:55 09/13/2020 19:09:11 Ankylosing spondylitis [id number] M45.9 ankylosing spondyliti s: There is grade 2 sacroiliit is. She is HLA B27 +, and she definitely has inflammato ry features to her back pain. Started on Humira 08/20/18.Do ing well on Humira, continue for now.Contin ue celebrex, plan to possibly wean down further next visit as patient is skipping when she has GI symptoms . Pepcid for heartburn symptoms. Restart Prilosec till she sees GI, she has an appointmen t next week. Risk of GI bleed was discussed with patient but she states that she cannot stop celebrex. Patient got COVID vaccine.Pl an to give PCV-13, she will check with her pharmacy and if unable to get it, she will call our office.Winsome n to get flu shot in the fall, and Shingrix vaccine later. Check labs.RTC in 4 months or sooner if needed. Gastroesop hageal reflux disease [id number] K21.00 Pepcid for heartburn symptoms. Restart Prilosec till she sees GI, she has an appointmen t next week. Risk of GI bleed was extensivel y discussed with patient but she states that she cannot stop celebrex. [id number] Marilyn Ceron MD , [facility], OFFICE [address] [facility] [place] [address] 03/07/2021 13:39:14 03/07/2021 15:07:31 Adult health examination 895089326 Z00.00 see Risk Assessment and Lifestyle Change Counseling section above 50 year old female patient presents for a wellness visit.Reti red.Lives with her , Jenna.Heal th care proxy completed: Jenna is her HCP.Colono scopy: 10/26/2020 EGD and colonoscop y by Dr. Palencia: colonoscop y was normal, 10-year repeat advised.EG D showed esophagiti s and hiatal hernia and erosions in stomach; negative for H. pylori. Mammo: 08/15/2020 mammogram was normalPap: 02/2018 pap was normal; due for repeat now. Overdue for flu vaccine and Prevnar 13 (per rheumatolo gist)Decli jaqueline flu vax Counseling [id number] Z71 .9 including cardiovasc ular risk reduction counseling Depression screening 171 580959 Z13.31 depression screening tool administer ed, entered into emr, scored and discussed, time greater than 7.5 minutes. Mood is good Screening for alcohol abuse 998067517 Z13.39 1-2 drinks per year Hyperlipidemia 58333794 E78.5 A: Per 02/2018 LDL 158, HDL 51, Chol 255, improved from 03/2017 LDL 182, HDL 53, Chol 267. 02/2019 LDL 245, HDL 57, Chol 352, ASCVD risk 1.7%, and 03/2020 LDL 246, HDL 64, Chol 344; since LDL >190, advised to start low dose rosuvastat in 3x per week; did not tolerate daily statin in past 03/2020 LDL 246, HDL 64, Chol 334. Family hx of heart disease - MGF CABG low dose 3x per week statin declined 03/2020 - will recheck lipids 06/2020 after lifestyle changes.P: Recheck lipids today. Mediterran maurisio diet.Consi ananda 5 mg rosuvastat in 3 days per week - willing to try now History of supraventricular tachycardia [id number] 7950771 Z86.79 A: s/p ablation in [place] circa 2009. She saw cardiologi st Dr. Germán Wing in 06/2018 for a consultati on. 08/2018 ECHO was normal. Taking 25 mg metoprolol . Rare palpitatio ns No dizziness. P: Continue metoprolol and annual cardiology follow up. Ankylosing spondylitis 1102038 M45.9 A: Followed by Dr. Burton and Dr. Pardo who prescribes Humira and celebrex Anklyosing spondyliti s contributi ng to chronic lower back pain but pain is less with Humira. Also followed by ear specialist Dr. Payam Jj; 08/2016 MRI of lumbar spine showed scoliosis and DDD. P: encouraged healthy diet and exercise for weight loss; continue to follow with Dr. Jj for pain management Immunization due [id number] Z28.3 Overdue for flu vaccine and Prevnar 13 (per rheumatolo gist) Screening for malignant neoplasm of cervix 486770334 Z12.4 A: Pap: 02/2018 pap was normal; due for repeat now. LMP @ 06/2020 Pap done today Hypothyroidism 88733682 E03.9 A: well controlled on 125 mcg levothyrox ine daily per 02/2018 TSH of 2.75 and 02/2019 TSH of 2.19 and 03/2020 TSH 2.26 P: Continue levothyrox ine. Check TSH now and once a year. Gastro-eso phageal reflux disease with esophagitis 873389997 K21.00 Well controlled on PRN omeprazole - when she takes celebrex she uses omeperazol e. Screening for disorder 763905520 Z11.59 Rationale for screening discussed. Agrees to testing. Screening mammography 24 875827 Z12.31 A: 08/15/2020 mammogram was normal P: Plan for repeat mammogram 08/2021 Active or passive immunization 042702766 Z23 declines flu vaccine.Sh e is on Humira, Prevnar 13 administed (recommend ed by rheumatolo mike) [id number] Braden Pardo MD Rheumatol [facility], [address] [place] [address] 04/11/2021 10:19:58 04/13/2021 06:14:34 Ankylosing spondylitis 2101651 M45.9 ankylosing spondyliti s: There is grade 2 sacroiliit is. She is HLA B27 +, and she definitely has inflammato ry features to her back pain. Started on Humira 08/20/18.Do ing well on Humira, continue for now.Decrea se celebrex to 100 mg, plan to possibly wean down further as much as possible.P atient got COVID booster and PCV-13Arra nge for Shingrix next visit.Coun selled to get the flu shot. Check labs before next visit.RTC in 4 months or sooner if needed. Gastroesop hageal reflux disease 069187244 K21.00 And gastritis. On PPI.Was evaluated by GI. Long-term drug therapy 188175526 Z79.899 On Humira and celebrex. Patient ot have a full skin exam with pcp or dermatolog y.Patient to hold humira if fever or any sign of infection. Decrease celebrex to 100 mg.She is taking now 200 mg three times a week, she has gastritis, she understand s the risk of bleeding.W maurisio down slowly, as much as possible. [id number] Braden Pardo MD Rheumat[facility] [place], [address] [place] [address] 08/21/2021 15:07:20 08/23/2021 08:12:20 Ankylosing spondylitis 7582764 M45.9 ankylosing spondyliti s: There is grade 2 sacroiliit is. She is HLA B27 +, and she definitely has inflammato ry features to her back pain. Started on Humira 08/20/18.Do ing well on Humira,but not as good as before.Try to do Humira every 12 days. Will give extra samples.Ce lebrex as needed and as tolerated. Patient got COVID booster and PCV-13Arra nge for Shingrix next visit.Coun selled to get the flu shot. Check labs before next visit.RTC in 4 months or sooner if needed. Gastroesop hageal reflux disease 072468931 K21.00 And gastritis. On PPI.Was evaluated by GI. Long-term drug therapy 696143631 Z79.899 On Humira and celebrex. Patient had a full skin exam with pcp.Patien t to hold humira if fever or any sign of infection. Monitor labs. Decrease in height 06391 005 R29.890 Check thoracic radiograph s. 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 Needs genetic testing.Marcos fernandes ot discuss with pcp referral to [place] or [facility]. [id number] MD LISA BEJARANO, [facility], OFFICE [address] [facility] [place] [address] 08/15/2021 13:10:49 08/15/2021 14:38:47 Multiple benign melanocytic nevi 938521768 D22.9 few, no concerning featuresCo ntinue to monitor your skin for lesions that don't look typical for you.Call with any concerns - changes in size, shape or color. Make sure that any lesions that are inflamed or bleeding heal as expected. threshold to recheck is 1 month if symptomati c See dermatolog ist as needed Solar degeneration 26148 006 L57.8 scattered freckling, no concerning lesionsZin c oxide/kimberlee nium dioxide SPF QD recommende d rather than chemical-b ased SPF as more effective for UV radiation protection ; full spectrum SPF 50 blocks 98% of UVA/UVB rays. Pigmented actinic keratosis 161886144 L57.0 R lateral/mi d above eyebrow, no concerning features. monitor for stabilityc onsider shave bx if changes due to use of immunosupp ressantpt will follow up with us prn changes Can use Adapalene gel 0.1% oTc) can be irritating , start every other night. This may cause the AK to diminish. Wear hats and SPF clothing. History of malignant basal cell neoplasm of skin 268107587 Z85.828 multiple sites, last on nasal dorsum, treated with 5FU without f/u bx done, 2019no concerning features noted today, no current need to re-bx at this time. Long-term current use of immunosuppressive drug 073135043 Z79.899 Humira, increases risk of NMSC pt will call prn any non-healin g lesions [id number] Braden Pardo MD Rheumatol ogy, [facility] [address] [facility] [place] [address] 02/20/2022 09:15:55 02/25/2022 17:05:20 Ankylosing spondylitis 0147228 M45.9 ankylosing spondyliti s: There is grade 2 sacroiliit is. She is HLA B27 +, and she definitely has inflammato ry features to her back pain. Started on Humira 08/20/18.No t doing well on Humira as well as before. Humira losing efficacy. Slightly better on the every 12 days dose.For now, hold Humira to assess neutropeni a. Treatment needs to be reassessed with the new rheumatolo gist as I am leaving.Ca nnot take NSAIDs as she has GERD and gastritis. Patient got COVID series and PCV-13 Counselled to get the COVID booster, the flu shot and the Shingrix. I informed the patient that I will be leaving the practice and she has to contact her pcp to get a referral for rheumatolo gy. She verbalizes understand ing and has already received my letter. Long-term drug therapy 769553095 Z79.899 On Humira. Patient had a full skin exam with pcp.Burt long Humira because of neutropeni a/lymphocy tosis.Need s hematology evaluation . 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 Hold Humira for now.Recomm end hematology evaluation .Patient stated that she will discuss this with her pcp, she did not want a referral today. [id number] Marilyn Ceron MD , [facility], OFFICE [address] [facility] [place] [address] 03/20/2022 15:36:41 03/20/2022 16:23:50 Adult health examination 185173898 Z00.00 51 year old female patient presents for a wellness visit.Reti ishaan.Lives with her , Jenna.Heal care proxy completed: Jenna is her HCP.Colon cancer screenin10/26/2020 EGD and colonoscop y by Dr. Palencia: colonoscop y was normal, 10-year repeat advised.EG D showed esophagiti s and hiatal hernia and erosions in stomach; negative for H. pylori. Breast cancer screenin08/2021 mammogram was normal.Mari cts for every year mammogram. Pap: 02/2021 pap was normal and HPV negative, so repeat due 02/2026. Vaccines: Overdue for flu vaccine and Shingrix vaccine, but advised to hold vaccines now given lymphocyto sis and neutropeni a; Humira stopped recently. 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 Stopped Humira on 02/20/[address] Pardo due to neutropeni aBack, shoulder and knee pain is worse since stopping HumiraAlso more tired since stopping HumiraHowe kalyan, she noticed that Humira seemed to not be working as well the past year (more tired)No shortness of breath or lymph node swelling or fevers Referral to [facility] hematologi st Dr. Rafael Rehman was placed 02/26/2022 and updated to STAT referral today Advised to hold off on Shingrix vaccine until hematology consultati on Basal cell carcinoma of skin 410892715 C44.91 A: Was Followed by [facility]; in 10/2018, switched to [facility]. Saw Dermatolog y in 12/2018.No w followed by Ruby Lancaster at [facility] - last seen 08/2021.No new skin lesions P: See Ruby Long in 08/2022. Sunscreen. Hypothyroidism 88179137 E03.9 A: 08/17/2021 TSH 0.28 on 125 mcg levothyrox ine daily; advised to reduce to 6.5 tabs/week on 08/18/202102/2022 TSH of 1.84 on 6.5 tabs per week indicates dose is appropriat e P: Continue levothyrox ine 6.5 tabs per week. Check TSH once a year Hyperlipidemia 17248804 E78.5 A: Per 02/2018 LDL 158, HDL 51, Chol 255, improved from 03/2017 LDL 182, HDL 53, Chol 267. 02/2019 LDL 245, HDL 57, Chol 352, ASCVD risk 1.7%, and 03/2020 LDL 246, HDL 64, Chol 344; since LDL >190, advised to start low dose rosuvastat in 3x per week; did not tolerate daily statin in past 03/2020 LDL 246, HDL 64, Chol 334.low dose 3x per week statin declined 03/2020 LDL 248, HDL 49, Chol 336 Family hx of heart disease - MGF CABG Started rosuvastat in 5 mg 3x per week on 02/15/2022H as not noticed any change to her chronic pain since starting rosuvastat in.No abdominal pain P: Recheck lipids and liver function in 3 monthsMedi terranean diet.Jalen nue 5 mg rosuvastat in 3 days per week Ankylosing spondylitis 4456901 M45.9 A: Was followed by Dr. Burton and Dr. Pardo who prescribed HumiraHold ing humira at this time due to abnormal CBC 08/2016 MRI of lumbar spine showed scoliosis and DDD Did not tolerate celebrex - GERD Anklyosing spondyliti s contributi ng to chronic lower back pain but pain was less with Humira. Also followed by ear specialist Dr. Payam Jj who prescribes oxycodone for her back pain. P: encouraged healthy diet and exercise for weight loss; continue to follow with Dr. Jj for pain management Needs CBC and CMP q 3 months if/when taking HumiraHold ing humira at this time due to abnormal CBC Gave her a handout of local rheumatolo gists and advised she call to find out which provider can see her then call me so that I can place a referral. Screening mammography 533954 Z12.31 A: Breast cancer screenin08/2021 mammogram was normal.Mari cts for every year mammogram. P: Plan for repeat mammogram 08/2022 [id number] Marilyn Ceron MD , [facility], OFFICE [address] [facility] [place] [address] 06/21/2022 13:44:54 06/21/2022 15:08:49 Diarrhea 78936429 R19.7 A: Here with her Mary for evaluation of vomiting and diarrhea that started 06/16/2022 No known sick contactsNo recent travel or antibiotic use.Notice d some blood in the diarrheaOr only new food was flax cereal.Sym ptoms are improving with clear liquid diet for the past 4 days until yesterday was her first solid meal. Negative home covid test. No longer having diarrhea or abdominal pain No urinary symptoms. 10/26/2020 EGD and colonoscop y by Dr. Palencia: colonoscop y was normal, 10-year repeat advised.EG D showed esophagiti s and hiatal hernia and erosions in stomach. Abdominal exam benign today P: Slowly advance diet from clear liquid diet to solids.Let me know if symptoms returnKeep a food diaryConsi ananda that flaxseed may have been the culprit. Ankylosing spondylitis 9859629 M45.9 A: Was followed by Dr. Burton and Dr. Pardo who prescribed HumiraHold ing humira at this time due to abnormal CBC 08/2016 MRI of lumbar spine showed scoliosis and DDD Did not tolerate celebrex - GERD Anklyosing spondyliti s contributi ng to chronic lower back pain but pain was less with Humira. Also followed by ear specialist Dr. Payam Jj who prescribes oxycodone for her back pain. P: encouraged healthy diet and exercise for weight loss; continue to follow with Dr. Jj for pain management Needs CBC and CMP q 3 months if/when taking HumiraHold ing humira at this time due to abnormal CBC Gave her a handout of local rheumatolo gists and advised she call to find out which provider can see her then call me so that I can place a referral. Hyperlipidemia 89211240 E78.5 A: Per 02/2018 LDL 158, HDL 51, Chol 255, improved from 03/2017 LDL 182, HDL 53, Chol 267. 02/2019 LDL 245, HDL 57, Chol 352, ASCVD risk 1.7%, and 03/2020 LDL 246, HDL 64, Chol 344; since LDL >190, advised to start low dose rosuvastat in 3x per week; did not tolerate daily statin in past 03/2020 LDL 246, HDL 64, Chol 334.low dose 3x per week statin declined 03/2020 LDL 248, HDL 49, Chol 336 Family hx of heart disease - MGF CABG Started rosuvastat in 5 mg 3x per week on 02/15/2022H as not noticed any change to her chronic pain since starting rosuvastat in. Lipids improved to 05/2022 LDL 185, HDL 58, Chol 292, but still clearly needs to improve P: Consider increasing rosuvastat in 5 mg daily and recheck lipids and liver function in 3 months Mediterran maurisio diet. [id number] SCOTTY Manzano MD FP, [facility], OFFICE [address] [facility] [place] [address] 08/13/2022 13:18:19 08/13/2022 15:37:20 Multiple benign melanocytic nevi 809959997 D22.9 few, no concerning featuresCo ntinue to monitor your skin for lesions that don't look typical for you.Call with any concerns - changes in size, shape or color. Make sure that any lesions that are inflamed or bleeding heal as expected. threshold to recheck is 1 month if symptomati c See dermatolog ist as needed Pigmented actinic keratosis 085963982 L57.0 R lateral/mi d above eyebrow, no concerning features. monitor for stabilityc onsider shave bx if changes due to use of immunosupp ressantpt will follow up with us prn changes Can use Adapalene gel 0.1% oTc) can be irritating , start every other night. This may cause the AK to diminish. Wear hats and SPF clothing. Solar degeneration 71017 006 L57.8 scattered freckling, no concerning lesionsZin c oxide/kimberlee nium dioxide SPF QD recommende d rather than chemical-b ased SPF as more effective for UV radiation protection ; full spectrum SPF 50 blocks 98% of UVA/UVB rays. History of malignant basal cell neoplasm of skin 300891641 Z85.828 multiple sites, last on nasal dorsum, treated with 5FU without f/u bx done, 2019no concerning features noted today, no current need to re-bx at this time. Neoplasm o f uncertain behavior of skin of face 09459772 D48.5 mid nose at site of prior 5 FU use, sent for pathology Basal cell carcinoma of nose 403062791 C44.311 mid nose: MOHS recommende d. portal message sent.- Basal cell carcinoma, nodular type. Advised to check with insurance. - The tumor extends to the base of the submitted tissue. [id number] BIBIANA CUELLAR DO , [facility], [address] [place] [address] 03/26/2023 13:13:31 03/26/2023 14:31:43 Adult health examination 934233566 Z00.00 52 year old female patient presents for a wellness visit.Reti red.Lives with her , Jenna.Heal th care proxy completed: Jenna is her HCP. Vaccines: Overdue for flu vaccine and Shingrix vaccine.Co charo cancer screenin10/26/2020 EGD and colonoscop y by Dr. Palencia: colonoscop y was normal, 10-year repeat advised.EG D showed esophagiti s and hiatal hernia and erosions in stomach; negative for H. pylori. Breast cancer screenin10/2022 mammogram was normal.Mari cts for every year mammogram. Cervical cancer screenin02/2021 pap was normal and HPV negative, so repeat due 02/2026. Pain is much less since switching from Humira to Enbrel Depression screening 171 953758 Z13.31 depression screening tool administer edMood is good Screening for alcohol abuse 767632664 Z13.39 Alcohol use screening tool administer edRare alcohol use - once a year Vaccine de clined by patient [id number] 02 Z28.20 Offered flu vaccine today; declinedEn couraged to discuss Shingrix vaccine with rheumatolo gist Screening mammography 24 239069 Z12.31 Breast cancer screenin10/2022 mammogram was normal.Mari cts for every year mammogram. Plan for repeat mammogram 10/2023 Ankylosing spondylitis 7073604 M45.9 A: Was followed by Dr. Burton and Dr. Pardo who prescribed HumiraNow followed by [facility] rhematolog ist Dr. Lanza.08/09 017 MRI of lumbar spine showed scoliosis and DDDDid not tolerate celebrex - GERD Anklyosing spondyliti s contributi ng to chronic lower back pain but pain was less with Humira. Also followed by ear specialist Dr. Payam Jj who prescribes oxycodone for her back pain.Inter jairo history 03/26/2023: 02/25/2023 rheumatolo gy new patient consult with Dr. James Lanza for ankylosing spondyliti s; on Humira but no longer having benefit with HumiraDrAlfonso Lanza advised switching from Humira to Enbrel - she has been taking Enbrel since 02/2023 and feels pain is less and has more energy. P: Continue to follow with Dr. Lanza for labs and monitoring and Enbrel until you switch to see [facility] rheumatolo gist (due to location) Encouraged healthy diet and exercise for weight loss; continue to follow with Dr. Jj for pain management Hypothyroidism 52318847 E03.9 A: 08/17/2021 TSH 0.28 on 125 mcg levothyrox ine daily; advised to reduce to 6.5 tabs/week on 08/18/202102/2022 TSH of 1.84 on 6.5 tabs per week indicates dose is appropriat e 02/21/2023 TSH was 0.05 on 125 mcg daily; dose was reduced to 100 mcg daily on 02/24/2023 P: Continue 100 mcg daily and recheck TSH @ 05/20/2023 Hyperlipidemia 64355239 E78.5 A: Per 02/2018 LDL 158, HDL 51, Chol 255, improved from 03/2017 LDL 182, HDL 53, Chol 267. 02/2019 LDL 245, HDL 57, Chol 352, ASCVD risk 1.7%, and 03/2020 LDL 246, HDL 64, Chol 344; since LDL >190, advised to start low dose rosuvastat in 3x per week; did not tolerate daily statin in past 03/2020 LDL 246, HDL 64, Chol 334.low dose 3x per week statin declined 03/2020 LDL 248, HDL 49, Chol 336 Family hx of heart disease - MGF CABG Started rosuvastat in 5 mg 3x per week on 02/15/2022H as not noticed any change to her chronic pain since starting rosuvastat in. Lipids improved to 05/2022 LDL 185, HDL 58, Chol 292, but still clearly needs to improve Taking rosuvastat in 3-6 days per week LDL 111, HDL 71, Chol 218 and liver function normal P: Consider increasing rosuvastat in 5 mg to daily. Recheck lipids once a year Mediterran maurisio diet. Prolapse o f female genital organs 42758410 N81.9 A: Per 05/2019 pelvic exam by Franny Lynn of [facility]: grade III pelvic organ prolapse - cervix at introitus, +cystocele and + rectocele P: See [employer]IPING RAG W[employer]ER again for pessary vs surgery [id number] Marilyn Ceron MD , [facility], [address] [place] [address] 09/19/2023 09:29:56 09/19/2023 10:08:45 Persistent lymphocytosis 41842962 D72.820 A: Lymphocyto sis since 2018; Neutropeni a since 2014 in the setting of taking Humira since 2018 for ankylosing spondyliti s. Per 08/26/[address] Lanza: mild neutropeni a present since 2014, improved since 05/2023 Stopped Humira on 02/20/[address] Pardo due to neutropeni aNow on Taltz for ankylosing spondyliti s as prescribed by Dr. Lanza Saw [facility] hematologi st Dr. Rafael Rehman 08/2022 and suspected lymphocyto sis and neutropeni a secondary to autoimmune disease and reactive (inflammat ion) as well as secondary to her medication s. Per that consult: If those tests are unremarkab le then it is reassuring that these neutrophil and lymphocyte counts are likely her baseline or likely reactive and I do feel it would be safe to try her on Biologics again for her ankylosing spondyliti s with continued monitoring of her blood counts. I feel that as long as her neutrophil count is above 1K with no issues regarding infections , then she can continue with it. P: Continue regular CBC monitoring with rheumatolo gy Neutropenia 660574455 D7 0.9 A: Lymphocyto sis since 2018; Neutropeni a since 2014 in the setting of taking Humira since 2018 for ankylosing spondyliti s. Per 08/26/[address] Lanza: mild neutropeni a present since 2014, improved since 05/2023 Stopped Humira on 02/20/[address] Pardo due to neutropeni aNow on Taltz for ankylosing spondyliti s as prescribed by Dr. Lanza Saw [facility] hematologi st Dr. Rafael Rehman 08/2022 and suspected lymphocyto sis and neutropeni a secondary to autoimmune disease and reactive (inflammat ion) as well as secondary to her medication s. Per that consult: If those tests are unremarkab le then it is reassuring that these neutrophil and lymphocyte counts are likely her baseline or likely reactive and I do feel it would be safe to try her on Biologics again for her ankylosing spondyliti s with continued monitoring of her blood counts. I feel that as long as her neutrophil count is above 1K with no issues regarding infections , then she can continue with it. P: Continue regular CBC monitoring with rheumatolo gy Hypothyroidism [id number] E03.9 A: 08/17/2021 TSH 0.28 on 125 mcg levothyrox ine daily; advised to reduce to 6.5 tabs/week on 08/18/202102/2022 TSH of 1.84 on 6.5 tabs per week indicates dose is appropriat e 02/21/2023 TSH was 0.05 on 125 mcg daily; dose was reduced to 100 mcg daily on 02/24/202305/2023 TSH 1.64 on 100 mcg levothyrox ine daily P: Continue 100 mcg levothyrox ine daily and recheck TSH once a year Hyperlipidemia [id number] E78.5 A: Per 02/2018 LDL 158, HDL 51, Chol 255, improved from 03/2017 LDL 182, HDL 53, Chol 267. 02/2019 LDL 245, HDL 57, Chol 352, ASCVD risk 1.7%, and 03/2020 LDL 246, HDL 64, Chol 344; since LDL >190, advised to start low dose rosuvastat in 3x per week; did not tolerate daily statin in pastFamily hx of heart disease - MGF CABG Started rosuvastat in 5 mg 3x per week on 2D id not noticed any change to her chronic pain since starting rosuvastat in. Lipids improved to 05/2022 LDL 185, HDL 58, Chol 292, but still clearly needs to improve Taking rosuvastat in 3-6 days per week 3 LDL 111, HDL 71, Chol 218 and liver function normal P: Continue rosuvastat in 3 days per weekConsid er trial of increasing rosuvastat in 5 mg to daily. Recheck lipids once a year Mediterran maurisio diet. Screening mammography 24 [id number] Z12.31 Breast cancer screenin10/2022 mammogram was normal.Mari cts for every year mammogram. Discussed - scheduled for 11/14/2023 Submandibu lar sialolithiasis [id number] K11.5 A: Left sided submandibu lar swelling x years; fluctuates in size. Ddx: salivary gland stone vs lymph node P: Suck on lemon drops, stay hydrated; handout on massage techniqueU S ordered to check for stone vs atypical lymph node Ankylosing spondylitis [id number] M45.9 A: Was followed by Dr. Burton and Dr. Pardo who prescribed HumiraNow followed by [facility] rhematolog ist Dr. Lanza.08/09 017 MRI of lumbar spine showed scoliosis and DDDDid not tolerate celebrex - GERD Anklyosing spondyliti s contributi ng to chronic lower back pain but pain was less with Humira. Also followed by ear specialist Dr. Payam Jj who prescribes oxycodone for her back pain.Inter jairo history 03/26/2023: 02/25/2023 rheumatolo gy new patient consult with Dr. James Lanza for ankylosing spondyliti s; on Humira but no longer having benefit with HumiraDr. Myla advised switching from Humira to Enbrel - she has been taking Enbrel since 02/2023 and feels pain is less and has more energy. Interval history 09/19/2023W ill start Taltz soon P: Continue to follow with Dr. Lanza for labs and monitoring Encouraged healthy diet and exercise for weight loss; continue to follow with Dr. Jj for pain management [id number] Marilyn Ceron MD , [facility], OFFICE [address] [facility] [place] [address] 03/01/2024 10:38:53 03/01/2024 11:22:15 Ankylosing spondylitis [id number] M45.8 A: Was followed by Dr. Burton and Dr. Pardo who prescribed HumiraRece ntly followed by [facility] r[facility] Dr. Lanza.08/09 MRI of lumbar spine showed scoliosis and DDDDid not tolerate celebrex - GERDHumira and Taltz were ineffectiv eEnbrel was stopped Anklyosing spondyliti s contributi ng to chronic lower back pain but pain was less with Humira. Also followed by ear specialist Dr. Payam Jj who prescribes oxycodone for her back pain.Inter jairo history 03/26/2023: 02/25/2023 rheumatchantal gy new patient consult with Dr. James Lanza for ankylosing spondyliti s; on Humira but no longer having benefit with HumiraDr. Myla advised switching from Humira to Enbrel - she has been taking Enbrel since 02/2023 and feels pain is less and has more energy. Interval history 09/19/2023W ill start Taltz soon Interval history 03/01/2024 02/26/[address] Skinner for ankylosing spondyliti s: Talz was stopped 2 months ago since it was not effective. She remains on 10 mg prednisone /day. Prednisone is helpful for pain but causing weight gain and stomach upset. Will try switching to Simponi injections . Reduce prednisone to 2.5 mg/day x 2 weeks, then 1.25 mg/day x 2 weeks then stop. Anemia with thrombocyt osis is increasing - will need evaluation and hematology consult again. She stopped Talz and switched to prednisone in 11/05/2023 for ankylosing spondyliti sPrediniso ne has been helpful for pain but not tolerated. She is tapering down from prednisone due to stomach upset and will switch to Simponi soon. P: She has been referred to [facility] rheumatolo gy for medication s, labs and monitoring Encouraged healthy diet and exercise for weight loss; this provider will temporaril y take over prescribin g pain medication s for Dr. Jj until he returns 05/2024 Long-term current use of drug therapy [id number] Z79.899 Taking hydrocodon e chronicall y as prescribed by Dr. Payam Jj for ankylosing spondyliti s.[facility] is temporaril y taking over prescribin g for Dr. Jj while he is on medical leave until 05/2024 [employer] checked. A 28 day Rx of hydrocodon e was filled on 02/13/2024, so refill not due until 03/12/2024. She never takes more than prescribed and sometimes takes less, but hydrocodon e is still helpful for pain Microcytic anemia 986452 007 D50.9 A: 02/25/2024 CBC showing microcytic anemia and thrombocyt osis per MCV 78.8, Hgb 10.2. PLT high at 592 and WBC mildly elevated at 10.81 in the setting of treatment for ankylosing spondyliti s and being on a prednisone taper No black stool, blood with BMs and no vaginal bleeding. Neutrophil count normal. 10/26/2020 EGD and colonoscop y by Dr. Palencia: colonoscop y was normal, 10-year repeat advised. EGD showed esophagiti s and hiatal hernia and erosions in stomach. Saw hematologi st Dr. Rafael Rehman in 08/2022 for consult regarding lymphocyto sis and neutropeni a in the setting of taking biologics for ankylosing spondyliti s. Per Dr. Rehman, ok to continue biologics as long as neutrophil count > 1 K Neutropeni a has resolvedSh e now has microcytic anemia and thrombocyt osis and still has lymphocyto sis P: Reviewed labsRechec k CBC in 3 weeks to check for a trend while waiting to see hematologi stIFOB and ferritin ordered to check for blood loss via GI tract and check for low ferritinWi ll refer back to hematologi st Dr. Rehman at the request of rheumatolo gy Mixed hyperlipidemia 267 807325 E78.2 A: Per 02/2018 LDL 158, HDL 51, Chol 255, improved from 03/2017 LDL 182, HDL 53, Chol 267. 02/2019 LDL 245, HDL 57, Chol 352, ASCVD risk 1.7%, and 03/2020 LDL 246, HDL 64, Chol 344; since LDL >190, advised to start low dose rosuvastat in 3x per week; did not tolerate daily statin in pastFamily hx of heart disease - MGF CABG Started rosuvastat in 5 mg 3x per week on 2D id not noticed any change to her chronic pain since starting rosuvastat in. Lipids improved to 05/2022 LDL 185, HDL 58, Chol 292, but still clearly needs to improve Taking rosuvastat in 3-6 days per week 3 LDL 111, HDL 71, Chol 218 and liver function normal10/28 23 LDL 144, HDL 57, Chol 257, so lipids trending up again Takes rosuvastat in 3 days per week; but diet has been higher on dairy recently P: Reviewed LDL increased since 02/2023.Co ntinue rosuvastat in 3 days per weekConsid er trial of increasing rosuvastat in 5 mg to daily. Recheck lipids once a year Mediterran maurisio diet. Vaccine de clined by patient [id number] Z28.20 Offered flu vaccine today; declined [id number] Rodney Saldana Jr. FP, [facility], OFFICE [address] [facility] [place] [address] 04/06/2024 08:42:20 04/06/2024 10:00:00 Solar degeneration 45729127 L57.8 scattered freckling, no concerning lesionsZin c oxide/kimberlee nium dioxide SPF QD recommende d rather than chemical-b ased SPF as more effective for UV radiation protection ; full spectrum SPF 50 blocks 98% of UVA/UVB rays. Keratosis pilaris [id number] 5 Q82.8 b/l upper arms.mild on upper arms, moisturize , avoid luffa scrubbings uggested dietary changes such as gluten, dairy and sugar free diet may reduce inflammati on and Part of the atopic triad of allergies, asthma & eczema; thus, a chronic skin condition worsened by harsh chemicals, dry weather and picking. Use gentle soaps (Dr. Izquierdos Accord; avoid Ivory, Dial or [place]).Mo isturize each day to improve skin barrier function. (oTc Cerave, Sarna, Vanicream) .ALL Free & Clear preferred laundry products, no dryer sheets, etc.Avoid prolonged bathing with hot water.Parvez mmend cetirizine each AM, +/- benadryl as tolerated at PM. Actinic keratosis L57.0 HAK on R lateral eyebrow, treated with [address]2 today, recheck in 6 months. Aware results Skin tag [id number] L91.8 R groin treated with LN2 today [place] hairs 711257270 L 67.8 May indicate vitamin C deficiency or may be positional due to severe scoliosis. Portal message sent. Basal cell carcinoma of nose 764453753 C44.311 mid nose: 08/2022, no recurrence will monitor yearly. Red flag symptoms reviewed. Long-term current use of immunosuppressive drug 251083241 Z79.899 Humira, increases risk of NMSC pt will call prn any non-healin g lesions [id number] Marilyn Ceron MD , [facility], OFFICE [address] [facility] [place] [place] [address] 05/26/2024 08:54:44 05/26/2024 10:40:16 Adult health examination 124120286 Z00.00 53 year old female patient presents for a wellness visit.Reti red.Lives with her , Jenna.Heal care proxy completed: Jenna is her HCP. Vaccines: Overdue for flu vaccine and 2nd Shingrix vaccine.Co charo cancer screenin05/21/2024 EGD-colono scopy by Dr. Souza for iron def anemia: EGD showed ulcer of stomach, esophagiti s. Colonoscop y showed mild diverticul osis and signs of ischemic colitis; biopsies taken. Repeat EGD in 3 months advised. Increase omeprazole to 20 mg bid. 05/21/2024 EGD biopsies: No H. pylori, active esophagiti s, negative for Barretts. Colonoscop y biopsy: active colitis with ischemic changes Breast cancer screenin11/2023 mammogram was normal. Repeat due 11/2024 Cervical cancer screenin02/2021 pap was normal and HPV negative, so repeat due 02/2026. 05/2024 CBC and CMP normal10/28 23 LDL 144, HDL 57, Chol 254, ASCVD risk 2.3% Depression screening 171 560317 Z13.31 depression screening tool administer edMood is good Screening for alcohol abuse 455155120 Z13.39 Alcohol use screening tool administer edRare alcohol use Screening mammography 24 201239 Z12.31 Breast cancer screenin11/2023 mammogram was normal.Rep eat due 11/2024 Discussed and ordered Ankylosing spondylitis 9979692 M45.9 A: Was followed by Dr. Burton and Dr. Pardo who prescribed HumiraNow followed by [facility] r[facility] ist Dr. Lanza. Also followed by ear specialist Dr. Payam Jj who prescribes oxycodone for her back pain.Did not tolerate celebrex - GERDHumira and Taltz were ineffectiv eEnbrel was stopped Interval history 03/01/2024 02/26/[address] Skinner for ankylosing spondyliti s: Talz was stopped 2 months ago since it was not effective. She remains on 10 mg prednisone /day. Prednisone is helpful for pain but causing weight gain and stomach upset. Will try switching to Simponi injections . Reduce prednisone to 2.5 mg/day x 2 weeks, then 1.25 mg/day x 2 weeks then stop. Anemia with thrombocyt osis is increasing - will need evaluation and hematology consult again. She stopped Talz and switched to prednisone in 11/05/2023 for ankylosing spondyliti sprednison e has been helpful for pain but not tolerated. She is tapering down from prednisone due to stomach upset and will switch to Simponi soon. Interval history 05/26/2024N ow prescribed Simponi by [facility] but changing to [facility] rheumatchantal gy due to location P: She has been referred to [facility] rheumatolo gy for medication s, labs and monitoring and will establish with [facility] in 09/2024 Encouraged healthy diet and exercise for weight loss History of supraventricular tachycardia [id number] 0916640 Z86.79 A: s/p ablation in [place] circa 2009. She saw cardiologi st Dr. Salinas in 09/2022 for a consultati on. 08/2018 ECHO was normal. Taking 25 mg metoprolol . Rare palpitatio ns No dizziness. P: Continue metoprolol and annual cardiology follow up. Hypothyroidism 50292344 E03.9 A: 08/17/2021 TSH 0.28 on 125 mcg levothyrox ine daily; advised to reduce to 6.5 tabs/week on 08/18/202102/2022 TSH of 1.84 on 6.5 tabs per week indicates dose is appropriat e 02/21/2023 TSH was 0.05 on 125 mcg daily; dose was reduced to 100 mcg daily on 02/24/202305/2023 TSH 1.64 on 100 mcg levothyrox ine daily P: Continue 100 mcg levothyrox ine daily and recheck TSH once a yearDue for recheck today Mixed hyperlipidemia 267 173856 E78.2 A: Per 02/2018 LDL 158, HDL 51, Chol 255, improved from 03/2017 LDL 182, HDL 53, Chol 267. 02/2019 LDL 245, HDL 57, Chol 352, ASCVD risk 1.7%, and 03/2020 LDL 246, HDL 64, Chol 344; since LDL >190, advised to start low dose rosuvastat in 3x per week; did not tolerate daily statin in pastFamily hx of heart disease - MGF CABG Started rosuvastat in 5 mg 3x per week on 2D id not noticed any change to her chronic pain since starting rosuvastat in. Lipids improved to 05/2022 LDL 185, HDL 58, Chol 292, but still clearly needs to improve Taking rosuvastat in 3-6 days per week LDL 111, HDL 71, Chol 218 and liver function normal10/27 24 LDL 144, HDL 57, Chol 257, so lipids trending up again Takes rosuvastat in 3 days per week; but diet has been higher on dairy recently P: Reviewed LDL above goal in 4Cont inue rosuvastat in 3 days per weekConsid er trial of increasing rosuvastat in 5 mg to daily. Recheck lipids once a year Mediterran maurisio diet. Pain of bi lateral knee joints [id number] 47070 M25.561 M25.562 A: Bilateral knee pain for many years, getting worseS/p ACL reconstruc tion of right knee in 1992.Was told by past orthopedis t that her arthritis was significan t Cant take NSAIDS due to esophagiti s and gastritis Prednisone for helped her knee pain P: xrays, RICE, PT discussedW ill refer to Dr. Milton for considerat ion of injections Health Concerns Section Related Observation LastModified by Organization Detai ls LastModified Time None Recorded Concern Status LastModified by Organization Details LastModified Time None Recorded Advance Directives Directive None Recorded Payers Insurance Date Sequence Insurance Name Policy Number Policy Peck Covered Member ID Peck Member ID Guarantor Name 09/19/2023 1 [facility] PLAN (HMO) [id number] Jenna Abhishekigliett i [id number] Eliana Famiglietti 05/13/[address] [facility] HP - DOS ON OR AFTER 2022 - [facility] ACO (MEDICAID REPLACEMENT - HMO) Eliana Famigliett i [id number] Eliana Famiglietti 09/14/2024 1 [facility] - DIRECT CONNECTORCARE TYPE I (HMO) [id number] Eliana J Famigliett i [id number] Eliana Famiglietti 04/11/2021 1 [place] [facility] Eliana Famigliett i [id number] Eliana Famiglietti 09/06/2023 1 [facility] - DIRECT CONNECTORCARE TYPE III (HMO) [id number] Eliana Famigliett i [id number] Eliana Famiglietti 04/11/2021 1 [facility] - DIRECT - [place] (HMO) [id number] Eliana J Famigliett i [id number] Eliana Famiglietti 07/24/2022 1 [place] Eliana Famigliett i [id number] Eliana Famiglietti 04/11/2021 1 [facility] (HMO) [id number] Eliana J Famigliett i [id number] Eliana Famiglietti 04/11/2021 1 [place] Jenna Petersont i [id number] Eliana Famiglietti 04/11/2021 1 [facility] - TOGETHER (MEDICAID HMO) [id number] Eliana J Famigliett i [id number] Eliana Famiglietti 04/11/2021 1 [place] ONLY P[place] [id number] Jenna Alberto i [id number] Eliana Carter 06/21/2022 1 [place] [facility] PRIOR TO 06/08/2022 - [facility] (MEDICAID) Eliana Alberto i [id number] 4 Eliana Carter Notes Date Note Type Note Provider Name and Address Organization Details Recorded Time 03/26/2023 text/html Risk Assessment and Lifestyle Change Counseling 50-64Reported bypatient.Coronary Artery Disease Risk Assessment:No Family history of coronary artery disease; No personal history of diabetes; No history of peripheral vascular disease, AAA, or carotid disease; No personal history of coronary artery disease Breast Cancer Risk Assessment:No family history of breast cancer; No history of breast cancer or dcis Colon Cancer Risk Assessment:Family history of colon polyps or colon cancer; No history of adenomatous colon polyps Lung Cancer Risk Assessment:Has used cigarettes;Has used cigarettes less than 30 pack years;Former smoker quit within last 15 years; No asbestos exposure Fracture Risk Assessment:No unexplained fracture Cognitive/Behavioral Risk Assessment:No personal history of mental illness; No family history of mental illness Safety Risk Assessment:No evidence of abuse/neglect Diet:Counseled about eating a diet low in trans and saturated fats and high in fiber, fruits and vegetables; Counseled about appropriate calcium intake and good dietary sources of calcium.; Counseled about the importance of maintaining a positive calcium balance and taking 1000 iu Vitamin D daily.; Discussed the value of a Mediterranean diet , and eating more fruits and vegetables Exercise counseling:Discussed the importance of daily physical activity; Discussed the importance of weight bearing exercise Safety:Counseled about protecting skin from the sun and lowering the risk of skin cancer Family Planning:Not using control 52 year old female patient presents for a wellness visit.Retired.Lives with her , Jenna.Health care proxy completed: Jenna is her HCP. Vaccines: Overdue for flu vaccine and Shingrix vaccine.Colon cancer screenin10/26/2020 EGD and colonoscopy by Dr. Palencia: colonoscopy was normal, 10-year repeat advised.EGD showed esophagitis and hiatal hernia and erosions in stomach; negative for H. pylori. Breast cancer screenin10/2022 mammogram was normal.Elects for every year mammogram. Cervical cancer screenin02/2021 pap was normal and HPV negative, so repeat due 02/2026. Pain is much less since switching from Humira to Enbrel Chrissie Veras RPA-[address], [phone], [facility] 03/26/2023 14:06:11 09/19/2023 text/html Here with her wi cherrie West for follow up of hypothyroidism and hyperlipidemia -lump under left side of jaw big and sensitive - has been present for years but seems larger at this timeHas fluctuated in size for many years.Has been painful for the past week. Her only medication change is that she stopped Enbrel 3 weeks ago.No ear pain, throat pain or fevers. Got the Shingrix vaccine about 2 weeks ago. -would like to know about starting Taltz with the lump Lymphocytosis since 2018; Neutropenia since 2014 in the setting of taking Humira since 2019 for ankylosing spondylitis. Per 08/26/[address] Lanza: mild neutropenia present since 2014, improved since 05/2023 Stopped Humira on 02/20/[address] Pardo due to neutropeniaNow on Taltz for ankylosing spondylitis as prescribed by Dr. Lanza 05/2023 TSH 1.64 on 100 mcg levothyroxine daily 02/2023 LDL 111, HDL 71, Chol 218 on rosuvastatin 5 mg 3 days per week Taking statin 3 days per week; tolerating NISSA Benito [address] [place] [address], [phone], [facility] 09/19/2023 10:00:41 03/01/2024 text/html Here with her wi cherrie Hernandez. She is taking hydrocodone chronically as prescribed by Dr. Payam Jj for ankylosing spondylitis.[facility] is temporarily taking over prescribing for Dr. Jj while he is on medical leave until [employer] checked. A 28 day Rx of hydrocodone was filled on 02/13/2024, so refill not due until 03/12/2024. She never takes more than prescribed and sometimes takes less, but hydrocodone is still helpful for pain She stopped Talz and switched to prednisone in 11/05/2023 for ankylosing spondylitisShe is tapering down from prednisone due to stomach upset and will switch to Simponi soon. No black stool, blood with BMs and no vaginal bleeding. 02/25/2024 CBC showing microcytic anemia and thrombocytosis per MCV 78.8, Hgb 10.2. PLT high at 592 and WBC mildly elevated at 10.81 in the setting of treatment for ankylosing spondylitis Neutrophil count normal. 10/26/2020 EGD and colonoscopy by Dr. Palencia: colonoscopy was normal, 10-year repeat advised. EGD showed esophagitis and hiatal hernia and erosions in stomach. Saw irrigationist designer Dr. Rafael Rehman in 08/2022 for consult regarding lymphocytosis and neutropenia in the setting of taking biologics for ankylosing spondylitis. Per Dr. Rehman, ok to continue biologics as long as neutrophil count > 1 K Lymphocytosis and neutropenia have resolvedShe now has microcytic anemia and thrombocytosis Takes rosuvastatin 3 days per week; but diet has been higher on dairy recently NISSA Benito [address] [place] [address], [phone], [facility] 03/01/2024 11:21:38 04/06/2024 text/html Here today for a full skin exam due to +prior extensive UVR*BCC nodular, extended to base on biopsy, 2022, seen by plastic surgery*R lateral eyebrow, present since last visit 2022, 12/16/2022 plastic surgeon consult for basal cell carcinoma of nose per 08/2022 biopsy; declined further excision. No recurrence per pt.*groin lesion, x years, prior sunbathing naked. No change in size, shape or colorNo bleeding, itch or pain Aaron Lancaster PA-C [address] [place], [phone], [facility] 04/06/2024 09:54:45 05/26/2024 text/html Risk Assessment AdultReported bypatient.Coronary Artery Disease Risk Assesment:Family History of Coronary Artery Disease; No personal history of diabetes; No history of peripheral vascular disease, AAA, or carotid disease; No personal history of coronary artery disease; Patient has higher than average risk for coronary artery disease; [place] 10 year cardiac risk less than 5% Breast Cancer Risk Assessment:No family history of breast cancer; No history of breast cancer or dcis Colon Cancer Risk:No personal history of colon cancer or polyps; No family history of colon polyps or cancer Lung Cancer Risk Assessment:Has used cigarettes; No asbestos exposure Cognitive/Behavioral Risk Assessment:No personal history of mental illness; No family history of mental illness Safety Risk Assessment:Do you feel safe in your current relationship?YES Diet:Counseled about eating a diet low in trans and saturated fats and high in fiber, fruits and vegetables; Counseled about appropriate calcium intake and good dietary sources of calcium.; Counseled about the importance of maintaining a positive calcium balance and taking 1000 iu Vitamin D daily.; Counseled about decreasing carbohydrates; Counseled about decreasing salt in diet; Discussed the value of a Mediterranean diet, and eating more fruits and vegetables Family Planning:Not using control Exercise counseling:Discussed the importance of daily physical activity; Discussed the importance of weight bearing exercise Counselling:Josee ponce about protecting skin from the sun and lowering the risk of skin cancer; Counseled about avoiding excessive and unsafe alcohol intake 53 year old female patient presents for a wellness visit.Retired.Lives with her , Jenna.Health care proxy completed: Jenna is her HCP. Vaccines: Overdue for flu vaccine and 2nd Shingrix vaccine.Colon cancer screenin05/21/2024 EGD-colonoscopy by Dr. Souza for iron def anemia: EGD showed ulcer of stomach, esophagitis. Colonoscopy showed mild diverticulosis and signs of ischemic colitis; biopsies taken. Repeat EGD in 3 months advised. Increase omeprazole to 20 mg bid. 05/21/2024 EGD biopsies: No H. pylori, active esophagitis, negative for Barretts. Colonoscopy biopsy: active colitis with ischemic changes Breast cancer screenin11/2023 mammogram was normal. Repeat due 11/2024 Cervical cancer screenin02/2021 pap was normal and HPV negative, so repeat due 02/2026. 05/2024 CBC and CMP normal10/2023 LDL 144, HDL 57, Chol 254, ASCVD risk 2.3% Bilateral knee pain for many years, getting worseS/p ACL reconstruction of right knee in 1992. Chrissie Veras RPA-C [address] [place] [address], [phone], [facility] 05/26/2024 10:06:21 OBGyn Episode No OBEpisode recorded.
== END 2024-09-16 12:38 | disposition home or self-care (01) ==
LOC: HO.RHE 11:06
PROVIDERS: PCP Physician Assistant; Visit Provider Student in an Organized Health Care Education/Training Program
DX: M45.8 Ankylosing spondylitis sacral and sacrococcygeal region (principal); M19.041 Primary osteoarthritis, right hand; M19.042 Primary osteoarthritis, left hand; Z79.899 Other long term (current) drug therapy
CPT/HCPCS: 99214

== ENCOUNTER → 2024-09-16 11:06 | Outpatient (BNVA) | payer OTHER, SELFPAY | PROVIDERS: PCP Physician Assistant; Visit Provider Student in an Organized Health Care Education/Training Program | DX: M45.8 Ankylosing spondylitis sacral and sacrococcygeal region (principal); M19.041 Primary osteoarthritis, right hand; M19.042 Primary osteoarthritis, left hand; Z79.899 Other long term (current) drug therapy | CPT/HCPCS: 96372; 99212; J1885 ==

== ENCOUNTER 2024-09-20 09:25 | Outpatient (AMB) | payer OTHER, SELFPAY ==
--- NOTE | 2024-09-20 09:37 | A.OFFVIS_ITS ---
Vital Signs 09/20/24 09:39 Height 5 ft 8 in Weight 202 lb BMI 30.7 BP 103/60 Blood Pressure Location Lt brachial Position Sitting Respiration 16 Pulse 93 Pulse Source Pulse Oximeter Pulse Oximetry (%) 97 Oxygen Delivery Method Room Air Intake Visit Reasons: CERVICAL FACET JOINT SYNDROME Allergies erythromycin base Adverse Reaction (Unknown, Verified 09/20/24 09:40) Unknown Medication List - Last Reconciled 09/20/24 by Roxanne Wakefield LPN coenzyme Q10 60 mg PO DAILY ferrous sulfate (Phuong-Time) 325 mg PO DAILY golimumab (Simponi) 50 mg (0.5 mL) subcut Q4W [gREENS CAPULE PO] hydrocodone-acetaminophen 5-325 mg tabs PO levothyroxine 100 mcg PO DAILY magnesium citrate 400 mg PO BID metoprolol succinate ER 25 mg PO DAILY multivitamin 1 tab PO DAILY potassium gluconate 600 mg PO DAILY rosuvastatin mg PO DAILY [tulsiholybasil PO] HPI HPI CERVICAL FACET JOINT SYNDROME: Details: History of Present Illness The patient is a 53-year-old female presenting for evaluation and management of ankylosing spondylitis and associated pain. She has been diagnosed with ankylosing spondylitis, which has been managed by Dr. Jj at [facility]. She was previously on Humira, which was ineffective, and is now on Symphonie, which has alleviated her sacroiliac joint pain and fatigue. Despite this, she continues to experience significant mid back and neck pain, with some improvement in her hands but persistent lumbar and neck pain. Her activity level is limited due to joint stiffness and pain, making tasks such as climbing stairs difficult, and she is mostly homebound due to these functional limitations. She is currently taking hydrocodone 7.5 mg three times a day for pain management. The patient has a history of colitis and peptic ulcers, which are exacerbated by NSAIDs, and she is on Prozac for depression. She also has a history of anemia, likely due to bleeding from ulcers, and scoliosis contributing to her back pain. Additionally, she has degeneration at the vertebral body level in the lumbar region, described as [id number]. She has not received any injections since 2018, and her previous discectomy at L4-5 and L5-S1 was not successful in alleviating her symptoms. Pain Description - Onset: Chronic pain associated with ankylosing spondylitis - Quality: Significant mid back and neck pain, sacroiliac joint pain, lumbar pain - Location: Mid back, neck, lumbar region, sacroiliac joints - Exacerbating factors: Joint stiffness, functional limitations - Relieving factors: Symphonie for sacroiliac joint pain, hydrocodone for general pain management - Interference: Limited activity level, difficulty with stairs, mostly homebound Physical Exam - Musculoskeletal: Positive cervical extension and facet loading, tenderness in bilateral lumbar paraspinal region, scoliosis, midline scar from prior L3-4 discectomy Results Pain Management - Affect: Pain impacts daily activities and limits mobility, contributing to a mostly homebound status - Analgesia: Currently on hydrocodone 7.5 mg three times a day, previously on Humira, now on Symphonie - Adverse Effects: History of colitis and ulcers exacerbated by NSAIDs, anemia likely due to ulcer bleeding - Activities of Daily Living: Difficulty with stairs, limited activity level, mostly homebound - Aberrant Drug Related Behaviors: None reported [facility] Medical History Morphea Scoliosis deformity of spine Hypothyroidism Chronic low back pain Ankylosing spondylitis Raynaud's disease Surgical History S/P ACL repair H/O basal cell carcinoma excision Family History Mother Mental disorder Father Parkinson disease Sister Thyroid malignant neoplasm Maternal Grandfather Myocardial infarction Maternal Grandmother Pancreatic tumor Diabetes Daughter Hypermobile joints Social History Household Members: Spouse Alcohol intake: current Alcohol intake frequency: holidays/special occasions only Patient Tobacco Use Status: Former Tobacco user Current occupational status: unemployed Physical Exam Vital Signs: Last Vital Signs Pulse 93 09/20/24 09:39 Resp 16 09/20/24 09:39 BP 103/60 09/20/24 09:39 Pulse Ox 97 09/20/24 09:39 Oxygen Delivery Method Room Air 09/20/24 09:39 BMI result Body Mass Index 30.7 Assessment & Plan Assessment & Plan (1) Ankylosing spondylitis: Comment: HLA b27 + onset around 2016 sacroiliitis on X-ray Celebrex helpful but causes GI upset, esophagitis Humira 2018 initially helpful then has secondary non response Enbrel 03/2023 DC 08/2023 due to secondary nonresponse Taltz 08/2023 DC 12/2023 ineffective Simponi Code(s): M45.9 - Ankylosing spondylitis of unspecified sites in spine Category: Medical Qualifiers: Ankylosing spondylitis location: sacrococcygeal region Qualified Code(s): M45.8 - Ankylosing spondylitis sacral and sacrococcygeal region (2) Lumbar degenerative disc disease: Code(s): M51.36 - Other intervertebral disc degeneration, lumbar region Category: Medical Qualifiers: Disc-related pain type: unspecified whether pain present Qualified Code(s): M51.369 - Other intervertebral disc degeneration, lumbar region without mention of lumbar back pain or lower extremity pain (3) Cervical spondylitis: Code(s): M46.92 - Unspecified inflammatory spondylopathy, cervical region Category: Medical Plan Plan - Agree with plan to initiate Remicade infusions and assess its effectiveness before proceeding with cervical facet injections. - Continue cortisone injections for lower back pain management through Dr. Jj. - Consideration of intrathecal drug delivery to reduce total cortisone intake and associated risks in the future. Discussed the potential use of a pain pump for targeted back pain management. - Patient to maintain a record of steroid injections to track cumulative dosage. Patient was informed and verbally consented to the use of an ambient scribe for clinic note documentation during this visit. Discussion Notes I discussed with the patient the plan to initiate Remicade infusions and evaluate its effectiveness before proceeding with cervical facet injections. We considered the use of intrathecal drug delivery to reduce her total cortisone intake, thereby minimizing risks such as osteoporosis and hyperglycemia. The patient was advised to continue regular cortisone injections for her lower back pain through Dr. Jj and to maintain a record of all steroid injections to manage cumulative dosage. We also discussed the potential use of a pain pump for targeted back pain management. Patient Instructions - Start Remicade infusions and monitor its effects. - Keep a record of all steroid injections received. - Continue regular cortisone injections through Dr. Jj. - Consider discussing the option of a pain pump with your healthcare provider. Coding Level of Care Code New Pt Level 4 (83249) Diagnoses Ankylosing spondylitis of sacrococcygeal region M45.8 Ankylosing spondylitis location: sacrococcygeal region Degeneration of intervertebral disc of lumbar region, unspecified whether pain present M51.369 Disc-related pain type: unspecified whether pain present Cervical spondylitis M46.92
[2024-09-20 09:39] VITALS: BP 103/60; PULSE 93; RESP 16; O2SAT 97; BMI 30.7
--- OUTSIDE RECORDS SUMMARY | 2024-09-20 09:51 | XMS_ITS | Data Portability ---
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 [employer] Name Role Phone PAYAM JJ OTHER CHRISSIE VERAS Primary Care Provider PAYAM BURTON Health Information Tech Assessment Encounter Date Assessment Date Assessment LastModified [...] Mammo gram, Deanna mcdonnell 2024 09:00A M [facility] Mammography Not available Not available Not available LAB Follo w-Up 2025 07:45A M [facility] Lab Not available Not available Not available James ess Visit 30 2025 08:30A M Chrissie Veras, RPA-C Not available Not available Not available Lab lipid panel , serum 2024 025 [facility], [address] [place] [address], [id number], 05/28/2024 14:14:08 TSH, serum or plasm a 2024 025 [facility], [address] [place] [address], [id number], 05/26/2024 16:25:43 fecal occul t blood , immun oassa y, stool 2023 024 [facility], [address] [place] [address], [id number], 03/17/2024 14:41:40 drug scree n, urine - Date and Time of Last Dose: hydro codon e 03/01 9am 2023 024 [facility], [address] [place] [address], [id number], 03/02/2024 10:20:12 TSH, serum or plasm a 2023 024 [facility], [address] [place] [address], [id number], 06/02/2023 12:21:45 Referral physi lani winslow refer [...] helpe d her knee pain 2024 025 [facility], [address] [place], [address], 05/26/2024 11:24:44 sport s medic ine refer [...] pain 2024 025 fernando Milton MD, [address] [facility], [place], [address], 05/26/2024 15:16:[address] refer ral - throm bocyt osis and micro cytic anemi a in the setti ng of treat ment for ankyl osing spond yliti s; neutr openi a has resol nazanin but lymph ocyto sis is persi sting and PLT trend ing up 2023 024 nschlosser Rafael Rehman MD, [address] [facility], [place], [address], 04/27/2024 15:55:[address] refer ral - grade III pelvi c organ prola pse - cervi x at intro itus, +cyst ocele and + recto mohini [address], [address], [place], [address], 06/10/2023 11:24:57 Procedures None recor ded. Surgeries None recor ded. Imaging MAMMO , scree kecia, tomos ynthe sis, bilat eral - 2nd Look Consu lt/Di ag Mammo /US Breas t/Suleiman ded Asp/B reast Bx/Cl ip Place ment, as clini mary ellen indic ated. 2024 025 [facility] (Imaging), [address], [place], [address], 08/30/2024 14:03:30 XR, knee, weigh tbear ing 2024 025 [facility] (Imaging), [address] [place], [address], 05/26/2024 11:06:12 MAMMO , scree kecia, tomos ynthe sis, bilat eral - 2nd Look Consu lt/Di ag Mammo /US Breas t/Suleiman ded Asp/B reast Bx/Cl ip Place ment, as clini mary ellen indic ated. 2023 024 [facility] (Imaging), [address], [place], [address], 09/19/2023 10:27:15 US, head + neck, soft tissu e - left subma ndibu lar swell ing x years ; fluct uates in size; check for saliv gerhard gland stone vs lymph node 2023 024 [facility] (Imaging), [address] [place], [address], 11/11/2023 13:25:48 MAMMO , scree kecia, tomos ynthe sis, bilat eral - 2nd Look Consu lt/Di ag Mammo /US Breas t/Suleiman ded Asp/B reast Bx/Cl ip Place ment, as clini mary ellen indic ated. 2023 024 [facility] (Imaging), [address], [place], [address], 11/15/2023 10:21:16 Medication Orders hydro codon e 5 mg-ac etami nophe n 325 mg table t 2023 024 [facility] #[id number], [address], [place], [address], 03/01/2024 11:11:20 Patient TargetsNo targets recorded. 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 for Pr olapse of female genital organs grade III pelvic organ prolapse - cervix at introitus, +cystocele and + rectocele grade III pelvic organ prolapse - cervix at introitus, +cystocele and + rectocele Referring Physician: Chrissie Veras [facility], Encounter Date: 03/26/2023 thrombocytosis and microcyti c anemia in the setting of treatment for ankylosing spondylitis; neutropenia has resolved but lymphocytosis is persisting and PLT trending up Referring Physician: Chrissie Veras [facility], Encounter Date: 03/01/2024 Physical Therapist Referral for Pain of bilateral knee joints Bilateral knee pain for many years, getting worseS/p ACL reconstruction of right knee in 1992.Was told by past orthopedist that her arthritis was significantCant take NSAIDS due to esophagitis and gastritisPrednisone for helped her knee pain Referring Physician: Chrissie Veras [facility], Encounter Date: 05/26/2024 Bilateral knee pain for many years, getting worseS/p ACL reconstruction of right knee in 1992.Was told by past orthopedist that her arthritis was significantCant take NSAIDS due to esophagitis and gastritisPrednisone for helped her knee pain Referring Physician: Chrissie Veras [facility], Encounter Date: 05/26/2024 Results Created Date Observation Date Name Description Value Unit Range Abnormal Flag Note LastModifiedBy Organization Detail LastModifiedTime 05/28/19 24 05/28/2023 CBC WBC 7.00 K/ L 3.98-1 0.04 Not Available [address], [address], 05/28/2023 15:21:40 05/28/19 24 05/28/2023 CBC RBC 4.53 M/ L 3.93-5 .22 Not Available [address], [address], 05/28/2023 15:21:40 05/28/19 24 05/28/2023 CBC HGB 12.1 g/dL 11.2-1 5.7 Not Available [address], [address], 05/28/2023 15:21:40 05/28/19 24 05/28/2023 CBC HCT 38.9 % 34.1-4 4.9 Not Available [address], [address], 05/28/2023 15:21:40 05/28/19 24 05/28/2023 CBC MCV 85.9 fL 79.4-9 4.8 Not Available [address], [address], 05/28/2023 15:21:40 05/28/19 24 05/28/2023 CBC MCH 26.7 pg 25.6-3 2.2 Not Available [address], [address], 05/28/2023 15:21:40 05/28/19 24 05/28/2023 CBC MCHC 31.1 g/dL 32.2-3 5.5 low Not Available [address], [address], 05/28/2023 15:21:40 05/28/19 24 05/28/2023 CBC plt 398 K/ L 182-36 9 high Not Available [address], [address], 05/28/2023 15:21:40 05/28/19 24 05/28/2023 CBC MPV 11.2 fL 9.4-12 .3 Not Available [address], [address], 05/28/2023 15:21:40 05/28/19 24 05/28/2023 CBC neut% 29.1 % 34.0-7 1.1 low Not Available [address], [address], 05/28/2023 15:21:40 05/28/19 24 05/28/2023 CBC neut# 2.03 1.56-6 .13 Not Available [address], [address], 05/28/2023 15:21:40 05/28/19 24 05/28/2023 CBC lymph % 63.4 % 19.3-5 1.7 high Not Available [address], [address], 05/28/2023 15:21:40 05/28/19 24 05/28/2023 CBC lymph # 4.44 K/ L 1.18-3 .74 high Not Available [address], [address], 05/28/2023 15:21:40 05/28/19 24 05/28/2023 CBC mono% 6.1 % 4.7-12 .5 Not Available [address], [address], 05/28/2023 15:21:40 05/28/19 24 05/28/2023 CBC mono# 0.43 0.24-0 .56 Not Available [address], [address], 05/28/2023 15:21:40 05/28/19 24 05/28/2023 CBC eo% 0.7 % 0.7-5. 8 Not Available [address], [address], 05/28/2023 15:21:40 05/28/19 24 05/28/2023 CBC eo# 0.05 0.04-0 .36 Not Available [address], [address], 05/28/2023 15:21:40 05/28/19 24 05/28/2023 CBC baso% 0.6 % 0.1-1. 2 Not Available [address], [address], 05/28/2023 15:21:40 05/28/19 24 05/28/2023 CBC baso# 0.04 0.00-0 .08 Not Available [address], [address], 05/28/2023 15:21:40 05/28/19 24 05/28/2023 CBC RDW-CV 13.9 % 11.7-1 4.4 Not Available [address], [address], 05/28/2023 15:21:40 05/28/19 24 05/28/2023 CBC Ig% 0.100 % 0.000- 1.500 Ig % >0.5 Indic ates possi ble Left Shift Not Available [address], [address], 05/28/2023 15:21:40 05/28/19 24 05/28/2023 CBC Ig# 0.010 0.000- 0.093 Not Available [address], [address], 05/28/2023 15:21:40 05/28/19 24 05/28/2023 CBC NRBC% 0.0 % 0.0-0. 2 Not Available [address], [address], 05/28/2023 15:21:40 05/28/19 24 05/28/2023 CBC NRBC# 0.000 0.000- 0.012 Not Available [address], [address], 05/28/2023 15:21:40 05/28/19 24 05/28/2023 ESR sed rate 16.0 0.0-15 .0 high Not Available [address], [address], 05/28/2023 16:51:17 05/28/19 24 05/29/2023 COMP. METAB OLIC PANEL glucose 86 mg/dL 70-100 Not Available [address], [address], 05/29/2023 15:18:25 05/28/19 24 05/29/2023 COMP. METAB OLIC PANEL BUN 14 mg/dL 7-18 Not Available [address], [address], 05/29/2023 15:18:25 05/28/19 24 05/29/2023 COMP. METAB OLIC PANEL creatinine 0.8 mg/dL 0.8-1. 3 Not Available [address], [address], 05/29/2023 15:18:25 05/28/19 24 05/29/2023 COMP. METAB OLIC PANEL B/C 17.5 ratio Not Available [address], [address], 05/29/2023 15:18:25 05/28/19 24 05/29/2023 COMP. METAB [...] be used in pregn wilian. Not Available [address], [address], 05/29/2023 15:18:25 05/28/19 24 05/29/2023 COMP. METAB OLIC PANEL sodium 141 mmol/ L 136-14 5 Not Available [address], [address], 05/29/2023 15:18:25 05/28/19 24 05/29/2023 COMP. METAB OLIC PANEL potassium 4.4 mmol/ L 3.5-5. 1 Not Available [address], [address], 05/29/2023 15:18:25 05/28/19 24 05/29/2023 COMP. METAB OLIC PANEL chloride 102 mmol/ L 96-107 Not Available [address], [address], 05/29/2023 15:18:25 05/28/19 24 05/29/2023 COMP. METAB OLIC PANEL anion gap 13.5 5.0-15 .0 Not Available [address], [address], 05/29/2023 15:18:25 05/28/19 24 05/29/2023 COMP. METAB OLIC PANEL CO2 26 mmol/ L 21-32 Not Available [address], [address], 05/29/2023 15:18:25 05/28/19 24 05/29/2023 COMP. METAB OLIC PANEL calcium 10.0 mg/dL 8.5-10 .3 Not Available [address], [address], 05/29/2023 15:18:25 05/28/19 24 05/29/2023 COMP. METAB OLIC PANEL total protein 8.6 g/dL 6.4-8. 2 high Not Available [address], [address], 05/29/2023 15:18:25 05/28/19 24 05/29/2023 COMP. METAB OLIC PANEL albumin 4.4 g/dL 3.4-5. 0 Not Available [address], [address], 05/29/2023 15:18:25 05/28/19 24 05/29/2023 COMP. METAB OLIC PANEL globulin 4.2 g/dL Not Available [address], [address]195, 05/29/2023 15:18:25 05/28/19 24 05/29/2023 COMP. METAB OLIC PANEL A/G 1.0 ratio 0.8-2. 0 Not Available [address], [address], 05/29/2023 15:18:25 05/28/19 24 05/29/2023 COMP. METAB OLIC PANEL total bilirubin 0.30 mg/dL 0.00-1 .00 Not Available [address], [address], 05/29/2023 15:18:25 05/28/19 24 05/29/2023 COMP. METAB OLIC PANEL AST 28 U/L 0-37 Not Available [address], [address], 05/29/2023 15:18:25 05/28/19 24 05/29/2023 COMP. METAB OLIC PANEL ALT 34 U/L 6-63 Not Available [address], [address], 05/29/2023 15:18:25 05/28/19 24 05/29/2023 COMP. METAB OLIC PANEL alk. phos. 101 U/L 50-136 Not Available [address], [address], 05/29/2023 15:18:25 05/28/19 24 05/29/2023 C-CLOTILDE CTIVE PROTE IN (RCRP ) C-reactive protein (rcrp) 3.1 mg/dL 0.5-9. 0 Not Available [address], [address], 05/29/2023 15:18:26 05/28/19 24 06/02/2023 TSH TSH 1.64 uIU/m L 0.50-6 .00 The [employer] rinol o[employer] and Ameri can Thyro id Assoc iatio n recom mend goal TSH value s betwe en 0.4-4 .0 mIU/m L. Not Available [address], [address], 06/02/2023 12:21:45 08/26/19 24 08/26/2023 CBC WBC 6.46 K/ L 3.98-1 0.04 Not Available [address], [address], 08/26/2023 10:28:43 08/26/19 24 08/26/2023 CBC RBC 4.39 M/ L 3.93-5 .22 Not Available [address], [address], 08/26/2023 10:28:43 08/26/19 24 08/26/2023 CBC HGB 11.1 g/dL 11.2-1 5.7 low Not Available [address], [address], 08/26/2023 10:28:43 08/26/19 24 08/26/2023 CBC HCT 35.7 % 34.1-4 4.9 Not Available [address], [address], 08/26/2023 10:28:43 08/26/19 24 08/26/2023 CBC MCV 81.3 fL 79.4-9 4.8 Not Available [address], [address], 08/26/2023 10:28:43 08/26/19 24 08/26/2023 CBC MCH 25.3 pg 25.6-3 2.2 low Not Available [address], [address], 08/26/2023 10:28:43 08/26/19 24 08/26/2023 CBC MCHC 31.1 g/dL 32.2-3 5.5 low Not Available [address], [address], 08/26/2023 10:28:43 08/26/19 24 08/26/2023 CBC plt 464 K/ L 182-36 9 high Not Available [address], [address], 08/26/2023 10:28:43 08/26/19 24 08/26/2023 CBC MPV 10.0 fL 9.4-12 .3 Not Available [address], 98992, 08/26/2023 10:28:43 08/26/19 24 08/26/2023 CBC neut% 32.0 % 34.0-7 1.1 low Not Available [address], [address], 08/26/2023 10:28:43 08/26/19 24 08/26/2023 CBC neut# 2.07 1.56-6 .13 Not Available [address], [address], 08/26/2023 10:28:43 08/26/19 24 08/26/2023 CBC lymph % 58.4 % 19.3-5 1.7 high Not Available [address], [address], 08/26/2023 10:28:43 08/26/19 24 08/26/2023 CBC lymph # 3.77 K/ L 1.18-3 .74 high Not Available [address], [address], 08/26/2023 10:28:43 08/26/19 24 08/26/2023 CBC mono% 6.5 % 4.7-12 .5 Not Available [address], [address], 08/26/2023 10:28:43 08/26/19 24 08/26/2023 CBC mono# 0.42 0.24-0 .56 Not Available [address], [address], 08/26/2023 10:28:43 08/26/19 24 08/26/2023 CBC eo% 2.0 % 0.7-5. 8 Not Available [address], [address], 08/26/2023 10:28:43 08/26/19 24 08/26/2023 CBC eo# 0.13 0.04-0 .36 Not Available [address], [address], 08/26/2023 10:28:43 08/26/19 24 08/26/2023 CBC baso% 0.9 % 0.1-1. 2 Not Available [address], [address], 08/26/2023 10:28:43 08/26/19 24 08/26/2023 CBC baso# 0.06 0.00-0 .08 Not Available [address], [address], 08/26/2023 10:28:43 08/26/19 24 08/26/2023 CBC RDW-CV 14.6 % 11.7-1 4.4 high Not Available [address], [address], 08/26/2023 10:28:43 08/26/19 24 08/26/2023 CBC Ig% 0.200 % 0.000- 1.500 Ig % >0.5 Indic ates possi ble Left Shift Not Available [address], [address], 08/26/2023 10:28:43 08/26/19 24 08/26/2023 CBC Ig# 0.010 0.000- 0.093 Not Available [address], [address], 08/26/2023 10:28:43 08/26/19 24 08/26/2023 CBC NRBC% 0.0 % 0.0-0. 2 Not Available [address], 14[address], 08/26/2023 10:28:43 08/26/19 24 08/26/2023 CBC NRBC# 0.000 0.000- 0.012 Not Available [address], [address], 08/26/2023 10:28:43 08/26/19 24 08/26/2023 COMP. METAB OLIC PANEL glucose 104 mg/dL 70-100 high Not Available [address], [address], 08/26/2023 13:57:27 08/26/19 24 08/26/2023 COMP. METAB OLIC PANEL BUN 12 mg/dL 7-18 Not Available [address], [address]47[address], 08/26/2023 13:57:27 08/26/19 24 08/26/2023 COMP. METAB OLIC PANEL creatinine 0.9 mg/dL 0.8-1. 3 Not Available [address], [address], 08/26/2023 13:57:27 08/26/19 24 08/26/2023 COMP. METAB OLIC PANEL B/C 13.3 ratio Not Available [address], [address], 08/26/2023 13:57:27 08/26/19 24 08/26/2023 COMP. METAB [...] be used in pregn wilian. Not Available [address], [address], 08/26/2023 13:57:27 08/26/19 24 08/26/2023 COMP. METAB OLIC PANEL sodium 141 mmol/ L 136-14 5 Not Available [address], 76[address], 08/26/2023 13:57:27 08/26/19 24 08/26/2023 COMP. METAB OLIC PANEL potassium 4.3 mmol/ L 3.5-5. 1 Not Available [address], 10[address], 08/26/2023 13:57:27 08/26/19 24 08/26/2023 COMP. METAB OLIC PANEL chloride 104 mmol/ L 96-107 Not Available [address], 89449, 08/26/2023 13:57:27 08/26/19 24 08/26/2023 COMP. METAB OLIC PANEL anion gap 10.8 5.0-15 .0 Not Available [address], 35266, 08/26/2023 13:57:27 08/26/19 24 08/26/2023 COMP. METAB OLIC PANEL CO2 26 mmol/ L 21-32 Not Available [address], 04643, 08/26/2023 13:57:27 08/26/19 24 08/26/2023 COMP. METAB OLIC PANEL calcium 9.3 mg/dL 8.5-10 .3 Not Available [address], [address], 08/26/2023 13:57:27 08/26/19 24 08/26/2023 COMP. METAB OLIC PANEL total protein 7.9 g/dL 6.4-8. 2 Not Available [address], 09207, 08/26/2023 13:57:27 08/26/19 24 08/26/2023 COMP. METAB OLIC PANEL albumin 3.7 g/dL 3.4-5. 0 Not Available [address], [address]87[address], 08/26/2023 13:57:27 08/26/19 24 08/26/2023 COMP. METAB OLIC PANEL globulin 4.2 g/dL Not Available [address], [address], 08/26/2023 13:57:27 08/26/19 24 08/26/2023 COMP. METAB OLIC PANEL A/G 0.9 ratio 0.8-2. 0 Not Available [address], 78199, 08/26/2023 13:57:27 08/26/19 24 08/26/2023 COMP. METAB OLIC PANEL total bilirubin 0.30 mg/dL 0.00-1 .00 Not Available [address], 63991, 08/26/2023 13:57:27 08/26/19 24 08/26/2023 COMP. METAB OLIC PANEL AST 23 U/L 0-37 Not Available [address], 80905, 08/26/2023 13:57:27 08/26/19 24 08/26/2023 COMP. METAB OLIC PANEL ALT 31 U/L 6-63 Not Available [address], 62046, 08/26/2023 13:57:27 08/26/19 24 08/26/2023 COMP. METAB OLIC PANEL alk. phos. 108 U/L 50-136 Not Available [address], [address]678, 08/26/2023 13:57:27 08/26/19 24 08/26/2023 C-CLOTILDE CTIVE PROTE IN (RCRP ) C-reactive protein (rcrp) 5.8 mg/dL 0.5-9. 0 Not Available [address], 17570, 08/26/2023 13:57:28 08/26/19 24 08/26/2023 ESR sed rate 31.0 0.0-15 .0 high Not Available [address], 31287, 08/26/2023 14:59:17 10/27/19 24 10/27/2023 CBC WBC 5.91 K/ L 3.98-1 0.04 Not Available [address], 97068, 10/27/2023 12:12:00 10/27/19 24 10/27/2023 CBC RBC 4.67 M/ L 3.93-5 .22 Not Available [address], 27790, 10/27/2023 12:12:00 10/27/19 24 10/27/2023 CBC HGB 11.2 g/dL 11.2-1 5.7 Not Available [address], 28709, 10/27/2023 12:12:00 10/27/19 24 10/27/2023 CBC HCT 37.9 % 34.1-4 4.9 Not Available [address], 02843, 10/27/2023 12:12:00 10/27/19 24 10/27/2023 CBC MCV 81.2 fL 79.4-9 4.8 Not Available [address], 13768, 10/27/2023 12:12:00 10/27/19 24 10/27/2023 CBC MCH 24.0 pg 25.6-3 2.2 low Not Available [address], 96829, 10/27/2023 12:12:00 10/27/19 24 10/27/2023 CBC MCHC 29.6 g/dL 32.2-3 5.5 low Not Available [address], 74845, 10/27/2023 12:12:00 10/27/19 24 10/27/2023 CBC plt 371 K/ L 182-36 9 high Not Available [address], 33370, 10/27/2023 12:12:00 10/27/19 24 10/27/2023 CBC MPV 11.4 fL 9.4-12 .3 Not Available [address], 23778, 10/27/2023 12:12:00 10/27/19 24 10/27/2023 CBC neut% 36.4 % 34.0-7 1.1 Not Available [address], 09028, 10/27/2023 12:12:00 10/27/19 24 10/27/2023 CBC neut# 2.15 1.56-6 .13 Not Available [address], 48061, 10/27/2023 12:12:00 10/27/19 24 10/27/2023 CBC lymph % 55.0 % 19.3-5 1.7 high Not Available [address], 73464, 10/27/2023 12:12:00 10/27/19 24 10/27/2023 CBC lymph # 3.25 K/ L 1.18-3 .74 Not Available [address], 62584, 10/27/2023 12:12:00 10/27/19 24 10/27/2023 CBC mono% 6.6 % 4.7-12 .5 Not Available [address], 79210, 10/27/2023 12:12:00 10/27/19 24 10/27/2023 CBC mono# 0.39 0.24-0 .56 Not Available [address], 85726, 10/27/2023 12:12:00 10/27/19 24 10/27/2023 CBC eo% 1.0 % 0.7-5. 8 Not Available [address], 76388, 10/27/2023 12:12:00 10/27/19 24 10/27/2023 CBC eo# 0.06 0.04-0 .36 Not Available [address], 71439, 10/27/2023 12:12:00 10/27/19 24 10/27/2023 CBC baso% 0.8 % 0.1-1. 2 Not Available [address], 71201, 10/27/2023 12:12:00 10/27/19 24 10/27/2023 CBC baso# 0.05 0.00-0 .08 Not Available [address], 45310, 10/27/2023 12:12:00 10/27/19 24 10/27/2023 CBC RDW-CV 14.8 % 11.7-1 4.4 high Not Available [address], 69064, 10/27/2023 12:12:00 10/27/19 24 10/27/2023 CBC Ig% 0.200 % 0.000- 1.500 Ig % >0.5 Indic ates possi ble Left Shift Not Available [address], 61641, 10/27/2023 12:12:00 10/27/19 24 10/27/2023 CBC Ig# 0.010 0.000- 0.093 Not Available [address], 87308, 10/27/2023 12:12:00 10/27/19 24 10/27/2023 CBC NRBC% 0.0 % 0.0-0. 2 Not Available [address], 76491, 10/27/2023 12:12:00 10/27/19 24 10/27/2023 CBC NRBC# 0.000 0.000- 0.012 Not Available [address], 11833, 10/27/2023 12:12:00 10/27/19 24 10/27/2023 COMP. METAB OLIC PANEL glucose 85 mg/dL 70-100 Not Available [address], 01339, 10/27/2023 13:56:50 10/27/19 24 10/27/2023 COMP. METAB OLIC PANEL BUN 12 mg/dL 7-18 Not Available [address], 21220, 10/27/2023 13:56:50 10/27/19 24 10/27/2023 COMP. METAB OLIC PANEL creatinine 0.8 mg/dL 0.8-1. 3 Not Available [address], 93802, 10/27/2023 13:56:50 10/27/19 24 10/27/2023 COMP. METAB OLIC PANEL B/C 15.0 ratio Not Available [address], 38060, 10/27/2023 13:56:50 10/27/19 24 10/27/2023 COMP. METAB [...] be used in pregn wilian. Not Available [address], 22180, 10/27/2023 13:56:50 10/27/19 24 10/27/2023 COMP. METAB OLIC PANEL sodium 139 mmol/ L 136-14 5 Not Available [address], 01162, 10/27/2023 13:56:50 10/27/19 24 10/27/2023 COMP. METAB OLIC PANEL potassium 5.0 mmol/ L 3.5-5. 1 Not Available [address], 97262, 10/27/2023 13:56:50 10/27/19 24 10/27/2023 COMP. METAB OLIC PANEL chloride 103 mmol/ L 96-107 Not Available [address], 38177, 10/27/2023 13:56:50 10/27/19 24 10/27/2023 COMP. METAB OLIC PANEL anion gap 11.8 5.0-15 .0 Not Available [address], 78353, 10/27/2023 13:56:50 10/27/19 24 10/27/2023 COMP. METAB OLIC PANEL CO2 24 mmol/ L 21-32 Not Available [address], 54049, 10/27/2023 13:56:50 10/27/19 24 10/27/2023 COMP. METAB OLIC PANEL calcium 9.4 mg/dL 8.5-10 .3 Not Available [address], 38732, 10/27/2023 13:56:50 10/27/19 24 10/27/2023 COMP. METAB OLIC PANEL total protein 8.6 g/dL 6.4-8. 2 high Not Available [address], 14837, 10/27/2023 13:56:50 10/27/19 24 10/27/2023 COMP. METAB OLIC PANEL albumin 3.9 g/dL 3.4-5. 0 Not Available [address], 18162, 10/27/2023 13:56:50 10/27/19 24 10/27/2023 COMP. METAB OLIC PANEL globulin 4.7 g/dL Not Available [address], [address], 10/27/2023 13:56:50 10/27/19 24 10/27/2023 COMP. METAB OLIC PANEL A/G 0.8 ratio 0.8-2. 0 Not Available [address], [address], 10/27/2023 13:56:50 10/27/19 24 10/27/2023 COMP. METAB OLIC PANEL total bilirubin 0.30 mg/dL 0.00-1 .00 Not Available [address], [address], 10/27/2023 13:56:50 10/27/19 24 10/27/2023 COMP. METAB OLIC PANEL AST 30 U/L 0-37 Not Available [address], [address], 10/27/2023 13:56:50 10/27/19 24 10/27/2023 COMP. METAB OLIC PANEL ALT 27 U/L 6-63 Not Available [address], [address], 10/27/2023 13:56:50 10/27/19 24 10/27/2023 COMP. METAB OLIC PANEL alk. phos. 119 U/L 50-136 Not Available [address], [address], 10/27/2023 13:56:50 10/27/19 24 10/27/2023 C-CLOTILDE CTIVE PROTE IN (RCRP ) C-reactive protein (rcrp) 5.0 mg/dL 0.5-9. 0 Not Available [address], [address], 10/27/2023 13:56:51 10/27/19 24 10/27/2023 LIPID PANEL cholesterol 257 mg/dL <200 mg/dl Marie able 200-2 39 mg/dl Borde rline High >240 mg/dl High Not Available [address], [address], 10/27/2023 13:56:53 10/27/19 24 10/27/2023 LIPID PANEL triglyceride s 198 mg/dL <150 mg/dL Michelle l 150-1 99 mg/dL Borde rline High 200-4 99 mg/dL High >500 mg/dL Very High Not Available [address], [address], 10/27/2023 13:56:53 10/27/19 24 10/27/2023 LIPID PANEL direct HDL 57 mg/dL <40 mg/dl - Major Risk for CHD >60 mg/dl - Negat james Risk for CHD Not Available [address], [address], 10/27/2023 13:56:53 10/27/19 24 10/27/2023 DIREC T LDL direct LDL 144 mg/dL RISK CATEG ORY LDL GOAL _ CHD or CHD Risk Equiv alent s <100 mg/dl (10-y ear risk >20%) 2+ Risk Facto rs <130 mg/dl (10-y ear risk <= 20%) 0-1 Risk Facto r <160 mg/dl [facility] all peopl e with 0-1 risk facto r have a 10 year risk <10%, thus 10 year risk asses ment in peopl e with 0-1 risk facto r is not devendra cano. Not Available [address], [address], 10/27/2023 13:56:54 10/27/19 24 10/27/2023 ESR sed rate 27.0 0.0-15 .0 high Not Available [address], [address], 10/27/2023 15:00:12 02/20/20 24 02/20/2024 CBC WBC 9.83 K/ L 3.98-1 0.04 Not Available [address], [address], 02/20/2024 18:04:30 02/20/20 24 02/20/2024 CBC RBC 4.35 M/ L 3.93-5 .22 Not Available [address], [address], 02/20/2024 18:04:30 02/20/20 24 02/20/2024 CBC HGB 10.3 g/dL 11.2-1 5.7 low Not Available [address], [address], 02/20/2024 18:04:30 02/20/20 24 02/20/2024 CBC HCT 35.0 % 34.1-4 4.9 Not Available [address], [address], 02/20/2024 18:04:30 02/20/20 24 02/20/2024 CBC MCV 80.5 fL 79.4-9 4.8 Not Available [address], [address], 02/20/2024 18:04:30 02/20/20 24 02/20/2024 CBC MCH 23.7 pg 25.6-3 2.2 low Not Available [address], [address], 02/20/2024 18:04:30 02/20/20 24 02/20/2024 CBC MCHC 29.4 g/dL 32.2-3 5.5 low Not Available [address], [address], 02/20/2024 18:04:30 02/20/20 24 02/20/2024 CBC plt 534 K/ L 182-36 9 high Not Available [address], [address], 02/20/2024 18:04:30 02/20/20 24 02/20/2024 CBC MPV 9.9 fL 9.4-12 .3 Not Available [address], [address], 02/20/2024 18:04:30 02/20/20 24 02/20/2024 CBC neut% 50.0 % 34.0-7 1.1 Not Available [address], [address], 02/20/2024 18:04:30 02/20/20 24 02/20/2024 CBC neut# 4.91 1.56-6 .13 Not Available [address], [address], 02/20/2024 18:04:30 02/20/20 24 02/20/2024 CBC lymph % 42.4 % 19.3-5 1.7 Not Available [address], [address], 02/20/2024 18:04:30 02/20/20 24 02/20/2024 CBC lymph # 4.17 K/ L 1.18-3 .74 high Not Available [address], [address], 02/20/2024 18:04:30 02/20/20 24 02/20/2024 CBC mono% 6.0 % 4.7-12 .5 Not Available [address], [address], 02/20/2024 18:04:30 02/20/20 24 02/20/2024 CBC mono# 0.59 0.24-0 .56 high Not Available [address], [address], 02/20/2024 18:04:30 02/20/20 24 02/20/2024 CBC eo% 0.8 % 0.7-5. 8 Not Available [address], [address], 02/20/2024 18:04:30 02/20/20 24 02/20/2024 CBC eo# 0.08 0.04-0 .36 Not Available [address], [address], 02/20/2024 18:04:30 02/20/20 24 02/20/2024 CBC baso% 0.5 % 0.1-1. 2 Not Available [address], [address], 02/20/2024 18:04:30 02/20/20 24 02/20/2024 CBC baso# 0.05 0.00-0 .08 Not Available [address], [address], 02/20/2024 18:04:30 02/20/20 24 02/20/2024 CBC RDW-CV 16.2 % 11.7-1 4.4 high Not Available [address], [address], 02/20/2024 18:04:30 02/20/20 24 02/20/2024 CBC Ig% 0.300 % 0.000- 1.500 Ig % >0.5 Indic ates possi ble Left Shift Not Available [address], [address], 02/20/2024 18:04:30 02/20/20 24 02/20/2024 CBC Ig# 0.030 0.000- 0.093 Not Available [address], [address], 02/20/2024 18:04:30 02/20/20 24 02/20/2024 CBC NRBC% 0.0 % 0.0-0. 2 Not Available [address], [address], 02/20/2024 18:04:30 02/20/20 24 02/20/2024 CBC NRBC# 0.000 0.000- 0.012 Not Available [address] [place], [address], 02/20/2024 18:04:30 02/20/20 24 02/23/2024 COMP. METAB OLIC PANEL glucose 74 mg/dL 70-100 Not Available [address], [address], 02/23/2024 15:53:05 02/20/20 24 02/23/2024 COMP. METAB OLIC PANEL BUN 14 mg/dL 7-18 Not Available [address], [address], 02/23/2024 15:53:05 02/20/20 24 02/23/2024 COMP. METAB OLIC PANEL creatinine 0.8 mg/dL 0.8-1. 3 Not Available [address], [address], 02/23/2024 15:53:05 02/20/20 24 02/23/2024 COMP. METAB OLIC PANEL B/C 17.5 ratio Not Available [address], [address], 02/23/2024 15:53:05 02/20/20 24 02/23/2024 COMP. METAB [...] be used in pregn wilian. Not Available [address], [address], 02/23/2024 15:53:05 02/20/20 24 02/23/2024 COMP. METAB OLIC PANEL sodium 139 mmol/ L 136-14 5 Not Available [address], [address], 02/23/2024 15:53:05 02/20/20 24 02/23/2024 COMP. METAB OLIC PANEL potassium 4.1 mmol/ L 3.5-5. 1 Not Available [address], [address], 02/23/2024 15:53:05 02/20/20 24 02/23/2024 COMP. METAB OLIC PANEL chloride 102 mmol/ L 96-107 Not Available [address], [address], 02/23/2024 15:53:05 02/20/20 24 02/23/2024 COMP. METAB OLIC PANEL anion gap 8.6 5.0-15 .0 Not Available [address], [address], 02/23/2024 15:53:05 02/20/20 24 02/23/2024 COMP. METAB OLIC PANEL CO2 28 mmol/ L 21-32 Not Available [address], [address], 02/23/2024 15:53:05 02/20/20 24 02/23/2024 COMP. METAB OLIC PANEL calcium 9.2 mg/dL 8.5-10 .3 Not Available [address], [address], 02/23/2024 15:53:05 02/20/20 24 02/23/2024 COMP. METAB OLIC PANEL total protein 7.8 g/dL 6.4-8. 2 Not Available [address], [address], 02/23/2024 15:53:05 02/20/20 24 02/23/2024 COMP. METAB OLIC PANEL albumin 3.9 g/dL 3.4-5. 0 Not Available [address], [address], 02/23/2024 15:53:05 02/20/20 24 02/23/2024 COMP. METAB OLIC PANEL globulin 3.9 g/dL Not Available [address], [address], 02/23/2024 15:53:05 02/20/20 24 02/23/2024 COMP. METAB OLIC PANEL A/G 1.0 ratio 0.8-2. 0 Not Available [address], [address], 02/23/2024 15:53:05 02/20/20 24 02/23/2024 COMP. METAB OLIC PANEL total bilirubin 0.20 mg/dL 0.00-1 .00 Not Available [address], [address], 02/23/2024 15:53:05 02/20/20 24 02/23/2024 COMP. METAB OLIC PANEL AST 20 U/L 0-37 Not Available [address], [address], 02/23/2024 15:53:05 02/20/20 24 02/23/2024 COMP. METAB OLIC PANEL ALT 29 U/L 6-63 Not Available [address], [address], 02/23/2024 15:53:05 02/20/20 24 02/23/2024 COMP. METAB OLIC PANEL alk. phos. 92 U/L 50-136 Not Available [address], [address], 02/23/2024 15:53:05 02/25/20 24 02/25/2024 CBC WBC 10.81 K/ L 3.98-1 0.04 high Not Available [address], [address], 02/25/2024 11:01:20 02/25/20 24 02/25/2024 CBC RBC 4.34 M/ L 3.93-5 .22 Not Available [address], [address], 02/25/2024 11:01:20 02/25/20 24 02/25/2024 CBC HGB 10.2 g/dL 11.2-1 5.7 low Not Available [address], [address], 02/25/2024 11:01:20 02/25/20 24 02/25/2024 CBC HCT 34.2 % 34.1-4 4.9 Not Available [address], [address], 02/25/2024 11:01:20 02/25/20 24 02/25/2024 CBC MCV 78.8 fL 79.4-9 4.8 low Not Available [address], [address], 02/25/2024 11:01:20 02/25/20 24 02/25/2024 CBC MCH 23.5 pg 25.6-3 2.2 low Not Available [address], [address], 02/25/2024 11:01:20 02/25/20 24 02/25/2024 CBC MCHC 29.8 g/dL 32.2-3 5.5 low Not Available [address], [address], 02/25/2024 11:01:20 02/25/20 24 02/25/2024 CBC plt 592 K/ L 182-36 9 high Not Available [address], [address], 02/25/2024 11:01:20 02/25/20 24 02/25/2024 CBC MPV 10.0 fL 9.4-12 .3 Not Available [address], [address], 02/25/2024 11:01:20 02/25/20 24 02/25/2024 CBC neut% 42.5 % 34.0-7 1.1 Not Available [address], [address], 02/25/2024 11:01:20 02/25/20 24 02/25/2024 CBC neut# 4.60 1.56-6 .13 Not Available [address], [address], 02/25/2024 11:01:20 02/25/20 24 02/25/2024 CBC lymph % 49.2 % 19.3-5 1.7 Not Available [address], [address], 02/25/2024 11:01:20 02/25/20 24 02/25/2024 CBC lymph # 5.32 K/ L 1.18-3 .74 high SREV= Slide revie wed by [facility]. Not Available [address], [address], 02/25/2024 11:01:20 02/25/20 24 02/25/2024 CBC mono% 6.6 % 4.7-12 .5 Not Available [address], [address], 02/25/2024 11:01:20 02/25/20 24 02/25/2024 CBC mono# 0.71 0.24-0 .56 high Not Available [address], [address], 02/25/2024 11:01:20 02/25/20 24 02/25/2024 CBC eo% 0.8 % 0.7-5. 8 Not Available [address], [address], 02/25/2024 11:01:20 02/25/20 24 02/25/2024 CBC eo# 0.09 0.04-0 .36 Not Available [address], [address], 02/25/2024 11:01:20 02/25/20 24 02/25/2024 CBC baso% 0.6 % 0.1-1. 2 Not Available [address], [address], 02/25/2024 11:01:20 02/25/20 24 02/25/2024 CBC baso# 0.06 0.00-0 .08 Not Available [address], [address], 02/25/2024 11:01:20 02/25/20 24 02/25/2024 CBC RDW-CV 16.2 % 11.7-1 4.4 high Not Available [address], [address], 02/25/2024 11:01:20 02/25/20 24 02/25/2024 CBC Ig% 0.300 % 0.000- 1.500 Ig % >0.5 Indic ates possi ble Left Shift Not Available [address], [address], 02/25/2024 11:01:20 02/25/20 24 02/25/2024 CBC Ig# 0.030 0.000- 0.093 Not Available [address], [address], 02/25/2024 11:01:20 02/25/20 24 02/25/2024 CBC NRBC% 0.0 % 0.0-0. 2 Not Available [address], [address], 02/25/2024 11:01:20 02/25/20 24 02/25/2024 CBC NRBC# 0.000 0.000- 0.012 Not Available [address], [address], 02/25/2024 11:01:20 02/25/20 24 02/25/2024 ESR sed rate 24.0 0.0-15 .0 high Not Available [address], [address], 02/25/2024 11:29:36 02/25/20 24 02/25/2024 COMP. METAB OLIC PANEL glucose 90 mg/dL 70-100 Not Available [address], [address], 02/25/2024 14:11:36 02/25/20 24 02/25/2024 COMP. METAB OLIC PANEL BUN 13 mg/dL 7-18 Not Available [address], [address], 02/25/2024 14:11:36 02/25/20 24 02/25/2024 COMP. METAB OLIC PANEL creatinine 0.9 mg/dL 0.8-1. 3 Not Available [address], [address], 02/25/2024 14:11:36 02/25/20 24 02/25/2024 COMP. METAB OLIC PANEL B/C 14.4 ratio Not Available [address], [address], 02/25/2024 14:11:36 02/25/20 24 02/25/2024 COMP. METAB [...] be used in pregn wilian. Not Available [address], [address], 02/25/2024 14:11:36 02/25/20 24 02/25/2024 COMP. METAB OLIC PANEL sodium 140 mmol/ L 136-14 5 Not Available [address], [address], 02/25/2024 14:11:36 02/25/20 24 02/25/2024 COMP. METAB OLIC PANEL potassium 4.5 mmol/ L 3.5-5. 1 Not Available [address], [address], 02/25/2024 14:11:36 02/25/20 24 02/25/2024 COMP. METAB OLIC PANEL chloride 103 mmol/ L 96-107 Not Available [address], [address], 02/25/2024 14:11:36 02/25/20 24 02/25/2024 COMP. METAB OLIC PANEL anion gap 9.6 5.0-15 .0 Not Available [address], [address], 02/25/2024 14:11:36 02/25/20 24 02/25/2024 COMP. METAB OLIC PANEL CO2 27 mmol/ L 21-32 Not Available [address], [address], 02/25/2024 14:11:36 02/25/20 24 02/25/2024 COMP. METAB OLIC PANEL calcium 9.5 mg/dL 8.5-10 .3 Not Available [address], [address], 02/25/2024 14:11:36 02/25/20 24 02/25/2024 COMP. METAB OLIC PANEL total protein 7.7 g/dL 6.4-8. 2 Not Available [address], [address], 02/25/2024 14:11:36 02/25/20 24 02/25/2024 COMP. METAB OLIC PANEL albumin 3.6 g/dL 3.4-5. 0 Not Available [address], [address], 02/25/2024 14:11:36 02/25/20 24 02/25/2024 COMP. METAB OLIC PANEL globulin 4.1 g/dL Not Available [address], [address], 02/25/2024 14:11:36 02/25/20 24 02/25/2024 COMP. METAB OLIC PANEL A/G 0.9 ratio 0.8-2. 0 Not Available [address], [address], 02/25/2024 14:11:36 02/25/20 24 02/25/2024 COMP. METAB OLIC PANEL total bilirubin 0.40 mg/dL 0.00-1 .00 Not Available [address], [address], 02/25/2024 14:11:36 02/25/20 24 02/25/2024 COMP. METAB OLIC PANEL AST 23 U/L 0-37 Not Available [address], [address], 02/25/2024 14:11:36 02/25/20 24 02/25/2024 COMP. METAB OLIC PANEL ALT 31 U/L 6-63 Not Available [address], [address], 02/25/2024 14:11:36 02/25/20 24 02/25/2024 COMP. METAB OLIC PANEL alk. phos. 95 U/L 50-136 Not Available [address], [address], 02/25/2024 14:11:36 02/25/20 24 02/25/2024 C-CLOTILDE CTIVE PROTE IN (RCRP ) C-reactive protein (rcrp) 5.7 mg/dL 0.5-9. 0 Not Available [address], [address], 02/25/2024 14:11:37 03/01/20 24 03/02/2024 DRUG SCREE N-8, URINE , WITH CONFI RMATI ON GC/MS amphetamine NEG. negati ve Not Available [address], [address], 03/02/2024 10:20:11 03/01/20 24 03/02/2024 DRUG SCREE N-8, URINE , WITH CONFI RMATI ON GC/MS barbiturates NEG. negati ve Not Available [address], [address], 03/02/2024 10:20:11 03/01/20 24 03/02/2024 DRUG SCREE N-8, URINE , WITH CONFI RMATI ON GC/MS benzodiazepi ne NEG. negati ve Not Available [address], [address], 03/02/2024 10:20:11 03/01/20 24 03/02/2024 DRUG SCREE N-8, URINE , WITH CONFI RMATI ON GC/MS cocaine NEG. negati ve Not Available [address], [address], 03/02/2024 10:20:11 03/01/20 24 03/02/2024 DRUG SCREE N-8, URINE , WITH CONFI RMATI ON GC/MS opiates POS. negati ve GCMS= Sampl e sent to [facility] for confi rmati on by GC/MS . Not Available [address], [address], 03/02/2024 10:20:11 03/01/20 24 03/02/2024 DRUG SCREE N-8, URINE , WITH CONFI RMATI ON GC/MS methadone NEG. negati ve Not Available [address], [address], 03/02/2024 10:20:11 03/01/20 24 03/02/2024 DRUG SCREE [...] ng/ml Fenta nyl 1 ng/ml Not Available [address], [address], 03/02/2024 10:20:11 03/01/20 24 03/02/2024 DRUG SCREE N-8, URINE , WITH CONFI RMATI ON GC/MS oxycodone NEG. negati ve Not Available [address], [address], 03/02/2024 10:20:11 03/01/20 24 03/04/2024 DRUG TOX MONIT ORING OPIAT ES EXPAN DED QN, U codeine NEGATI VE NG/mL <50 See Note 1 Not [email or web address] [address] [place] [address], [address], 03/04/2024 10:18:06 03/01/20 24 03/04/2024 DRUG TOX MONIT ORING OPIAT ES EXPAN DED QN, U hydrocodone 1109 NG/mL <50 high See Note 1 Not Available [email or web address] [place] [facility] [address], [place], [address], 03/04/2024 10:18:06 03/01/20 24 03/04/2024 DRUG TOX MONIT ORING OPIAT ES EXPAN DED QN, U hydromorphon e 667 NG/mL <50 high See Note 1 Not Available [facility] [place] [facility] [address], [place], [address], 03/04/2024 10:18:06 03/01/20 24 03/04/2024 DRUG TOX MONIT ORING OPIAT ES EXPAN DED QN, U morphine NEGATI VE NG/mL <50 See Note 1 Not Available [facility] [place] [facility] [address], [place], [address], 03/04/2024 10:18:06 03/01/20 24 03/04/2024 DRUG TOX MONIT ORING OPIAT ES EXPAN DED QN, U norhydrocodo ne 779 NG/mL <50 high See Note 1 Not Available [facility] [place] [facility] [address], [place], [address], 03/04/2024 10:18:06 03/01/20 24 03/04/2024 DRUG TOX MONIT ORING OPIAT ES EXPAN DED QN, U noroxycodone NEGATI VE NG/mL <50 See Note 1 Not Available [facility] [place] [facility] [address], [place], [address], 03/04/2024 10:18:06 03/01/20 24 03/04/2024 DRUG TOX MONIT ORING OPIAT ES EXPAN DED QN, U oxycodone NEGATI VE NG/mL <50 See Note 1 Not Available [facility] [place] [facility] [address], [place], [address], 03/04/2024 10:18:06 03/01/20 24 03/04/2024 DRUG TOX MONIT ORING OPIAT ES EXPAN DED QN, U oxymorphone NEGATI VE NG/mL <50 See Note 1 Not Available [email or web address] [address], [place], [address], 03/04/2024 10:18:06 03/01/20 24 03/04/2024 DRUG TOX [...] alist : [phone] X TOX ( [phone] ), M-F, 8am-6 pm EST. Not Available [email or web address] [address], [place], [address], 03/04/2024 10:18:06 03/16/19 25 03/16/2024 CBC WBC 6.75 K/ L 3.98-1 0.04 Not Available [address], [address], 03/16/2024 15:48:35 03/16/19 25 03/16/2024 CBC RBC 4.50 M/ L 3.93-5 .22 Not Available [address], [address], 03/16/2024 15:48:35 03/16/19 25 03/16/2024 CBC HGB 10.5 g/dL 11.2-1 5.7 low Not Available [address], [address], 03/16/2024 15:48:35 03/16/19 25 03/16/2024 CBC HCT 35.5 % 34.1-4 4.9 Not Available [address], [address], 03/16/2024 15:48:35 03/16/19 25 03/16/2024 CBC MCV 78.9 fL 79.4-9 4.8 low Not Available [address], [address], 03/16/2024 15:48:35 03/16/19 25 03/16/2024 CBC MCH 23.3 pg 25.6-3 2.2 low Not Available [address], [address], 03/16/2024 15:48:35 03/16/19 25 03/16/2024 CBC MCHC 29.6 g/dL 32.2-3 5.5 low Not Available [address], [address], 03/16/2024 15:48:35 03/16/19 25 03/16/2024 CBC plt 558 K/ L 182-36 9 high Not Available [address], [address], 03/16/2024 15:48:35 03/16/19 25 03/16/2024 CBC MPV 10.9 fL 9.4-12 .3 Not Available [address], [address], 03/16/2024 15:48:35 03/16/19 03/16/2024 CBC neut% 43.2 % 34.0-7 1.1 Not Available [address], [address], 03/16/2024 15:48:35 03/16/1903/16/2024 CBC neut# 2.91 1.56-6 .13 Not Available [address], [address], 03/16/2024 15:48:35 03/16/1903/16/2024 CBC lymph % 47.1 % 19.3-5 1.7 Not Available [address], [address], 03/16/2024 15:48:35 03/16/1903/16/2024 CBC lymph # 3.18 K/ L 1.18-3 .74 Not Available [address], 248[address], 03/16/2024 15:48:35 03/16/1903/16/2024 CBC mono% 8.0 % 4.7-12 .5 Not Available [address], 134[address], 03/16/2024 15:48:35 03/16/1903/16/2024 CBC mono# 0.54 0.24-0 .56 Not Available [address], [address], 03/16/2024 15:48:35 03/16/1903/16/2024 CBC eo% 0.9 % 0.7-5. 8 Not Available [address], 15755, 03/16/2024 15:48:35 03/16/1903/16/2024 CBC eo# 0.06 0.04-0 .36 Not Available [address], [address]241, 03/16/2024 15:48:35 03/16/19 25 03/16/2024 CBC baso% 0.7 % 0.1-1. 2 Not Available [address], 23994, 03/16/2024 15:48:35 03/16/19 25 03/16/2024 CBC baso# 0.05 0.00-0 .08 Not Available [address], [address], 03/16/2024 15:48:35 03/16/19 25 03/16/2024 CBC RDW-CV 15.5 % 11.7-1 4.4 high Not Available [address], [address], 03/16/2024 15:48:35 03/16/19 25 03/16/2024 CBC Ig% 0.100 % 0.000- 1.500 Ig % >0.5 Indic ates possi ble Left Shift Not Available [address], [address]777, 03/16/2024 15:48:35 03/16/19 25 03/16/2024 CBC Ig# 0.010 0.000- 0.093 Not Available [address], 17[address], 03/16/2024 15:48:35 03/16/1903/16/2024 CBC NRBC% 0.0 % 0.0-0. 2 Not Available [address], [address]1053, 03/16/2024 15:48:35 03/16/19 25 03/16/2024 CBC NRBC# 0.000 0.000- 0.012 Not Available [address], [address], 03/16/2024 15:48:35 03/16/19 25 03/16/2024 IRON PANEL iron 28 ug/dL 35-150 low Not Available [address], [address]77, 03/16/2024 16:03:15 03/16/19 25 03/16/2024 IRON PANEL T.I.B.C. 398 ug/dL 250-45 0 Not Available [address], [address], 03/16/2024 16:03:15 03/16/19 25 03/16/2024 IRON PANEL % saturation 7.0 % Not Available [address], [address], 03/16/2024 16:03:15 03/16/19 25 03/17/2024 JENNIFER TIN ferritin 3 NG/mL 15-200 low Not Available [address], [address]349, 03/17/2024 11:07:15 03/16/19 25 03/17/2024 IMMUN OCHEM ICAL FECAL OCCUL T BLOOD ifobt NEGATI VE negati ve Not Available [address], [address], 03/17/2024 14:41:40 05/15/19 25 05/14/2024 CBC WBC 4.96 K/ L 3.98-1 0.04 Not Available [address], [address]310, 05/14/2024 11:09:40 05/15/19 25 05/14/2024 CBC RBC 4.62 M/ L 3.93-5 .22 Not Available [address], 31677, 05/14/2024 11:09:40 05/15/19 25 05/14/2024 CBC HGB 12.3 g/dL 11.2-1 5.7 Not Available [address], 92970, 05/14/2024 11:09:40 05/15/19 25 05/14/2024 CBC HCT 39.0 % 34.1-4 4.9 Not Available [address], 976[address], 05/14/2024 11:09:40 05/15/19 25 05/14/2024 CBC MCV 84.4 fL 79.4-9 4.8 Not Available [address], [address]278, 05/14/2024 11:09:40 05/15/19 25 05/14/2024 CBC MCH 26.6 pg 25.6-3 2.2 Not Available [address], 89882, 05/14/2024 11:09:40 05/15/19 25 05/14/2024 CBC MCHC 31.5 g/dL 32.2-3 5.5 low Not Available [address], 12475, 05/14/2024 11:09:40 05/15/19 25 05/14/2024 CBC plt 447 K/ L 182-36 9 high Not Available [address], 71069, 05/14/2024 11:09:40 05/15/19 25 05/14/2024 CBC MPV 10.6 fL 9.4-12 .3 Not Available [address], [address]206, 05/14/2024 11:09:40 05/15/19 25 05/14/2024 CBC neut% 25.8 % 34.0-7 1.1 low SREV= Slide revie wed by [facility]. Not Available [address], [address], 05/14/2024 11:09:40 05/15/19 25 05/14/2024 CBC neut# 1.28 1.56-6 .13 low Not Available [address], 27738, 05/14/2024 11:09:40 05/15/19 25 05/14/2024 CBC lymph % 63.7 % 19.3-5 1.7 high Not Available [address], 51936, 05/14/2024 11:09:40 05/15/19 25 05/14/2024 CBC lymph # 3.16 K/ L 1.18-3 .74 Not Available [address], 00796, 05/14/2024 11:09:40 05/15/19 25 05/14/2024 CBC mono% 8.3 % 4.7-12 .5 Not Available [address], [address]20, 05/14/2024 11:09:40 05/15/19 25 05/14/2024 CBC mono# 0.41 0.24-0 .56 Not Available [address], 72028, 05/14/2024 11:09:40 05/15/19 25 05/14/2024 CBC eo% 1.4 % 0.7-5. 8 Not Available [address], 88193, 05/14/2024 11:09:40 05/15/19 25 05/14/2024 CBC eo# 0.07 0.04-0 .36 Not Available [address], 08672, 05/14/2024 11:09:40 05/15/19 25 05/14/2024 CBC baso% 0.8 % 0.1-1. 2 Not Available [address], [address]26, 05/14/2024 11:09:40 05/15/19 25 05/14/2024 CBC baso# 0.04 0.00-0 .08 Not Available [address], [address]24, 05/14/2024 11:09:40 05/15/19 25 05/14/2024 CBC RDW-CV 17.2 % 11.7-1 4.4 high Not Available [address], [address]252, 05/14/2024 11:09:40 05/15/19 25 05/14/2024 CBC Ig% 0.000 % 0.000- 1.500 Ig % >0.5 Indic ates possi ble Left Shift Not Available [address], [address]26, 05/14/2024 11:09:40 05/15/19 25 05/14/2024 CBC Ig# 0.000 0.000- 0.093 Not Available [address], 27693, 05/14/2024 11:09:40 05/15/19 25 05/14/2024 CBC NRBC% 0.0 % 0.0-0. 2 Not Available [address], 31087, 05/14/2024 11:09:40 05/15/19 25 05/14/2024 CBC NRBC# 0.000 0.000- 0.012 Not Available [address], 6[address], 05/14/2024 11:09:40 05/15/1905/14/2024 JENNIFER TIN ferritin 16 NG/mL 15-200 Not Available [address], 47036, 05/14/2024 14:05:35 05/15/19 25 05/14/2024 IRON PANEL iron 46 ug/dL 35-150 Not Available [address], [address], 05/14/2024 14:51:41 05/15/19 25 05/14/2024 IRON PANEL T.I.B.C. 323 ug/dL 250-45 0 Not Available [address], 24055, 05/14/2024 14:51:41 05/15/19 25 05/14/2024 IRON PANEL % saturation 14.2 % Not Available [address], [address], 05/14/2024 14:51:41 05/15/19 25 05/14/2024 ESR sed rate 9.0 0.0-15 .0 Not Available [address], 16485, 05/14/2024 16:36:12 05/15/19 25 05/15/2024 TRANS JENNIFER N transferrin 280 mg/dL 188-34 1 normal Not Available [facility] [address], [address], 05/15/2024 21:27:35 05/15/19 25 05/17/2024 COMP. METAB OLIC PANEL glucose 98 mg/dL 70-100 Not Available [address], [address], 05/17/2024 12:16:42 05/15/19 25 05/17/2024 COMP. METAB OLIC PANEL BUN 12 mg/dL 7-18 Not Available [address], [address], 05/17/2024 12:16:42 05/15/19 25 05/17/2024 COMP. METAB OLIC PANEL creatinine 0.9 mg/dL 0.8-1. 3 Not Available [address], [address], 05/17/2024 12:16:42 05/15/19 25 05/17/2024 COMP. METAB OLIC PANEL B/C 13.3 ratio Not Available [address], [address], 05/17/2024 12:16:42 05/15/19 25 05/17/2024 COMP. METAB [...] be used in pregn wilian. Not Available [address], [address], 05/17/2024 12:16:42 05/15/19 25 05/17/2024 COMP. METAB OLIC PANEL sodium 138 mmol/ L 136-14 5 Not Available [address], [address], 05/17/2024 12:16:42 05/15/19 25 05/17/2024 COMP. METAB OLIC PANEL potassium 4.3 mmol/ L 3.5-5. 1 Not Available [address], [address], 05/17/2024 12:16:42 05/15/19 25 05/17/2024 COMP. METAB OLIC PANEL chloride 101 mmol/ L 96-107 Not Available [address], [address], 05/17/2024 12:16:42 05/15/19 25 05/17/2024 COMP. METAB OLIC PANEL anion gap 11.7 5.0-15 .0 Not Available [address], [address], 05/17/2024 12:16:42 05/15/19 25 05/17/2024 COMP. METAB OLIC PANEL CO2 25 mmol/ L 21-32 Not Available [address], [address], 05/17/2024 12:16:42 05/15/19 25 05/17/2024 COMP. METAB OLIC PANEL calcium 9.6 mg/dL 8.5-10 .3 Not Available [address], [address], 05/17/2024 12:16:42 05/15/19 25 05/17/2024 COMP. METAB OLIC PANEL total protein 7.7 g/dL 6.4-8. 2 Not Available [address], [address], 05/17/2024 12:16:42 05/15/19 25 05/17/2024 COMP. METAB OLIC PANEL albumin 4.0 g/dL 3.4-5. 0 Not Available [address], [address], 05/17/2024 12:16:42 05/15/19 25 05/17/2024 COMP. METAB OLIC PANEL globulin 3.7 g/dL Not Available [address], [address], 05/17/2024 12:16:42 05/15/19 25 05/17/2024 COMP. METAB OLIC PANEL A/G 1.1 ratio 0.8-2. 0 Not Available [address], [address], 05/17/2024 12:16:42 05/15/19 25 05/17/2024 COMP. METAB OLIC PANEL total bilirubin 0.30 mg/dL 0.00-1 .00 Not Available [address], [address], 05/17/2024 12:16:42 05/15/19 25 05/17/2024 COMP. METAB OLIC PANEL AST 34 U/L 0-37 Not Available [address], [address], 05/17/2024 12:16:42 05/15/19 25 05/17/2024 COMP. METAB OLIC PANEL ALT 38 U/L 6-63 Not Available [address], [address], 05/17/2024 12:16:42 05/15/19 25 05/17/2024 COMP. METAB OLIC PANEL alk. phos. 88 U/L 50-136 Not Available [address], [address], 05/17/2024 12:16:42 05/15/19 25 05/17/2024 C-CLOTILDE CTIVE PROTE IN (RCRP ) C-reactive protein (rcrp) 3.3 mg/dL 0.5-9. 0 Not Available [address], [address], 05/17/2024 12:16:43 05/27/1905/26/2024 TSH TSH 0.97 uIU/m L 0.50-6 .00 [facility] [employer] and [facility] id [employer] iatio n recom mend goal TSH value s betwe en 0.4-4 .0 mIU/m L. Not Available [address], [address], 05/26/2024 16:25:43 05/27/19 25 05/28/2024 LIPID PANEL cholesterol 293 mg/dL <200 mg/dl Marie able 200-2 39 mg/dl Borde rline High >240 mg/dl High Not Available [address], [address], 05/28/2024 14:14:08 05/27/19 25 05/28/2024 LIPID PANEL triglyceride s 226 mg/dL <150 mg/dL Michelle l 150-1 99 mg/dL Borde rline High 200-4 99 mg/dL High >500 mg/dL Very High Not Available [address], [address], 05/28/2024 14:14:08 05/27/19 25 05/28/2024 LIPID PANEL direct HDL 60 mg/dL <40 mg/dl - Major Risk for CHD >60 mg/dl - Negat james Risk for CHD Not Available [address], [address], 05/28/2024 14:14:08 05/27/1905/28/2024 DIREC T LDL direct LDL 187 mg/dL RISK CATEG ORY LDL GOAL _ CHD or CHD Risk Equiv alent s <100 mg/dl (10-y ear risk >20%) 2+ Risk Facto rs <130 mg/dl (10-y ear risk <= 20%) 0-1 Risk Facto r <160 mg/[facility] e with 0-1 risk facto r have a 10 year risk <10%, thus 10 year risk asses ment in peopl e with 0-1 risk facto r is not neces rachael. Not Available [address], [address], 05/28/2024 14:14:09 09/10/1909/09/2024 CBC WBC 5.77 K/ L 3.98-1 0.04 Not Available [address], [address], 09/09/2024 15:30:19 09/10/19 25 09/09/2024 CBC RBC 4.07 M/ L 3.93-5 .22 Not Available [address], [address], 09/09/2024 15:30:19 09/10/19 25 09/09/2024 CBC HGB 10.7 g/dL 11.2-1 5.7 low Not Available [address], [address], 09/09/2024 15:30:19 09/10/19 25 09/09/2024 CBC HCT 35.2 % 34.1-4 4.9 Not Available [address], [address], 09/09/2024 15:30:19 09/10/1909/09/2024 CBC MCV 86.5 fL 79.4-9 4.8 Not Available [address], [address], 09/09/2024 15:30:19 09/10/1909/09/2024 CBC MCH 26.3 pg 25.6-3 2.2 Not Available [address], [address], 09/09/2024 15:30:19 09/10/19 25 09/09/2024 CBC MCHC 30.4 g/dL 32.2-3 5.5 low Not Available [address], [address], 09/09/2024 15:30:19 09/10/1909/09/2024 CBC plt 484 K/ L 182-36 9 high Not Available [address], [address], 09/09/2024 15:30:19 09/10/19 25 09/09/2024 CBC MPV 10.8 fL 9.4-12 .3 Not Available [address], [address], 09/09/2024 15:30:19 09/10/19 25 09/09/2024 CBC neut% 38.5 % 34.0-7 1.1 Not Available [address], [address], 09/09/2024 15:30:19 09/10/19 25 09/09/2024 CBC neut# 2.22 1.56-6 .13 Not Available [address], [address], 09/09/2024 15:30:19 09/10/19 25 09/09/2024 CBC lymph % 53.0 % 19.3-5 1.7 high Not Available [address], [address], 09/09/2024 15:30:19 09/10/1909/09/2024 CBC lymph # 3.06 K/ L 1.18-3 .74 Not Available [address], [address], 09/09/2024 15:30:19 09/10/1909/09/2024 CBC mono% 6.6 % 4.7-12 .5 Not Available [address], [address], 09/09/2024 15:30:19 09/10/1909/09/2024 CBC mono# 0.38 0.24-0 .56 Not Available [address], [address], 09/09/2024 15:30:19 09/10/1909/09/2024 CBC eo% 1.0 % 0.7-5. 8 Not Available [address], [address], 09/09/2024 15:30:19 09/10/1909/09/2024 CBC eo# 0.06 0.04-0 .36 Not Available [address], [address], 09/09/2024 15:30:19 09/10/19 25 09/09/2024 CBC baso% 0.7 % 0.1-1. 2 Not Available [address], [address], 09/09/2024 15:30:19 09/10/1909/09/2024 CBC baso# 0.04 0.00-0 .08 Not Available [address], [address], 09/09/2024 15:30:19 09/10/1909/09/2024 CBC RDW-CV 13.9 % 11.7-1 4.4 Not Available [address], [address], 09/09/2024 15:30:19 09/10/1909/09/2024 CBC Ig% 0.200 % 0.000- 1.500 Ig % >0.5 Indic ates possi ble Left Shift Not Available [address], [address], 09/09/2024 15:30:19 09/10/1909/09/2024 CBC Ig# 0.010 0.000- 0.093 Not Available [address], [address], 09/09/2024 15:30:19 09/10/1909/09/2024 CBC NRBC% 0.0 % 0.0-0. 2 Not Available [address], [address], 09/09/2024 15:30:19 09/10/1909/09/2024 CBC NRBC# 0.000 0.000- 0.012 Not Available [address], [address], 09/09/2024 15:30:19 09/10/1909/09/2024 ESR sed rate 25.0 0.0-15 .0 high Not Available [address], [address], 09/09/2024 16:33:24 09/10/19 25 09/13/2024 COMP. METAB OLIC PANEL glucose 90 mg/dL 70-100 Not Available [address], [address], 09/13/2024 16:35:25 09/10/19 25 09/13/2024 COMP. METAB OLIC PANEL BUN 14 mg/dL 7-18 Not Available [address], [address], 09/13/2024 16:35:25 09/10/19 25 09/13/2024 COMP. METAB OLIC PANEL creatinine 0.8 mg/dL 0.8-1. 3 Not Available [address], [address], 09/13/2024 16:35:25 09/10/19 25 09/13/2024 COMP. METAB OLIC PANEL B/C 17.5 ratio Not Available [address], [address], 09/13/2024 16:35:25 09/10/19 25 09/13/2024 COMP. METAB [...] by race, does not apply to child iyng (age <18 years ), and shoul d not be used in pregn wilian. Not Available [address], [address], 09/13/2024 16:35:25 09/10/19 25 09/13/2024 COMP. METAB OLIC PANEL sodium 141 mmol/ L 136-14 5 Not Available [address], [address], 09/13/2024 16:35:25 09/10/19 25 09/13/2024 COMP. METAB OLIC PANEL potassium 4.7 mmol/ L 3.5-5. 1 Not Available [address], [address], 09/13/2024 16:35:25 09/10/19 25 09/13/2024 COMP. METAB OLIC PANEL chloride 102 mmol/ L 96-107 Not Available [address], [address], 09/13/2024 16:35:25 09/10/19 25 09/13/2024 COMP. METAB OLIC PANEL anion gap 13.4 5.0-15 .0 Not Available [address], [address], 09/13/2024 16:35:25 09/10/19 25 09/13/2024 COMP. METAB OLIC PANEL CO2 26 mmol/ L 21-32 Not Available [address], [address], 09/13/2024 16:35:25 09/10/19 25 09/13/2024 COMP. METAB OLIC PANEL calcium 9.5 mg/dL 8.5-10 .3 Not Available [address], [address], 09/13/2024 16:35:25 09/10/19 25 09/13/2024 COMP. METAB OLIC PANEL total protein 7.9 g/dL 6.4-8. 2 Not Available [address], [address], 09/13/2024 16:35:25 09/10/19 25 09/13/2024 COMP. METAB OLIC PANEL albumin 4.4 g/dL 3.4-5. 0 Not Available [address], [address], 09/13/2024 16:35:25 09/10/19 25 09/13/2024 COMP. METAB OLIC PANEL globulin 3.5 g/dL Not Available [address], [address], 09/13/2024 16:35:25 09/10/19 25 09/13/2024 COMP. METAB OLIC PANEL A/G 1.3 ratio 0.8-2. 0 Not Available [address], [address], 09/13/2024 16:35:25 09/10/19 25 09/13/2024 COMP. METAB OLIC PANEL total bilirubin 0.50 mg/dL 0.00-1 .00 Not Available [address], [address], 09/13/2024 16:35:25 09/10/19 25 09/13/2024 COMP. METAB OLIC PANEL AST 22 U/L 0-37 Not Available [address], [address], 09/13/2024 16:35:25 09/10/19 25 09/13/2024 COMP. METAB OLIC PANEL ALT 25 U/L 6-63 Not Available [address], [address], 09/13/2024 16:35:25 09/10/19 25 09/13/2024 COMP. METAB OLIC PANEL alk. phos. 99 U/L 50-136 Not Available [address], [address], 09/13/2024 16:35:25 09/10/19 25 09/13/2024 C-CLOTILDE CTIVE PROTE IN (RCRP ) C-reactive protein (rcrp) 2.0 mg/L 0.5-9. 0 Not Available [address] [place], [address], 09/13/2024 16:37:50 09/10/1909/14/2024 HEPAT ITIS PANEL , GENER AL hepatitis A Ab, total NON-RE ACTIVE non-re active normal For addit ional infor scott henry refer to http: //[facility] stdia gnost ics.c om/fa q/FAQ 202 (This link is being provi ded for infor matio nal/ educa adarsh l purpo ses only. ) Not Available [facility] [address], [address], 09/14/2024 04:43:40 09/10/1909/14/2024 HEPAT ITIS PANEL , GENER AL hepatitis B surface antibody ql NON-RE ACTIVE non-re active normal Not Available [facility] [address], [address], 09/14/2024 04:43:40 09/10/19 25 09/14/2024 HEPAT ITIS PANEL , GENER AL hepatitis B surface antigen NON-RE ACTIVE non-re active normal For addit ional scott longoria refer to http: //[facility] stdia gnost ics.c om/fa q/FAQ 202 (This link is being provi ded for infor matio nal/ educa adarsh l purpo ses only. ) Not Available [facility] [address], [address], 09/14/2024 04:43:40 09/10/1909/14/2024 HEPAT ITIS PANEL , GENER AL hepatitis B core Ab total NON-RE ACTIVE non-re active normal For addit ional infor scott henry refer to http: //[facility] stdia gnost ics.c om/fa q/FAQ 202 (This link is being provi ded for infor matio nal/ educa adarsh l purpo ses only. ) Not Available [facility] [address], [place], [address], 09/14/2024 04:43:40 09/10/19 25 09/14/2024 HEPAT ITIS [...] a test for HCV RNA (test code 37848 ) is sugcale sted. For addit ional infor jennifer chavez e refer to http: //[facility] stdia gnost ics.c om/fa q/FAQ 22v1 (This link is being provi ded for infor matio nal/ educa adarsh l purpo ses only. ) Not Available [facility] [address], [place], [address], 09/14/2024 04:43:40 09/10/1909/14/2024 QUANT IFERO N(R)- TB GOLD PLUS, 1 TUBE quantiferon( R)-TB gold plus, 1 tube NEGATI VE negati ve normal Negat james test resul t. M. tuber culos is compl ex infec tion unlik nerissa. Not Available [facility] [address], [place], [address], 09/14/2024 04:43:41 09/10/19 25 09/14/2024 QUANT IFERO N(R)- TB GOLD PLUS, 1 TUBE nil 0.01 IU/mL normal Not Available [facility] [address], [place], [address], 09/14/2024 04:43:41 09/10/19 25 09/14/2024 QUANT IFERO N(R)- TB GOLD PLUS, 1 TUBE mitogen-nil 9.87 IU/mL normal Not Available [facility] [address], [address], 09/14/2024 04:43:41 09/10/19 25 09/14/2024 QUANT IFERO N(R)- TB GOLD PLUS, 1 TUBE TB1-nil 0.00 IU/mL normal Not Available [facility] [address], [place], [address], 09/14/2024 04:43:41 09/10/1909/14/2024 QUANT IFERO N(R)- TB GOLD PLUS, 1 TUBE TB2-nil 0.00 IU/mL normal The Nil tube value refle cts the backg round inter feron gamma immun e respo [facility]se [facility] e. This value has been subtr acted from the [facility] nt's displ ayed TB and Mitog en [...] prime d CD4+ helpe r T-lym phocy servadno. The TB2 Antig en tube is coate d with the M. tuber culos is-sp ecifi c antig ens desig raghav to elici t respo nses from TB antig en prime d CD4+ helpe r and CD8+ cytot oxic T-lym phocy servando. For addit ional infor scott henry e refer to https ://ed bryanna on.qu shukri Identropy. com/f aq/FA Q204 (This link is being provi ded for infor jennifer bhatti/ tara tineoo ses only. ) Not Available [facility] [address] [place] [address] B, [place], [address], 09/14/2024 04:43:41 03/12/19 24 02/25/2023 XR, wrist + hand No observ ation record ed. [address], [address], 03/26/2023 13:43:41 03/12/19 24 02/25/2023 XR, wrist + hand No observ ation record ed. [address], [address], 03/26/2023 13:43:39 03/12/19 24 02/25/2023 XR, ankle No observ ation record ed. [address], [address], 03/26/2023 13:43:35 03/12/19 24 02/25/2023 XR, foot No observ ation record ed. [address], [address], 03/26/2023 13:43:36 03/12/19 24 02/25/2023 XR, foot No observ ation record ed. [address], [address], 03/26/2023 13:43:33 03/12/19 24 02/25/2023 XR, ankle No observ ation record ed. [address], [address], 03/13/2023 06:33:46 11/15/19 24 11/14/2023 MAMMO , [...] Estrellita long Physic sergio: Yazmin Eddy ms [facility] (Imaging) [address], [place], [address], 11/16/2023 11:51:00 05/27/19 25 05/26/2024 XR, knee, [...] seen. Estrellita long Physic sergio: Thiago Platt [facility] (Imaging) [address] [place] [address] , [place], [address], 05/26/2024 16:32:02 Result Notes Documentation Provider Name [...] follow-up. OVERALL ASSESSMENT CATEGORY BI-RADS-1: Negative. The [employer] recommends annual screening mammography beginning at age 40 for women with average risk of breast cancer. ELECTRONICALLY SIGNED: Seymour Richmond M.D. on 11/15/2023 at 10:20:57 AM [place] Physician: NISSA Frankel [address] [place] [address], [phone], [facility] 11/16/2023 04:33:55 Xr, Knee, Weightbearing : CLINICAL [...] bony abnormality seen. [place] Physician: NISSA Gallegos [address] [place] [address], [phone], [facility] 05/26/2024 15:46:32 Problems Name Problem SNOMED Code Status Onset Date Resolution Date Notes Provider Name and Address Organization Details Recorded Time Hyperlip idemia 77668068 Completed 12/22/2014 NISSA Benito [address] [place], [place] [address], [address], [facility] 4 07:57:04 Hypothyr oidism 51487273 Active Chrissie NISSA Veras [address] [place] [address] Lakeisha Will [place], [address], [facility] 2 05:33:50 Non-toxi c multinod ular goiter 70675502 Active Chrissie NISSA Veras [address] [place], [place] [address], [address], [facility] 2 05:33:50 Chronic back pain 227425618 Completed 201601/27/201708/2016 MRI of lumbar spine showed scoliosi s and DDD; followed by orthoped ist Dr. Payam Jj Removal Reason: duplicat e NISSA Benito [address] [place], [place] [address], [address], [facility] 7 07:00:27 Chronic low back pain 364088177 Active 08/2016 MRI of lumbar spine showed scoliosi s and DDD; followed by orthoped ist Dr. Payam Jj who prescrib ed Percocet . Chrissie NISSA Veras [address] [place], [place] [address], [address], [facility] 2 05:33:50 Hyperlip idemia 15822605 Completed 201603/01/202402/2019 LDL 245, HDL 57, Chol 352, ASCVD risk 1.7%, but since LDL >190, advised to start statin; statin declined 03/2020 - will recheck lipids 06/2020 after lifestyl e changes. . 02/2018 LDL 158, HDL 51, Chol 255, improved from 03/2017 LDL 182, HDL 53, Chol 267. Removal Reason: mixed Chrissie NISSA Veras [address] [place] [address] [place], [address], [facility] 4 07:57:03 History of supraven tricular tachycar lionel 12008059479 677105 Active 2016 s/p ablation in [place] circa 2009. She saw cardiolo gist Dr. Germán Wing in 06/2018 for a consulta tion. 08/2018 ECHO was normal. 3 telemedi cine cardiolo gy consult for history of SVT and palpitat ions. Stress from her mother-i n-law dying. Rx 120 mg verapami l for palpitat ions and follow in in a few weeks NISSA Benito [address] [place] [address] [place], [address], [facility] 3 17:58:02 Basal cell carcinom a of skin 227057289 Active 2016 per 07/2017 biopsies of face and 01/30/20 biopsy of lesion on abdomen; was followed by [facility]; switched to [facility] 10/2018. NISSA Benito [address] [place] [address] [place], [address], [facility] 2 05:33:50 Obesity 925810150 Active 2017 NISSA Benito [address] [place], [place] [address], [address], [facility] 2 05:33:50 Ankylosi ng spondyli tis 0388098 Active 201802/26/[address] Skinner [...] and hematolo gy consult again. NISSA Benito [address] [place] [address] [place], [address], [facility] 4 13:02:12 Scronaldo s deformit y of spine 645609111 Active [address] Payam Jj 3 thoracic scronaldo s xray ordered by Dr. Jj: scoliosi s has progress ed since 2013 - per 14 degree angle in 2013 and now 16 degree angle in 2022 [place], [address], [facility] 3 11:11:17 Raynaud' s disease 814270685 Active 2018 [place], [address], [facility] 2 05:33:50 Persiste nt lymphocy tosis 00063946 Active 2021 Per 02/21/20 22 note from [...] (Humira) [place], [address], [facility] 3 06:05:02 Basal cell carcinom a of nose 742930782 Active 2022 mid nose: MOHS recommen ded. - Basal cell carcinom a, nodular type. Advised to check with insuranc e. - The tumor extends to the base of the submitte d tissue[place], [address], [facility] 4 14:02:06 Prolapse of female genital organs 91527138 Active 2023 [place], [address], [facility] 4 14:02:02 Mixed hyperlip idemia 343663151 Active 2023 [place], [address], [facility] 4 07:56:51 Iron deficien cy anemia 01178576 Active 202403/16/2024 CBC showing microcyt ic anemia [...] to 20 mg bid Chrissie Veras, RPA-C [address] [place] [address], [place], [address], [facility] 5 05:35:24 Gastriti s 8779862 Active 2024 Esophagi tis, gastriti s per [...] lesions. Advised to stop NSAIDS NISSA Benito [address] [place] [address] [place], [address], [facility] 5 05:53:30 Problem Notes None recorded. Procedures Surgical History Date Name Laterality Status Provider Name and Address Organization Details Recorded Time 5 Colonoscopy completed NISSA Benito [facility] [place], [address], [facility] 05/25/2024 03:21:12 5 Actinic Keratosis completed Aaron Lancaster PA-C [address] [place] [address], [address], [facility] 04/06/2024 09:44:32 5 Skin Tag Removal (up to 15) completed Aaron Lancaster PA-C [address] [place] [address], [address], [facility] 04/06/2024 09:45:00 3 Shave Biopsy AG completed Aaron Lancaster PA-C [address] [place] [address], [address], [facility] 08/13/2022 13:54:45 1 Colonoscopy completed NISSA Benito [address] [place] [address], [address], [facility] 03/07/2021 13:09:08 0 prevention-card iovascular risk reduction counseling completed NISSA Benito [address] [place] [address], [address], [facility] 03/06/2020 12:21:42 0 prevention-larry al alcohol misuse screening completed NISSA Benito [address] [place] [address], [address], [facility] 03/06/2020 12:21:42 8 excision of basal cell carcinoma completed Dona Pond LPN [facility] 05/18/2018 08:54:12 7 Shave Biopsy completed NISSA Benito [address] [place] [address], [address], [facility] 01/29/2017 10:16:21 0 Other (specify) completed Rojelio Montana MD [address] [place] [address], [address], [facility] 07/15/2013 11:23:16 6 Other (specify) completed Rojelio Montana MD [address] [place] [address], [address], [facility] 07/15/2013 11:23:16 1 Other (specify) completed Rojelio Montana MD [address] [place] [address], [address], [facility] 07/15/2013 11:23:16 0 Other (specify) completed Dona Pond LPN [facility] 05/18/2018 08:52:59 3 Other (specify) completed Rojelio Montana MD [address] [place] [address], [address], [facility] 07/15/2013 11:23:16 Imaging Results None recorded. Procedure Notes None recorded. Medical Equipment None Reported. Allergies Allergen ID Allergen Name Allergen Category Reaction Reaction Severity Criticality Documentation Date Start Date Code Code System Note Provider Name and Address Organization Details Recorded Time 099547 erythromy titus medicatio n Not available Not available Not available 05/14/2013 4053 RxNorm Sheila Kendrick MA [facility] 4 09:31:52 070672 Product containin g 3-hydroxy -3-methyl glutaryl- coenzyme A reductase inhibitor (product) medicatio n myalgias (muscle pain) Not available Not available 05/14/2013 90528 009 SNOMED fluva stati n/les [facility] 3 13:36:42 500084 topiramat e medicatio n Not available Not available Not available 03/06/2020 61461 RxNorm [facility] 2 13:40:21 Medications Name Sig Start Date [...] daily Not Available Not Available Not Available Remicade active 5 rheumato logy follow up for anklylos ing spondyli tis. Simponi is no longer effectiv e. Will switch from Simponi to Remicade infusion . Not Available Not Available Not Available Enbrel SureClick 50 mg/mL (1 mL) subcutane ous pen injector 50 mg weekly 09/01 completed disconti nued [address] Lanza - ineffect james Not Available Not Available Not Available Simponi 50 mg/0.5 mL subcutane ous syringe active Presribe d by Dr. Sara Nance r 5 rheumato logy follow up for anklylos ing spondyli tis. Simponi is no longer effectiv e. Will switch from Simponi to Remicade infusion . Not Available Not Available Not Available GaviLyte- [...] ent for Enbrel. prescrib ed by Dr. Lanza;dani atient declined ; concerne d about CVD risk; replaced with Karthikeyan Not Available Not Available Not Available Vitals Date Recorded Body height Body mass index (BMI) Body weight Heart rate Oxygen saturation Oxygen saturation in Arterial blood by Pulse oximetry Systolic And Diastolic Provider Name and Address Organization Details Last Updated DateTime 4 173.99 cm 30.6 kg/m2 18506.8 4 g 80 /min 98 % 98 % 102/86 mm[Hg] Shabana Esquivel [facility] 4 13:32:03 Date Recorded Body height Body mass index (BMI) Body weight Oxygen saturation Oxygen saturation in Arterial blood by Pulse oximetry Heart rate Systolic And Diastolic Provider Name and Address Organization Details Last Updated DateTime 5 173.99 cm 31.8 kg/m2 03105.5 8 g 98 % 98 % 64 /min 123/84 mm[Hg] Neha Musa v, [facility] 5 08:59:50 Date Recorded Body height Body mass index (BMI) Body weight Heart rate Oxygen saturation Oxygen saturation in Arterial blood by Pulse oximetry Systolic And Diastolic Provider Name and Address Organization Details Last Updated DateTime 5 173.99 cm 31.2 kg/m2 34064.9 1 g 80 /min 99 % 99 % 114/72 mm[Hg] Shabana Esquivel [facility] 5 09:37:02 Date Recorded Body temperature Provider Name a nd Address Organization Details Last Updated DateTime 09/19/2023 98.3 [degF] Chrissie Veras RPA-Marii [address] [place] [address], [address], [facility] 09/19/2023 09:45:20 Date Recorded Body height Body mass index (BMI) Body weight Heart rate Oxygen saturation Oxygen saturation in Arterial blood by Pulse oximetry Systolic And Diastolic Provider Name and Address Organization Details Last Updated DateTime 4 173.99 cm 30.6 kg/m2 76755.6 4 g 79 /min 98 % 98 % 106/68 mm[Hg] Lucero Mauricio LPN [facility] 09:37:15 Date Recorded Heart rate Provider Name an d Address Organization Details Last Updated DateTime 03/01/2024 88 /min Chrissie Veras, THIAGO-C [address] [place] [address], [address], [facility] 03/01/2024 11:13:48 Date Recorded Body height Body mass index (BMI) Body weight Heart rate Oxygen saturation Oxygen saturation in Arterial blood by Pulse oximetry Systolic And Diastolic Provider Name and Address Organization Details Last Updated DateTime 173.99 cm 31.5 kg/m2 71264.2 g 112 /min 97 % 97 % 122/70 mm[Hg] Shabana Esquivel CMA [facility] 10:46:52 Social History Question Answer Notes LastModified by Organizat ion Details LastModified Time Tobacco Smoking Status Former Smoker Quit 2006 Shabana Esquivel CMA null, [facility] 05/26/2024 09:34:53 Do You Wear A Helmet [...] Proxy Signed And In Chart Yes Jenna Carter [email or web address] Information not available 03/04/2019 Marital Status Mary Informati on not available 05/14/2013 Mosquito Repellent [...] of alcohol consumption? Occasional 1 per year [email or web address] Information not available 05/18/2018 Do you or [...] 10:51:46 Father Parkinson's disease dyspho lance - [email or web address] Not available 03/20/2022 15:37:17 Sister Malignant tumor of thyroid gland [email or web address] Not available 03/10 15:37:17 Maternal Grandfather Myocardial infarction age 65 of [place]; had CABG Not available 03/04/2019 06:17:15 Maternal Grandmother Malignant tumor of pancreas age 84 [email or web address] Not available 03/20/2022 15:37:17 Maternal Grandmother Diabetes mellitus Not available 2018 06:17:54 Notes:sister -thyroid cancer , Crohns or UC; lipids - MGF -d 65 [place], CABG x5,x4; MGM d 84 - pancreatic cancer, DM Medical History Condition Response Osteoarthritis Constipation Y Hypothyroid Y Hyperlipidemia Chronic Back Pain Y CARDIOVASCULAR Y CANCER Y Gynecological History Statement/Question Response Date of [...] 02:22:07 Pneumococcal conjugate PCV 13 1 completed ARRON Del Castillo, [facility] 03/07/2021 14:42:36 COVID-19, mRNA, LNP-S, PF, 30 mcg/0.3 mL dose 1 completed ARRON Del Castillo, [facility] 08/14/2020 10:46:16 COVID-19, mRNA, LNP-S, PF, 30 mcg/0.3 mL dose 1 completed Shabana Esquivel [employer]END[employer] null, [facility] 08/14/2020 10:46:31 COVID-19, mRNA, LNP-S, PF, 30 mcg/0.3 mL dose 1 completed Lucero Mauricio LPN null, [facility] 04/11/2021 10:23:46 Past Encounters Encounter ID Performer Location Encounter Start Date Encounter Closed Date Diagnosis/Indication Diagnosis SNOMED-CT Code Diagnosis ICD10 Code Diagnosis Note [id number] FLORINDA Kumar, [facility], [address] [place] [address] 05/14/2013 08:56:51 05/14/2013 10:15:05 Hypothyroidism 49547167 Hyperlipidemia 10515942 Chronic back pain 573701242 cont physiatry followup Constipation 15121572 fi clark , fluids, stool softeners reviewed Knee pain 23296880 Ortho eval [id number] Rojelio Montana MD Endocrino logy, [address] [address] 07/15/2013 10:18:56 07/15/2013 11:34:41 Hypothyroidism 14379797 levothyrox ine 112mcg daily Hyperlipidemia 84637854 -consider crestor in future at low dose, coq10 Non-toxic multinodular goiter 36588509 [id number] FLORINDA uKmar, [facility], [address] [place] [address] 02/02/2014 11:18:47 02/02/2014 11:52:37 Hypothyroidism 33187889 Injury of shoulder region 337917102 [id number] FLORINDA Kumar, [facility], [address] [place] [address] 06/21/2014 10:10:56 06/21/2014 11:26:00 Adult health examination 459459802 see Risk Assessment and Lifestyle Change Counseling section above Counseling [id number] Screening for malignant neoplasm of cervix [id number] Hypothyroidism 63832217 take 1/2 pill additional one day/wk - recheck TSH 2mos Pain of mu ltiple joints 85537010 rheumatolo gy consult to r/o CTD [id number] Ulysses Sauceda MD , [facility], [address] [place] [address] 10/08/2014 10:20:47 10/08/2014 11:03:08 Allergic reaction [id number] reassured; benadryl 50 mg every 6 hours as needed; hot soaks every 2 hours or so. [id number] Maylin Isaac NP , [facility], [address] [place] [address] 12/22/2014 09:50:37 12/22/2014 11:20:13 Hypothyroidism 31789254 E03.9 1) TSH to be drawn today. Will adjust Levothyrox ine dose if indicated. Pain of mu ltiple joints 45354923 M25.50 Gastroesop hageal reflux disease 359391769 K21.9 change to omeprazole , GERD precaution s reviewed Backache 452850922 M54.9 continue f/u with Physiatry [id number] Maylin Isaac NP , [facility], [address] [place] [address] 03/23/2015 11:32:06 03/23/2015 12:24:09 Hypothyroidism 03117014 E03.9 Myalgia/my ositis - multiple 887968481 M79.1 [id number] Anna Lerma D.O. , [facility], [address] [place] [address] 11/25/2015 11:13:21 11/28/2015 10:15:15 Injury of knee 661567900 S89.90XA Bilateral wtih R> Lsuspect prepatell bursitisad vised ice, rest Injury of wrist 62155893 3 S69.80XA bilateral- no focal tenderness suspect sprainadvi sed ice, does not tolerate NSAIDs welldiscus sed XRAY which i dont think is necessary- pt will give it more time Chronic low back pain 27 6802368 M54[address] Phillips see next week for scheduled injection. [id number] Win Coe MD , [facility], [address] [place] [address] 03/04/2016 11:04:09 03/04/2016 12:01:05 Acute upper respiratory infection 28851799 J06.9 Acute sinusitis 59460709 J01.90 [id number] MD LISA Luther, [facility], [address] [facility] [place] [address] 01/27/2017 08:20:58 01/27/2017 09:25:15 Adult health examination 671955045 Z00.00 see Risk Assessment and Lifestyle Change Counseling section above Counseling 949597829 Z71 .9 Active or passive immunization 842875868 Z23 received TDap today Hypothyroidism 29512757 E03.9 A: fatigue; 07/2016 TSH 4.63. P: Will increase levothyrox ine dose from 112 to 125 mcg levothyrox ine given 07/2016 TSH 4.63, suggesting mild undertreat ment of hypothyroi dism Recheck TSH in 6 weeks Hyperlipidemia 93935972 E78.5 per 07/2016: LDL 166, HDL 47, Chol 251 We discussed healthy diet, regular exercise. Will also increase levothyrox ine dose from 112 to 125 mcg levothyrox ine given 07/2016 TSH 4.63, suggesting mild undertreat ment of hypothyroi dism to see if this will improve lipid profile as well. 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 Payam Jj; 08/2016 MRI of lumbar spine showed scoliosis and DDD. MassPAT checked. No red flags. She filled a 28 day script of 10-325 hydrocodon e-acetamin ophen prescribed by Dr. Payam Jj. History of supraventricular tachycardia [id number] 2265360 Z86.79 A: takes toprol xl 25 mg as needed when she feels palpitatio ns for history of SVT P: refill provided Screening mammography 24 130634 Z12.31 A: history of benign cysts P: mammo ordered today Neoplasm o f uncertain behavior of skin 04276204 D48.5 A: 5mm long x 4 mm wide brown-odonnell oval papule on left lower abdomen, in waistline; likely benign, but in a location such that it is constantly irritated P: return for excisional biopsy [id number] MD LISA Luther, [facility], OFF[address] [facility] [place] [address] 01/29/2017 09:44:06 01/29/2017 11:03:52 Neoplasm of uncertain behavior of skin 50433985 D48.5 A: 1cm long x 4 mm wide brown-odonnell oval papule on left lower abdomen, in waistline; likely benign, but in a location such that it is constantly irritated P: excisional biopsy done today; will contact patient with biopsy results [id number] MD LISA Luther, [facility], OFF[address] [facility] [place] [address] 10/02/2017 09:51:16 10/02/2017 10:37:40 Basal cell carcinoma of skin 486963396 C44.91 46 year old female patient presents to discuss a referral to a new dermatolog ist to treat her recent diagnosis of basal cell carcinoma. She had a biopsy of a lesion on her abdomen by this provider in 01/2017; the lesion was basal cell carcinoma, so she was referred to [facility] for definitive treatment. She last saw [facility] on 07/[facility]/2017 for a follow up [...] she was advised to follow up with [facility] for evaluation of that lesion. Her insurance covers dermatolog ist who do Mohs surgery in [place], but patient is unable to travel that far due to chronic lower back pain. She will see her wildland fire fighter specialist DR. Jj for a letter stating why she can't travel so far. P: patient will identify a local dermatolog ist who does Mohs surgery and who her insurance will approve, then she will contact me with the informatio n so that I can submit the referral Counseling 351423774 Z71 .9 follow up 02/2018 for wellness visit + pap [id number] MD LSIA Luther, [facility], OFF[address] [facility] [place] [address] 02/27/2018 08:55:09 02/27/2018 10:16:26 Adult health examination 469506293 Z00.00 see Risk Assessment and Lifestyle Change Counseling section above Counseling 049933704 Z71 .9 follow up 02/2018 for wellness visit + pap Depression screening 171 916706 Z13.89 depression screening tool administer ed, entered into emr, scored and discussed, time greater than 7.5 minutes Screening for malignant neoplasm of cervix 712049429 Z12.4 A: LMP 02/14/2018; Pap done today Basal cell carcinoma of skin 634144311 C44.91 Followed by [facility] History of supraventricular tachycardia 2685482732 4279730 Z86.79 A: was taking toprol xl 25 [...] to cardiology Chronic low back pain 27 0714075 M54.5 Chronic lower back pain; followed by wildland fire fighter specialist Dr. Payam Jj; 08/2016 MRI of lumbar spine showed scoliosis and DDD. Hypothyroidism 46082709 E03.9 A: well controlled on 125 mcg levothyrox ine daily per 03/2017 TSH of 2.82. States gaining weight without change to diet; not exercising due to back pain. P: recheck TSH Hyperlipidemia 29758625 E78.5 A: 03/2017 LDL 182, HDL 53, Chol 267; 10-year stroke risk 1.3%, so not in statin benefit group; cholestero l worse since 07/2016 P: We discussed healthy diet, regular exercise. Repeat lipids soon. Fatigue 10814927 R53.83 non specific fatigue the past few months No black stool or blood with BM's P: check TSH to ensure hypothyroi dism controlled ; check CBC Pain of mu ltiple joints 65076600 M25.50 A: multiple joint pain getting worse the past year. P: referral to Dr. Burton Obesity 974810063 E66.9 not exercising due to back pain referred to prescribe the Y to help with pool exercise [id number] Payam Burton MD Rheumatol [place], [facility] [address] [facility] [place] [address] 05/18/2018 08:29:25 05/18/2018 09:31:13 Pain of multiple joints 88325646 M25.50 Small joint arthralgia hands, but no visible signs inflammato ry arthritis. Multiple other joint pains.Knwn hypermobil ity syndrome. This could certainly be contributi ng to multiple joint pains.tl Trying Celebrex with concurrent prilosec. Discussed GI and CV issues.Onl y continue if clearly helpful. Chronic back pain 755452 002 M54.9 Chronic back pain with known scoliosis and DDD. Generalize d hypermobil ity no doubt contribute d to this.I do wonder about a component of spondyliti s. There is FHx of Crohn's. She describes years of nocturnal back sxs with AM stiffness. There probably is some component of NSAID response. Will check HLA B27. Anti-nucle ar factor detected 101624972 R76.8 Long hx of JESSICA.Has Raynaud's and has other autoimmune conditions (Alesia 's, vitiligo, morphea) JESSICA Uncertain significan ce, but with Raynaud's and (mild) dysphagia and hair loss R forearm, want to r/o scleroderm a. Check lupus related labs. With small joint pain and stiffness, could consider a 6 week trial on Plaquenil in future. Intermitte nt dysphagia 20351446 R13.19 Mild solid and pill dysphagia. Has noted this past year or two. Not progressiv e.Could be tied into +JESSICA etc.Would need further investigat ion if progressiv e. Gastritis 4055214 K29.70 Hypothyroidism 01563422 E03.9 On replacemen t. Starting Prilosec as noted above. . If she ends up continuing on Prilosec, will need TFT's rechecked as there might be some effect on homone absorption . [id number] Payam Burton MD Rheumatol [place], [facility] [address] [place] [address] 07/31/2018 08:16:39 07/31/2018 08:58:12 Ankylosing spondylitis 4224952 M45.9 I feel that she definitely meets [...] to return for instructio n in injection. [id number] Payam Burton MD Rheumatol [facility], [facility] [address] [facility] [place] [address] 08/20/2018 13:22:04 08/20/2018 14:48:06 Ankylosing spondylitis 2076932 M45.9 I feel that she definitely meets [...] TB.Start Humira today. Nursing supervised first injection. [id number] Payam Burton MD Rheumatol [place], [address] [address] 10/05/2018 09:55:10 10/05/2018 10:28:46 Ankylosing spondylitis 1322494 M45.9 I feel that she definitely meets [...] or sooner if needed. 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 I felt daughter probably had ED-hypermo bility type. I was a little concerned about possible Marfan's) Scoliosis deformity of spine 007492845 M41.9 Scoliosis with assosiated degenerati ve arthritis. Followed by Dr Jj.Sti ll getting narcotic medication . [id number] Marilyn Ceron MD , [facility], OFF[address] [place] [address] 10/14/2018 11:17:42 10/14/2018 11:46:50 Keratosis pilaris 2318810 L85.8 P: 47 year old female patient [...] in improving the skin texture and appearance [id number] Marilyn Ceron MD , [facility], [address] [place] [address] 03/04/2019 09:46:20 03/04/2019 11:42:46 Adult health examination 555704542 Z00.00 see Risk Assessment and Lifestyle Change Counseling section above Counseling 247248390 Z71 .9 Colonoscop y: due for colon [...] than calcium supplement . Depression screening 171 741207 Z13.89 depression screening tool administer ed, entered into emr, scored and discussed, time greater than 7.5 minutes Ankylosing spondylitis 8720726 M45.9 A: Followed by Dr. Burton who prescribes Humira Basal cell carcinoma of skin 874704242 C44.91 Was Followed by [facility]; in 10/2018, switched to [facility]. Saw derm in 2018. P: continue to follow with [facility] Chronic low back pain 27 4167041 M54.5 Chronic lower back pain; followed by wildland fire fighter specialist Dr. Payam Jj; 08/2016 MRI of lumbar spine showed scoliosis and DDD. She is planning on starting exercising since her back pain is much less since starting Humira. P: encouraged healthy diet and exercise for weight loss; continue to follow with Dr. Jj for pain management Hypothyroidism 92712556 E03.9 A: well controlled on 125 mcg levothyrox ine daily per 02/2018 TSH of 2.75 P: Due for recheck of TSH Obesity 878631145 E66.9 A: not exercising due to back pain P: Has been referred to prescribe the Y to help with pool exercise. Check fasting glucose or HgbA1c to screen for diabetes. She plans on starting to exercise more now that her pain is less since starting Humira. History of supraventricular tachycardia 1498471546 6091712 Z86.79 A: s/p ablation in [place] circa 2009. She saw cardiologi st Dr. Germán Wing in 06/2018 for a consultati on. 08/2018 ECHO was normal. Taking 25 mg metoprolol . P: She will her cardiologi st in 10/2019. Screening for malignant neoplasm of colon 358831672 Z12.11 Colonoscop y: due for colon cancer screening. Willing to do colonoscop y. Referral for a DIRECT booked colonoscop y. This patient is a healthy ASA Class 1 or 2 patient (only mild systemic disease), or a STABLE, well controlled insulin dependent diabetic. They do not have serious cardiac disease ie WV/angiopl asty within 1 year, symptomati c CHF; renal failure with CKD 4 or 5; take Coumadin, Plavix, Aggrenox, etc. Hyperlipidemia 24315488 E78.5 A: Per 02/2018 LDL 158, HDL 51, Chol 255, improved from 03/2017 LDL 182, HDL 53, Chol 267. P: We discussed healthy diet, regular exercise. Repeat lipids soon. Active or passive immunization 015737515 Z23 declines flu vaccine.Sh chantel is on Humira, which would decrease the effectiven ess of flu vaccince Screening mammography 24 077550 Z12.31 Mammo: 02/2018 mammogram was normal. Due for repeat mammo by 02/2020. She elects for annual mammo P: mammo ordered today Uterine prolapse 9676869 5 N81.4 A: concerned about uterine prolapse worsening - sensed fullness in vagina - has seen a [employer] in [place] for uterine prolapse P: referral to [facility] [id number] Payam Burton MD Rheumat[facility] [place] [place] [address] 03/11/2019 10:24:45 03/11/2019 12:50:27 Ankylosing spondylitis 9438186 M45.9 ankylosing spondyliti s: There is grade [...] or sooner if needed. Chronic back pain 604562 002 M54.9 Chronic back pain with known scoliosis and DDD. Generalize d hypermobil ity no doubt contribute d to this.Follo wed by Dr Jj. Discussed that with franco gardiner in sxs it would be prudent to reduce dose of narcotic. She should discuss with Dr Jj. [id number] Payam Burton MD Rheumatol [address] [place] [address] 08/26/2019 10:17:27 08/26/2019 13:39:03 Ankylosing spondylitis 2002024 M45.9 ankylosing spondyliti s: There is grade [...] Celebrex.R V 3 mo. Chronic back pain 814058 002 M54.9 Chronic back pain with known scoliosis and DDD. Generalize d hypermobil ity no doubt contribute d to this.Follo wed by Dr Jj.Sti ll on 3-4/d hydrocodon e 10. Discussed that with improvemen t in sxs it would be prudent to reduce dose of narcotic. She should discuss with Dr Jj. [id number] Payam Burton MD Rheumatol [place], [facility] [address] [place] [address] 11/26/2019 09:04:47 11/29/2019 07:18:43 Ankylosing spondylitis 3800205 M45.9 ankylosing spondyliti s: There is grade [...] labs on Celebrex.R V 3 mo. Microcytosis 193001051 R 71.8 New microcytos is noted last time.Had been having menorrhagi a.Took only occasional iron (constipat ion)update labs [id number] Marilyn Ceron MD , [facility], [address] [place] [address] 03/06/2020 13:19:20 03/06/2020 14:59:37 Adult health examination 500575082 Z00.00 see Risk Assessment and Lifestyle Change Counseling section above Counseling 991738601 Z71 .9 including cardiovasc ular risk reduction [...] vaccine and COVID vaccine Depression screening 171 152701 Z13.89 depression screening tool administer ed, entered into emr, scored and discussed, time greater than 7.5 minutes Mood is ok Screening for alcohol abuse 904266565 Z13.39 1-2 drinks per year Ankylosing spondylitis 4662821 M45.9 A: Followed by Dr. Burton who prescribes Humira and celebrex Anklyosing spondyliti s contributi ng to chronic lower back pain but pain is less with Humira. Also followed by wildland fire fighter specialist Dr. Payam Jj; 08/2016 MRI of lumbar spine showed scoliosis and DDD. She is planning on starting exercising since her back pain is much less since starting Humira. P: encouraged healthy diet and exercise for weight loss; continue to follow with Dr. Jj for pain management Get flu vaccine and COVID vaccine when available. Basal cell carcinoma of skin 555225458 C44.91 A: Was Followed by [facility]; in 10/2018, switched to [facility]. Saw Dermatolog y in 12/2018. P: continue to follow with [facility] dermatolog y once a year. Sunscreen. Chronic low back pain 27 0648729 M54.5 see above under ankylosing spondyliti s History of supraventricular tachycardia 5755914536 7366345 Z86.79 A: s/p ablation in [place] circa 2009. She saw cardiologi st Dr. Germán Wing in 06/2018 for a consultati on. 08/2018 ECHO was normal. Taking 25 mg metoprolol . Rare palpitatio ns No dizziness. P: Continue metoprolol and annual cardiology follow up. Hyperlipidemia 72014565 E78.5 A: Per 02/2018 LDL 158, HDL 51, Chol 255, improved from 03/2017 LDL 182, HDL 53, Chol 267. P: We discussed healthy diet, regular exercise. Repeat lipids soon. Hypothyroidism 87547718 E03.9 A: well controlled on 125 mcg levothyrox ine daily per 02/2018 TSH of 2.75 and 02/2019 TSH of 2.19. P: Due for recheck of TSH. Schedule spring 2020 when COVID less. Screening mammography 24 007731 Z12.31 A: Mammo: 02/2018 mammogram was normal. 03/2019 mammogram showed left breast area of distortion , right breast normal; left breast diagnostic mammo 09/2019 was normal. No symptoms but wants annual mammo P: Plan for repeat mammogram Spring 2020. Screening for malignant neoplasm of colon 790425872 Z12.11 A: Overdue for colon cancer screening. She was referred to [facility] in 02/2019 for colon cancer screening. 12/2019 iron and ferritin levels low P: She will call [facility] to reschedule colonoscop y. In the meatime, will do IFOB stool cards Abnormal u terine bleeding 9610446874 9100 N93.9 A: She saw [facility] in Spring 2020 for abnormal vaginal bleeding. She was prescribed OCP briefly in Spring 2020 by [facility] but she never took it. A uterine [...] to be seen. Iron defic iency anemia 14929567 D50.9 A: Iron deficiency anemia per 12/2019. Not taking a multivitam in with iron. No black stool or blood with bowel movements. Does not feel tired or short of breath. P: Recheck iron, ferritin. do IFOB stool cards. call [facility] for consult prior to colonscopy Presbyopia 16584648 H52. 4 A: wears glasses for near/far vision. Some light sensitivit y lately. P: Discussed establishi ng with a new ophthalmol ogist. 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 Celebrex helps, but definitely stirs up reflux sxs. Discussed that after she gets Covid vaccine, should look into getting Shingrix and pneumococc al vaccinatio ns. Plan: Continue Humira, Only take Celebrex when absolutely needed. Return 6 mo (Dr Pardo). Gastroesop hageal reflux disease 537417524 K21.9 She describes rather prominent reflux sxs. Improved with prilosec and also sleeping upright. Discussed risks of Celebrex. Limit dosing. I advised increasing dose of omeprazole to 40/d, and strongly urged that she discuss this at upcoming GI appointmen t. [id number] Braden Pardo MD Rheumatol [place], [address] [place] [address] 09/13/2020 07:50:55 09/13/2020 19:09:11 Ankylosing spondylitis 7149434 M45.9 ankylosing spondyliti s: There is grade [...] sooner if needed. Gastroesop hageal reflux disease 568607869 K21.00 Pepcid for heartburn symptoms. Restart Prilosec till she sees GI, she has an appointmen t next week. Risk of GI bleed was extensivel y discussed with patient but she states that she cannot stop celebrex. [id number] MD LISA Luther, [facility], OFFICE [address] [facility] [place] [address] 03/07/2021 13:39:14 03/07/2021 15:07:31 Adult health examination 686406766 Z00.00 see Risk Assessment and Lifestyle Change [...] (per rheumatolo gist)Decli jaqueline flu vax Counseling 587916187 Z71 .9 including cardiovasc ular risk reduction counseling Depression screening 171 501427 Z13.31 depression screening tool administer ed, entered into emr, scored and discussed, time greater than 7.5 minutes. Mood is good Screening for alcohol abuse 643885470 Z13.39 1-2 drinks per year Hyperlipidemia 06347638 E78.5 A: Per 02/2018 LDL 158, HDL [...] to try now History of supraventricular tachycardia 8802430547 4411934 Z86.79 A: s/p ablation in [place] circa 2009. She saw cardiologi st Dr. Germán Wing in 06/2018 for a consultati on. 08/2018 ECHO was normal. Taking 25 mg metoprolol . Rare palpitatio ns No dizziness. P: Continue metoprolol and annual cardiology follow up. Ankylosing spondylitis 3508308 M45.9 A: Followed by Dr. Burton and Dr. Pardo who prescribes Humira and celebrex Anklyosing spondyliti s contributi ng to chronic lower back pain but pain is less with Humira. Also followed by wildland fire fighter specialist Dr. Payam Jj; 08/2016 MRI of lumbar spine showed scoliosis and DDD. P: encouraged healthy diet and exercise for weight loss; continue to follow with Dr. Jj for pain management Immunization due 2673581 08 Z28.3 Overdue for flu vaccine and Prevnar 13 (per rheumatchantal mckeon) Screening for malignant neoplasm of cervix 421090339 Z12.4 A: Pap: 02/2018 pap was normal; due for repeat now. LMP @ 06/2020 Pap done today Hypothyroidism 20093211 E03.9 A: well controlled on 125 mcg levothyrox ine daily per 02/2018 TSH of 2.75 and 02/2019 TSH of 2.19 and 03/2020 TSH 2.26 P: Continue levothyrox ine. Check TSH now and once a year. Gastro-eso phageal reflux disease with esophagitis 861345390 K21.00 Well controlled on PRN omeprazole - when she takes celebrex she uses omeperazol e. Screening for disorder 777418732 Z11.59 Rationale for screening discussed. Agrees to testing. Screening mammography 24 174949 Z12.31 A: 08/15/2020 mammogram was normal P: Plan for repeat mammogram 08/2021 Active or passive immunization 022726523 Z23 declines flu vaccine.Sh e is on Humira, Prevnar 13 administed (recommend ed by [facility]) [id number] Braden Pardo MD Rheumatol [place], [facility] [address] [place] [address] 04/11/2021 10:19:58 04/13/2021 06:14:34 Ankylosing spondylitis 3290662 M45.9 ankylosing spondyliti s: There is grade [...] sooner if needed. Gastroesop hageal reflux disease 276151241 K21.00 And gastritis. On PPI.Was evaluated by GI. Long-term drug therapy 115156676 Z79.899 On Humira and celebrex. Patient ot have a full skin exam with pcp or dermatolog y.Patient to hold humira if fever or any sign of infection. Decrease celebrex to 100 mg.She is taking now 200 mg three times a week, she has gastritis, she understand s the risk of bleeding.W maurisio down slowly, as much as possible. [id number] Braden Pardo MD Rheumatol [place], [address] [place] [address] 08/21/2021 15:07:20 08/23/2021 08:12:20 Ankylosing spondylitis 7197821 M45.9 ankylosing spondyliti s: There is grade [...] sooner if needed. Gastroesop hageal reflux disease 501767791 K21.00 And gastritis. On PPI.Was evaluated by GI. Long-term drug therapy 368271272 Z79.899 On Humira and celebrex. Patient had a full skin exam with pcp.Patien t to hold humira if fever or any sign of infection. Monitor labs. Decrease in height 01347 005 R29.890 Check thoracic radiograph s. 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 Needs genetic testing.Marcos fernandes ot discuss with pcp referral to [place] or [facility]. [id number] MD LISA BEJARANO, [facility], [address] [place] [address] 08/15/2021 13:10:49 08/15/2021 14:38:47 Multiple benign melanocytic nevi 083554542 D22.9 few, no concerning featuresCo ntinue to monitor your skin for lesions that don't look typical for you.Call with any concerns - changes in size, shape or color. Make sure that any lesions that are inflamed or bleeding heal as expected. threshold to recheck is 1 month if symptomati c See dermatolog ist as needed Solar degeneration 02480 006 L57.8 scattered freckling, no concerning lesionsZin c oxide/kimberlee nium dioxide SPF QD recommende d rather than chemical-b ased SPF as more effective for UV radiation protection ; full spectrum SPF 50 blocks 98% of UVA/UVB rays. Pigmented actinic keratosis [id number] L57.0 R lateral/mi d above eyebrow, no [...] of malignant basal cell neoplasm of skin 076993537 Z85.828 multiple sites, last on nasal dorsum, treated with 5FU without f/u bx done, 2019no concerning features noted today, no current need to re-bx at this time. Long-term current use of immunosuppressive drug 305099687 Z79.899 Humira, increases risk of NMSC pt will call prn any non-healin g lesions [id number] Braden Pardo MD Rheumatol og, [facility] [address] [facility] [place] [address] 02/20/2022 09:15:55 02/25/2022 17:05:20 Ankylosing spondylitis 2723230 M45.9 ankylosing spondyliti s: There is grade [...] already received my letter. Long-term drug therapy 956315283 Z79.899 On Humira. Patient had a full skin exam with pcp.Burt g Humira because of neutropeni a/lymphocy tosis.Need s hematology evaluation . 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 Hold Humira for now.Recomm end hematology evaluation .Patient stated that she will discuss this with her pcp, she did not want a referral today. [id number] Marilyn Ceron MD , [facility], OFFICE [address] [facility] [place] [address] 03/20/2022 15:36:41 03/20/2022 16:23:50 Adult health examination 672173439 Z00.00 51 year old female patient presents for a wellness visit.Reti ishaan.Lives with her , Jenna.Heal th care proxy completed: Jenna is her HCP.Colon [...] and neutropeni a; Humira stopped recently. 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 Rafael Rehman was placed 02/26/2022 and updated to STAT referral today Advised to hold off on Shingrix vaccine until hematology consultati on Basal cell carcinoma of skin 840560840 C44.91 A: Was Followed by [facility]; in 10/2018, switched to [facility]. Saw Dermatolog y in 12/2018.No w followed by Ruby Lancaster at [facility] - last seen 08/2021.No new skin lesions P: See Ruby Long in 08/2022. Sunscreen. Hypothyroidism 65318872 E03.9 A: 08/17/2021 TSH 0.28 on 125 mcg levothyrox ine daily; advised to reduce to 6.5 tabs/week on 08/18/202102/2022 TSH of 1.84 on 6.5 tabs per week indicates dose is appropriat e P: Continue levothyrox ine 6.5 tabs per week. Check TSH once a year Hyperlipidemia 70467484 E78.5 A: Per 02/2018 LDL 158, HDL [...] in 3 days per week Ankylosing spondylitis 1922310 M45.9 A: Was followed by Dr. Burton and Dr. Pardo who prescribed HumiraHold ing humira at this time due to abnormal CBC 08/2016 MRI of lumbar spine showed scoliosis and DDD Did not tolerate celebrex - GERD Anklyosing spondyliti s contributi ng to chronic lower back pain but pain was less with Humira. Also followed by wildland fire fighter specialist Dr. Payam Jj who prescribes oxycodone [...] I can place a referral. Screening mammography 24 545218 Z12.31 A: Breast cancer screenin08/2021 mammogram was normal.Mari cts for every year mammogram. P: Plan for repeat mammogram 08/2022 [id number] Marilyn Ceron MD , [facility], OFFICE [address] [facility] [place] [address] 06/21/2022 13:44:54 06/21/2022 15:08:49 Diarrhea 83314746 R19.7 A: Here with her Mary for [...] may have been the culprit. Ankylosing spondylitis 6988160 M45.9 A: Was followed by Dr. Burton and Dr. Pardo who prescribed HumiraHold ing humira at this time due to abnormal CBC 08/2016 MRI of lumbar spine showed scoliosis and DDD Did not tolerate celebrex - GERD Anklyosing spondyliti s contributi ng to chronic lower back pain but pain was less with Humira. Also followed by wildland fire fighter specialist Dr. Payam Jj who prescribes oxycodone [...] that I can place a referral. Hyperlipidemia 23615367 E78.5 A: Per 02/2018 LDL 158, HDL [...] lipids and liver function in 3 months Mediterbrody maurisio diet. [id number] SCOTTY Manzano MD FP, [facility], OFFICE [address] [facility] [place] [address] 08/13/2022 13:18:19 08/13/2022 15:37:20 Multiple benign melanocytic nevi 870103623 D22.9 few, no concerning featuresCo ntinue to monitor your skin for lesions that don't look typical for you.Call with any concerns - changes in size, shape or color. Make sure that any lesions that are inflamed or bleeding heal as expected. threshold to recheck is 1 month if symptomati c See dermatolog ist as needed Pigmented actinic keratosis 464544046 L57.0 R lateral/mi d above eyebrow, no concerning features. monitor for stabilityc onsider shave bx if changes due to use of immunosupp ressantpt will follow up with us prn changes Can use Adapalene gel 0.1% oTc) can be irritating , start every other night. This may cause the AK to diminish. Wear hats and SPF clothing. Solar degeneration 94110 006 L57.8 scattered freckling, no concerning lesionsZin c oxide/kimberlee nium dioxide SPF QD recommende d rather than chemical-b ased SPF as more effective for UV radiation protection ; full spectrum SPF 50 blocks 98% of UVA/UVB rays. History of malignant basal cell neoplasm of skin 234276778 Z85.828 multiple sites, last on nasal dorsum, treated with 5FU without f/u bx done, 2019no concerning features noted today, no current need to re-bx at this time. Neoplasm o f uncertain behavior of skin of face 99113610 D48.5 mid nose at site of prior 5 FU use, sent for pathology Basal cell carcinoma of nose 240159901 C44.311 mid nose: MOHS recommende d. portal message sent.- Basal cell carcinoma, nodular type. Advised to check with insurance. - The tumor extends to the base of the submitted tissue. [id number] DO LISA HERNÁNDEZ, [facility], OFFICE [address] [facility] [place] [address] 03/26/2023 13:13:31 03/26/2023 14:31:43 Adult health examination 240109353 Z00.00 52 year old female patient presents [...] from Humira to Enbrel Depression screening 171 140579 Z13.31 depression screening tool administer edMood is good Screening for alcohol abuse 596582700 Z13.39 Alcohol use screening tool administer edRare alcohol use - once a year Vaccine de clined by patient 7936181750 02 Z28.20 Offered flu vaccine today; declinedEn couraged to discuss Shingrix vaccine with rheumatolo gist Screening mammography 24 806842 Z12.31 Breast cancer screenin10/2022 mammogram was normal.Mari cts for every year mammogram. Plan for repeat mammogram 10/2023 Ankylosing spondylitis 7139705 M45.9 A: Was followed by Dr. Burton and Dr. Pardo who prescribed HumiraNow followed by [place] rhematolog ist Dr. Lanza.08/09 017 MRI of lumbar spine showed scoliosis and DDDDid not tolerate celebrex - GERD Anklyosing spondyliti s contributi ng to chronic lower back pain but pain was less with Humira. Also followed by wildland fire fighter specialist Dr. Payam Jj who prescribes oxycodone for her back pain.Inter jairo history 03/26/2023: 02/25/2023 rheumatolo gy new patient consult with Dr. James Lanza for ankylosing spondyliti s; on Humira but no longer having benefit with HumiraDr. Lanza advised switching from Humira to Enbrel [...] with Dr. Jj for pain management Hypothyroidism 39506037 E03.9 A: 08/17/2021 TSH 0.28 on 125 mcg levothyrox ine daily; advised to reduce to 6.5 tabs/week on 08/18/202102/2022 TSH of 1.84 on 6.5 tabs per week indicates dose is appropriat e 02/21/2023 TSH was 0.05 on 125 mcg daily; dose was reduced to 100 mcg daily on 02/24/2023 P: Continue 100 mcg daily and recheck TSH @ 05/20/2023 Hyperlipidemia 72657888 E78.5 A: Per 02/2018 LDL 158, HDL [...] diet. 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 Per 08/26/[address] Lanza: mild neutropeni a present since 2014, improved since 05/2023 Stopped Humira on 02/20/[address] Pardo due to neutropeni aNow on Taltz for ankylosing spondyliti s as prescribed by Dr. Lanza Saw [facility] hematologi Dr. Rafael Rehman 08/2022 and suspected lymphocyto [...] regular CBC monitoring with rheumatolo gy Neutropenia 470525183 D7 0.9 A: Lymphocyto sis since 2018; [...] s as prescribed by Dr. Lanza Saw [facility] hematologi Dr. Rafael Rehman 08/2022 and suspected lymphocyto [...] regular CBC monitoring with rheumatolo gy Hypothyroidism 79974055 E03.9 A: 08/17/2021 TSH 0.28 on 125 [...] and recheck TSH once a year Hyperlipidemia 39313534 E78.5 A: Per 02/2018 LDL 158, HDL [...] to daily. Recheck lipids once a year Sue maurisio diet. Screening mammography 24 402142 Z12.31 Breast cancer screenin10/2022 mammogram was normal.Mari cts for every year mammogram. Discussed - scheduled for 11/14/2023 Submandibu lar sialolithiasis 463664325 K11.5 A: Left sided submandibu lar swelling x years; fluctuates in size. Ddx: salivary gland stone vs lymph node P: Suck on lemon drops, stay hydrated; handout on massage techniqueU S ordered to check for stone vs atypical lymph node Ankylosing spondylitis 1647382 M45.9 A: Was followed by Dr. Burton and Dr. Pardo who prescribed HumiraNow followed by [place] rhematolog ist Dr. Lanza.08/09 MRI of lumbar spine showed scoliosis and DDDDid not tolerate celebrex - GERD Anklyosing spondyliti s contributi ng to chronic lower back pain but pain was less with Humira. Also followed by wildland fire fighter specialist Dr. Payam Jj who prescribes oxycodone [...] follow with Dr. Jj for pain management [id number] Marilyn Ceron MD , [facility], OFFICE [address] [place] [address] 03/01/2024 10:38:53 03/01/2024 11:22:15 Ankylosing spondylitis 3338362 M45.8 A: Was followed by Dr. Burton and Dr. Pardo who prescribed HumiraRece ntly followed by [place] rhematolog ist Dr. Lanza.08/09 MRI of lumbar spine showed scoliosis and DDDDid not tolerate celebrex - GERDHumira and Taltz were ineffectiv eEnbrel was stopped Anklyosing spondyliti s contributi ng to chronic lower back pain but pain was less with Humira. Also followed by wildland fire fighter specialist Dr. Payam Jj who prescribes oxycodone [...] soon. P: She has been referred to [facility] rheumatolo gy for medication s, labs and monitoring Encourage d healthy diet and exercise for weight loss; this provider will temporaril y take over prescribin g pain medication s for Dr. Jj until he returns 05/2024 Long-term current use of drug therapy 753931956 Z79.899 Taking hydrocodon e chronicall y as [...] is still helpful for pain Microcytic anemia 891568 007 D50.9 A: 02/25/2024 CBC showing microcytic [...] in stomach. Saw hematologi st Dr. Rafael Rehamn in 08/2022 for consult regarding lymphocyto sis [...] request of rheumatolo gy Mixed hyperlipidemia 267 270834 E78.2 A: Per 02/2018 LDL 158, HDL [...] maurisio diet. Vaccine de clined by patient 4790890029 02 Z28.20 Offered flu vaccine today; declined [id number] Rodney Saldana Jr. MD FP, [facility], OFFICE [address] [facility] [place] [address] 04/06/2024 08:42:20 04/06/2024 10:00:00 Solar degeneration 34706465 L57.8 scattered freckling, no concerning lesionsZin c oxide/kimberlee nium dioxide SPF QD recommende d rather than chemical-b ased SPF as more effective for UV radiation protection ; full spectrum SPF 50 blocks 98% of UVA/UVB rays. Keratosis pilaris 054748 5 Q82.8 b/l upper arms.mild on upper arms, moisturize , avoid luffa scrubbings uggested dietary changes such as gluten, dairy and sugar free diet may reduce inflammati on and Part of the atopic triad of allergies, asthma & eczema; thus, a chronic skin condition worsened by harsh chemicals, dry weather and picking. Use gentle soaps (Dr. Wilson's [place]; avoid Ivory, Dial or Finnish Spring).Mo isturize each day to improve skin barrier function. (oTc Cerave, Sarna, Vanicream) .ALL Free & Clear preferred laundry products, no dryer sheets, etc.Avoid prolonged bathing with hot water.Parvez mmend cetirizine each AM, +/- benadryl as tolerated at PM. Actinic keratosis 007 L57.0 HAK on R lateral eyebrow, treated with [address] today, recheck in 6 months. Aware results Skin tag 744827917 L91.8 R groin treated with LN2 today [place] hairs 374857709 L 67.8 May indicate vitamin C deficiency or may be positional due to severe scoliosis. Portal message sent. Basal cell carcinoma of nose 923642380 C44.311 mid nose: 08/2022, no recurrence will monitor yearly. Red flag symptoms reviewed. Long-term current use of immunosuppressive drug 591460877 Z79.899 Humira, increases risk of NMSC pt will call prn any non-healin g lesions [id number] Marilyn Ceron MD , [facility], [address] [place] [address] 05/26/2024 08:54:44 05/26/2024 10:40:16 Adult health examination 069957609 Z00.00 53 year old female patient presents for a wellness visit.Reti red.Lives with her , Jenna.[facility] care proxy completed: Jenna is her HCP. [...] 254, ASCVD risk 2.3% Depression screening 171 219108 Z13.31 depression screening tool administer edMood is good Screening for alcohol abuse 302075034 Z13.39 Alcohol use screening tool administer edRare alcohol use Screening mammography 24 590310 Z12.31 Breast cancer screenin11/2023 mammogram was normal.Rep eat due 11/2024 Discussed and ordered Ankylosing spondylitis 3536584 M45.9 A: Was followed by Dr. Burton and Dr. Pardo who prescribed HumiraNow followed by [facility] rhematolog ist Dr. Lanza. Also followed by wildland fire fighter specialist Dr. Payam Jj who prescribes oxycodone [...] history 05/26/2024N ow prescribed Simponi by [facility] curiel but changing to [facility] rheumatchantal gy due to location P: She has been referred to [facility] rheumatolo gy for medication s, labs and monitoring and will establish with [facility] in 09/2024 Encouraged healthy diet and exercise for weight loss History of supraventricular tachycardia [id number] 4895821 Z86.79 A: s/p ablation in [place] circa 2009. She saw cardiologi st Dr. Salinas in 09/2022 for a consultati on. 08/2018 ECHO was normal. Taking 25 mg metoprolol . Rare palpitatio ns No dizziness. P: Continue metoprolol and annual cardiology follow up. Hypothyroidism 04280653 E03.9 A: 08/17/2021 TSH 0.28 on 125 [...] yearDue for recheck today Mixed hyperlipidemia 267 098661 E78.2 A: Per 02/2018 LDL 158, HDL [...] diet. Pain of bi lateral knee joints 7872300593 51065 M25.561 M25.562 A: Bilateral knee pain for [...] Peck Member ID Guarantor Name 09/19/2023 1 [facility] (O) [id number] Jenna Petersont i [id number] Eliana Abhishekiglietti 05/13/2023 1 [facility]LY [facility] - DOS ON OR AFTER 2022 - [facility] (MEDICAID REPLACEMENT - HMO) Eliana Avitiaiett i [id number] Eliana Weissiglietti 09/14/2024 1 [facility] - DIRECT CONNECTORCARE TYPE I (HMO) [id number] Elianamaximus Weissigliett i [id number] Eliana Weissiglietti 04/11/2021 1 [place] [facility] Eliana Weissigliett i [id number] Eliana Famiglietti 09/06/2023 1 [facility] - DIRECT CONNECTORCARE TYPE III (HMO) [id number] Eliana Weissigliett i [id number] Eliana Famiglietti 04/11/2021 1 [facility] - [place] (HMO) [id number] Eliana vAila Famigliett i [id number] Eliana Famiglietti 07/24/2022 1 [place] [facility] Eliana Weissigliett i [id number] 4 Eliana Famiglietti 04/11/2021 1 [facility] (O) [id number] Eliana Weissigliett i [id number] Eliana Weissiglietti 04/11/2021 1 [place] [facility] (POS) Jenna Alberto i [id number] Eliana Carter 04/11/2021 1 [facility] [employer] - TOGETHER (MEDICAID HMO) [id number] Eliana Alberto i [id number] Eliana Carter 04/11/2021 1 [place] PROVIDERS ONLY PPO) [id number] Jenna Petersonzuleyka desi [id number] Eliana Carter 06/21/2022 1 [place] - [facility] PRIOR TO 06/08/2022 - [facility] (MEDICAID) Eliana Alberto i [id number] Eliana Carter Notes Date Note Type [...] less since switching from Humira to Enbrel MARIZA BenitoC [address] [place], [phone], [facility] 03/26/2023 14:06:11 09/19/2023 text/html Here with her [...] 3 days per week; tolerating NISSA Benito [address] [place], [phone], [facility] 09/19/2023 10:00:41 03/01/2024 text/html Here with her wi cherrie Hernandez. She is taking hydrocodone chronically as prescribed by Dr. Payam Jj for ankylosing spondylitis.[facility] is temporarily taking over prescribing for Dr. Jj while he is on medical leave until [employer] checked. A 28 day Rx of hydrocodone [...] hiatal hernia and erosions in stomach. Saw precision grinder Dr. Rafael Rehman in 08/2022 for consult regarding lymphocytosis and neutropenia in the setting of taking biologics for ankylosing spondylitis. Per Dr. Rehman, ok to continue biologics as long as neutrophil count > 1 K Lymphocytosis and neutropenia have resolvedShe now has microcytic anemia and thrombocytosis Takes rosuvastatin 3 days per week; but diet has been higher on dairy recently NISSA Benito [address] [place] [address], [phone], [facility] 03/01/2024 11:21:38 04/06/2024 text/html Here today for [...] itch or pain Aaron Lancaster PA-C [address] [place], [address], [facility] 04/06/2024 09:54:45 05/26/2024 text/html Risk Assessment AdultReported bypatient.Coronary Artery Disease Risk Assesment:Family History of Coronary Artery Disease; No personal history of diabetes; No history of peripheral vascular disease, AAA, or carotid disease; No personal history of coronary artery disease; Patient has higher than average risk for coronary artery disease; [place] 10 year cardiac risk less than 5% [...] reconstruction of right knee in 1992. Chrissie Veras, RPA-C [address] [place] [address], [phone], [facility] 05/26/2024 10:06:21 OBGyn Episode No OBEpisode recorded.
== END 2024-09-20 10:20 | disposition home or self-care (01) ==
LOC: HO.PMC 09:26
PROVIDERS: PCP Physician Assistant; Visit Provider Internal Medicine
DX: M45.8 Ankylosing spondylitis sacral and sacrococcygeal region (principal); M51.369 Other intervertebral disc degeneration, lumbar region without mention of lumbar back pain or lower extremity pain; M46.92 Unspecified inflammatory spondylopathy, cervical region
CPT/HCPCS: 99204

== ENCOUNTER → 2024-09-20 09:25 | Outpatient (BNVA) | payer OTHER, SELFPAY | PROVIDERS: PCP Physician Assistant; Visit Provider Internal Medicine | DX: M45.8 Ankylosing spondylitis sacral and sacrococcygeal region (principal); M51.369 Other intervertebral disc degeneration, lumbar region without mention of lumbar back pain or lower extremity pain; M46.92 Unspecified inflammatory spondylopathy, cervical region | CPT/HCPCS: 99202 ==

== ENCOUNTER 2025-01-14 14:31 | Outpatient (AMB) | payer OTHER, SELFPAY ==
--- NOTE | 2025-01-14 14:39 | A.OFFVIS_ITS ---
Vital Signs 01/14/25 15:03 Height 5 ft 8 in Weight 205 lb 4.006 oz BMI 31.2 BP 115/80 Blood Pressure Location Lt brachial Position Sitting Pulse 86 Pulse Source Pulse Oximeter Pulse Oximetry (%) 96 Oxygen Delivery Method Simple Mask Intake Visit Reasons: Intake Note: Patient presents for follow up. Allergies erythromycin base Adverse Reaction (Unknown, Verified 01/14/25 15:02) Unknown Medication List - Last Reconciled 01/14/25 by Kelsy Martínez MD coenzyme Q10 60 mg PO DAILY ferrous sulfate (Phuong-Time) 325 mg PO DAILY [gREENS CAPULE PO] hydrocodone-acetaminophen 5-325 mg tabs PO levothyroxine 100 mcg PO DAILY magnesium citrate 400 mg PO BID metoprolol succinate ER 25 mg PO DAILY multivitamin 1 tab PO DAILY ondansetron 4 mg PO ONCE potassium gluconate 600 mg PO DAILY rosuvastatin mg PO DAILY suzetrigine (Journavx) 50 mg PO Q12H 30 days [tulsiholybasil PO] HPI Comments Details: Patient is a 54-year-old female with hypothyroidism, hyperlipidemia, hypertension, GERD with hiatal hernia, polyarticular osteoarthritis, scoliosis and ankylosing spondylitis here today for follow up Interval History: Patient last seen 09/16/24 with me - On Simponi 50mg every 4 weeks - Worsening back pain - Unable to take NSAIDs due to hiatal hernia - PIP injections helped - Gave IM toradol as patient was in visible pain - Changed meds to IV Remicade 5mg/kg every 6 weeks Today - On Remicade IV 5mg/kg every 6 weeks - Trialed Journavax and had some improvement in her pain while on it - No change in her pain currently Rheumatologic History: HLA b27 + onset around 2016 sacroiliitis on X-ray Celebrex helpful but causes GI upset, esophagitis Humira 2017 initially helpful then has secondary non response Siomara 03/2023 MCKINLEY 08/2023 due to secondary nonresponse Karthikeyan 08/2023 MCKINLEY 12/2023 ineffective Current Rheumatology Medication(s): IV Remicade 5mg/kg every 6 weeks PFSH Medical History Morphea Scoliosis deformity of spine Hypothyroidism Chronic low back pain Ankylosing spondylitis Raynaud's disease Surgical History S/P ACL repair H/O basal cell carcinoma excision Family History Mother Mental disorder Father Parkinson disease Sister Thyroid malignant neoplasm Maternal Grandfather Myocardial infarction Maternal Grandmother Pancreatic tumor Diabetes Daughter Hypermobile joints Social History Household Members: Spouse Alcohol intake: current Alcohol intake frequency: holidays/special occasions only Patient Tobacco Use Status: Former Tobacco user Current occupational status: unemployed Review of Systems Narrative Review of Systems Constitutional: Denies fever, chills, weight loss ENT: Denies vision changes, eye pain or eye redness, dental caries, dry mouth GI: Denies nausea, vomiting, diarrhea, abdominal pain, change in BM Pulm: Denies SOB, JUNG, hemoptysis, wheezing Cards: Denies chest pain, palpitations Skin: Denies Raynaud's, rash, nail changes, photosensitivity, GO GO DANCER: Denies headaches, weakness, paresthesias, recurrent falls MSK: as per HPI All other systems reviewed and are unremarkable except noted above Physical Exam Exam Exam: Vital signs reviewed Physical Examination CONSTITUITIONAL Patient alert and cooperative. Well appearing and in no apparent painful distress MSK Hands * Right Hand: Able to make a fist. No swelling or tenderness to palpation of the MCPs, PIPs or DIPs. * Left Hand: Able to make a fist. No swelling or tenderness to palpation of the MCPs, PIPs or DIPs. * Herbedens and Bouchards nodes noted bilaterally with deformities Wrists * Right Wrist: Full ROM to flexion and extension. No swelling or TTP * Left Wrist: Full ROM to flexion and extension. No swelling or TTP Elbows * Right Elbow: Full ROM. No swelling or TTP. No TTP of the medial epicondyle. No TTP of the lateral epicondyle * Left Elbow: Full ROM. No swelling or TTP. No TTP of the medial epicondyle. No TTP of the lateral epicondyle Shoulders * Right shoulder: Full ROM. No swelling noted. No TTP of the AC joint. No TTP of the subacromial bursa. No TTP of the posterior shoulder * Left shoulder: Full ROM. No swelling noted. No TTP of the AC joint. No TTP of the subacromial bursa. No TTP of the posterior shoulder Knees * Right knee: No swelling noted. No TTP of the knee joint line. No TTP of pes anserine bursa * Left knee: No swelling noted. No TTP of the knee joint line. No TTP of pes anserine bursa. * Crepitations felt bilaterally Ankles * Right ankle: Good ankle dorsiflexion and plantar flexion. No swelling. No TTP of the ankle joint * Left ankle: Good ankle dorsiflexion and plantar flexion. No swelling. No TTP of the ankle joint Feet * Right foot: Negative squeeze test * Left foot: Negative squeeze test Tender points? * No tenderness to palpation of the bilateral trapezius, supraspinatus, anterior costochondral junctions, bilateral suboccipital muscle insertions Spine * Abnormal curvature noted consistent with scoliosis SKIN No rashes Vital Signs: Last Vital Signs Pulse 86 01/14/25 15:03 BP 115/80 01/14/25 15:03 Pulse Ox 96 01/14/25 15:03 Oxygen Delivery Method Simple Mask 01/14/25 15:03 BMI result Body Mass Index 31.2 Office Procedures AMB Joint Injection/Aspiration Coding - Small Joint Procedure code (CPT) selection complete Office Meds lidocaine (PF) 10 mg/mL (1 %) injection solution Performing Provider: Kelsy Martínez MD Performing Location: [facility] Administered by: Sheila Lynne RN on 01/14/25 15:29 Dose Route Admin Location Dispensed Lot Number Expiration Date [facility] [employer] 0.5 mL Infiltration left 3rd pip 2 mL [id number] 08/07/26 54904-081-60 [employer] Total Dispensed Waste 2 mL 75 % Kenalog 40 mg/mL suspension for injection Performing Provider: Kelsy Martínez MD Performing Location: [facility] Administered by: Sheila Lynne RN on 01/14/25 15:29 Dose Route Admin Location Dispensed Lot Number Expiration Date [facility] [employer] 20 mg intra-articular left 3rd pip 1 mL [id number] 09/06/26 22553-060 9-1 [employer] Total Dispensed Waste 1 mL 50 % Results Reviewed Results Reviewed: [facility] 05/2024 VMG 09/2024 VMG 12/2024 WBC 4.96 5.77 7.19 Hb 12.3 10.7 12.2 Plt 447 484 456 BUN 19 Cr 0.9 0.8 eGFR >60 >60 AST 26 ALT 36 ESR 9 25 H 18 H CRP 3.3 2.0 3.6 T spot Negative Hep B Surface Ab Non Reactive Hepatitis B Surface Ag Non Reactive Hepatitis B Core Ab Non Reactive Hepatitis C Ab Non Reactive Assessment & Plan Assessment & Plan (1) Ankylosing spondylitis: Comment: HLA b27 + onset around 2016 sacroiliitis on X-ray Celebrex helpful but causes GI upset, esophagitis Humira 2018 initially helpful then has secondary non response Enbrel 03/2023 DC 08/2023 due to secondary nonresponse Taltz 08/2023 DC 12/2023 ineffective Simponi stopped 09/2024 IV Remicade infusions started 12/2024 Code(s): M45.9 - Ankylosing spondylitis of unspecified sites in spine Category: Medical Qualifiers: Ankylosing spondylitis location: sacrococcygeal region Qualified Code(s): M45.8 - Ankylosing spondylitis sacral and sacrococcygeal region Plan: #Ankylosing spondylitis Patient is a 53-year-old female with HLA B27 positive ankylosing spondylitis here today for follow up. On the 2nd induction dose of Remicade Will continue to monitor patient's response She did look better today, but patient states that could be because she has been in bed mostly Still hurts to move Hopefully will have improvement We will also try to do another course of Journvax Plan - IV Remicade 5mg/kg every 6 weeks - Journvax 50mg po q12 - RTC 4 months - Labs before visit: CBC, CMP, ESR, CRP (2) Osteoarthritis of hands, bilateral: Comment: Steroid injection: - left 3rd PIP 05/2024 - left 2nd DIP 05/2024 Code(s): M19.041 - Primary osteoarthritis, right hand; M19.042 - Primary osteoarthritis, left hand Category: Medical Qualifiers: Osteoarthritis type: primary Qualified Code(s): M19.041 - Primary osteoarthritis, right hand; M19.042 - Primary osteoarthritis, left hand Plan: #Bilateral hand OA Patient with polyarticular osteoarthritis but in particular she has bilateral hand osteoarthritis with left hand worse than right hand because she has left handed. Requesting left 3rd PIP injection today Plan - s/p left 3rd PIP injection () High risk medication use: Code(s): Z79.899 - Other mcfp (current) drug therapy Category: Medical Plan: #Long-term Use of TNF Inhibitors: Remicade Discussed with the patient the benefits and risks of TNF inhibitors for the management of the rheumatic condition Benefits include reduce pain, maintenance of remission and reduction of flares as well as ?progression of the disease Risks include injection sites/infusion reactions, serious infections (such as bacterial infections, opportunistic infections), malignancy, delaminating syndromes, autoimmune phenomena, CHF exacerbations, palmar plantar psoriasis and cytopenias Recommended rotating injection sites, and holding medication during and for up to 1 week after resolution of a febrile illness or open skin wound Plan I spent 30 minutes reviewing the record and labs, taking a history, examining the patient, discussing the treatment plan, ordering diagnostic work up and documenting in the medical record Orders: Orders C Reactive Protein 4 Months Z79.89 - Other intermission coordinator (current) drug therapy Erythrocyte Sedimentation Rate 4 Months Z. - Other m[facility]p (current) drug therapy AMB Joint Injection/Aspiration Today M19.041 - Primary osteoarthritis, right hand, M19.042 - Primary osteoarthritis, left hand Complete Blood Count Auto Diff 4 Months Z. - Other intermission coordinator (current) drug therapy Comprehensive Met. Panel 4 Months Z.89 - Other m[facility]p (current) drug therapy Medications: Refilled suzetrigine (Journavx) 50 mg PO Q12H 60 tabs 3RF 30 days M45.8 - Ankylosing spondylitis sacral and sacrococcygeal region Discontinued golimumab (Simponi) Discontinued Reason: Doctor's Order 50 mg (0.5 mL) subcut Q4W 0.5 mL 5RF M45.8 - Ankylosing spondylitis sacral and sacrococcygeal region Coding Level of Care Code Est Pt Level 4 (39978) Complex EM visit Add On G2211 Diagnoses Ankylosing spondylitis of sacrococcygeal region M45.8 Ankylosing spondylitis location: sacrococcygeal region Primary osteoarthritis of both hands M19.041; M19.042 Osteoarthritis type: primary High risk medication use Z79.89 CPT Codes Coding - 86468 - Small joint: 21190 - Small Joint ([id number])
[2025-01-14 15:03] VITALS: BP 115/80; PULSE 86; O2SAT 96; BMI 31.2
== END 2025-01-14 15:35 | disposition home or self-care (01) ==
LOC: HO.RHES 14:32
PROVIDERS: PCP Physician Assistant; Visit Provider Student in an Organized Health Care Education/Training Program
DX: M45.8 Ankylosing spondylitis sacral and sacrococcygeal region (principal); M19.041 Primary osteoarthritis, right hand; M19.042 Primary osteoarthritis, left hand; Z79.899 Other long term (current) drug therapy
CPT/HCPCS: 20600; 99214

== ENCOUNTER → 2025-01-14 14:31 | Outpatient (BNVA) | payer OTHER, SELFPAY | PROVIDERS: PCP Physician Assistant; Visit Provider Student in an Organized Health Care Education/Training Program | DX: M19.042 Primary osteoarthritis, left hand (principal); M19.041 Primary osteoarthritis, right hand; M45.8 Ankylosing spondylitis sacral and sacrococcygeal region; M54.50 Low back pain, unspecified; G89.29 Other chronic pain; Z79.899 Other long term (current) drug therapy | CPT/HCPCS: 20600; 99212; J2003; J3301 ==

== ENCOUNTER 2025-02-02 10:46 | Outpatient (AMB) | payer OTHER, SELFPAY ==
--- NOTE | 2025-02-02 10:47 | MHC.OFFVIS ---
Vital Signs 02/02/25 10:49 Height 5 ft 8 in Weight 200 lb BMI 30.4 BP 98/72 Blood Pressure Location Lt brachial Position Sitting Respiration 16 Pulse 88 Pulse Source Pulse Oximeter Pulse Oximetry (%) 96 Oxygen Delivery Method Room Air Intake Visit Reasons: Discuss Neck Inj. Desktop Analyst Required: No Accompanied by: Significant Other Allergies erythromycin base Adverse Reaction (Unknown, Verified 02/02/25 10:52) Unknown Medication List - Last Reconciled 02/02/25 by Roxanne Wakefield LPN coenzyme Q10 60 mg PO DAILY ferrous sulfate (Phuong-Time) 325 mg PO DAILY [gREENS CAPULE PO] hydrocodone-acetaminophen 5-325 mg tabs PO infliximab (Remicade) IV levothyroxine 100 mcg PO DAILY magnesium citrate 400 mg PO BID metoprolol succinate ER 25 mg PO DAILY multivitamin 1 tab PO DAILY ondansetron 4 mg PO ONCE potassium gluconate 600 mg PO DAILY rosuvastatin mg PO DAILY suzetrigine (Journavx) 50 mg PO Q12H 30 days [tulsiholybasil PO] HPI HPI Discuss Neck Inj.: Details: History of Present Illness The patient is a 54 year old individual presenting for evaluation and management of chronic neck and low back pain. The patient reports that Remicade is adequate for fatigue but does not provide relief for low back or neck pain. The patient's primary complaint is worsening neck pain, described as a nightmare, which was the initial reason for consultation. The pain occurs with any movement, particularly turning, and has resulted in an inability to drive. The patient has a history of chronic low back pain with associated rotational thoracolumbar scoliosis. Past interventions for back pain include a microdiscectomy in 1999 or 2000, approximately 20-30 epidural injections, facet injections, and two rounds of bilateral four-level ablations, all with limited success. A bone density scan performed over a decade ago was reportedly normal. Relevant medical history includes supraventricular tachycardia (SVT), status post-ablation, for which the patient still experiences arrhythmia and takes a beta-missael. The patient reports being triple jointed and a loss of 4 inches in height. There is a history of a prior ankylosing spondylitis diagnosis and suggestions of Marfan syndrome or Viktoriya-Danlos syndrome, but genetic testing was never completed. Echocardiograms have been normal, with the most recent one performed within the last seven years. - Neck Pain: The patient describes the pain as a nightmare involving the entire neck. - Pain is exacerbated by any movement, especially turning, and feels like grinding. - It is primarily axial and located at the base of the neck. - The patient reports the least range of motion when turning to the left. - The pain is severe enough to prevent the patient from driving. - Back Pain: The pain is localized in the low back without radiation. 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 - It is described as feeling like bones are rubbing together. - Analgesia: The patient reports low back pain of 7-8/10 severity during activities. - Current Remicade therapy is inadequate for back pain. 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 - Adverse Effects: Not discussed. - Affect: The patient describes neck pain as a nightmare. - Aberrant Drug Related Behaviors: Not discussed. - Previously tried for LBP: Oral meds, PT, ESIs, facet injections/RFA (more than 30 in [place]) Physical Exam - Cervical extension and lateral ROM severely limited with pain on attempted facet loading both sides. Results - Imaging: Most recent images are from 2018. Showing rotational thoracolumbar scoliosis. - Bone Density: A test performed over 10 years ago was reportedly fine. - Echocardiogram: An echo performed within the last 7 years was normal. [facility] Medical History Morphea Scoliosis deformity of spine Hypothyroidism Chronic low back pain Ankylosing spondylitis Raynaud's disease Surgical History S/P ACL repair H/O basal cell carcinoma excision Family History Mother Mental disorder Father Parkinson disease Sister Thyroid malignant neoplasm Maternal Grandfather Myocardial infarction Maternal Grandmother Pancreatic tumor Diabetes Daughter Hypermobile joints Social History Household Members: Spouse Alcohol intake: current Alcohol intake frequency: holidays/special occasions only Patient Tobacco Use Status: Former Tobacco user Current occupational status: unemployed Physical Exam Vital Signs: Last Vital Signs Pulse 88 02/02/25 10:49 Resp 16 02/02/25 10:49 BP 98/72 02/02/25 10:49 Pulse Ox 96 02/02/25 10:49 Oxygen Delivery Method Room Air 02/02/25 10:49 BMI result Body Mass Index 30.4 Assessment & Plan Assessment & Plan (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 1. Cervical Facet Syndrome - Plan is for bilateral diagnostic cervical medial branch blocks (MBBs). Has not had cervical facet injections before. - This will be done in a single session due to the patient's transportation difficulties. - If the diagnostic blocks are positive, the plan is to proceed with therapeutic injections approximately 2 weeks later. 2. Thoracolumbar Rotational Scoliosis - Will order a CT of the thoracic and lumbar spine for surgical planning. - The CT is intended to assess the anatomy and potential difficulty of placing an intrathecal pain pump catheter due to the patient's rotational scoliosis. 3. Suspected Connective Tissue Disorder - A referral will be placed to the [facility] clinic for evaluation of possible Marfan syndrome or Viktoriya-Danlos syndrome. - The patient was advised to also call the clinic to follow up on the referral. Discussion Notes I discussed the plan for the patient's chronic neck pain, which involves bilateral diagnostic cervical facet injections. I explained that these are typically done sequentially but agreed to perform them in a single session to accommodate the patient's travel difficulties. If the diagnostic injections provide relief, we will proceed with therapeutic steroid injections. Regarding the low back pain, I explained that the patient's severe rotational scoliosis makes placement of a pain pump catheter very challenging. I have ordered a CT of the thoracic and lumbar spine for pre-procedural planning to assess the feasibility of the catheter implant. We discussed the risks, including the possibility of being unable to place the catheter intraoperatively and the risk of a post-dural puncture headache. We also discussed the possibility of an underlying connective tissue disorder, such as Marfan or Viktoriya-Danlos syndrome, given the patient's history of hypermobility, tall stature and significant height loss, and cardiac history. I explained the value of a definitive diagnosis for personal insight and to guide future cardiovascular surveillance for conditions like aneurysms. I placed a referral to the [facility] clinic for further evaluation. Patient Instructions - You will receive a phone call from the radiology department to schedule a CT scan of your back. This scan is needed to help plan for a possible future pain pump procedure. - We will request authorization for injections in your neck to help find the source of your pain and treat it. We plan to do both sides of your neck in one visit because travel is difficult for you. - A referral has been sent to the genetics clinic at [facility]. Please call them to help schedule your appointment. This is to see if you have a condition that affects your body's connective tissues. - You do not need to come for the separate appointment on February 28 to discuss the pain pump, as we have already discussed it. Orders: Orders CT thoracic spine wo IV con Today M41.9 - Scoliosis, unspecified CT lumbar spine wo IV con Today M41.9 - Scoliosis, unspecified Referrals Genetics Referral Q87.43 - Marfan syndrome with skeletal manifestation Coding Level of Care Code Est Pt Level 4 (36719) Diagnoses Marfanoid hypermobility syndrome Q87.43 Cervical spondylitis M46.92 Scoliosis of thoracolumbar spine M41.9
[2025-02-02 10:49] VITALS: BP 98/72; PULSE 88; RESP 16; O2SAT 96; BMI 30.4
== END 2025-02-02 11:38 | disposition home or self-care (01) ==
LOC: HO.PMC 10:46
PROVIDERS: PCP Physician Assistant; Visit Provider Internal Medicine
DX: Q87.43 Marfan syndrome with skeletal manifestation (principal); M46.92 Unspecified inflammatory spondylopathy, cervical region; M41.9 Scoliosis, unspecified
CPT/HCPCS: 99214

== ENCOUNTER → 2025-02-02 10:46 | Outpatient (BNVA) | payer OTHER, SELFPAY | PROVIDERS: PCP Physician Assistant; Visit Provider Internal Medicine | DX: Q87.43 Marfan syndrome with skeletal manifestation (principal); M46.92 Unspecified inflammatory spondylopathy, cervical region; M47.892 Other spondylosis, cervical region; Z79.899 Other long term (current) drug therapy; M41.35 Thoracogenic scoliosis, thoracolumbar region | CPT/HCPCS: 99212 ==